=== PATIENT | male | born 1950 | race Hispanic/Latino ===

== ENCOUNTER 2016-12-08 06:21 | Day surgery (SDC) | payer MEDICARE ==
[2016-12-06 13:10] VITALS: BMI 34.8
[2016-12-08 07:12] LABS: ADD MANUAL DIFF? NO
[2016-12-08 07:23] LABS: BLOOD UREA NITROGEN 23 mg/dL (7-21); CALCIUM 8.9 mg/dL (8.4-10.5); CARBON DIOXIDE 30 mmol/L (21-33); CHLORIDE 101 mmol/L (95-110); GFR AFRICAN-AMERICAN > 60; GLUCOSE,RANDOM 121 mg/dL (70-110); POTASSIUM 3.9 mmol/L (3.6-5.0); SODIUM 140 mmol/L (132-148)
[2016-12-08 07:25] LABS: INR 0.97 (0.93-1.08); PARTIAL THROMBOPLASTIN TIME 26.1 Seconds (23.7-30.8)
[2016-12-08 07:40] LABS: BASO # 0.04 K/mm3 (0.0-2.0); BASO % 0.7 % (0.0-3.0); EOS # 0.2 (0.0-0.7); GRAN # 3.93 (1.4-6.5); GRAN % 66.3 % (50.0-68.0); HEMATOCRIT 43.5 % (42.0-52.0); LYMPH # 1.3 (1.2-3.4); LYMPH % 21.4 % (22.0-35.0); MEAN CELL VOLUME 88.1 fL (80.0-105.0); MEAN PLATELET VOLUME 10.7 fl (7.0-11.0); MONO # 0.5 (0.1-0.6); MONO % 8.6 % (1.0-6.0); PLATELET COUNT 168 10^3/uL (120.0-450.0); RED CELL DISTRIBUTION WIDTH 13.5 % (11.5-14.5); WHITE BLOOD COUNT 5.9 10^3/ul (4.5-11.0)
[2016-12-08] MEDS ORDERED: Lidocaine 2% Inj (20ml) ONE (09:19)
[2016-12-08] MEDS ORDERED: Iodixanol 320 MG/ML 200 ML BOTTLE IV ONE (09:20)
[2016-12-08] MEDS ORDERED: Midazolam 2 MG/2 ML VIAL ONE ×2 (09:20→09:40)
[2016-12-08] MEDS ORDERED: Sodium Chloride 0.9% 1,000 ML IV SCH (10:30)
--- NOTE | 2016-12-08 10:41 | CARD ---
APPROVED REPORT EKG Measurement Heart [id number] <Conclusion> Normal sinus rhythm Nonspecific T wave abnormality Prolonged QT Abnormal ECG
[2016-12-08 10:45] VITALS: TEMP 97.9
--- NOTE | 2016-12-08 11:09 | CARDCATH ---
PROCEDURE DATE: 12/08/2016 HISTORY: The patient is a 66-year-old male with history of multivessel PTCA and stent in the past. He presents with an abnormal stress test. His ejection fraction had decreased since his last procedure. Because of this, cardiac catheterization was recommended. The patient suffers from COPD, is status post tracheostomy. PROCEDURE: Left heart catheterization with coronary angiography and left ventriculogram. The right femoral artery was cannulated with a 6-German sheath. There were no complications. The findings on catheterization revealed a left ventricle that was seen in the DAVILA projection. In th e DAVILA projection, wall motion is mildly hypokinetic. Estimated ejection fraction is 45-50%. His coronary anatomy revealed a right dominant circulation. The RCA revealed diffuse atherosclerosis with a patent stent in the mid to distal portion. The left main artery was unremarkable. The LAD revealed a patent stent in its proximal portion. There was diffuse atherosclerosis, includin g a 50% stenosis in the mid-portion after the stent. The circumflex artery and obtuse marginal branches revealed diffuse atherosclerosis with no critical lesions. Angio-Seal was used to close the femoral artery site. The patient tolerated the procedure well. In summary, the procedure revealed an LV that was mildly hypokinetic with an EF of 45-50%. There are patent stents in the proximal LAD, patent stents in the mid-RCA. There is a 50% stenosis in the mid-LAD with diffuse atherosclerosis of his coronary tree. Given these findings, the patient's coronary anatomy has not significantly changed from his previous. His LV function is mildly decreased from his previous. Given these findings, I will discuss with the patient about the need to aggressively reduce his cardi ac risk factors. We can stop his Plavix and continue on aspirin. Micky Vincent MD cc: [id number] TT: 12/08/2016 11:08:23 [email or web address]
[2016-12-08 13:05] VITALS: RESP 16
[2016-12-08 16:48] VITALS: BP 116/70; PULSE 64; O2SAT 96
== END 2016-12-08 16:39 | disposition home or self-care (01) ==
LOC: CATH 06:21
PROVIDERS: ATTEND Internal Medicine Cardiovascular Disease
DX: I25.10 Atherosclerotic heart disease of native coronary artery without angina pectoris (principal); J44.9 Chronic obstructive pulmonary disease, unspecified; Z95.5 Presence of coronary angioplasty implant and graft
CPT/HCPCS: 36415; 80048; 85025; 85610; 85730; 86850; 86900; 93005; 93458; 99152; C1760; C1769; C2629; J1644; J2250; J3010; J7040 ×2

== ENCOUNTER 2017-04-23 10:45 | Emergency (ER) | payer MEDICARE ==
[2017-04-23 10:45] VITALS: BMI 34.8
[2017-04-23 10:57] VITALS: BP 113/77; PULSE 78; RESP 19; TEMP 98.2; O2SAT 97
[2017-04-23] MEDS ORDERED: Naproxen 550 mg Tab PO STA (11:18)
--- NOTE | 2017-04-23 11:24 | ED PDOC ---
Arrival/HPI - General Chief Complaint: Lower Extremity Problem/Injury Time Seen by Provider: 04/23/17 11:03 Historian: Patient - History of Present Illness Narrative History of Present Illness (Text): 04/23/17 11:24 A 66 year old male, whose past medical history includes COPD, presents to the emergency department complaining of right foot pain and swelling s/p slip and fall from the shower. Patient reports no pain after fall which was two days ago , but pain developed yesterday. Notes pain is worse when standing. Patient denies any other complaints at this time. PMD: Dr. Parra Orthopedist: Dr. Tipton Time/Duration: 24 hours Symptom Onset: Sudden Symptom Course: Unchanged Activities at Onset: Rest Context: Home Associated Symptoms (Text): none Past Medical History - Provider Review Nursing Documentation Reviewed: Yes - Infectious Disease Hx of Infectious Diseases: None - Cardiac Hx Pacemaker: No - Pulmonary Hx Chronic Obstructive Pulmonary Disease (COPD): Yes - Neurological Hx Paralysis: No - HEENT Hx Cataracts: Yes - Endocrine/Metabolic Hx Hypothyroidism: Yes - Hematological/Oncological Hx Blood Transfusions: No Hx Blood Transfusion Reaction: No - Musculoskeletal/Rheumatological Hx Musculoskeletal Disorders: No - Genitourinary/Gynecological Hx Bladder Cancer: Yes - Psychiatric Hx Emotional Abuse: No Hx Physical Abuse: No Hx Substance Use: No - Surgical History Other/Comment: 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 - Anesthesia Hx Anesthesia: Yes Hx Anesthesia Reactions: No Hx Malignant Hyperthermia: No - Suicidal Assessment Feels Threatened In Home Enviroment: No Family/Social History - Physician Review Nursing Documentation Reviewed: Yes Family/Social History: No Known Family HX Smoking Status: Former Smoker Hx Alcohol Use: No Hx Substance Use: No Hx Substance Use Treatment: No Allergies/Home Meds Allergies/Adverse Reactions: Allergies No Known Allergies Allergy (Verified 04/23/17 10:57) Home Medications: Home Meds Medication Instructions Recorded Confirmed Albuterol/Ipratropium [Duoneb 3 1 inh INH BID 06/18/12 04/23/17 mg/0.5 mg/3 ml] Budesonide [Pulmicort Respules] 0.5 mg IH BID 06/18/12 04/23/17 Aclidinium [place] [Tudorza 400 mcg IH BID 01/06/16 04/23/17 Pressair] Albuterol HFA [Ventolin HFA 90 2 puff IH PRN PRN 01/06/16 04/23/17 mcg/actuation (8 g)] Aspirin [Aspirin EC] 81 mg PO DAILY 01/06/16 04/23/17 Cholecalciferol (Vitamin D3) 2,000 unit PO DAILY 01/06/16 04/23/17 [Vitamin D] Levothyroxine Sodium [Unithroid] 112 mcg PO QAM 01/06/16 04/23/17 Magnesium Oxide [Pharmassure 500 mg PO QPM 01/06/16 04/23/17 Magnesium] Vitamin B Complex [Vitamin B 1 tab PO QAM 01/06/16 04/23/17 Complex] Pantoprazole [Protonix] 40 mg PO DAILY 09/04/16 04/23/17 Vortioxetine Hydrobromide 10 mg PO DAILY 09/04/16 04/23/17 [Trintellix] Pravastatin Sodium [Pravachol] 1 tab PO HS 04/23/17 04/23/17 Review of Systems - Physician Review All systems were reviewed & negative as marked: Yes - Review of Systems Constitutional: absent: Fevers Musculoskeletal: Other (right foot pain and swelling). absent: Back Pain Neurological: absent: Headache Physical Exam Vital Signs Reviewed: Yes Vital Signs Temp Pulse Resp BP Pulse Ox 04/23/17 10:50 98.2 F 78 19 113/77 97 Temperature: Afebrile Blood Pressure: Normal Pulse: Regular Respiratory Rate: Normal Appearance: Positive for: Well-Appearing, Non-Toxic, Comfortable Pain Distress: None Mental Status: Positive for: Alert and Oriented X 3 - Systems Exam Head: Present: Atraumatic, Normocephalic Pupils: Present: PERRL Extroacular Muscles: Present: EOMI Conjunctiva: Present: Normal Mouth: Present: Moist Mucous Membranes Neck: Present: Normal Range of Motion Respiratory/Chest: Present: Clear to Auscultation, Good Air Exchange. No: Respiratory Distress, Accessory Muscle Use Cardiovascular: Present: Regular Rate and Rhythm, Normal S1, S2. No: Murmurs Abdomen: Present: Normal Bowel Sounds. No: Tenderness, Distention, Peritoneal Signs Back: Present: Normal Inspection Upper Extremity: Present: Normal Inspection. No: Cyanosis, Edema Lower Extremity: Present: Other (mild right foot swelling and tenderness) Neurological: Present: GCS=15, CN II-XII Intact, Speech Normal Skin: Present: Warm, Dry, Normal Color. No: Rashes Psychiatric: Present: Alert, Oriented x 3, Normal Insight, Normal Concentration Medical Decision Making ED Course and Treatment: 04/23/17 11:19 Impression: A 66 year old male with right foot pain and swelling s/p slip and fall. Differential Diagnosis included but are not limited to: r/o fracture Plan: -- Radiology of right foot -- Anaprox -- Reassess and disposition Prior Visits: Notes and results from previous visits were reviewed. Patient last reported to the emergency department on 09/04/16 for evaluation of cough and airway tightening. Progress Notes: 04/23/17 14:03 Right Foot Radiographs Creator : Dao Shin MD FINDINGS: BONES: No evidence of acute displaced fracture nor dislocation. The osseous structures appear intact. There also appears to be a tiny posterior calcaneal enthesophyte. JOINTS: Mild degenerative changes of the anterior tibia articulation best seen on the lateral projection SOFT TISSUES: Normal. IMPRESSION: No acute displaced fracture nor dislocation. . If symptoms persist or occult fracture suspected clinically recommend repeat radiographs in 5-10 days as most fractures should become radiographically evident this timeframe. See above discussion for additional details and findings. Patient in agreement with plan to be discharged home. Patient is stable for discharge. Patient was instructed to follow up with physician/clinic in 1-2 days or return if symptoms worsen or new concerning symptoms arise. 04/23/17 16:14 pt put in orthopedic shoe. - RAD Interpretation Radiology Orders: 04/23/17 11:17 FOOT RIGHT 3 VIEWS ROUTINE [RAD] Stat - Medication Orders Current Medication Orders: Discontinued Medications Naproxen (Anaprox Ds) 550 mg PO STAT STA Stop: 04/23/17 11:19 Last Admin: 04/23/17 11:29 Dose: 550 mg - Scribe Statement The provider has reviewed the documentation as recorded by the Rick Rodriguez Provider Scribe Attestation: All medical record entries made by the Scribe were at my direction and personally dictated by me. I have reviewed the chart and agree that the record accurately reflects my personal performance of the history, physical exam, medical decision making, and the department course for this patient. I have also personally directed, reviewed, and agree with the discharge instructions and disposition. Disposition/Present on Arrival - Present on Arrival Any Indicators Present on Arrival: No History of DVT/PE: No History of Uncontrolled Diabetes: No Urinary Catheter: No History of Decub. Ulcer: No History Surgical Site Infection Following: None - Disposition Have Diagnosis and Disposition been Completed?: No Diagnosis: Foot sprain Disposition: HOME/ ROUTINE Disposition Time: 11:00 Condition: STABLE Discharge Instructions (ExitCare): Foot Sprain (ED) Additional Instructions: please follow up with specialist. return to emergency room with worsening symptoms or concerns. Prescriptions: Naproxen 500 mg PO BID PRN #14 tab PRN Reason: Pain, Mild (1-3) Referrals: Basil Parra MD [Primary Care Provider] - Follow up with primary Scott Tipton DO [Staff Provider] - Follow up with primary Forms: [employer] ([place])
--- NOTE | 2017-04-23 14:03 | RAD ---
PROCEDURE: Right Foot Radiographs. HISTORY: trauma COMPARISON: None. FINDINGS: BONES: No evidence of acute displaced fracture nor dislocation. The osseous structures appear intact. There also appears to be a tiny posterior calcaneal enthesophyte. JOINTS: Mild degenerative changes of the anterior tibia articulation best seen on the lateral projection SOFT TISSUES: Normal. OTHER FINDINGS: None. IMPRESSION: No acute displaced fracture nor dislocation. . If symptoms persist or occult fracture suspected clinically recommend repeat radiographs in 5-10 days as most fractures should become radiographically evident this timeframe. See above discussion for additional details and findings.
== END 2017-04-23 12:26 | disposition home or self-care (01) ==
LOC: ED 10:45
DX: S93.601A Unspecified sprain of right foot, initial encounter (principal); W18.2XXA Fall in (into) shower or empty bathtub, initial encounter; Y93.E1 Activity, personal bathing and showering; Y92.89 Other specified places as the place of occurrence of the external cause

== ENCOUNTER 2017-06-06 07:22 | Day surgery (SDC) | payer MEDICARE ==
[2017-06-06 08:23] VITALS: BMI 34.8
[2017-06-06] MEDS ORDERED: Propofol 10 mg/ml Inj (20 ML) ONE ×2 (09:26→09:37)
[2017-06-06] MEDS ORDERED: Sodium Chloride 0.9% 1,000 ML IV SCH (10:15)
[2017-06-06 11:00] VITALS: TEMP 98.5
[2017-06-06 11:02] VITALS: BP 95/72; PULSE 73; RESP 17; O2SAT 97
== END 2017-06-06 11:14 | disposition home or self-care (01) ==
LOC: ENDO 07:22
PROVIDERS: ATTEND Internal Medicine Gastroenterology
DX: Z12.11 Encounter for screening for malignant neoplasm of colon (principal); D12.2 Benign neoplasm of ascending colon; D12.4 Benign neoplasm of descending colon; D12.5 Benign neoplasm of sigmoid colon; D12.3 Benign neoplasm of transverse colon; K57.30 Diverticulosis of large intestine without perforation or abscess without bleeding; Z86.010 Personal history of colon polyps; K64.8 Other hemorrhoids; I25.10 Atherosclerotic heart disease of native coronary artery without angina pectoris; E78.5 Hyperlipidemia, unspecified
CPT/HCPCS: 45380; 45381; 45385; 88305; J2704; J7040 ×2

== ENCOUNTER 2018-05-17 13:48 | Inpatient (IN) | payer MEDICARE ==
--- NOTE | 2018-05-17 16:01 | RAD ---
Date of service: 05/17/2018 HISTORY: Abdominal pain COMPARISON: 12/13/2017. FINDINGS: LUNGS: There is low lung volume on the right. Mild shift of trachea and mediastinal to the right. Right apical pleural thickening the left lung is hyperinflated. No focal consolidation. PLEURA: No significant pleural effusion identified, no pneumothorax apparent. CARDIOVASCULAR: Normal. OSSEOUS STRUCTURES: No significant abnormalities. VISUALIZED UPPER ABDOMEN: Normal. OTHER FINDINGS: There is chronic elevation of the right hemidiaphragm. IMPRESSION: COPD. No significant interval change.
--- NOTE | 2018-05-17 16:07 | US ---
Date of service: 05/17/2018 HISTORY: upper abdominal pain COMPARISON: None. TECHNIQUE: Grayscale imaging was performed. FINDINGS: LIVER: Measures 16.7 cm. There is diffuse increased echogenicity of the liver parenchyma. No mass. No intrahepatic bile duct dilatation. GALLBLADDER: There are multiple gallstones.No wall thickening or pericholecystic fluid. The sonographic Jeffers's sign is negative. COMMON BILE DUCT: Measures 5.2 mm. No stones. No dilatation. PANCREAS: Obscured by bowel gas. No mass. No ductal dilatation. RIGHT KIDNEY: Measures 9.9cm. Normal echogenicity. No calculus, mass, or hydronephrosis. LEFT KIDNEY: Measures 9.1cm. Normal echogenicity. No calculus, mass, or hydronephrosis. SPLEEN: Normal in size and contour. No mass. AORTA: No aneurysmal dilatation. IVC: Unremarkable. OTHER FINDINGS: None. IMPRESSION: Mild hepatomegaly. Diffuse increased echogenicity in the liver may reflect hepatic steatosis however parenchymal infectious/ inflammatory etiologies cannot be entirely excluded. Clinical and laboratory correlation is advised. No biliary dilatation.. Cholelithiasis.
--- NOTE | 2018-05-17 16:19 | ED PDOC ---
Arrival/HPI - General Historian: Patient <Mya Galvin - Last Filed: 05/17/18 22:27> <Ronald Pineda - Last Filed: 05/18/18 23:02> - General Chief Complaint: Abdominal Pain Time Seen by Provider: 05/17/18 14:38 - History of Present Illness Narrative History of Present Illness (Text): 05/17/18 16:16 68-year-old male presents today with a 2 day history of right-sided back pain and right-sided upper abdominal pain. Patient states he feels the pain in the back coming through to the abdomen. He describes a throbbing sensation. He denies chest pain. He is complaining of occasional dyspnea on exertion but denies any shortness of breath at present time. He denies nausea vomiting diarrhea or constipation. He denies urinary symptoms. He denies headaches dizziness or weakness. Patient states he was seen by his primary care physician and was advised to come to the emergency room for evaluation. (Mya Galvin ) Past Medical History - Provider Review Nursing Documentation Reviewed: Yes - Travel History Have you recently traveled outside [place] w/in the past 3 mons?: No - Infectious Disease Hx of Infectious Diseases: None - Cardiac Hx Cardiac Disorders: Yes (CAD) Hx Pacemaker: No - Pulmonary Hx Respiratory Disorders: Yes (TRACHE) Hx Chronic Obstructive Pulmonary Disease (COPD): Yes Hx Pneumonia: Yes Other/Comment: USED TO SMOKE 4 PPD QUIT 1999 - Neurological Hx Neurological Disorder: Yes Hx Dizziness: Yes - HEENT Hx HEENT Disorder: Yes Hx Cataracts: Yes - Renal Hx Renal Disorder: No - Endocrine/Metabolic Hx Endocrine Disorders: Yes Hx Hypothyroidism: Yes - Hematological/Oncological Hx Blood Disorders: Yes Hx Anemia: No Hx Cancer: Yes (Bladder CA) - Integumentary Hx Dermatological Disorder: Yes Other/Comment: 08-10-[address] GUIDED BX,INCISION TO RIGHT UPPER CHEST.INCISION TO RIGHT UPPER BACK. - Musculoskeletal/Rheumatological Hx Musculoskeletal Disorders: No Hx Falls: No - Gastrointestinal Hx Gastrointestinal Disorders: Yes (LARYNGEAL CA) - Genitourinary/Gynecological Hx Genitourinary Disorders: No - Psychiatric Hx Emotional Abuse: No Hx Physical Abuse: No Hx Substance Use: No - Surgical History Hx Cardiac Catheterization: Yes Hx Coronary Stent: Yes (X2) - Anesthesia Hx Anesthesia Reactions: No Hx Malignant Hyperthermia: No - Suicidal Assessment Feels Threatened In Home Enviroment: No <AnkurmireyaMya - Last Filed: 05/17/18 22:27> Family/Social History - Physician Review Nursing Documentation Reviewed: Yes Family/Social History: Unknown Family HX Smoking Status: Former Smoker Hx Alcohol Use: No Hx Substance Use: No Hx Substance Use Treatment: No <Mya Galvin - Last Filed: 05/17/18 22:27> Allergies/Home Meds <Mya Galvin - Last Filed: 05/17/18 22:27> <Ronald Pineda - Last Filed: 05/18/18 23:02> Allergies/Adverse Reactions: Allergies No Known Allergies Allergy (Verified 08/10/17 18:44) Home Medications: Home Meds Medication Instructions Recorded Confirmed Albuterol/Ipratropium [Duoneb 3 1 inh INH BID 06/18/12 05/17/18 mg/0.5 mg (3 ml) UD] Budesonide [Pulmicort Respules] 0.5 mg IH BID 06/18/12 05/17/18 Aclidinium [place] [Tudorza 400 mcg IH BID 01/06/16 05/17/18 Pressair] Albuterol HFA [Ventolin HFA 90 2 puff IH BID PRN 01/06/16 05/17/18 mcg/actuation (8 g)] Aspirin [Aspirin EC] 81 mg PO DAILY 01/06/16 05/17/18 Cholecalciferol (Vitamin D3) 2,000 unit PO DAILY 01/06/16 05/17/18 [Vitamin D3] Levothyroxine Sodium [Unithroid] 100 mcg PO QAM 01/06/16 05/17/18 Magnesium Oxide [Magnesium] 500 mg PO QPM 01/06/16 05/17/18 Vitamin B Complex 1 tab PO QAM 01/06/16 05/17/18 Pantoprazole [Protonix EC Tab] 40 mg PO DAILY 09/04/16 05/17/18 Vortioxetine Hydrobromide 10 mg PO DAILY 09/04/16 05/17/18 [Trintellix] Pravastatin Sodium [Pravachol] 10 mg PO HS 04/23/17 05/17/18 Clopidogrel [Plavix] 75 mg PO DAILY 05/17/18 05/17/18 Review of Systems - Review of Systems Constitutional: absent: Fatigue, Fevers Respiratory: absent: SOB, Cough Cardiovascular: CHO. absent: Chest Pain, Palpitations Gastrointestinal: Abdominal Pain. absent: Constipation, Nausea, Vomiting, Appetite Changes Genitourinary Male: absent: Dysuria, Frequency, Hematuria, Urinary Output Changes Musculoskeletal: Back Pain. absent: Arthralgias, Neck Pain Skin: absent: Rash, Pruritis Neurological: absent: Headache, Dizziness Psychiatric: absent: Anxiety, Depression <Mya Galvin - Last Filed: 05/17/18 22:27> Physical Exam Vital Signs Reviewed: Yes Temperature: Afebrile Blood Pressure: Normal Pulse: Regular Respiratory Rate: Normal Appearance: Positive for: Well-Appearing, Non-Toxic, Comfortable Pain Distress: None Mental Status: Positive for: Alert and Oriented X 3 - Systems Exam Head: Present: Atraumatic Mouth: Present: Moist Mucous Membranes Neck: Present: Normal Range of Motion Respiratory/Chest: Present: Clear to Auscultation, Good Air Exchange. No: Respiratory Distress, Accessory Muscle Use Cardiovascular: Present: Regular Rate and Rhythm, Normal S1, S2. No: Murmurs Abdomen: Present: Tenderness (+ ruq tenderness). No: Distention, Peritoneal Signs, Rebound, Guarding Back: Present: Normal Inspection, CVA Tenderness (+ right sided CVA tenderness) Upper Extremity: Present: Normal ROM Lower Extremity: Present: Normal ROM Neurological: Present: GCS=15, Speech Normal Skin: Present: Warm, Dry, Normal Color. No: Rashes Psychiatric: Present: Alert, Oriented x 3 <Mya Galvin - Last Filed: 05/17/18 22:27> Vital Signs Temp Pulse Resp BP Pulse Ox 05/17/18 20:30 62 18 136/95 H 97 05/17/18 14:35 98.9 F 69 18 117/69 99 05/17/18 14:17 98.4 F 46 L 18 114/65 100 Medical Decision Making <Mya Galvin - Last Filed: 05/17/18 22:27> <Ronald Pineda - Last Filed: 05/18/18 23:02> ED Course and Treatment: 05/17/18 16:19 Patient is nontoxic well appearing with stable vital signs presenting with right sided abdominal pain and back pain CBC: wnl CMP: wnl Lipase: wnl ekg; NSR at 69b/m no st elevations, qtc 490 cxr; FINDINGS: LUNGS: There is low lung volume on the right. Mild shift of trachea and mediastinal to the right. Right apical pleural thickening the left lung is hyperinflated. No focal consolidation. PLEURA: No significant pleural effusion identified, no pneumothorax apparent. CARDIOVASCULAR: Normal. OSSEOUS STRUCTURES: No significant abnormalities. VISUALIZED UPPER ABDOMEN: Normal. OTHER FINDINGS: There is chronic elevation of the right hemidiaphragm. IMPRESSION: COPD. No significant interval change. Urinalysis: wnl Ultrasound: FINDINGS: LIVER: Measures 16.7 cm. There is diffuse increased echogenicity of the liver parenchyma. No mass. No intrahepatic bile duct dilatation. GALLBLADDER: There are multiple gallstones.No wall thickening or pericholecystic fluid. The sonographic Jeffers's sign is negative. COMMON BILE DUCT: Measures 5.2 mm. No stones. No dilatation. PANCREAS: Obscured by bowel gas. No mass. No ductal dilatation. RIGHT KIDNEY: Measures 9.9cm. Normal echogenicity. No calculus, mass, or hydronephrosis. LEFT KIDNEY: Measures 9.1cm. Normal echogenicity. No calculus, mass, or hydronephrosis. SPLEEN: Normal in size and contour. No mass. AORTA: No aneurysmal dilatation. IVC: Unremarkable. OTHER FINDINGS: None. IMPRESSION: Mild hepatomegaly. Diffuse increased echogenicity in the liver may reflect hepatic steatosis however parenchymal infectious/ inflammatory etiologies cannot be entirely excluded. Clinical and laboratory correlation is advised. No biliary dilatation.. Cholelithiasis. CAT scan:FINDINGS: CT ANGIOGRAPHY OF THE CHEST WITH & WITHOUT CONTRAST: AORTA (CHEST AND ABDOMEN): The thoracic and abdominal aorta are unremarkable, without aneurysm, dissection or rupture. No intramural thrombus identified in the thoracic aorta on the non-contrast ct of the chest. The celiac axis, superior mesenteric artery, inferior mesenteric artery and the renal arteries are widely patent. The pelvic arteries are unremarkable. LUNGS: Clear. No nodule, mass or consolidation. MEDIASTINUM: Unremarkable. Normal caliber aorta and pulmonary arterial trunk. No aortic dissection. Normal size heart. LYMPH NODES: These are stable findings. Unremarkable. PLEURA: Unremarkable. No pneumothorax. No pleural fluid. BONES: Unremarkable. OTHER FINDINGS: Findings related to prior tracheostomy, postoperative findings in neck. Tracheostomy device identified. CT ANGIOGRAPHY OF THE ABDOMEN AND PELVIS WITH CONTRAST: LIVER: Hepatic steatosis. No focal masses. No intrahepatic bile duct dilatation or perihepatic ascites. GALLBLADDER AND BILE DUCTS: Unremarkable. Gallstones identified recent studies are not apparent on the current examination. PANCREAS: Unremarkable. No gross lesion or ductal dilatation. SPLEEN: Unremarkable. ADRENALS: Unremarkable. No mass. KIDNEYS AND URETERS: Unremarkable. No hydronephrosis. No solid mass. VASCULATURE: Unremarkable. No aortic aneurysm. STOMACH AND BOWEL: Diverticulosis without an acute inflammatory component or other associated pathologic process. APPENDIX: No abnormalities to suggest acute appendicitis. No right lower quadrant inflammatory processes identified. PERITONEUM: Unremarkable. No free fluid. No free air. LYMPH NODES: Unremarkable. No enlarged lymph nodes. BLADDER: Unremarkable. REPRODUCTIVE: Unremarkable. BONES: No acute fracture. OTHER FINDINGS: None. IMPRESSION: No evidence of aortic aneurysm or dissection. No aortic or iliac occlusive disease identified. Additional benign and/or incidental findings described above. Volume loss in the right hemithorax/right upper lobe region. Scarring in the right lower lobe, right middle lobe. Compensatory hypertrophy left lung. Underlying emphysematous change stone. No suspicious pulmonary nodules or masses. Patient reassessment: pt still with slight pain. ruq tenderness, right CVA tenderness. Discussed all results with patient in depth will admit observational status to med/surg. will consult surgery. pt with RUQ abdominal pain, r/o cholecysitis, consider hida. case discussed with dr. tuttle accepts observational status admiss Impression: Abdominal pain, gallstones admit observational status (Mya Galvin) - Lab Interpretations Microbiology Results: Microbiology Results 05/17/18 16:20 Blood Blood Culture - Preliminary NO GROWTH AFTER 24 HOURS 05/17/18 16:00 Blood Blood Culture - Preliminary NO GROWTH AFTER 24 HOURS Lab Results: 05/18/18 06:30 05/18/18 06:30 Lab Results 05/18/18 06:30: PT 11.7, INR 1.02, APTT 28.4 05/18/18 06:30: Sodium 142, Potassium 4.1, Chloride 108 H, Carbon Dioxide 27, Anion Gap 11, BUN 17, Creatinine 1.2, Est GFR ( Amer) > 60, Est GFR (Non- Af Amer) > 60, Random Glucose 95, Calcium 8.4, Phosphorus 3.5, Magnesium 2.0, Total Bilirubin 0.6, AST 44, ALT 43, Alkaline Phosphatase 84, Total Protein 6.6 , Albumin 3.6, Globulin 2.9, Albumin/Globulin Ratio 1.2 05/18/18 06:30: WBC 6.6, RBC 4.96, Hgb 14.5, Hct 44.4, MCV 89.5, MCH 29.2, MCHC 32.7, RDW 14.1, Plt Count 182, MPV 10.9 05/17/18 16:50: WBC 6.4 D, RBC 5.12, Hgb 15.3, Hct 44.9, MCV 87.7 D, MCH 29.9 , MCHC 34.1, RDW 13.8, Plt Count 220, MPV 10.9, Gran % 71.4 H, Lymph % (Auto) 20.0 L, [place] % (Auto) 6.1 H, Eos % (Auto) 2.2, Baso % (Auto) 0.3, Gran # 4.54, Lymph # (Auto) 1.3, [place] # (Auto) 0.4, Eos # (Auto) 0.1, Baso # (Auto) 0.02 05/17/18 16:50: Sodium 142, Potassium 4.6, Chloride 104, Carbon Dioxide 30, Anion Gap 13, BUN 17, Creatinine 1.1, Est GFR ( Amer) > 60, Est GFR (Non- Af Amer) > 60, Random Glucose 68 L, Calcium 8.8, Total Bilirubin 0.5, AST 41, ALT 45, Alkaline Phosphatase 90, Lactate Dehydrogenase 454, Total Creatine Kinase 331 H, CK-MB (CK-2) 2.0, CK-MB (CK-2) % Cancelled, Troponin I < 0.01, NT- Pro-B Natriuret Pep 329, Total Protein 7.3, Albumin 4.2, Globulin 3.1, Albumin/ Globulin Ratio 1.3, Lipase 72 05/17/18 16:50: Urine Color Yellow, Urine Appearance Clear, Urine pH 7.0, Ur Specific [place] 1.015, Urine Protein Negative, Urine Glucose (UA) Negative, Urine Ketones Negative, Urine Blood Negative, Urine Nitrate Negative, Urine Bilirubin Negative, Urine Urobilinogen 0.2, Ur Leukocyte Esterase Negative - RAD Interpretation Radiology Orders: 05/17/18 14:39 CHEST PORTABLE [RAD] Stat 05/17/18 15:05 ABDOMEN COMPLETE [US] Stat 05/17/18 15:10 ANGIOGRAPHY DISECTION PROTOCOL [CT] Stat 05/18/18 09:00 BILIARY SCAN (HIDA) [NM] Routine - Medication Orders Current Medication Orders: Albuterol/Ipratropium (Duoneb 3 Mg/0.5 Mg (3 Ml) Ud) 3 ml IH Q6 PRN PRN Reason: Shortness of Breath Aspirin (Ecotrin) 81 mg PO DAILY JOSELINE Last Admin: 05/18/18 11:51 Dose: 81 mg Atorvastatin Calcium (Lipitor) 10 mg PO HS JOSELINE Budesonide (Pulmicort Respules) 0.5 mg IH BIDRESP JOSELINE Last Admin: 05/18/18 20:25 Dose: 0.5 mg Docusate Sodium (Colace) 100 mg PO DAILY JOSELINE Last Admin: 05/18/18 11:50 Dose: 100 mg Last Bowel Movement Document 05/18/18 11:50 [facility] (Rec: 05/18/18 11:51 [id number]) Last Bowel Movement Last Bowel Movement 05/17/18 Home Med (Home Med) 1 unit PO DAILY [facility] Lactated Ringer's (Lactated Ringer's) 1,000 mls @ 100 mls/hr IV .Q10H [facility] Last Admin: 05/18/18 21:29 Dose: 100 mls/hr eMAR Start Stop Document 05/18/18 21:29 BN (Rec: 05/18/18 21:29 [id number]) Intravenous Solution Start Date 05/18/18 Start Time 21:29 Metronidazole (Flagyl) 500 mg in 100 mls @ 100 mls/hr IVPB Q8 JOSELINE PRN Reason: Protocol Last Admin: 05/18/18 21:28 Dose: 100 mls/hr Comments: previous flagyl was ran by AM RN on time but was unscanned as endorsed to me by them eMAR Start Stop Document 05/18/18 21:28 BN (Rec: 05/18/18 21:28 [id number]) Intravenous Solution Start Date 05/18/18 Start Time 21:28 Ceftriaxone Sodium (Rocephin 1 Gram Ivpb) 1 gm in 100 mls @ 100 mls/hr IVPB DAILY JOSELINE PRN Reason: Protocol Last Admin: 05/18/18 17:52 Dose: 100 mls/hr eMAR Start Stop Document 05/18/18 17:52 [facility] (Rec: 05/18/18 17:52 [id number] Solution Start Date 05/18/18 Start Time 17:52 End Date 05/18/18 Levothyroxine Sodium (Synthroid) 100 mcg PO ACB [facility] Last Admin: 05/18/18 08:31 Dose: 100 mcg Morphine Sulfate (Morphine) 4 mg IVP Q6H PRN PRN Reason: Pain, severe (8-10) Last Admin: 05/18/18 10:44 Dose: 4 mg [facility] Pain Assessment Document 05/18/18 10:44 [facility] (Rec: 05/18/18 10:45 [email or web address]) Pain Reassessment Is this a pain reassessment? No Sleep Is patient sleeping during reassessment? No Presence of Pain Presence of Pain Yes Pain Scale Used Pain Scale Used Numeric Location Left, Right or Bilateral Left Pain Location Body Site Back Description Intensity of Pain at present 8 IVP Administration Document 05/18/18 10:44 [facility] (Rec: 05/18/18 10:45 [id number] Charges for Administration # of IVP Administrations 1 Re-Assess: [facility] Pain Assessment Document 05/18/18 11:44 [facility] (Rec: 05/18/18 17:36 [id number] Pain Reassessment Is this a pain reassessment? No Sleep Is patient sleeping during reassessment? No Presence of Pain Presence of Pain No Pain Scale Used Pain Scale Used Numeric Morphine Sulfate (Morphine) 2 mg IVP Q4H PRN PRN Reason: Pain, moderate (4-7) Ondansetron HCl (Zofran Inj) 4 mg IVP Q6H PRN PRN Reason: Nausea/Vomiting Oxycodone HCl (Oxycodone Immediate Release Tab) 5 mg PO Q6H PRN PRN Reason: Pain, moderate (4-7) Pantoprazole Sodium (Protonix Ec Tab) 40 mg PO ACB [facility] Last Admin: 05/18/18 08:31 Dose: 40 mg Discontinued Medications Sodium Chloride (Sodium Chloride 0.9%) 500 mls @ 999 mls/hr IV .Q31M STA Stop: 05/17/18 20:18 Last Admin: 05/17/18 19:56 Dose: 999 mls/hr eMAR Start Stop Document 05/17/18 19:56 CNR (Rec: 05/17/18 19:57 CNR [id number]) Intravenous Solution Start Date 05/17/18 Start Time 19:56 End Date 05/17/18 End time 20:26 Total Infusion Time 30 Piperacillin Sod/Tazobactam Sod (Zosyn 3.375 In Ns 100ml) 100 mls @ 200 mls/hr IVPB Q6 JOSELINE PRN Reason: Protocol Stop: 05/18/18 06:29 Last Admin: 05/18/18 07:30 Dose: 200 mls/hr eMAR Start Stop Document 05/18/18 07:30 MJ (Rec: 05/18/18 07:31 MJ [facility] [id number]) Intravenous Solution Start Date 05/18/18 Start Time 07:30 End Date 05/18/18 End time 08:00 Total Infusion Time 30 Morphine Sulfate (Morphine) 2 mg IVP STAT STA Stop: 05/17/18 18:53 Last Admin: 05/17/18 19:03 Dose: 2 mg MAR Pain Assessment Document 05/17/18 19:03 [facility] (Rec: 05/17/18 19:03 [place] [id number]) Pain Reassessment Is this a pain reassessment? Yes Sleep Is patient sleeping during reassessment? No Presence of Pain Presence of Pain Yes Pain Scale Used Pain Scale Used Numeric Location Pain Location Body Site Abdomen Description Description Intermittent Intensity of Pain at present 8 IVP Administration Document 05/17/18 19:03 [facility] (Rec: 05/17/18 19:03 [facility] [id number]) Charges for Administration # of IVP Administrations 1 Morphine Sulfate (Morphine) 4 mg IVP STAT STA Stop: 05/17/18 19:49 Last Admin: 05/17/18 19:57 Dose: 4 mg MAR Pain Assessment Document 05/17/18 19:57 CNR (Rec: 05/17/18 19:57 CNR [id number]) Pain Reassessment Is this a pain reassessment? No IVP Administration Document 05/17/18 19:57 CNR (Rec: 05/17/18 19:57 CNR [id number]) Charges for Administration # of IVP Administrations 1 Morphine Sulfate (Morphine) 2 mg IVP Q4H PRN PRN Reason: Pain, severe (8-10) - PA / SENIOR MASTER SCHEDULER / Resident Statement MD/DO has reviewed & agrees with the documentation as recorded. <Ronald Pineda - Last Filed: 05/18/18 23:02> Disposition/Present on Arrival - Present on Arrival Any Indicators Present on Arrival: No History of DVT/PE: No History of Uncontrolled Diabetes: No Urinary Catheter: No History of Decub. Ulcer: No History Surgical Site Infection Following: None - Disposition Have Diagnosis and Disposition been Completed?: Yes Disposition Time: 18:52 Patient Plan: Observation <Mya Galvin - Last Filed: 05/17/18 22:27> <Ronald Pineda - Last Filed: 05/18/18 23:02> - Disposition Diagnosis: Abdominal pain, Gallstones Disposition: HOSPITALIZED Condition: FAIR
[2018-05-17 17:06] LABS: BASO # 0.02 K/mm3 (0.0-2.0); BASO % 0.3 % (0.0-3.0); EOS # 0.1 (0.0-0.7); EOS % 2.2 % (1.5-5.0); GRAN # 4.54 (1.4-6.5); GRAN % 71.4 % (50.0-68.0); HEMOGLOBIN 15.3 g/dL (14.0-18.0); LYMPH # 1.3 (1.2-3.4); MEAN CELL VOLUME 87.7 fl (80.0-105.0); MEAN CORPUSCULAR HEMOGLOBIN 29.9 pg (25.0-35.0); MEAN CORPUSCULAR HGB CONC 34.1 g/dl (31.0-37.0); MEAN PLATELET VOLUME 10.9 fl (7.0-11.0); MONO # 0.4 (0.1-0.6); MONO % 6.1 % (1.0-6.0); RBC 5.12 10^6/uL (3.5-6.1); RED CELL DISTRIBUTION WIDTH 13.8 % (11.5-14.5); WHITE BLOOD COUNT 6.4 10^3/ul (4.5-11.0)
[2018-05-17 17:09] LABS: ALB/GLOB RATIO 1.3 (1.1-1.8); ALBUMIN 4.2 g/dL (3.0-4.8); ALT/SGPT 45 U/L (7-56); AST/SGOT 41 U/L (17-59); BLOOD UREA NITROGEN 17 mg/dL (7-21); CALCIUM 8.8 mg/dL (8.4-10.5); GFR NON-AFRICAN AMERICAN > 60; LIPASE 72 U/L (23-300)
[2018-05-17 17:10] LABS: URINE APPEARANCE CLEAR (CLEAR); URINE BILIRUBIN NEGATIVE (NEGATIVE); URINE BLOOD NEGATIVE (NEGATIVE); URINE COLOR YELLOW (YELLOW); URINE GLUCOSE (UA) NEGATIVE (NEGATIVE); URINE LEUKOCYTE ESTERASE NEGATIVE Leu/uL (NEGATIVE); URINE PROTEIN NEGATIVE mg/dL (<30 mg/dL); URINE UROBILINOGEN 0.2 E.U./dL (<1 E.U./dL)
[2018-05-17 17:20] LABS: B-TYPE NATRIURETIC PEPTIDE 329 pg/mL (0-450); TROPONIN I < 0.01 ng/mL
--- NOTE | 2018-05-17 18:33 | CT ---
PROCEDURE: CT Angiography Chest, Abdomen and Pelvis with and without intravenous contrast HISTORY: Upper abdominal pain COMPARISON: May 17, 2018. Abdominal ultrasound. 07/25/2017 PET-CT scan. Summary of findings on the comparison examination: 1.5 cm spiculated border nodule right upper lobe. 11/17/2009 CT abdomen and pelvis TECHNIQUE: Contiguous axial images of the chest, abdomen and pelvis were obtained in the phase of aortic enhancement. A noncontrast enhanced CT of the chest was also obtained to evaluate for possible intramural thrombus. Coronal and sagittal reformats were generated. IV dose administered: 150 cc Omnipaque 350. Radiation dose: Total exam DLP = 1731.89 mGy-cm. This CT exam was performed using one or more of the following dose reduction techniques: Automated exposure control, adjustment of the mA and/or kV according to patient size, and/or use of iterative reconstruction technique. FINDINGS: CT ANGIOGRAPHY OF THE CHEST WITH & WITHOUT CONTRAST: AORTA (CHEST AND ABDOMEN): The thoracic and abdominal aorta are unremarkable, without aneurysm, dissection or rupture. No intramural thrombus identified in the thoracic aorta on the non-contrast ct of the chest. The celiac axis, superior mesenteric artery, inferior mesenteric artery and the renal arteries are widely patent. The pelvic arteries are unremarkable. LUNGS: Clear. No nodule, mass or consolidation. MEDIASTINUM: Unremarkable. Normal caliber aorta and pulmonary arterial trunk. No aortic dissection. Normal size heart. LYMPH NODES: These are stable findings. Unremarkable. PLEURA: Unremarkable. No pneumothorax. No pleural fluid. BONES: Unremarkable. OTHER FINDINGS: Findings related to prior tracheostomy, postoperative findings in neck. Tracheostomy device identified. CT ANGIOGRAPHY OF THE ABDOMEN AND PELVIS WITH CONTRAST: LIVER: Hepatic steatosis. No focal masses. No intrahepatic bile duct dilatation or perihepatic ascites. GALLBLADDER AND BILE DUCTS: Unremarkable. Gallstones identified recent studies are not apparent on the current examination. PANCREAS: Unremarkable. No gross lesion or ductal dilatation. SPLEEN: Unremarkable. ADRENALS: Unremarkable. No mass. KIDNEYS AND URETERS: Unremarkable. No hydronephrosis. No solid mass. VASCULATURE: Unremarkable. No aortic aneurysm. STOMACH AND BOWEL: Diverticulosis without an acute inflammatory component or other associated pathologic process. APPENDIX: No abnormalities to suggest acute appendicitis. No right lower quadrant inflammatory processes identified. PERITONEUM: Unremarkable. No free fluid. No free air. LYMPH NODES: Unremarkable. No enlarged lymph nodes. BLADDER: Unremarkable. REPRODUCTIVE: Unremarkable. BONES: No acute fracture. OTHER FINDINGS: None. IMPRESSION: No evidence of aortic aneurysm or dissection. No aortic or iliac occlusive disease identified. Additional benign and/or incidental findings described above. Volume loss in the right hemithorax/right upper lobe region. Scarring in the right lower lobe, right middle lobe. Compensatory hypertrophy left lung. Underlying emphysematous change stone. No suspicious pulmonary nodules or masses.
[2018-05-17] MEDS ORDERED: Morphine 2 mg/ml ISec IVP STA (18:52)
[2018-05-17] MEDS ORDERED: Morphine 4 mg/ml ISec IVP STA (19:48)
[2018-05-17] MEDS ORDERED: Sodium Chloride 0.9% 500 ML IV STA (19:48)
--- NOTE | 2018-05-17 20:34 | CARD ---
APPROVED REPORT Date of service: 05/17/2018 EKG Measurement Heart [id number] <Conclusion> Normal sinus rhythm Prolonged QT Abnormal ECG
[2018-05-17] MEDS ORDERED: Sodium Chloride 0.9% 1,000 ML IV SCH (20:45)
[2018-05-17] MEDS ORDERED: Morphine 4 mg/ml ISec IVP PRN (20:57)
--- NOTE | 2018-05-17 21:03 | CP.PCM.HP ---
<Yosef Bueno - Last Filed: 05/17/18 21:24> History of Present Illness - History of Present Illness History of Present Illness: Yosef Bueno, PGY1 H&P for Dr. Coates cc: abdominal pain Patient is a 68 y/o M with PMHx of COPD, Interstitial Lung Disease, HLD, CAD (s/ p multiple stent placement), Larygneal Carcinoma (s/p trach), Hypothyroidism, Anxiety who presented to the ED on 05/17 complaining of right sided abdominal pain and back pain. Patient said that he has been having this pain for the past few weeks. It was improving, but for the past 2 days the pain has been worsening. Prior to the hospital, patient was visiting his PMD (Dr. Sinha) in his clinic and was recommended to come to the ED for his symptoms. In the ED, patient's vitals were stable: Temp 98.9, HR 69, BP 117/69, RR 18, SaO2 99% on room air. Patient was given a dose of morphine to control his pain. EKG showed NSR at 69 bpm. Initial cbc and cmp was unremarkable. Troponin negative x1. Lipase normal. No leukocytosis. UA normal. Abdominal US and CT angio were ordered in the ED. Hospitalist team was consulted. Patient was seen at bedside in the ED. Patient said that he has this RUQ abdominal pain that radiates to his back and his right scapula. Patient endorses subjective fevers and nausea. Denies shortness of breath, chills, weight loss, night sweats, fatigue, vomiting , diarrhea, bowel/bladder changes, dysuria. Patient confirms that he has had this pain for a few weeks but it was mod-severe for the past two days. A full 12 point ROS was conducted and unremarkable except as stated above. PMD: Dr. Parra PMHx: COPD, Interstitial Lung Disease, HLD, CAD (s/p multiple stent placement), Larygneal Carcinoma (s/p trach), Hypothyroidism, Anxiety PSHx: R-upper lobectomy (08/2017), Multiple GI polyps removed Meds: ASA 81 mg PO daily, Plavix 75 mg PO daily, Trintellix 10 mg PO daily, Vitamin B complex, Pravastatin 10 mg PO HS, Mag Ox 500 mg qpm, Protonix 40 mg po daily, Synthroid 100 mcg PO qam, Vitamin D3 2000u PO daily, Pulmicort 0.5 mg IH BID, Ventolin 2 puffs IH BID prn, Tudorza Pressair 400 mcg IH BID. Allergies: NKDA Social Hx: former smoker (quit in 1999): smoked 5 PPD since age 19, social drinker, denies recreational drug use. FamHx: non-contributory Present on Admission - Present on Admission Any Indicators Present on Admission: No History of DVT/PE: No History of Uncontrolled Diabetes: No Review of Systems - Review of Systems All systems: reviewed and no additional remarkable complaints except (as per HPI.) Past Patient History - Infectious Disease Hx of Infectious Diseases: None - Past Social History Smoking Status: Former Smoker - CARDIAC Hx Cardiac Disorders: Yes (CAD) Hx Pacemaker: No - PULMONARY Hx Respiratory Disorders: Yes (TRACHE) Hx Chronic Obstructive Pulmonary Disease (COPD): Yes Hx Pneumonia: Yes Other/Comment: USED TO SMOKE 4 PPD QUIT 1999 - NEUROLOGICAL Hx Neurological Disorder: Yes Hx Dizziness: Yes - HEENT Hx HEENT Problems: Yes Hx Cataracts: Yes - RENAL Hx Chronic Kidney Disease: No - ENDOCRINE/METABOLIC Hx Endocrine Disorders: Yes Hx Hypothyroidism: Yes - HEMATOLOGICAL/ONCOLOGICAL Hx Blood Disorders: Yes Hx Anemia: No Hx Cancer: Yes (Bladder CA) - INTEGUMENTARY Hx Dermatological Problems: Yes Other/Comment: 08-10-[address] GUIDED BX,INCISION TO RIGHT UPPER CHEST.INCISION TO RIGHT UPPER BACK. - MUSCULOSKELETAL/RHEUMATOLOGICAL Hx Musculoskeletal Disorders: No Hx Falls: No - GASTROINTESTINAL Hx Gastrointestinal Disorders: Yes (LARYNGEAL CA) - GENITOURINARY/GYNECOLOGICAL Hx Genitourinary Disorders: No - PSYCHIATRIC Hx Emotional Abuse: No Hx Physical Abuse: No Hx Substance Use: No - SURGICAL HISTORY Hx Cardiac Catheterization: Yes Hx Coronary Stent: Yes (X2) - ANESTHESIA Hx Anesthesia Reactions: No Hx Malignant Hyperthermia: No Meds Allergies/Adverse Reactions: Allergies Allergy/AdvReac Type Severity Reaction Status Date / Time No Known Allergies Allergy Verified 08/10/17 18:44 Physical Exam - Constitutional Appears: No Acute Distress - Head Exam Head Exam: ATRAUMATIC, NORMAL INSPECTION, NORMOCEPHALIC - Eye Exam Eye Exam: EOMI, Normal appearance, PERRL - ENT Exam ENT Exam: Mucous Membranes Moist, Normal Exam - Neck Exam Neck exam: Positive for: Full Rom, Normal Inspection Additional comments: stoma noted (laryngeal ca s/p trach) - Respiratory Exam Respiratory Exam: Clear to Auscultation Bilateral, NORMAL BREATHING PATTERN. absent: Rales, Rhonchi, Wheezes Additional comments: R-axillary scar from R-upper lobectomy - Cardiovascular Exam Cardiovascular Exam: REGULAR RHYTHM, +S1, +S2. absent: Systolic Murmur - GI/Abdominal Exam GI & Abdominal Exam: Distended, Normal Bowel Sounds, Tenderness (RUQ tenderness with deep palpation ). absent: Bruit, Hernia, Organomegaly, Rebound Additional comments: Positive Jeffers sign - Extremities Exam Extremities exam: Positive for: normal inspection - Back Exam Back exam: CVA tenderness (R) - Neurological Exam Neurological exam: Alert, CN II-XII Intact, Oriented x3 - Psychiatric Exam Psychiatric exam: Normal Affect, Normal Mood - Skin Skin Exam: Dry, Intact, Normal Color, Warm Results - Vital Signs Recent Vital Signs: Last Vital Signs Temp 98.9 F 05/17/18 14:35 Pulse 62 05/17/18 20:30 Resp 18 05/17/18 20:30 BP 136/95 H 05/17/18 20:30 Pulse Ox 97 05/17/18 20:30 - Labs Result Diagrams: 05/17/18 16:50 05/17/18 16:50 Assessment & Plan - Assessment and Plan (Free Text) Assessment: Patient is a 68 y/o M with PMHx of COPD, Interstitial Lung Disease, HLD, CAD (s/ p multiple stent placement), Larygneal Carcinoma (s/p trach), Hypothyroidism, Anxiety who presented to the ED on 05/17 complaining of right upper quadrant abdominal pain with radiation to the back and right scapula. Patient noted to have multiple gallstones on abdominal ultrasound. Patient will be monitored on the floor for Biliary Colic vs Gallstone Ileus. Plan: RUQ Abdominal Pain 2/2 Biliary Colic vs Gallstone Ileus - started on zosyn 3.375g IV - Abdominal XRay ordered - f/u Blood Cx - IVF NS at 100 cc/hr - Protonix 40 mg PO - NPO except meds - Zofran for nausea - morphine q6h prn for pain control - GI consulted, f/u recs. - Surgery consulted, f/u recs. - No leukocytosis, LFTs and Lipase are within normal limits, afebrile. - Abdominal US (05/17): multiple gallstones. No wall thickening or pericholecystic fluid. Sonographic Jeffers's sign is negative. No biliary dilation. - CT angio (05/17): no evidence of aortic aneurysm or dissection. History of Laryngeal Carcinoma - Patient has stoma - History of tobacco abuse COPD - duonebs - c/w home meds CAD (multiple stent placement) - c/w ASA - EKG: NSR. 69 bpm. - troponin negative x1 HLD - will hold home statin for now Hypothyroidism - Levothyroxine 100 mcg PO PPx: - DVT ppx: SCD - GI ppx: Protonix Dispo: Patient will be monitored on the floor. Case was discussed with Attending Physician Dr. Coates. <Lisa Coaets - Last Filed: 05/19/18 06:39> Results - Vital Signs Recent Vital Signs: Last Vital Signs Temp 98.6 F 05/18/18 22:00 Pulse 84 05/18/18 22:00 Resp 20 05/18/18 22:00 BP 159/82 H 05/18/18 22:00 Pulse Ox 91 L 05/18/18 22:00 - Labs Result Diagrams: 05/18/18 06:30 05/18/18 06:30
--- NOTE | 2018-05-17 21:18 | CP.PCM.CON ---
History of Present Illness - History of Present Illness History of Present Illness: General Surgery consult note for Dr. 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 States that the pain is a constant stabbing sensation. States that around the time that the pain started he ate a hamburger and fries. Patient states he had another episode similar to this 3 weeks ago, but not at this severity. Pt denies any diarrhea, constipation, dysuria, hematuria, chest pain, SOB, fevers, or any other symptoms. 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, bladder cancer, hypothyroidism, COPD PSH: laryngeal mass excision with tracheostomy creation, right upper lobe excision, bladder excision, laparotomy for resection of an abdominal "vein" for esophageal conduit (per patient), coronary artery stent ALL: NKDA Social: smoked 4PPD until 1999, denies ETOH or drug use Review of Systems - Review of Systems All systems: reviewed and no additional remarkable complaints except (as per HPI ) Past Patient History - Infectious Disease Hx of Infectious Diseases: None - Past Medical History & Family History Past Medical History?: Yes - Past Social History Smoking Status: Former Smoker Alcohol: None Drugs: Denies - CARDIAC Hx Cardiac Disorders: Yes (CAD) Hx Pacemaker: No - PULMONARY Hx Respiratory Disorders: Yes (TRACHE) Hx Chronic Obstructive Pulmonary Disease (COPD): Yes Hx Pneumonia: Yes Other/Comment: USED TO SMOKE 4 PPD QUIT 1999 - NEUROLOGICAL Hx Neurological Disorder: Yes Hx Dizziness: Yes - HEENT Hx HEENT Problems: Yes Hx Cataracts: Yes - RENAL Hx Chronic Kidney Disease: No - ENDOCRINE/METABOLIC Hx Endocrine Disorders: Yes Hx Hypothyroidism: Yes - HEMATOLOGICAL/ONCOLOGICAL Hx Blood Disorders: Yes Hx Anemia: No Hx Cancer: Yes (Bladder CA) - INTEGUMENTARY Hx Dermatological Problems: Yes Other/Comment: 08-10-[address] GUIDED BX,INCISION TO RIGHT UPPER CHEST.INCISION TO RIGHT UPPER BACK. - MUSCULOSKELETAL/RHEUMATOLOGICAL Hx Musculoskeletal Disorders: No Hx Falls: No - GASTROINTESTINAL Hx Gastrointestinal Disorders: Yes (LARYNGEAL CA) - GENITOURINARY/GYNECOLOGICAL Hx Genitourinary Disorders: No - PSYCHIATRIC Hx Emotional Abuse: No Hx Physical Abuse: No Hx Substance Use: No - SURGICAL HISTORY Hx Cardiac Catheterization: Yes Hx Coronary Stent: Yes (X2) - ANESTHESIA Hx Anesthesia Reactions: No Hx Malignant Hyperthermia: No Meds Allergies/Adverse Reactions: Allergies Allergy/AdvReac Type Severity Reaction Status Date / Time No Known Allergies Allergy Verified 08/10/17 18:44 - Medications Medications: Current Medications Albuterol/Ipratropium (Duoneb 3 Mg/0.5 Mg (3 Ml) Ud) 3 ml IH Q6 PRN PRN Reason: Shortness of Breath Budesonide (Pulmicort Respules) 0.5 mg IH BIDRESP [facility] Docusate Sodium (Colace) 100 mg PO DAILY [facility] Sodium Chloride (Sodium Chloride 0.9%) 1,000 mls @ 100 mls/hr IV .Q10H [facility] Piperacillin Sod/Tazobactam Sod (Zosyn 3.375 In Ns 100ml) 100 mls @ 200 mls/hr IVPB Q6 [facility] PRN Reason: Protocol Stop: 05/18/18 06:29 Levothyroxine Sodium (Synthroid) 100 mcg PO ACB [facility] Morphine Sulfate (Morphine) 4 mg IVP Q6H PRN PRN Reason: Pain, severe (8-10) Ondansetron HCl (Zofran Inj) 4 mg IVP Q6H PRN PRN Reason: Nausea/Vomiting Oxycodone HCl (Oxycodone Immediate Release Tab) 5 mg PO Q6H PRN PRN Reason: Pain, moderate (4-7) Pantoprazole Sodium (Protonix Ec Tab) 40 mg PO ACB [facility] Physical Exam - Constitutional Appears: Well, Non-toxic, No Acute Distress - Head Exam Head Exam: ATRAUMATIC, NORMOCEPHALIC - Eye Exam Eye Exam: Normal appearance. absent: Conjunctival injection, Scleral icterus - ENT Exam ENT Exam: Mucous Membranes Moist, Normal Oropharynx - Respiratory Exam Respiratory Exam: NORMAL BREATHING PATTERN. absent: Accessory Muscle Use, Respiratory Distress - Cardiovascular Exam Cardiovascular Exam: RRR - GI/Abdominal Exam GI & Abdominal Exam: Soft, Tenderness (mild tenderness to deep palpation RUQ). absent: Distended, Hernia Additional comments: negative ko's - Extremities Exam Extremities exam: Positive for: pedal pulses present. Negative for: calf tenderness, pedal edema - Back Exam Back exam: CVA tenderness (R). absent: CVA tenderness (L) - Neurological Exam Neurological exam: Alert, Oriented x3 - Psychiatric Exam Psychiatric exam: Normal Affect, Normal Mood - Skin Skin Exam: Dry, Normal Color, Warm Additional comments: small superficial blisters on the left back Results - Vital Signs Recent Vital Signs: Last Vital Signs Temp 98.9 F 05/17/18 14:35 Pulse 62 05/17/18 20:30 Resp 18 05/17/18 20:30 BP 136/95 H 05/17/18 20:30 Pulse Ox 97 05/17/18 20:30 - Labs Result Diagrams: 05/17/18 16:50 05/17/18 16:50 - Imaging and Cardiology CT scan - abdomen Status: Image reviewed by me, Report reviewed by me US - abdomen Status: Image reviewed by me, Report reviewed by me Assessment & Plan - Assessment and Plan (Free Text) Assessment: 68M with RUQ pain: symptomatic cholelithiasis vs acute cholecystitis Plan: Trend CBC and CMP NPO after midnight May consider HIDA scan PRN pain and nausea medication Hold dvt PPX and Antiplatelet therapy at this time IVF No emergent surgical intervention necessary at this time. No evidence of acute cholecystitis as of now and patient has taken plavix today. Will continue to monitor Will discuss with Dr. Williamson, further recs per him Elli Wilson, PGY2
[2018-05-17 23:03] VITALS: BMI 31.4
[2018-05-17] MEDS: Piperacillin/Tazobact 3.375 gm 100 ML IVPB SCH (23:55)
[2018-05-18 07:12] LABS: HEMOGLOBIN 14.5 g/dL (14.0-18.0); MEAN CELL VOLUME 89.5 fl (80.0-105.0); MEAN CORPUSCULAR HEMOGLOBIN 29.2 pg (25.0-35.0); MEAN CORPUSCULAR HGB CONC 32.7 g/dl (31.0-37.0); MEAN PLATELET VOLUME 10.9 fl (7.0-11.0); RBC 4.96 10^6/uL (3.5-6.1); RED CELL DISTRIBUTION WIDTH 14.1 % (11.5-14.5); WHITE BLOOD COUNT 6.6 10^3/ul (4.5-11.0)
[2018-05-18 07:21] LABS: INR 1.02; PARTIAL THROMBOPLASTIN TIME 28.4 Seconds (25.1-36.5); PROTHROMBIN TIME 11.7 SECONDS (9.4-12.5)
[2018-05-18] MEDS: Budesonide 0.5 mg/2 ml Inhal Susp UD IH SCH ×3 (07:25→20:25)
[2018-05-18 07:26] LABS: ALB/GLOB RATIO 1.2 (1.1-1.8); ALBUMIN 3.6 g/dL (3.0-4.8); ALT/SGPT 43 U/L (7-56); AST/SGOT 44 U/L (17-59); BLOOD UREA NITROGEN 17 mg/dL (7-21); CALCIUM 8.4 mg/dL (8.4-10.5); GFR NON-AFRICAN AMERICAN > 60
--- NOTE | 2018-05-18 07:29 | CP.PCM.CON ---
<SharleneliaibrahimaKvng - Last Filed: 05/18/18 12:58> History of Present Illness - History of Present Illness History of Present Illness: GI Fellow PGY4, consult note. Kenton Peña is a 68yo M with extensive history of cancer (Larynx, lung, bladder), COPD/ILD, CAD s/p stents on Plavix, HoT4 presenting with RUQ pain. Patient developed severe pain in the RUQ abdomen yesterday, waking him up from sleep. He said the pain came after two large cheese burgers. The pain radiated to his back on the right side. The pain was intermittent and improved significantly after a few hours. He had never had this pain before. Denies previous GB disease. EGD 06/13 - Esophagitis CSPY 2016 - Tubular adenomas. PMHx - as above. PSHx - Bladder, lobectomy, laryngectomy. EGD/colonoscopy SocHx - previous smoker, denies alcohol use. Past Patient History - Infectious Disease Hx of Infectious Diseases: None - Past Medical History & Family History Past Medical History?: Yes - Past Social History Smoking Status: Former Smoker - CARDIAC Hx Cardiac Disorders: Yes (CAD) Hx Pacemaker: No - PULMONARY Hx Respiratory Disorders: Yes (TRACHE) Hx Chronic Obstructive Pulmonary Disease (COPD): Yes Hx Pneumonia: Yes Other/Comment: USED TO SMOKE 4 PPD QUIT 1999 - NEUROLOGICAL Hx Neurological Disorder: Yes Hx Dizziness: Yes - HEENT Hx HEENT Problems: Yes Hx Cataracts: Yes - RENAL Hx Chronic Kidney Disease: No - ENDOCRINE/METABOLIC Hx Endocrine Disorders: Yes Hx Hypothyroidism: Yes - HEMATOLOGICAL/ONCOLOGICAL Hx Blood Disorders: Yes Hx Anemia: No Hx Cancer: Yes (Bladder CA) - INTEGUMENTARY Hx Dermatological Problems: Yes Other/Comment: 08-10-[address] GUIDED BX,INCISION TO RIGHT UPPER CHEST.INCISION TO RIGHT UPPER BACK. - MUSCULOSKELETAL/RHEUMATOLOGICAL Hx Musculoskeletal Disorders: No Hx Falls: No - GASTROINTESTINAL Hx Gastrointestinal Disorders: Yes (LARYNGEAL CA) - GENITOURINARY/GYNECOLOGICAL Hx Genitourinary Disorders: No - PSYCHIATRIC Hx Emotional Abuse: No Hx Physical Abuse: No - SURGICAL HISTORY Hx Surgeries: Yes (08-10-17 CT GUIDED BX R UPPER LUNG,CHEST TUBE PLACEMENT.) Hx Cardiac Catheterization: Yes Hx Coronary Stent: Yes (X2) - ANESTHESIA Hx Anesthesia Reactions: No Hx Malignant Hyperthermia: No Meds Allergies/Adverse Reactions: Allergies Allergy/AdvReac Type Severity Reaction Status Date / Time No Known Allergies Allergy Verified 08/10/17 18:44 - Medications Medications: Current Medications Albuterol/Ipratropium (Duoneb 3 Mg/0.5 Mg (3 Ml) Ud) 3 ml IH Q6 PRN PRN Reason: Shortness of Breath Budesonide (Pulmicort Respules) 0.5 mg IH BIDRESP [facility] Docusate Sodium (Colace) 100 mg PO DAILY [facility] Lactated Ringer's (Lactated Ringer's) 1,000 mls @ 100 mls/hr IV .Q10H [facility] Levothyroxine Sodium (Synthroid) 100 mcg PO ACB [facility] Morphine Sulfate (Morphine) 4 mg IVP Q6H PRN PRN Reason: Pain, severe (8-10) Ondansetron HCl (Zofran Inj) 4 mg IVP Q6H PRN PRN Reason: Nausea/Vomiting Oxycodone HCl (Oxycodone Immediate Release Tab) 5 mg PO Q6H PRN PRN Reason: Pain, moderate (4-7) Pantoprazole Sodium (Protonix Ec Tab) 40 mg PO ACB [facility] Physical Exam - Constitutional Appears: Well, Non-toxic, No Acute Distress - Head Exam Head Exam: NORMAL INSPECTION - Eye Exam Eye Exam: EOMI, Normal appearance - ENT Exam ENT Exam: Mucous Membranes Moist Additional comments: tracheostomy - Neck Exam Neck exam: Negative for: Normal Inspection - Respiratory Exam Respiratory Exam: Clear to Auscultation Bilateral, NORMAL BREATHING PATTERN - Cardiovascular Exam Cardiovascular Exam: REGULAR RHYTHM, +S1, +S2 - GI/Abdominal Exam GI & Abdominal Exam: Normal Bowel Sounds, Organomegaly, Soft, Tenderness - Extremities Exam Extremities exam: Positive for: normal inspection - Neurological Exam Neurological exam: Alert, CN II-XII Intact, Oriented x3 - Psychiatric Exam Psychiatric exam: Normal Affect, Normal Mood - Skin Skin Exam: Dry, Normal Color Results - Vital Signs Recent Vital Signs: Last Vital Signs Temp 98.3 F 05/17/18 22:59 Pulse 43 L 05/17/18 22:59 Resp 18 05/17/18 22:59 BP 160/83 H 05/17/18 22:59 Pulse Ox 96 05/17/18 22:59 - Labs Result Diagrams: 05/18/18 06:30 05/18/18 06:30 Labs: Laboratory Results - last 24 hr 05/18/18 06:30 WBC 6.6 RBC 4.96 Hgb 14.5 Hct 44.4 MCV 89.5 MCH 29.2 MCHC 32.7 RDW 14.1 Plt Count 182 MPV 10.9 Assessment & Plan - Assessment and Plan (Free Text) Assessment: 68M with extensive oncologic history, CAD presenting with RUQ abdominal pain and cholelithiasis on imaging. #Acute Abdominal pain likely due to Symptomatic Cholelithiasis #Hepatosteatosis #Tubular Adenomas #Esophagitis #Laryngeal, Bladder, lung cancer #CAD s/p stents, recently took Plavix. #COPD/ILD #Hypothyroidism PLAN: -U/S reviewed: Gallstones, CBD 5.2mm, Hepatosteatosis -Recommend surgical evaluation for surgery -HIDA scan is pending -Currently NPO, advance per surgery. -Continue PPI - Date & Time Date: 05/18/18 Time: 07:45 <Maira Welsh V - Last Filed: 05/19/18 21:39> Meds - Medications Medications: Current Medications Albuterol/Ipratropium (Duoneb 3 Mg/0.5 Mg (3 Ml) Ud) 3 ml IH Q6 PRN PRN Reason: Shortness of Breath Last Admin: 05/19/18 19:58 Dose: 3 ml Aspirin (Ecotrin) 81 mg PO DAILY [facility] Last Admin: 05/19/18 09:23 Dose: 81 mg Atorvastatin Calcium (Lipitor) 10 mg PO HS [facility] Last Admin: 05/19/18 21:20 Dose: 10 mg Budesonide (Pulmicort Respules) 0.5 mg IH BIDRESP [facility] Last Admin: 05/19/18 19:59 Dose: 0.5 mg Docusate Sodium (Colace) 100 mg PO DAILY [facility] Last Admin: 05/19/18 09:23 Dose: 100 mg Home Med (Home Med) 1 unit PO DAILY [facility] Last Admin: 05/19/18 16:36 Dose: 1 unit Lactated Ringer's (Lactated Ringer's) 1,000 mls @ 100 mls/hr IV .Q10H [facility] Last Admin: 05/19/18 21:21 Dose: 100 mls/hr Metronidazole (Flagyl) 500 mg in 100 mls @ 100 mls/hr IVPB Q8 [facility] PRN Reason: Protocol Last Admin: 05/19/18 21:19 Dose: 100 mls/hr Ceftriaxone Sodium (Rocephin 1 Gram Ivpb) 1 gm in 100 mls @ 100 mls/hr IVPB DAILY [facility] PRN Reason: Protocol Last Admin: 05/19/18 09:22 Dose: 100 mls/hr Levothyroxine Sodium (Synthroid) 100 mcg PO ACB [facility] Last Admin: 05/19/18 09:23 Dose: 100 mcg Morphine Sulfate (Morphine) 4 mg IVP Q6H PRN PRN Reason: Pain, severe (8-10) Last Admin: 05/18/18 10:44 Dose: 4 mg Morphine Sulfate (Morphine) 2 mg IVP Q4H PRN PRN Reason: Pain, moderate (4-7) Ondansetron HCl (Zofran Inj) 4 mg IVP Q6H PRN PRN Reason: Nausea/Vomiting Oxycodone HCl (Oxycodone Immediate Release Tab) 5 mg PO Q6H PRN PRN Reason: Pain, moderate (4-7) Last Admin: 05/19/18 21:20 Dose: 5 mg Pantoprazole Sodium (Protonix Ec Tab) 40 mg PO ACB [facility] Last Admin: 05/19/18 09:23 Dose: 40 mg Results - Vital Signs Recent Vital Signs: Last Vital Signs Temp 98.5 F 05/19/18 14:00 Pulse 71 05/19/18 14:00 Resp 18 05/19/18 14:00 BP 122/86 05/19/18 14:00 Pulse Ox 92 L 05/19/18 14:00 - Labs Result Diagrams: 05/19/18 06:00 05/19/18 06:00 Labs: Laboratory Results - last 24 hr 05/19/18 05/19/18 06:00 06:00 WBC 6.0 RBC 5.04 Hgb 14.6 Hct 43.8 MCV 86.9 MCH 29.0 MCHC 33.3 RDW 13.5 Plt Count 173 MPV 9.9 Sodium 140 Potassium 4.6 Chloride 104 Carbon Dioxide 23 Anion Gap 17 BUN 14 Creatinine 1.0 Est GFR ( Amer) > 60 Est GFR (Non-Af Amer) > 60 Random Glucose 75 Calcium 8.9 Total Bilirubin 0.7 AST 39 ALT 46 Alkaline Phosphatase 83 Total Protein 6.8 Albumin 3.8 Globulin 3.0 Albumin/Globulin Ratio 1.3 Attending/Attestation - Attestation I have personally seen and examined this patient.: Yes I have fully participated in the care of the patient.: Yes I have reviewed all pertinent clinical information: Yes Notes (Text): This is an addendum to GI consult report dictated by the GI Fellow.The patient was seen and examined earlier. Medical records, lab studies, imagings were reviewed. Last 24 hours events reviewed. Agreed with the above treatment plan as outlined in GI Fellow 's notes with the addition of the following This patient was admitted acute onset of severe right side abdominal pain Has multiple gall stones HIDA reviewed continue antibiotics LFT normal plan for cholecystectomy on Monday05/19/18 21:37
[2018-05-18] MEDS: Piperacillin/Tazobact 3.375 gm 100 ML IVPB SCH (07:30)
[2018-05-18] MEDS: Pantoprazole 40 mg EC Tab PO SCH (08:31)
[2018-05-18] MEDS: Levothyroxine 100 MCG TAB PO SCH (08:31)
[2018-05-18] MEDS ORDERED: Levothyroxine 112 MCG TAB PO SCH (10:00)
--- NOTE | 2018-05-18 13:23 | CP.PCM.PN ---
Subjective - Date & Time of Evaluation Date of Evaluation: 05/18/18 Time of Evaluation: 13:13 - Subjective Subjective: General Surgery - Dr. Williamson Pt S&E. NOAM. PT complains of RUQ abdominal pain but states it has significantly improved. He denies any fevers/chills, nausea/vomiting, sob/ chest pain. Objective - Vital Signs/Intake and Output Vital Signs (last 24 hours): Temp Pulse Resp BP Pulse Ox 98.4 F 50 L 20 128/66 97 05/18/18 06:00 05/18/18 06:00 05/18/18 06:00 05/18/18 06:00 05/18/18 06:00 - Medications Medications: Current Medications Albuterol/Ipratropium (Duoneb 3 Mg/0.5 Mg (3 Ml) Ud) 3 ml IH Q6 PRN PRN Reason: Shortness of Breath Aspirin (Ecotrin) 81 mg PO DAILY [facility] Last Admin: 05/18/18 11:51 Dose: 81 mg Budesonide (Pulmicort Respules) 0.5 mg IH BIDRESP [facility] Last Admin: 05/18/18 07:26 Dose: Not Given Docusate Sodium (Colace) 100 mg PO DAILY [facility] Last Admin: 05/18/18 11:50 Dose: 100 mg Lactated Ringer's (Lactated Ringer's) 1,000 mls @ 100 mls/hr IV .Q10H [facility] Levothyroxine Sodium (Synthroid) 100 mcg PO ACB [facility] Last Admin: 05/18/18 08:31 Dose: 100 mcg Morphine Sulfate (Morphine) 4 mg IVP Q6H PRN PRN Reason: Pain, severe (8-10) Last Admin: 05/18/18 10:44 Dose: 4 mg Ondansetron HCl (Zofran Inj) 4 mg IVP Q6H PRN PRN Reason: Nausea/Vomiting Oxycodone HCl (Oxycodone Immediate Release Tab) 5 mg PO Q6H PRN PRN Reason: Pain, moderate (4-7) Pantoprazole Sodium (Protonix Ec Tab) 40 mg PO ACB [facility] Last Admin: 05/18/18 08:31 Dose: 40 mg - Labs Labs: 05/18/18 06:30 05/18/18 06:30 PT 11.7 SECONDS (9.4-12.5) 05/18/18 06:30 INR 1.02 05/18/18 06:30 APTT 28.4 Seconds (25.1-36.5) 05/18/18 06:30 - Constitutional Appears: No Acute Distress - Head Exam Head Exam: ATRAUMATIC, NORMAL INSPECTION, NORMOCEPHALIC - Eye Exam Eye Exam: Normal appearance - Respiratory Exam Respiratory Exam: NORMAL BREATHING PATTERN. absent: Respiratory Distress - GI/Abdominal Exam GI & Abdominal Exam: Soft, Tenderness (RUQ). absent: Distended, Guarding, Rebound - Neurological Exam Neurological Exam: Alert, Oriented x3 - Psychiatric Exam Psychiatric exam: Normal Affect, Normal Mood - Skin Skin Exam: Dry, Intact Assessment and Plan - Assessment and Plan (Free Text) Assessment: 68M with symptomatic cholelithiasis, on plavix Plan: -F/U HIDA -Pain control prn -Continue to hold anti-platelets -IF HIDA negative and Symptoms improve will give PO diet and if tolerates pt may be D/C with outpatient f/u to schedule elective cholecystectomy after appropriate pre-op work-up by machine printer GRIS Pierce PGY4
--- NOTE | 2018-05-18 15:17 | CP.PCM.PN ---
<Yosef Bueno - Last Filed: 05/18/18 15:13> Subjective - Date & Time of Evaluation Date of Evaluation: 05/18/18 Time of Evaluation: 07:00 - Subjective Subjective: Yosef Bueno PGY1 Medicine Progress Note for Dr. Parra Patient was seen and examined at bedside this morning. Patient still complains of RUQ abdominal pain. Denies cp, sob, n/v/d, numbness and tingling of extremities. No overnight changes. No fevers. A full 12 point ROS was conducted and unremarkable except as stated above. Objective - Vital Signs/Intake and Output Vital Signs (last 24 hours): Temp Pulse Resp BP Pulse Ox 98.4 F 50 L 20 128/66 97 05/18/18 06:00 05/18/18 06:00 05/18/18 06:00 05/18/18 06:00 05/18/18 06:00 - Medications Medications: Current Medications Albuterol/Ipratropium (Duoneb 3 Mg/0.5 Mg (3 Ml) Ud) 3 ml IH Q6 PRN PRN Reason: Shortness of Breath Aspirin (Ecotrin) 81 mg PO DAILY [facility] Last Admin: 05/18/18 11:51 Dose: 81 mg Budesonide (Pulmicort Respules) 0.5 mg IH BIDRESP [facility] Last Admin: 05/18/18 07:26 Dose: Not Given Docusate Sodium (Colace) 100 mg PO DAILY [facility] Last Admin: 05/18/18 11:50 Dose: 100 mg Lactated Ringer's (Lactated Ringer's) 1,000 mls @ 100 mls/hr IV .Q10H [facility] Levothyroxine Sodium (Synthroid) 100 mcg PO ACB [facility] Last Admin: 05/18/18 08:31 Dose: 100 mcg Morphine Sulfate (Morphine) 4 mg IVP Q6H PRN PRN Reason: Pain, severe (8-10) Last Admin: 05/18/18 10:44 Dose: 4 mg Ondansetron HCl (Zofran Inj) 4 mg IVP Q6H PRN PRN Reason: Nausea/Vomiting Oxycodone HCl (Oxycodone Immediate Release Tab) 5 mg PO Q6H PRN PRN Reason: Pain, moderate (4-7) Pantoprazole Sodium (Protonix Ec Tab) 40 mg PO ACB [facility] Last Admin: 05/18/18 08:31 Dose: 40 mg - Labs Labs: 05/18/18 06:30 05/18/18 06:30 PT 11.7 SECONDS (9.4-12.5) 05/18/18 06:30 INR 1.02 05/18/18 06:30 APTT 28.4 Seconds (25.1-36.5) 05/18/18 06:30 - Constitutional Appears: No Acute Distress - Head Exam Head Exam: ATRAUMATIC, NORMAL INSPECTION, NORMOCEPHALIC - Eye Exam Eye Exam: EOMI, Normal appearance, PERRL - ENT Exam ENT Exam: Mucous Membranes Moist, Normal Exam - Neck Exam Neck Exam: Full ROM Additional comments: Stoma (hx of laryngeal cancer) - Respiratory Exam Respiratory Exam: Clear to Ausculation Bilateral, NORMAL BREATHING PATTERN - Cardiovascular Exam Cardiovascular Exam: REGULAR RHYTHM, +S1, +S2. absent: Murmur - GI/Abdominal Exam GI & Abdominal Exam: Soft, Tenderness (Tenderness to deep palpation of the RUQ ) , Normal Bowel Sounds - Extremities Exam Extremities Exam: Full ROM, Normal Capillary Refill, Normal Inspection. absent : Joint Swelling, Pedal Edema - Back Exam Back Exam: NORMAL INSPECTION - Neurological Exam Neurological Exam: Alert, Awake, CN II-XII Intact, Oriented x3 Neuro motor strength exam: Left Upper Extremity: 5, Right Upper Extremity: 5, Left Lower Extremity: 5, Right Lower Extremity: 5 - Psychiatric Exam Psychiatric exam: Normal Affect, Normal Mood - Skin Skin Exam: Dry, Intact, Normal Color, Warm Assessment and Plan - Assessment and Plan (Free Text) Assessment: Patient is a 68 y/o M with PMHx of COPD, Interstitial Lung Disease, HLD, CAD (s/ p multiple stent placement), Larygneal Carcinoma (s/p trach), Hypothyroidism, Squamous Cell Lung Cancer (s/p R-upper lung lobectomy), Anxiety who presented to the ED on 05/17 complaining of right upper quadrant abdominal pain with radiation to the back and right scapula. Patient noted to have multiple gallstones on abdominal ultrasound. Patient will be monitored on the floor for Cholelithiasis. Plan: RUQ Abdominal Pain 2/2 Cholelithiasis - As per GI, pending HIDA scan today - Surgery recs appreciated. No emergent surgery at this time. Patient may follow up as an elective procedure as outpatient once cleared by cardio. - f/u Blood Cx - Lactate ringers at 100 cc/hr - c/w Protonix 40 mg PO - NPO except meds - c/w Zofran for nausea - c/w morphine q6h prn - GI consulted, recs appreciated - Surgery consulted, recs appreciated - Abdominal US (05/17): multiple gallstones. No wall thickening or pericholecystic fluid. Sonographic Jeffers's sign is negative. No biliary dilation. - CT angio (05/17): no evidence of aortic aneurysm or dissection. History of Laryngeal Carcinoma - Patient has stoma - History of tobacco abuse COPD - duonebs - c/w home meds CAD (multiple stent placement) - c/w ASA - EKG (05/17): NSR. 69 bpm. HLD - will hold home statin for now Hypothyroidism - Levothyroxine 100 mcg PO PPx: - DVT ppx: SCD - GI ppx: Protonix Dispo: Patient will be monitored on the floor. Case was discussed and reviewed with Attending Physician Dr. Parra <Alexandr Parra - Last Filed: 05/19/18 17:02> Objective - Vital Signs/Intake and Output Vital Signs (last 24 hours): Temp Pulse Resp BP Pulse Ox 98.5 F 71 18 122/86 92 L 05/19/18 14:00 05/19/18 14:00 05/19/18 14:00 05/19/18 14:00 05/19/18 14:00 Intake and Output: 05/19/18 05/19/18 06:59 18:59 Intake Total 240 1040 Output Total 180 Balance 240 860 - Medications Medications: Current Medications Albuterol/Ipratropium (Duoneb 3 Mg/0.5 Mg (3 Ml) Ud) 3 ml IH Q6 PRN PRN Reason: Shortness of Breath Last Admin: 05/19/18 12:57 Dose: 3 ml Aspirin (Ecotrin) 81 mg PO DAILY [facility] Last Admin: 05/19/18 09:23 Dose: 81 mg Atorvastatin Calcium (Lipitor) 10 mg PO HS [facility] Last Admin: 05/19/18 16:30 Dose: 10 mg Budesonide (Pulmicort Respules) 0.5 mg IH BIDRESP [facility] Last Admin: 05/19/18 07:50 Dose: 0.5 mg Docusate Sodium (Colace) 100 mg PO DAILY [facility] Last Admin: 05/19/18 09:23 Dose: 100 mg Home Med (Home Med) 1 unit PO DAILY [facility] Last Admin: 05/19/18 16:36 Dose: 1 unit Lactated Ringer's (Lactated Ringer's) 1,000 mls @ 100 mls/hr IV .Q10H [facility] Last Admin: 05/19/18 10:39 Dose: 100 mls/hr Metronidazole (Flagyl) 500 mg in 100 mls @ 100 mls/hr IVPB Q8 [facility] PRN Reason: Protocol Last Admin: 05/19/18 13:21 Dose: 100 mls/hr Ceftriaxone Sodium (Rocephin 1 Gram Ivpb) 1 gm in 100 mls @ 100 mls/hr IVPB DAILY [facility] PRN Reason: Protocol Last Admin: 05/19/18 09:22 Dose: 100 mls/hr Levothyroxine Sodium (Synthroid) 100 mcg PO ACB [facility] Last Admin: 05/19/18 09:23 Dose: 100 mcg Morphine Sulfate (Morphine) 4 mg IVP Q6H PRN PRN Reason: Pain, severe (8-10) Last Admin: 05/18/18 10:44 Dose: 4 mg Morphine Sulfate (Morphine) 2 mg IVP Q4H PRN PRN Reason: Pain, moderate (4-7) Ondansetron HCl (Zofran Inj) 4 mg IVP Q6H PRN PRN Reason: Nausea/Vomiting Oxycodone HCl (Oxycodone Immediate Release Tab) 5 mg PO Q6H PRN PRN Reason: Pain, moderate (4-7) Pantoprazole Sodium (Protonix Ec Tab) 40 mg PO ACB [facility] Last Admin: 05/19/18 09:23 Dose: 40 mg - Labs Labs: 05/19/18 06:00 05/19/18 06:00 PT 11.7 SECONDS (9.4-12.5) 05/18/18 06:30 INR 1.02 05/18/18 06:30 APTT 28.4 Seconds (25.1-36.5) 05/18/18 06:30 Attending/Attestation - Attestation I have personally seen and examined this patient.: Yes I have fully participated in the care of the patient.: Yes I have reviewed all pertinent clinical information, including history, physical exam and plan: Yes Notes (Text): 05/19/18 16:56 Attending note; Patient seen and examined with resident. Patient is sitting in the chair. Alert and awake. Denies any cough. Denies any shortness of breath. Denies any fevers, chills. Patient is a 68 year old male with PMHx of COPD, Interstitial Lung Disease, HLD , CAD stent placement, Larygneal Carcinoma s/p trach, Hypothyroidism, Squamous Cell Lung Cancer ,s/p R-upper lung lobectomy, Anxiety is admitted with right upper quadrant abdominal pain with radiation to the back and right scapula. Patient noted to have multiple gallstones on abdominal ultrasound. getting HIDA scan today. Nothing by mouth. Continue IV fluids. Continue IV Rocephin and Flagyl. GI and surgery evaluation appreciated. History of coronary artery disease and stent placement. Hold aspirin from tomorrow. Cardiology evaluation appreciated. History of tracheostomy; stable respiratory status. Continue DuoNeb and Pulmicort. We'll follow up closely with surgery. Upon discharge the patient will follow-up with PMD Dr. Parra. 05/19/18 17:02
--- NOTE | 2018-05-18 15:23 | CON ---
DATE: 05/18/2018 CARDIOLOGY FOLLOWUP SUBJECTIVE: The patient's abdominal pain has recurred this morning. No angina noted. The patient's past medical history includes a history of PTCA and stent as well as COPD. The patient has a history of lung CA and is currently with a chronic tracheostomy. He also suffers from COPD. SOCIAL HISTORY: The patient is a former smoker and has not smoked since. REVIEW OF SYSTEMS: Fourteen-point review of systems is reviewed in detail. No cardiac symptoms are noted. PHYSICAL EXAMINATION: VITAL SIGNS: Blood pressure is 128/66, the heart rate is in the 60s. NECK: Negative JVD. LUNGS: Without rales. HEART: Reveals S1, S2. EXTREMITIES: Without edema. EKG shows no acute changes. LABORATORY DATA: Troponin is negative x1. His last catheterization in 11/2016 shows an ejection fraction of 45% with patent stents. His Plavix was stopped then. IMPRESSION: 1. Abdominal pain. 2. Stable angina. 3. Coronary artery disease. 4. History of percutaneous transluminal coronary angioplasty and stent. 5. Chronic obstructive pulmonary disease. 6. Hypercholesterolemia. 7. Chronic tracheostomy. 8. History of lung cancer. PLAN: Given these findings, the patient was restarted on Plavix several months ago according to the patient by Dr. Parra. I have called Dr. Parra to find out the reasons why. From a cardiac perspective, the patient does not need to be on Plavix. We will restart him on his aspirin. Micky Vincent MD
--- NOTE | 2018-05-18 15:44 | NM ---
Date of service: 05/18/2018 PROCEDURE: Nuclear Medicine Hepatobiliary Scan HISTORY: RUQ abdominal pain, gallstones, ?cholecystitis COMPARISON: None available. TECHNIQUE: 5.3 mCi of technetium 99m Mebrofenin was administered intravenously. Planar images of the abdomen were obtained at 5 min intervals to 60 mins. Delayed images were also obtained. FINDINGS: LIVER: Timely and homogenous uptake. COMMON BILE DUCT: identified at 5 mins. GALLBLADDER: Not identified even on delayed imaging SMALL BOWEL: Identified at 15 mins. IMPRESSION: Nonvisualization of the gallbladder consistent with acute cholecystitis
[2018-05-18] MEDS ORDERED: Morphine 2 mg/ml ISec IVP PRN ×2 (17:08→17:18)
[2018-05-18] MEDS: cefTRIAXone 1 gm 1 GM/100 ML BAG IVPB SCH (17:52)
[2018-05-18] MEDS: Lactated Ringer's 1,000 ML IV SCH ×2 (17:56→21:29)
[2018-05-18] MEDS: metroNIDAZOLE IV 500 mg/100 ml 500 MG/100 ML BAG IVPB SCH ×2 (19:15→21:28)
[2018-05-19] MEDS: Lactated Ringer's 1,000 ML IV SCH ×4 (03:04→22:10)
[2018-05-19] MEDS: metroNIDAZOLE IV 500 mg/100 ml 500 MG/100 ML BAG IVPB SCH ×3 (06:44→21:19)
[2018-05-19 06:46] LABS: HEMOGLOBIN 14.6 g/dL (14.0-18.0); MEAN CELL VOLUME 86.9 fl (80.0-105.0); MEAN CORPUSCULAR HGB CONC 33.3 g/dl (31.0-37.0); MEAN PLATELET VOLUME 9.9 fl (7.0-11.0); RBC 5.04 10^6/uL (3.5-6.1); RED CELL DISTRIBUTION WIDTH 13.5 % (11.5-14.5)
[2018-05-19 07:04] LABS: ALB/GLOB RATIO 1.3 (1.1-1.8); ALBUMIN 3.8 g/dL (3.0-4.8); ALT/SGPT 46 U/L (7-56); AST/SGOT 39 U/L (17-59); BLOOD UREA NITROGEN 14 mg/dL (7-21); CALCIUM 8.9 mg/dL (8.4-10.5); GFR NON-AFRICAN AMERICAN > 60
--- NOTE | 2018-05-19 07:27 | CP.PCM.PN ---
Subjective - Date & Time of Evaluation Date of Evaluation: 05/19/18 Time of Evaluation: 07:23 - Subjective Subjective: General Surgery - Dr. Williamson Pt S&E. NOAM. Pt complains of RUQ abdominal pain but somewhat improved from yesterday. He tolerated clear liquids yesterday. No Nausea/vomiting, Diarrhea , Fevers/Chills, SOB/Chest pain. Pt aware of plan for surgery Monday. Objective - Vital Signs/Intake and Output Vital Signs (last 24 hours): Temp Pulse Resp BP Pulse Ox 98.6 F 84 20 159/82 H 91 L 05/18/18 22:00 05/18/18 22:00 05/18/18 22:00 05/18/18 22:00 05/18/18 22:00 Intake and Output: 05/19/18 05/19/18 06:59 18:59 Intake Total 240 180 Output Total 180 Balance 240 0 - Medications Medications: Current Medications Albuterol/Ipratropium (Duoneb 3 Mg/0.5 Mg (3 Ml) Ud) 3 ml IH Q6 PRN PRN Reason: Shortness of Breath Aspirin (Ecotrin) 81 mg PO DAILY [facility] Last Admin: 05/18/18 11:51 Dose: 81 mg Atorvastatin Calcium (Lipitor) 10 mg PO HS [facility] Budesonide (Pulmicort Respules) 0.5 mg IH BIDRESP [facility] Last Admin: 05/18/18 20:25 Dose: 0.5 mg Docusate Sodium (Colace) 100 mg PO DAILY [facility] Last Admin: 05/18/18 11:50 Dose: 100 mg Home Med (Home Med) 1 unit PO DAILY [facility] Lactated Ringer's (Lactated Ringer's) 1,000 mls @ 100 mls/hr IV .Q10H [facility] Last Admin: 05/19/18 03:04 Dose: Not Given Metronidazole (Flagyl) 500 mg in 100 mls @ 100 mls/hr IVPB Q8 [facility] PRN Reason: Protocol Last Admin: 05/19/18 06:44 Dose: 100 mls/hr Ceftriaxone Sodium (Rocephin 1 Gram Ivpb) 1 gm in 100 mls @ 100 mls/hr IVPB DAILY [facility] PRN Reason: Protocol Last Admin: 05/18/18 17:52 Dose: 100 mls/hr Levothyroxine Sodium (Synthroid) 100 mcg PO ACB [facility] Last Admin: 05/18/18 08:31 Dose: 100 mcg Morphine Sulfate (Morphine) 4 mg IVP Q6H PRN PRN Reason: Pain, severe (8-10) Last Admin: 05/18/18 10:44 Dose: 4 mg Morphine Sulfate (Morphine) 2 mg IVP Q4H PRN PRN Reason: Pain, moderate (4-7) Ondansetron HCl (Zofran Inj) 4 mg IVP Q6H PRN PRN Reason: Nausea/Vomiting Oxycodone HCl (Oxycodone Immediate Release Tab) 5 mg PO Q6H PRN PRN Reason: Pain, moderate (4-7) Pantoprazole Sodium (Protonix Ec Tab) 40 mg PO ACB [facility] Last Admin: 05/18/18 08:31 Dose: 40 mg - Labs Labs: 05/19/18 06:00 05/19/18 06:00 PT 11.7 SECONDS (9.4-12.5) 05/18/18 06:30 INR 1.02 05/18/18 06:30 APTT 28.4 Seconds (25.1-36.5) 05/18/18 06:30 - Constitutional Appears: No Acute Distress - Head Exam Head Exam: ATRAUMATIC, NORMAL INSPECTION, NORMOCEPHALIC - Eye Exam Eye Exam: Normal appearance - Respiratory Exam Respiratory Exam: NORMAL BREATHING PATTERN. absent: Respiratory Distress - Cardiovascular Exam Cardiovascular Exam: REGULAR RHYTHM - GI/Abdominal Exam GI & Abdominal Exam: Distended (mild), Soft, Tenderness (RUQ). absent: Firm, Guarding, Rigid, Rebound - Neurological Exam Neurological Exam: Alert, Awake, Oriented x3 - Psychiatric Exam Psychiatric exam: Normal Affect, Normal Mood - Skin Skin Exam: Dry, Intact Assessment and Plan - Assessment and Plan (Free Text) Assessment: 68M with acute cholecystitis Plan: -Continue Clear liquid diet -Continue to hold all anti-platelets including aspirin -Plan for OR Monday for Lap cholecystectomy -Pre-op Cardiac and Medical risk optimization DW Dr. Clay Pierce PGY4
[2018-05-19] MEDS: Budesonide 0.5 mg/2 ml Inhal Susp UD IH SCH ×2 (07:50→19:59)
[2018-05-19] MEDS: cefTRIAXone 1 gm 1 GM/100 ML BAG IVPB SCH (09:22)
[2018-05-19] MEDS: Pantoprazole 40 mg EC Tab PO SCH (09:23)
[2018-05-19] MEDS: Levothyroxine 100 MCG TAB PO SCH (09:23)
--- NOTE | 2018-05-19 12:20 | CP.PCM.PN ---
<Kvng Caputo - Last Filed: 05/19/18 12:16> Subjective - Date & Time of Evaluation Date of Evaluation: 05/19/18 Time of Evaluation: 12:16 - Subjective Subjective: Doing great. Tolerating diet. No complaints. Reports lap patricia Monday. Objective - Vital Signs/Intake and Output Vital Signs (last 24 hours): Temp Pulse Resp BP Pulse Ox 98.3 F 80 20 134/93 H 98 05/19/18 07:50 05/19/18 07:50 05/19/18 07:50 05/19/18 07:50 05/19/18 07:50 Intake and Output: 05/19/18 05/19/18 06:59 18:59 Intake Total 240 180 Output Total 180 Balance 240 0 - Medications Medications: Current Medications Albuterol/Ipratropium (Duoneb 3 Mg/0.5 Mg (3 Ml) Ud) 3 ml IH Q6 PRN PRN Reason: Shortness of Breath Aspirin (Ecotrin) 81 mg PO DAILY [facility] Last Admin: 05/19/18 09:23 Dose: 81 mg Atorvastatin Calcium (Lipitor) 10 mg PO HS [facility] Budesonide (Pulmicort Respules) 0.5 mg IH BIDRESP [facility] Last Admin: 05/19/18 07:50 Dose: 0.5 mg Docusate Sodium (Colace) 100 mg PO DAILY [facility] Last Admin: 05/19/18 09:23 Dose: 100 mg Home Med (Home Med) 1 unit PO DAILY [facility] Lactated Ringer's (Lactated Ringer's) 1,000 mls @ 100 mls/hr IV .Q10H [facility] Last Admin: 05/19/18 10:39 Dose: 100 mls/hr Metronidazole (Flagyl) 500 mg in 100 mls @ 100 mls/hr IVPB Q8 [facility] PRN Reason: Protocol Last Admin: 05/19/18 06:44 Dose: 100 mls/hr Ceftriaxone Sodium (Rocephin 1 Gram Ivpb) 1 gm in 100 mls @ 100 mls/hr IVPB DAILY [facility] PRN Reason: Protocol Last Admin: 05/19/18 09:22 Dose: 100 mls/hr Levothyroxine Sodium (Synthroid) 100 mcg PO ACB [facility] Last Admin: 05/19/18 09:23 Dose: 100 mcg Morphine Sulfate (Morphine) 4 mg IVP Q6H PRN PRN Reason: Pain, severe (8-10) Last Admin: 05/18/18 10:44 Dose: 4 mg Morphine Sulfate (Morphine) 2 mg IVP Q4H PRN PRN Reason: Pain, moderate (4-7) Ondansetron HCl (Zofran Inj) 4 mg IVP Q6H PRN PRN Reason: Nausea/Vomiting Oxycodone HCl (Oxycodone Immediate Release Tab) 5 mg PO Q6H PRN PRN Reason: Pain, moderate (4-7) Pantoprazole Sodium (Protonix Ec Tab) 40 mg PO ACB [facility] Last Admin: 05/19/18 09:23 Dose: 40 mg - Labs Labs: 05/19/18 06:00 05/19/18 06:00 PT 11.7 SECONDS (9.4-12.5) 05/18/18 06:30 INR 1.02 05/18/18 06:30 APTT 28.4 Seconds (25.1-36.5) 05/18/18 06:30 - Constitutional Appears: Non-toxic, No Acute Distress - Head Exam Head Exam: NORMAL INSPECTION - Eye Exam Eye Exam: Normal appearance - ENT Exam ENT Exam: Mucous Membranes Moist - Neck Exam Neck Exam: absent: Normal Inspection - Respiratory Exam Respiratory Exam: Clear to Ausculation Bilateral, NORMAL BREATHING PATTERN - GI/Abdominal Exam GI & Abdominal Exam: Soft, Normal Bowel Sounds. absent: Tenderness - Neurological Exam Neurological Exam: Alert, Awake, Oriented x3 - Psychiatric Exam Psychiatric exam: Normal Affect - Skin Skin Exam: Dry, Normal Color Assessment and Plan - Assessment and Plan (Free Text) Assessment: 68M with extensive oncologic history, CAD presenting with RUQ abdominal pain and cholelithiasis on imaging. #Acute Abdominal pain likely due to Symptomatic Cholelithiasis #Hepatosteatosis #Tubular Adenomas #Esophagitis #Laryngeal, Bladder, lung cancer #CAD s/p stents, recently took Plavix. #COPD/ILD #Hypothyroidism PLAN: -U/S reviewed: Gallstones, CBD 5.2mm, Hepatosteatosis -HIDA scan is positive for acute cholycystitis -Diet per surgery -Continue PPI -Reportedly, OR Monday for Lap Patricia -Follow up with GI as outpatient at previously scheduled appt. <Maira Welsh V - Last Filed: 05/19/18 21:41> Objective - Vital Signs/Intake and Output Vital Signs (last 24 hours): Temp Pulse Resp BP Pulse Ox 98.5 F 71 18 122/86 92 L 05/19/18 14:00 05/19/18 14:00 05/19/18 14:00 05/19/18 14:00 05/19/18 14:00 Intake and Output: 05/19/18 05/20/18 18:59 06:59 Intake Total 1040 Output Total 180 Balance 860 - Medications Medications: Current Medications Albuterol/Ipratropium (Duoneb 3 Mg/0.5 Mg (3 Ml) Ud) 3 ml IH Q6 PRN PRN Reason: Shortness of Breath Last Admin: 05/19/18 19:58 Dose: 3 ml Aspirin (Ecotrin) 81 mg PO DAILY [facility] Last Admin: 05/19/18 09:23 Dose: 81 mg Atorvastatin Calcium (Lipitor) 10 mg PO HS [facility] Last Admin: 05/19/18 21:20 Dose: 10 mg Budesonide (Pulmicort Respules) 0.5 mg IH BIDRESP [facility] Last Admin: 05/19/18 19:59 Dose: 0.5 mg Docusate Sodium (Colace) 100 mg PO DAILY [facility] Last Admin: 05/19/18 09:23 Dose: 100 mg Home Med (Home Med) 1 unit PO DAILY [facility] Last Admin: 05/19/18 16:36 Dose: 1 unit Lactated Ringer's (Lactated Ringer's) 1,000 mls @ 100 mls/hr IV .Q10H [facility] Last Admin: 05/19/18 21:21 Dose: 100 mls/hr Metronidazole (Flagyl) 500 mg in 100 mls @ 100 mls/hr IVPB Q8 [facility] PRN Reason: Protocol Last Admin: 05/19/18 21:19 Dose: 100 mls/hr Ceftriaxone Sodium (Rocephin 1 Gram Ivpb) 1 gm in 100 mls @ 100 mls/hr IVPB DAILY [facility] PRN Reason: Protocol Last Admin: 05/19/18 09:22 Dose: 100 mls/hr Levothyroxine Sodium (Synthroid) 100 mcg PO ACB [facility] Last Admin: 05/19/18 09:23 Dose: 100 mcg Morphine Sulfate (Morphine) 4 mg IVP Q6H PRN PRN Reason: Pain, severe (8-10) Last Admin: 05/18/18 10:44 Dose: 4 mg Morphine Sulfate (Morphine) 2 mg IVP Q4H PRN PRN Reason: Pain, moderate (4-7) Ondansetron HCl (Zofran Inj) 4 mg IVP Q6H PRN PRN Reason: Nausea/Vomiting Oxycodone HCl (Oxycodone Immediate Release Tab) 5 mg PO Q6H PRN PRN Reason: Pain, moderate (4-7) Last Admin: 05/19/18 21:20 Dose: 5 mg Pantoprazole Sodium (Protonix Ec Tab) 40 mg PO ACB [facility] Last Admin: 05/19/18 09:23 Dose: 40 mg - Labs Labs: 05/19/18 06:00 05/19/18 06:00 PT 11.7 SECONDS (9.4-12.5) 05/18/18 06:30 INR 1.02 05/18/18 06:30 APTT 28.4 Seconds (25.1-36.5) 05/18/18 06:30 Attending/Attestation - Attestation I have personally seen and examined this patient.: Yes I have fully participated in the care of the patient.: Yes I have reviewed all pertinent clinical information, including history, physical exam and plan: Yes Notes (Text): This is an addendum to GI progress report dictated by the GI Fellow.The patient was seen and examined earlier. Medical records, lab studies, imagings were reviewed. Last 24 hours events reviewed. Agreed with the above treatment plan as outlined in GI Fellow 's notes with the addition of the following Patient feels better but still has some tenderness right side of the abdomen On jasmin antibiotics LFT remains normal Plan for cholecystectomy on Monday05/19/18 21:39
[2018-05-19] MEDS: Albuterol-Ipratrop 3 mg / 0.5 (3 ml) UD IH PRN ×2 (12:57→19:58)
--- NOTE | 2018-05-19 13:04 | CP.PCM.PN ---
<Yosef Bueno - Last Filed: 05/19/18 15:28> Subjective - Date & Time of Evaluation Date of Evaluation: 05/19/18 Time of Evaluation: 07:00 - Subjective Subjective: Yosef Bueno, PGY1 Medicine Progress Note for Dr. Parra Patient was seen and examined at bedside this morning. Vital signs stable. No overnight changes. Patient went for HIDA scan yesterday. Patient explained that the scan confirmed he has gallstones. Patient still has abdominal pain, it is improving. Denies cp, sob, nausea, vomiting, diarrhea, fever, chills, numbness/ tingling of ext. A full 12 point ROS was conducted and unremarkable except as stated above. Objective - Vital Signs/Intake and Output Vital Signs (last 24 hours): Temp Pulse Resp BP Pulse Ox 98.3 F 80 20 134/93 H 98 05/19/18 07:50 05/19/18 07:50 05/19/18 07:50 05/19/18 07:50 05/19/18 07:50 Intake and Output: 05/19/18 05/19/18 06:59 18:59 Intake Total 240 180 Output Total 180 Balance 240 0 - Medications Medications: Current Medications Albuterol/Ipratropium (Duoneb 3 Mg/0.5 Mg (3 Ml) Ud) 3 ml IH Q6 PRN PRN Reason: Shortness of Breath Last Admin: 05/19/18 12:57 Dose: 3 ml Aspirin (Ecotrin) 81 mg PO DAILY [facility] Last Admin: 05/19/18 09:23 Dose: 81 mg Atorvastatin Calcium (Lipitor) 10 mg PO HS [facility] Budesonide (Pulmicort Respules) 0.5 mg IH BIDRESP [facility] Last Admin: 05/19/18 07:50 Dose: 0.5 mg Docusate Sodium (Colace) 100 mg PO DAILY [facility] Last Admin: 05/19/18 09:23 Dose: 100 mg Home Med (Home Med) 1 unit PO DAILY [facility] Lactated Ringer's (Lactated Ringer's) 1,000 mls @ 100 mls/hr IV .Q10H [facility] Last Admin: 05/19/18 10:39 Dose: 100 mls/hr Metronidazole (Flagyl) 500 mg in 100 mls @ 100 mls/hr IVPB Q8 [facility] PRN Reason: Protocol Last Admin: 05/19/18 06:44 Dose: 100 mls/hr Ceftriaxone Sodium (Rocephin 1 Gram Ivpb) 1 gm in 100 mls @ 100 mls/hr IVPB DAILY [facility] PRN Reason: Protocol Last Admin: 05/19/18 09:22 Dose: 100 mls/hr Levothyroxine Sodium (Synthroid) 100 mcg PO ACB [facility] Last Admin: 05/19/18 09:23 Dose: 100 mcg Morphine Sulfate (Morphine) 4 mg IVP Q6H PRN PRN Reason: Pain, severe (8-10) Last Admin: 05/18/18 10:44 Dose: 4 mg Morphine Sulfate (Morphine) 2 mg IVP Q4H PRN PRN Reason: Pain, moderate (4-7) Ondansetron HCl (Zofran Inj) 4 mg IVP Q6H PRN PRN Reason: Nausea/Vomiting Oxycodone HCl (Oxycodone Immediate Release Tab) 5 mg PO Q6H PRN PRN Reason: Pain, moderate (4-7) Pantoprazole Sodium (Protonix Ec Tab) 40 mg PO ACB [facility] Last Admin: 05/19/18 09:23 Dose: 40 mg - Labs Labs: 05/19/18 06:00 05/19/18 06:00 PT 11.7 SECONDS (9.4-12.5) 05/18/18 06:30 INR 1.02 05/18/18 06:30 APTT 28.4 Seconds (25.1-36.5) 05/18/18 06:30 - Constitutional Appears: Well, No Acute Distress - Head Exam Head Exam: ATRAUMATIC, NORMAL INSPECTION, NORMOCEPHALIC - Eye Exam Eye Exam: EOMI, Normal appearance, PERRL - ENT Exam ENT Exam: Mucous Membranes Moist, Normal Exam - Neck Exam Additional comments: stoma (hx of laryngeal cancer) - Respiratory Exam Respiratory Exam: Clear to Ausculation Bilateral, NORMAL BREATHING PATTERN. absent: Decreased Breath Sounds, Rales, Rhonchi, Wheezes, Respiratory Distress - Cardiovascular Exam Cardiovascular Exam: REGULAR RHYTHM, +S1, +S2. absent: Murmur - GI/Abdominal Exam GI & Abdominal Exam: Soft, Tenderness (Mild tenderness with deep palpation of RUQ), Normal Bowel Sounds - Extremities Exam Extremities Exam: Full ROM, Normal Capillary Refill, Normal Inspection. absent : Joint Swelling, Pedal Edema - Back Exam Back Exam: NORMAL INSPECTION - Neurological Exam Neurological Exam: Alert, Awake, CN II-XII Intact, Oriented x3 Neuro motor strength exam: Left Upper Extremity: 5, Right Upper Extremity: 5, Left Lower Extremity: 5, Right Lower Extremity: 5 - Psychiatric Exam Psychiatric exam: Normal Affect, Normal Mood - Skin Skin Exam: Dry, Intact, Normal Color, Warm Assessment and Plan - Assessment and Plan (Free Text) Assessment: Patient is a 68 y/o M with PMHx of COPD, Interstitial Lung Disease, HLD, CAD (s/ p multiple stent placement), Larygneal Carcinoma (s/p trach), Hypothyroidism, Squamous Cell Lung Cancer (s/p R-upper lung lobectomy), Anxiety who presented to the ED on 05/17 complaining of right upper quadrant abdominal pain with radiation to the back and right scapula. Patient is admitted for Acute Cholecystitis as confirmed on HIDA scan. Patient will be monitored on the floor. Plan: RUQ Abdominal Pain 2/2 Cholecystitis - HIDA scan (05/18): consistent with acute cholecystitis - Surgery recs appreciated. Lap kylah is not emergent. Patient planned for surgery on Monday, 05/21. - will call surgery/cardio on whether to hold ASA prior to surgery - Blood Cx negative x2 - UCx negative - flagyl and rocephin for antibiotic coverage - c/w Lactate ringers at 100 cc/hr - c/w Protonix 40 mg PO - c/w Zofran prn for nausea - c/w morphine q6h prn - Liquid diet - GI consulted, recs appreciated - Surgery consulted, recs appreciated - Abdominal US (05/17): multiple gallstones. No wall thickening or pericholecystic fluid. Sonographic Jeffers's sign is negative. No biliary dilation. - CT angio (05/17): no evidence of aortic aneurysm or dissection. History of Laryngeal Carcinoma - Patient has stoma - History of tobacco abuse CAD (multiple stent placement) - As per cardio, patient does not need to be on plavix; discontinued. - Patient is only on ASA 81 mg daily COPD - duonebs prn - c/w home meds HLD - c/w Lipitor 10 mg PO HS Hypothyroidism - c/w Levothyroxine 100 mcg PO PPx: - DVT ppx: SCD - GI ppx: Protonix Dispo: Patient will be monitored on the floor. Planned for Lap Cholecystectomy on Monday, 05/21. Case was discussed and reviewed with Attending Physician Dr. Parra <Alexandr Parra - Last Filed: 05/19/18 17:04> Objective - Vital Signs/Intake and Output Vital Signs (last 24 hours): Temp Pulse Resp BP Pulse Ox 98.5 F 71 18 122/86 92 L 05/19/18 14:00 05/19/18 14:00 05/19/18 14:00 05/19/18 14:00 05/19/18 14:00 Intake and Output: 05/19/18 05/19/18 06:59 18:59 Intake Total 240 1040 Output Total 180 Balance 240 860 - Medications Medications: Current Medications Albuterol/Ipratropium (Duoneb 3 Mg/0.5 Mg (3 Ml) Ud) 3 ml IH Q6 PRN PRN Reason: Shortness of Breath Last Admin: 05/19/18 12:57 Dose: 3 ml Aspirin (Ecotrin) 81 mg PO DAILY [facility] Last Admin: 05/19/18 09:23 Dose: 81 mg Atorvastatin Calcium (Lipitor) 10 mg PO HS [facility] Last Admin: 05/19/18 16:30 Dose: 10 mg Budesonide (Pulmicort Respules) 0.5 mg IH BIDRESP [facility] Last Admin: 05/19/18 07:50 Dose: 0.5 mg Docusate Sodium (Colace) 100 mg PO DAILY [facility] Last Admin: 05/19/18 09:23 Dose: 100 mg Home Med (Home Med) 1 unit PO DAILY [facility] Last Admin: 05/19/18 16:36 Dose: 1 unit Lactated Ringer's (Lactated Ringer's) 1,000 mls @ 100 mls/hr IV .Q10H [facility] Last Admin: 05/19/18 10:39 Dose: 100 mls/hr Metronidazole (Flagyl) 500 mg in 100 mls @ 100 mls/hr IVPB Q8 [facility] PRN Reason: Protocol Last Admin: 05/19/18 13:21 Dose: 100 mls/hr Ceftriaxone Sodium (Rocephin 1 Gram Ivpb) 1 gm in 100 mls @ 100 mls/hr IVPB DAILY [facility] PRN Reason: Protocol Last Admin: 05/19/18 09:22 Dose: 100 mls/hr Levothyroxine Sodium (Synthroid) 100 mcg PO ACB [facility] Last Admin: 05/19/18 09:23 Dose: 100 mcg Morphine Sulfate (Morphine) 4 mg IVP Q6H PRN PRN Reason: Pain, severe (8-10) Last Admin: 05/18/18 10:44 Dose: 4 mg Morphine Sulfate (Morphine) 2 mg IVP Q4H PRN PRN Reason: Pain, moderate (4-7) Ondansetron HCl (Zofran Inj) 4 mg IVP Q6H PRN PRN Reason: Nausea/Vomiting Oxycodone HCl (Oxycodone Immediate Release Tab) 5 mg PO Q6H PRN PRN Reason: Pain, moderate (4-7) Pantoprazole Sodium (Protonix Ec Tab) 40 mg PO B [facility] Last Admin: 05/19/18 09:23 Dose: 40 mg - Labs Labs: 05/19/18 06:00 05/19/18 06:00 PT 11.7 SECONDS (9.4-12.5) 05/18/18 06:30 INR 1.02 05/18/18 06:30 APTT 28.4 Seconds (25.1-36.5) 05/18/18 06:30 Attending/Attestation - Attestation I have personally seen and examined this patient.: Yes I have fully participated in the care of the patient.: Yes I have reviewed all pertinent clinical information, including history, physical exam and plan: Yes Notes (Text): 05/19/18 17:02 Attending note; Patient seen and examined with resident. Patient is sitting in the chair. Alert and awake. Denies any cough. Denies any shortness of breath. Denies any fevers, chills. Patient is a 68 year old male with PMHx of COPD, Interstitial Lung Disease, HLD , CAD stent placement, Larygneal Carcinoma s/p trach, Hypothyroidism, Squamous Cell Lung Cancer ,s/p R-upper lung lobectomy, Anxiety is admitted with right upper quadrant abdominal pain with radiation to the back and right scapula. Patient noted to have multiple gallstones on abdominal ultrasound. HIDA scan showed nonvisualization of gallbladder suggesting acute cholecystitis. Evaluated by surgery today. Plan for lap cholecystectomy on Monday. Started on clear liquid diet. Continue IV Rocephin and Flagyl. History of coronary artery disease and stent placement. Hold aspirin from tomorrow. Cardiology evaluation appreciated. History of tracheostomy; stable respiratory status. Continue DuoNeb and Pulmicort. Upon discharge the patient will follow-up with PMD Dr. Parra.
[2018-05-19] MEDS: oxyCODONE 5 mg Immediate Release Tab PO PRN (21:20)
[2018-05-20] MEDS: metroNIDAZOLE IV 500 mg/100 ml 500 MG/100 ML BAG IVPB SCH ×3 (05:49→22:08)
[2018-05-20 06:52] LABS: HEMOGLOBIN 13.9 g/dL (14.0-18.0); MEAN CELL VOLUME 86.2 fl (80.0-105.0); MEAN CORPUSCULAR HEMOGLOBIN 29.1 pg (25.0-35.0); MEAN CORPUSCULAR HGB CONC 33.8 g/dl (31.0-37.0); MEAN PLATELET VOLUME 10.3 fl (7.0-11.0); RBC 4.77 10^6/uL (3.5-6.1); RED CELL DISTRIBUTION WIDTH 13.5 % (11.5-14.5); WHITE BLOOD COUNT 5.4 10^3/ul (4.5-11.0)
[2018-05-20 07:17] LABS: ALB/GLOB RATIO 1.2 (1.1-1.8); ALBUMIN 3.6 g/dL (3.0-4.8); ALT/SGPT 39 U/L (7-56); AST/SGOT 36 U/L (17-59); BLOOD UREA NITROGEN 11 mg/dL (7-21); CALCIUM 8.9 mg/dL (8.4-10.5); GFR NON-AFRICAN AMERICAN > 60
[2018-05-20] MEDS: Budesonide 0.5 mg/2 ml Inhal Susp UD IH SCH ×2 (07:18→19:41)
[2018-05-20] MEDS: Pantoprazole 40 mg EC Tab PO SCH (07:47)
[2018-05-20] MEDS: Levothyroxine 100 MCG TAB PO SCH (07:47)
--- NOTE | 2018-05-20 08:57 | CP.PCM.PN ---
Subjective - Date & Time of Evaluation Date of Evaluation: 05/20/18 Time of Evaluation: 08:54 - Subjective Subjective: General Surgery Dr. Williamson Pt S&E @bedside. No acute events overnight. pt has no complaints. denies F/C, N/ V, D/C. tolerating CLD. Objective - Vital Signs/Intake and Output Vital Signs (last 24 hours): Temp Pulse Resp BP Pulse Ox 98.3 F 67 20 149/93 H 97 05/20/18 08:04 05/20/18 08:04 05/20/18 08:04 05/20/18 08:04 05/20/18 08:04 Intake and Output: 05/20/18 05/20/18 06:59 18:59 Intake Total 540 240 Balance 540 240 - Medications Medications: Current Medications Albuterol/Ipratropium (Duoneb 3 Mg/0.5 Mg (3 Ml) Ud) 3 ml IH Q6 PRN PRN Reason: Shortness of Breath Last Admin: 05/19/18 19:58 Dose: 3 ml Aspirin (Ecotrin) 81 mg PO DAILY [facility] Last Admin: 05/19/18 09:23 Dose: 81 mg Atorvastatin Calcium (Lipitor) 10 mg PO HS [facility] Last Admin: 05/19/18 21:20 Dose: 10 mg Budesonide (Pulmicort Respules) 0.5 mg IH BIDRESP [facility] Last Admin: 05/20/18 07:18 Dose: 0.5 mg Docusate Sodium (Colace) 100 mg PO DAILY [facility] Last Admin: 05/19/18 09:23 Dose: 100 mg Home Med (Home Med) 1 unit PO DAILY [facility] Last Admin: 05/19/18 16:36 Dose: 1 unit Lactated Ringer's (Lactated Ringer's) 1,000 mls @ 100 mls/hr IV .Q10H [facility] Last Admin: 05/19/18 22:10 Dose: 100 mls/hr Metronidazole (Flagyl) 500 mg in 100 mls @ 100 mls/hr IVPB Q8 [facility] PRN Reason: Protocol Last Admin: 05/20/18 05:49 Dose: 100 mls/hr Ceftriaxone Sodium (Rocephin 1 Gram Ivpb) 1 gm in 100 mls @ 100 mls/hr IVPB DAILY [facility] PRN Reason: Protocol Last Admin: 05/19/18 09:22 Dose: 100 mls/hr Levothyroxine Sodium (Synthroid) 100 mcg PO ACB [facility] Last Admin: 05/20/18 07:47 Dose: 100 mcg Morphine Sulfate (Morphine) 4 mg IVP Q6H PRN PRN Reason: Pain, severe (8-10) Last Admin: 05/18/18 10:44 Dose: 4 mg Morphine Sulfate (Morphine) 2 mg IVP Q4H PRN PRN Reason: Pain, moderate (4-7) Ondansetron HCl (Zofran Inj) 4 mg IVP Q6H PRN PRN Reason: Nausea/Vomiting Oxycodone HCl (Oxycodone Immediate Release Tab) 5 mg PO Q6H PRN PRN Reason: Pain, moderate (4-7) Last Admin: 05/19/18 21:20 Dose: 5 mg Pantoprazole Sodium (Protonix Ec Tab) 40 mg PO ACB [facility] Last Admin: 05/20/18 07:47 Dose: 40 mg - Labs Labs: 05/20/18 06:00 05/20/18 06:00 PT 11.7 SECONDS (9.4-12.5) 05/18/18 06:30 INR 1.02 05/18/18 06:30 APTT 28.4 Seconds (25.1-36.5) 05/18/18 06:30 - Constitutional Appears: Non-toxic, No Acute Distress - Head Exam Head Exam: NORMAL INSPECTION - Eye Exam Eye Exam: Normal appearance - ENT Exam ENT Exam: Mucous Membranes Moist - Neck Exam Additional comments: trach collar in place - Respiratory Exam Respiratory Exam: NORMAL BREATHING PATTERN. absent: Accessory Muscle Use, Respiratory Distress - Cardiovascular Exam Cardiovascular Exam: REGULAR RHYTHM. absent: Bradycardia, Tachycardia - GI/Abdominal Exam GI & Abdominal Exam: Soft. absent: Distended, Firm, Guarding, Tenderness, Rebound - Extremities Exam Extremities Exam: Normal Inspection - Neurological Exam Neurological Exam: Alert, Awake, Oriented x3 - Psychiatric Exam Psychiatric exam: Normal Affect, Normal Mood - Skin Skin Exam: Dry, Intact, Normal Color, Warm Assessment and Plan - Assessment and Plan (Free Text) Assessment: 68 y/o M w/ acute cholecystitis - cont IV Abx - cont pain management - CLD - NPO@OH - plans for OR Monday 05/21 - hold anti-plts/anticoagulation - cont medical management Pt discussed w/ Dr. Clay Adams DO PGY3
[2018-05-20] MEDS: cefTRIAXone 1 gm 1 GM/100 ML BAG IVPB SCH (09:19)
[2018-05-20] MEDS: Lactated Ringer's 1,000 ML IV SCH (11:19)
--- NOTE | 2018-05-20 13:33 | CP.PCM.PN ---
<Yosef Bueno - Last Filed: 05/20/18 13:30> Subjective - Date & Time of Evaluation Date of Evaluation: 05/20/18 Time of Evaluation: 07:00 - Subjective Subjective: Yosef Bueno PGY1 Medicine Progress Note for Dr. Parra Patient was seen and examined at bedside this morning. Vital signs are stable. No overnight changes. Patient is doing well. Denies cp, sob, abdominal pain, n/v /d. Patient is aware that he will going for lap kylah tomorrow. A full 12 point ROS was conducted and unremarkable except as stated above. Objective - Vital Signs/Intake and Output Vital Signs (last 24 hours): Temp Pulse Resp BP Pulse Ox 98.3 F 67 20 149/93 H 97 05/20/18 08:04 05/20/18 08:04 05/20/18 08:04 05/20/18 08:04 05/20/18 08:04 Intake and Output: 05/20/18 05/20/18 06:59 18:59 Intake Total 540 920 Balance 540 920 - Medications Medications: Current Medications Albuterol/Ipratropium (Duoneb 3 Mg/0.5 Mg (3 Ml) Ud) 3 ml IH Q6 PRN PRN Reason: Shortness of Breath Last Admin: 05/19/18 19:58 Dose: 3 ml Aspirin (Ecotrin) 81 mg PO DAILY [facility] Last Admin: 05/19/18 09:23 Dose: 81 mg Atorvastatin Calcium (Lipitor) 10 mg PO HS [facility] Last Admin: 05/19/18 21:20 Dose: 10 mg Budesonide (Pulmicort Respules) 0.5 mg IH BIDRESP [facility] Last Admin: 05/20/18 07:18 Dose: 0.5 mg Docusate Sodium (Colace) 100 mg PO DAILY [facility] Last Admin: 05/20/18 09:20 Dose: 100 mg Home Med (Home Med) 1 unit PO DAILY [facility] Last Admin: 05/20/18 09:20 Dose: 1 unit Lactated Ringer's (Lactated Ringer's) 1,000 mls @ 100 mls/hr IV .Q10H [facility] Last Admin: 05/20/18 11:19 Dose: 100 mls/hr Metronidazole (Flagyl) 500 mg in 100 mls @ 100 mls/hr IVPB Q8 [facility] PRN Reason: Protocol Last Admin: 05/20/18 13:08 Dose: 100 mls/hr Ceftriaxone Sodium (Rocephin 1 Gram Ivpb) 1 gm in 100 mls @ 100 mls/hr IVPB DAILY [facility] PRN Reason: Protocol Last Admin: 05/20/18 09:19 Dose: 100 mls/hr Levothyroxine Sodium (Synthroid) 100 mcg PO ACB [facility] Last Admin: 05/20/18 07:47 Dose: 100 mcg Morphine Sulfate (Morphine) 4 mg IVP Q6H PRN PRN Reason: Pain, severe (8-10) Last Admin: 05/18/18 10:44 Dose: 4 mg Morphine Sulfate (Morphine) 2 mg IVP Q4H PRN PRN Reason: Pain, moderate (4-7) Ondansetron HCl (Zofran Inj) 4 mg IVP Q6H PRN PRN Reason: Nausea/Vomiting Oxycodone HCl (Oxycodone Immediate Release Tab) 5 mg PO Q6H PRN PRN Reason: Pain, moderate (4-7) Last Admin: 05/19/18 21:20 Dose: 5 mg Pantoprazole Sodium (Protonix Ec Tab) 40 mg PO ACB [facility] Last Admin: 05/20/18 07:47 Dose: 40 mg - Labs Labs: 05/20/18 06:00 05/20/18 06:00 PT 11.7 SECONDS (9.4-12.5) 05/18/18 06:30 INR 1.02 05/18/18 06:30 APTT 28.4 Seconds (25.1-36.5) 05/18/18 06:30 - Constitutional Appears: Well, No Acute Distress - Head Exam Head Exam: ATRAUMATIC, NORMAL INSPECTION, NORMOCEPHALIC - Eye Exam Eye Exam: EOMI, Normal appearance, PERRL Pupil Exam: NORMAL ACCOMODATION, PERRL - ENT Exam ENT Exam: Mucous Membranes Moist, Normal Exam - Neck Exam Neck Exam: Full ROM, Normal Inspection. absent: Lymphadenopathy Additional comments: stoma (hx of laryngeal cancer) - Respiratory Exam Respiratory Exam: Clear to Ausculation Bilateral, NORMAL BREATHING PATTERN. absent: Rales, Rhonchi, Wheezes - Cardiovascular Exam Cardiovascular Exam: REGULAR RHYTHM, +S1, +S2. absent: Murmur - GI/Abdominal Exam GI & Abdominal Exam: Soft, Normal Bowel Sounds Additional comments: Mild discomfort at the right upper quadrant - Rectal Exam Rectal Exam: NORMAL INSPECTION - Extremities Exam Extremities Exam: Full ROM, Normal Capillary Refill, Normal Inspection. absent : Joint Swelling, Pedal Edema - Back Exam Back Exam: NORMAL INSPECTION - Neurological Exam Neurological Exam: Alert, Awake, Normal Gait, Oriented x3 Neuro motor strength exam: Left Upper Extremity: 5, Right Upper Extremity: 5, Left Lower Extremity: 5, Right Lower Extremity: 5 - Psychiatric Exam Psychiatric exam: Normal Affect, Normal Mood - Skin Skin Exam: Dry, Intact, Normal Color, Warm Assessment and Plan - Assessment and Plan (Free Text) Assessment: Patient is a 68 y/o M with PMHx of COPD, Interstitial Lung Disease, HLD, CAD (s/ p multiple stent placement), Larygneal Carcinoma (s/p trach), Hypothyroidism, Squamous Cell Lung Cancer (s/p R-upper lung lobectomy), Anxiety who presented to the ED on 05/17 complaining of right upper quadrant abdominal pain with radiation to the back and right scapula. Patient is admitted for Acute Cholecystitis as confirmed on HIDA scan. Patient's abdominal pain has improved during hospital course; patient is being monitored on the floor. Planning for lap kylah on Monday, 05/21. Plan: RUQ Abdominal Pain 2/2 Cholecystitis - Planned for Lap Cholecystectomy on Monday, 05/21. - ASA 81 mg is held prior to surgery. - NPO after midnight. - HIDA scan (05/18): consistent with acute cholecystitis - Blood Cx negative x2; UCx negative - c/w flagyl and rocephin - c/w Lactate ringers at 100 cc/hr - c/w Protonix 40 mg PO - c/w Zofran prn for nausea - c/w morphine q6h prn - GI consulted, recs appreciated - Surgery consulted, recs appreciated - Abdominal US (05/17): multiple gallstones. No wall thickening or pericholecystic fluid. Sonographic Jeffers's sign is negative. No biliary dilation. - CT angio (05/17): no evidence of aortic aneurysm or dissection. History of Laryngeal Carcinoma - Patient has stoma - History of tobacco abuse CAD (multiple stent placement) - As per cardio, patient does not need to be on plavix; discontinued. - Patient only needs to be on ASA 81 mg daily COPD - duonebs prn - c/w home meds HLD - c/w Lipitor 10 mg PO HS Hypothyroidism - c/w Levothyroxine 100 mcg PO PPx: - DVT ppx: SCD - GI ppx: Protonix Dispo: Patient will be monitored on the floor. Planned for Lap Cholecystectomy on Monday, 05/21. Case was discussed and reviewed with Attending Physician Dr. Parra <Alexandr Parra - Last Filed: 05/20/18 17:42> Objective - Vital Signs/Intake and Output Vital Signs (last 24 hours): Temp Pulse Resp BP Pulse Ox 98.7 F 67 20 121/76 94 L 05/20/18 15:49 05/20/18 15:49 05/20/18 15:49 05/20/18 15:49 05/20/18 15:49 Intake and Output: 05/20/18 05/20/18 06:59 18:59 Intake Total 540 920 Balance 540 920 - Medications Medications: Current Medications Albuterol/Ipratropium (Duoneb 3 Mg/0.5 Mg (3 Ml) Ud) 3 ml IH Q6 PRN PRN Reason: Shortness of Breath Last Admin: 05/20/18 13:35 Dose: 3 ml Aspirin (Ecotrin) 81 mg PO DAILY [facility] Last Admin: 05/19/18 09:23 Dose: 81 mg Atorvastatin Calcium (Lipitor) 10 mg PO HS [facility] Last Admin: 05/19/18 21:20 Dose: 10 mg Budesonide (Pulmicort Respules) 0.5 mg IH BIDRESP [facility] Last Admin: 05/20/18 07:18 Dose: 0.5 mg Docusate Sodium (Colace) 100 mg PO DAILY [facility] Last Admin: 05/20/18 09:20 Dose: 100 mg Home Med (Home Med) 1 unit PO DAILY [facility] Last Admin: 05/20/18 09:20 Dose: 1 unit Lactated Ringer's (Lactated Ringer's) 1,000 mls @ 100 mls/hr IV .Q10H [facility] Last Admin: 05/20/18 11:19 Dose: 100 mls/hr Metronidazole (Flagyl) 500 mg in 100 mls @ 100 mls/hr IVPB Q8 [facility] PRN Reason: Protocol Last Admin: 05/20/18 13:08 Dose: 100 mls/hr Ceftriaxone Sodium (Rocephin 1 Gram Ivpb) 1 gm in 100 mls @ 100 mls/hr IVPB DAILY [facility] PRN Reason: Protocol Last Admin: 05/20/18 09:19 Dose: 100 mls/hr Levothyroxine Sodium (Synthroid) 100 mcg PO ACB [facility] Last Admin: 05/20/18 07:47 Dose: 100 mcg Morphine Sulfate (Morphine) 4 mg IVP Q6H PRN PRN Reason: Pain, severe (8-10) Last Admin: 05/18/18 10:44 Dose: 4 mg Morphine Sulfate (Morphine) 2 mg IVP Q4H PRN PRN Reason: Pain, moderate (4-7) Ondansetron HCl (Zofran Inj) 4 mg IVP Q6H PRN PRN Reason: Nausea/Vomiting Oxycodone HCl (Oxycodone Immediate Release Tab) 5 mg PO Q6H PRN PRN Reason: Pain, moderate (4-7) Last Admin: 05/19/18 21:20 Dose: 5 mg Pantoprazole Sodium (Protonix Ec Tab) 40 mg PO ACB [facility] Last Admin: 05/20/18 07:47 Dose: 40 mg - Labs Labs: 05/20/18 06:00 05/20/18 06:00 PT 11.7 SECONDS (9.4-12.5) 05/18/18 06:30 INR 1.02 05/18/18 06:30 APTT 28.4 Seconds (25.1-36.5) 05/18/18 06:30 Attending/Attestation - Attestation I have personally seen and examined this patient.: Yes I have fully participated in the care of the patient.: Yes I have reviewed all pertinent clinical information, including history, physical exam and plan: Yes Notes (Text): 05/20/18 17:41 Attending note; Patient seen and examined with resident. Patient is sitting in the chair. Alert and awake. Denies any cough. Denies any shortness of breath. Denies any fevers, chills. Patient is a 68 year old male with PMHx of COPD, Interstitial Lung Disease, HLD , CAD stent placement, Larygneal Carcinoma s/p trach, Hypothyroidism, Squamous Cell Lung Cancer ,s/p R-upper lung lobectomy, Anxiety is admitted with right upper quadrant abdominal pain. Patient noted to have multiple gallstones on abdominal ultrasound. HIDA scan showed nonvisualization of gallbladder suggesting acute cholecystitis. Plan for lap cholecystectomy on Monday. Started on clear liquid diet. Continue IV Rocephin and Flagyl. History of coronary artery disease and stent placement. Hold aspirin. Cardiology evaluation appreciated. History of tracheostomy; stable respiratory status. Continue DuoNeb and Pulmicort. Upon discharge the patient will follow-up with PMD Dr. Parra.
[2018-05-20] MEDS: Albuterol-Ipratrop 3 mg / 0.5 (3 ml) UD IH PRN (13:35)
[2018-05-20] MEDS: oxyCODONE 5 mg Immediate Release Tab PO PRN (22:07)
[2018-05-21] MEDS: metroNIDAZOLE IV 500 mg/100 ml 500 MG/100 ML BAG IVPB SCH ×3 (06:12→21:51)
[2018-05-21 07:03] LABS: HEMOGLOBIN 15.6 g/dL (14.0-18.0); MEAN CELL VOLUME 87.6 fl (80.0-105.0); MEAN CORPUSCULAR HEMOGLOBIN 29.7 pg (25.0-35.0); MEAN CORPUSCULAR HGB CONC 33.8 g/dl (31.0-37.0); MEAN PLATELET VOLUME 10.4 fl (7.0-11.0); RBC 5.26 10^6/uL (3.5-6.1); RED CELL DISTRIBUTION WIDTH 13.7 % (11.5-14.5); WHITE BLOOD COUNT 5.9 10^3/ul (4.5-11.0)
[2018-05-21] MEDS: Budesonide 0.5 mg/2 ml Inhal Susp UD IH SCH ×2 (07:23→19:39)
[2018-05-21 07:28] LABS: ALB/GLOB RATIO 1.3 (1.1-1.8); ALBUMIN 4.2 g/dL (3.0-4.8); ALT/SGPT 39 U/L (7-56); AST/SGOT 39 U/L (17-59); BLOOD UREA NITROGEN 8 mg/dL (7-21); CALCIUM 9.2 mg/dL (8.4-10.5); GFR NON-AFRICAN AMERICAN > 60
[2018-05-21] MEDS ORDERED: Midazolam 2 MG/2 ML VIAL ONE (10:29)
[2018-05-21] MEDS ORDERED: Sevoflurane - Inhalation Anesthetic Liq (250 ml) ONE (10:30)
[2018-05-21] MEDS ORDERED: Bupivacaine 0.5% Inj(30mL) ONE (10:41)
[2018-05-21] MEDS ORDERED: Rocuronium 10 mg/ml (5 ml) ONE ×2 (10:43→11:11)
[2018-05-21] MEDS ORDERED: Propofol 10 mg/ml Inj (20 ML) ONE (10:43)
[2018-05-21] MEDS ORDERED: Neostigmine Methylsulfate 3mg/3ml Syringe IV ONE (11:04)
[2018-05-21] MEDS ORDERED: Bupivacaine 0.5% Inj(30mL) IJ ONE ×2 (11:13)
[2018-05-21] MEDS ORDERED: ePHEDrine 50 mg/ml Inj ONE (11:15)
[2018-05-21] MEDS ORDERED: Iohexol 240 (50 ml) ONE (11:18)
[2018-05-21] MEDS ORDERED: Esmolol 100 mg/10ml Inj IV ONE (12:30)
[2018-05-21] MEDS ORDERED: Bupivacaine-Epi 0.25%-1:200,000 PF Inj ONE (12:35)
[2018-05-21] MEDS ORDERED: HYDROmorphone 0.5 mg/0.5 ml ISec IVP PRN (12:48)
[2018-05-21] MEDS ORDERED: Sodium Chloride 0.9% 1,000 ML IV SCH (13:00)
--- NOTE | 2018-05-21 13:17 | PCM.SURG1 ---
Surgeon's Initial Post Op Note - Surgeon's Notes Surgeon: Dr. Williamson Ceramic Research Engineer: Dr. Pierce PGY4; Dr. Ramirez PGY3 Type of Anesthesia: General Endo Anesthesia Administered By: Tracy Pre-Operative Diagnosis: Acute Cholecystitis Operative Findings: same Post-Operative Diagnosis: same Operation Performed: Laparoscopic Cholecystectomy Specimen/Specimens Removed: gallbladder Estimated Blood Loss: EBL {In ML}: 30 Blood Products Given: N/A Drains Used: No Drains Post-Op Condition: Good Date of Surgery/Procedure: 05/21/18 Time of Surgery/Procedure: 13:17
--- NOTE | 2018-05-21 13:48 | CP.PCM.CON ---
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 Our service was consulted to fit the patient with a trachostomy with a cuff for OR. 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, bladder cancer, hypothyroidism, COPD PSH: laryngeal mass excision with tracheostomy creation, right upper lobe excision, bladder excision, laparotomy for resection of an abdominal "vein" for esophageal conduit (per patient), coronary artery stent ALL: NKDA Social: smoked 4PPD until 1999, denies ETOH or drug use Review of Systems - Review of Systems All systems: reviewed and no additional remarkable complaints except - Constitutional Constitutional: absent: Anorexia, Chills - EENT Eyes: absent: Blurred Vision, Change in Vision - Cardiovascular Cardiovascular: absent: Chest Pain, Dyspnea - Respiratory Respiratory: absent: Dyspnea, Dyspnea on Exertion - Gastrointestinal Gastrointestinal: Bloating. absent: Heartburn, Nausea, Temesmus, Vomiting - Genitourinary Genitourinary: absent: Difficulty Urinating, Dysuria Past Patient History - Infectious Disease Hx of Infectious Diseases: None - Past Medical History & Family History Past Medical History?: Yes - Past Social History Smoking Status: Former Smoker - CARDIAC Hx Cardiac Disorders: Yes (CAD) Hx Pacemaker: No - PULMONARY Hx Respiratory Disorders: Yes (TRACHE) Hx Chronic Obstructive Pulmonary Disease (COPD): Yes Hx Pneumonia: Yes Other/Comment: USED TO SMOKE 4 PPD QUIT 1999 - NEUROLOGICAL Hx Neurological Disorder: Yes Hx Dizziness: Yes - HEENT Hx HEENT Problems: Yes Hx Cataracts: Yes - RENAL Hx Chronic Kidney Disease: No - ENDOCRINE/METABOLIC Hx Endocrine Disorders: Yes Hx Hypothyroidism: Yes - HEMATOLOGICAL/ONCOLOGICAL Hx Blood Transfusions: (unknown) Hx Blood Transfusion Reaction: No - INTEGUMENTARY Hx Dermatological Problems: Yes Other/Comment: 08-10-[address] GUIDED BX,INCISION TO RIGHT UPPER CHEST.INCISION TO RIGHT UPPER BACK. - MUSCULOSKELETAL/RHEUMATOLOGICAL Hx Musculoskeletal Disorders: No Hx Falls: No - GASTROINTESTINAL Hx Gastrointestinal Disorders: Yes (LARYNGEAL CA) - GENITOURINARY/GYNECOLOGICAL Hx Genitourinary Disorders: No - PSYCHIATRIC Hx Emotional Abuse: No Hx Physical Abuse: No - SURGICAL HISTORY Hx Surgeries: Yes - ANESTHESIA Hx Anesthesia Reactions: No Hx Malignant Hyperthermia: No Meds Allergies/Adverse Reactions: Allergies Allergy/AdvReac Type Severity Reaction Status Date / Time No Known Allergies Allergy Verified 08/10/17 18:44 - Medications Medications: Current Medications Albuterol/Ipratropium (Duoneb 3 Mg/0.5 Mg (3 Ml) Ud) 3 ml IH Q6 PRN PRN Reason: Shortness of Breath Last Admin: 05/20/18 13:35 Dose: 3 ml Aspirin (Ecotrin) 81 mg PO DAILY COUNTS INCLUDE 234 BEDS AT THE [facility] Last Admin: 05/19/18 09:23 Dose: 81 mg Atorvastatin Calcium (Lipitor) 10 mg PO HS COUNTS INCLUDE 234 BEDS AT THE [facility] Last Admin: 05/20/18 22:20 Dose: 10 mg Budesonide (Pulmicort Respules) 0.5 mg IH BIDRESP COUNTS INCLUDE 234 BEDS AT THE [facility] Last Admin: 05/21/18 07:23 Dose: 0.5 mg Docusate Sodium (Colace) 100 mg PO DAILY COUNTS INCLUDE 234 BEDS AT THE [facility] Last Admin: 05/20/18 09:20 Dose: 100 mg Home Med (Home Med) 1 unit PO DAILY COUNTS INCLUDE 234 BEDS AT THE [facility] Last Admin: 05/20/18 09:20 Dose: 1 unit Hydromorphone HCl (Dilaudid) 0.5 mg IVP Q15M PRN PRN Reason: Pain, moderate (4-7) Stop: 05/21/18 14:48 Lactated Ringer's (Lactated Ringer's) 1,000 mls @ 100 mls/hr IV .Q10H COUNTS INCLUDE 234 BEDS AT THE [facility] Last Admin: 05/20/18 11:19 Dose: 100 mls/hr Metronidazole (Flagyl) 500 mg in 100 mls @ 100 mls/hr IVPB Q8 JOSELINE PRN Reason: Protocol Last Admin: 05/21/18 06:12 Dose: 100 mls/hr Ceftriaxone Sodium (Rocephin 1 Gram Ivpb) 1 gm in 100 mls @ 100 mls/hr IVPB DAILY COUNTS INCLUDE 234 BEDS AT THE [facility] PRN Reason: Protocol Last Admin: 05/20/18 09:19 Dose: 100 mls/hr Sodium Chloride (Sodium Chloride 0.9%) 1,000 mls @ 75 mls/hr IV .[id number] COUNTS INCLUDE 234 BEDS AT THE [facility] Stop: 05/21/18 15:01 Levothyroxine Sodium (Synthroid) 100 mcg PO B COUNTS INCLUDE 234 BEDS AT THE [facility] Last Admin: 05/20/18 07:47 Dose: 100 mcg Morphine Sulfate (Morphine) 4 mg IVP Q6H PRN PRN Reason: Pain, severe (8-10) Last Admin: 05/18/18 10:44 Dose: 4 mg Morphine Sulfate (Morphine) 2 mg IVP Q4H PRN PRN Reason: Pain, moderate (4-7) Ondansetron HCl (Zofran Inj) 4 mg IVP Q6H PRN PRN Reason: Nausea/Vomiting Oxycodone HCl (Oxycodone Immediate Release Tab) 5 mg PO Q6H PRN PRN Reason: Pain, moderate (4-7) Last Admin: 05/20/18 22:07 Dose: 5 mg Pantoprazole Sodium (Protonix Ec Tab) 40 mg PO B COUNTS INCLUDE 234 BEDS AT THE [facility] Last Admin: 05/20/18 07:47 Dose: 40 mg Physical Exam - Constitutional Appears: Non-toxic, No Acute Distress - Head Exam Head Exam: ATRAUMATIC, NORMOCEPHALIC - Eye Exam Eye Exam: EOMI, Normal appearance - ENT Exam ENT Exam: Mucous Membranes Moist - Respiratory Exam Respiratory Exam: NORMAL BREATHING PATTERN - Cardiovascular Exam Cardiovascular Exam: +S1, +S2 - GI/Abdominal Exam GI & Abdominal Exam: Soft. absent: Guarding, Hernia, Rebound, Rigid - Neurological Exam Neurological exam: Alert, Oriented x3 - Psychiatric Exam Psychiatric exam: Normal Affect, Normal Mood - Skin Skin Exam: Dry, Intact Results - Vital Signs Recent Vital Signs: Last Vital Signs Temp 98.2 F 05/21/18 13:30 Pulse 67 05/21/18 13:30 Resp 18 05/21/18 13:30 BP 159/84 H 05/21/18 13:30 Pulse Ox 99 05/21/18 13:30 - Labs Result Diagrams: 05/21/18 06:30 05/21/18 06:30 Labs: Laboratory Results - last 24 hr 05/21/18 05/21/18 06:30 06:30 WBC 5.9 RBC 5.26 Hgb 15.6 Hct 46.1 MCV 87.6 MCH 29.7 MCHC 33.8 RDW 13.7 Plt Count 208 MPV 10.4 Sodium 144 Potassium 4.1 Chloride 104 Carbon Dioxide 30 Anion Gap 14 BUN 8 Creatinine 1.1 Est GFR ( Amer) > 60 Est GFR (Non-Af Amer) > 60 Random Glucose 100 Calcium 9.2 Total Bilirubin 0.6 AST 39 ALT 39 Alkaline Phosphatase 89 Total Protein 7.5 Albumin 4.2 Globulin 3.3 Albumin/Globulin Ratio 1.3 Assessment & Plan - Assessment and Plan (Free Text) Assessment: 68M with permanent trachostomy in need of trach sizing Permanent stoma, place 6 or 8 [facility] larger size better D/W Dr. Patel
[2018-05-21] MEDS: Pantoprazole 40 mg EC Tab PO SCH (14:03)
[2018-05-21] MEDS: cefTRIAXone 1 gm 1 GM/100 ML BAG IVPB SCH (14:03)
[2018-05-21] MEDS: Levothyroxine 100 MCG TAB PO SCH (14:04)
[2018-05-21] MEDS: Lactated Ringer's 1,000 ML IV SCH (14:43)
[2018-05-21 15:12] VITALS: RESP 20
--- NOTE | 2018-05-21 16:30 | PN ---
DATE: 05/21/2018 CARDIOLOGY FOLLOWUP SUBJECTIVE: The patient tolerated laparoscopic cholecystectomy. He is awake and alert. No issues. PHYSICAL EXAMINATION: VITAL SIGNS: Blood pressure is 147/91, the heart rate is in the 60s. NECK: Negative JVD. LUNGS: Without rales. HEART: Reveals S1, S2. EXTREMITIES: Without edema. LABORATORY DATA: Laboratories from this morning are reviewed. IMPRESSION: 1. Status post cholelithiasis, status post gallbladder surgery. 2. Stable angina. 3. Chronic obstructive pulmonary disease. 4. History of lung cancer. 5. Chronic tracheostomy. PLAN: Given these findings, the patient is hemodynamically stable post surgery. Micky Vincent MD
--- NOTE | 2018-05-21 16:34 | CP.PCM.PN ---
<Kavita Lima - Last Filed: 05/21/18 17:51> Subjective - Date & Time of Evaluation Date of Evaluation: 05/21/18 Time of Evaluation: 07:50 - Subjective Subjective: PGY-1 Kavita Lima D.O. Medicine progress note for Dr. Mayo's service: Patient was seen and examined this morning. He states he is ready for surgery. he has not eaten since midnight. He is concerned about his BP but attributes it to nerves and IVF. He denies pain. Patient is re-evaluated post-op lap janna. His pain is well controlled. Objective - Vital Signs/Intake and Output Vital Signs (last 24 hours): Temp Pulse Resp BP Pulse Ox 98 F 60 20 147/91 H 97 05/21/18 14:00 05/21/18 14:00 05/21/18 14:00 05/21/18 14:00 05/21/18 14:00 Intake and Output: 05/21/18 05/21/18 06:59 18:59 Intake Total 840 0 Balance 840 0 - Medications Medications: Current Medications Albuterol/Ipratropium (Duoneb 3 Mg/0.5 Mg (3 Ml) Ud) 3 ml IH Q6 PRN PRN Reason: Shortness of Breath Last Admin: 05/20/18 13:35 Dose: 3 ml Aspirin (Ecotrin) 81 mg PO DAILY [facility] Last Admin: 05/21/18 14:00 Dose: Not Given Atorvastatin Calcium (Lipitor) 10 mg PO HS [facility] Last Admin: 05/20/18 22:20 Dose: 10 mg Budesonide (Pulmicort Respules) 0.5 mg IH BIDRESP [facility] Last Admin: 05/21/18 07:23 Dose: 0.5 mg Docusate Sodium (Colace) 100 mg PO DAILY [facility] Last Admin: 05/21/18 14:00 Dose: Not Given Home Med (Home Med) 1 unit PO DAILY [facility] Last Admin: 05/21/18 14:01 Dose: Not Given Lactated Ringer's (Lactated Ringer's) 1,000 mls @ 100 mls/hr IV .Q10H [facility] Last Admin: 05/21/18 14:43 Dose: Not Given Metronidazole (Flagyl) 500 mg in 100 mls @ 100 mls/hr IVPB Q8 JOSELINE PRN Reason: Protocol Last Admin: 05/21/18 14:30 Dose: 100 mls/hr Ceftriaxone Sodium (Rocephin 1 Gram Ivpb) 1 gm in 100 mls @ 100 mls/hr IVPB DAILY [facility] PRN Reason: Protocol Last Admin: 05/21/18 14:03 Dose: Not Given Levothyroxine Sodium (Synthroid) 100 mcg PO ACB [facility] Last Admin: 05/21/18 14:04 Dose: Not Given Morphine Sulfate (Morphine) 4 mg IVP Q6H PRN PRN Reason: Pain, severe (8-10) Last Admin: 05/18/18 10:44 Dose: 4 mg Morphine Sulfate (Morphine) 2 mg IVP Q4H PRN PRN Reason: Pain, moderate (4-7) Last Admin: 05/21/18 14:11 Dose: 2 mg Ondansetron HCl (Zofran Inj) 4 mg IVP Q6H PRN PRN Reason: Nausea/Vomiting Oxycodone HCl (Oxycodone Immediate Release Tab) 5 mg PO Q6H PRN PRN Reason: Pain, moderate (4-7) Last Admin: 05/20/18 22:07 Dose: 5 mg Pantoprazole Sodium (Protonix Ec Tab) 40 mg PO ACB [facility] Last Admin: 05/21/18 14:03 Dose: Not Given - Labs Labs: 05/21/18 06:30 05/21/18 06:30 PT 11.7 SECONDS (9.4-12.5) 05/18/18 06:30 INR 1.02 05/18/18 06:30 APTT 28.4 Seconds (25.1-36.5) 05/18/18 06:30 - Constitutional Appears: Non-toxic, No Acute Distress - Head Exam Head Exam: ATRAUMATIC, NORMAL INSPECTION - Eye Exam Eye Exam: EOMI, Normal appearance - ENT Exam ENT Exam: Mucous Membranes Moist, Normal Exam - Neck Exam Additional comments: stoma (h/o laryngeal CA) - Respiratory Exam Respiratory Exam: Clear to Ausculation Bilateral, NORMAL BREATHING PATTERN - Cardiovascular Exam Cardiovascular Exam: REGULAR RHYTHM, +S1, +S2 - GI/Abdominal Exam GI & Abdominal Exam: Soft, Normal Bowel Sounds. absent: Tenderness - Rectal Exam Rectal Exam: Deferred - Extremities Exam Extremities Exam: Normal Inspection - Back Exam Back Exam: NORMAL INSPECTION - Neurological Exam Neurological Exam: Alert, Awake, CN II-XII Intact, Normal Gait, Oriented x3 Neuro motor strength exam: Left Upper Extremity: 5, Right Upper Extremity: 5, Left Lower Extremity: 5, Right Lower Extremity: 5 - Psychiatric Exam Psychiatric exam: Anxious, Normal Affect, Normal Mood - Skin Skin Exam: Dry, Intact, Normal Color, Warm Assessment and Plan - Assessment and Plan (Free Text) Assessment: Patient is a 68 y/o M with PMHx of COPD, Interstitial Lung Disease, HLD, CAD (s/p multiple stent placement), Larygneal Carcinoma (s/p trach), Hypothyroidism, Squamous Cell Lung Cancer (s/p R-upper lung lobectomy), Anxiety who presented to the ED on 05/17 complaining of right upper quadrant abdominal pain with radiation to the back and right scapula. Patient is admitted for Acute Cholecystitis as confirmed on HIDA scan. Patient's abdominal pain has improved during hospital course; patient is being monitored on the floor. Planning for lap kylah on Monday, 05/21. Plan: Acute cholecystitis- s/p Lap Cholecystectomy today 05/21 - HIDA scan (05/18): consistent with acute cholecystitis - Abdominal US (05/17): multiple gallstones. No wall thickening or pericholecystic fluid. Sonographic Jeffers's sign is negative. No biliary dilation. - CT angio (05/17): no evidence of aortic aneurysm or dissection. - Blood Cx negative x2; UCx negative - Rocephin 1 g IV daily (started 05/18) - Flagyl 500 mg IV Q8H (started 05/18) - Morphine 2 mg IV Q4H PRN, 4 mg IV Q6H PRN - Percocet 5 mg PO Q6H PRN - Colace 100 mg PO daily - LR @ 100 - Zofran 4 mg IV Q6H PRN - GI consulted (Blaise) - Surgery consulted (Clay) CAD- multiple stents - ASA 81 mg PO daily - Cardiology consulted (Carlton)- d/c Plavix, continue ASA 81 History of Laryngeal Carcinoma 2/2 tobacco use - Stoma COPD- not currently an acute exacerbation - Pulmicort 0.5 mg IH BID - Duoneb Q6H PRN HLD - Lipitor 10 mg PO QHS Hypothyroidism - Levothyroxine 100 mcg PO daily Psychiatric disorder- ?mood disorder, ?anxiety - Trintellix 10 mg PO daily IVF: LR @ 100 Diet: regular GI ppx: Protonix 40 mg PO daily VTE ppx: SCDs Code status: full code Case discussed with attending, Dr. Mayo. <Anali Mayo R - Last Filed: 05/22/18 17:05> Objective - Vital Signs/Intake and Output Vital Signs (last 24 hours): Temp Pulse Resp BP Pulse Ox 98.6 F 65 20 131/82 98 05/22/18 06:00 05/22/18 06:00 05/22/18 06:00 05/22/18 06:00 05/22/18 06:00 Intake and Output: 05/22/18 05/22/18 06:59 18:59 Intake Total 600 Output Total 600 Balance 0 - Labs Labs: 05/22/18 06:20 05/22/18 06:20 PT 11.7 SECONDS (9.4-12.5) 05/18/18 06:30 INR 1.02 05/18/18 06:30 APTT 28.4 Seconds (25.1-36.5) 05/18/18 06:30 Attending/Attestation - Attestation I have personally seen and examined this patient.: Yes I have fully participated in the care of the patient.: Yes I have reviewed all pertinent clinical information, including history, physical exam and plan: Yes Notes (Text): Patient seen and examined by me at 2:30 PM with resident 05/21/18. Case including HPI, physical exam, and assessment and plan discussed with resident. Agree with above with following additions/corrections. Patient is a 68-year-old male with past medical history significant for COPD, interstitial lung disease, hyperlipidemia, coronary artery disease status post and placement, laryngeal carcinoma status post trach placement, hypothyroidism, and anxiety that presented to the emergency room complaining of right-sided abdominal pain and back pain. Patient is status post cholecystectomy. Patient states that he is feeling okay. Patient states he is having abdominal pain but pain medications are helping. Patient also has a little nausea. No vomiting. No flatus or burping. No chest pain or shortness of breath. No headaches or dizziness. No fevers or chills. No dysuria. Patient's at bedside. Physical exam: General: Awake and alert lying in bed in no acute distress HEENT: Normocephalic atraumatic. Pupils equal reactive. No scleral icterus. Oropharynx is pink and moist. Trach in place with no signs of infection. Cardiovascular: Normal rhythm. Normal S1, S2. No murmurs, rubs, or gallops elina reciated Pulmonary: Normal respiratory effort. No rhonchi, rales or wheezing appreciated. Gastrointestinal: Soft, mild distention. Positive generalized tenderness. Incision sites clean, dry, and intact. Hypoactive bowel sounds all 4 quadrants, no guarding. Musculoskeletal: Moves all extremities, no calf tenderness, no edema appreciated. Central nervous system: AAO 3 Dermatologic: Skin warm and dry. Assessment and plan: Patient is a 68-year-old male with past medical history significant for COPD, interstitial lung disease, hyperlipidemia, coronary artery disease status post and placement, laryngeal carcinoma status post trach placement, hypothyroidism, and anxiety that presented to the emergency room complaining of right-sided abdominal pain and back pain. 1. Acute cholecystitis. Status post cholecystectomy today 05/01/2018. Continue with Rocephin and Flagyl. Continue with pain management. Monitor bowel function. Encourage incentive spirometer. Abdominal ultrasound per radiologist showed mild hepatomegaly; diffuse increased echogenicity in the liver may reflect hepatic steatosis however parenchymal infectious/inflammatory etiologies cannot be entirely excluded; no biliary dilatation; cholelithiasis. CT angiography rule out dissection per radiologist showed no evidence of aortic aneurysm or dissection, no aortic or iliac occlusive disease identified, scarring in the right lower lobe and right middle lobe, compensatory hypertrophy left lung, underlying emphysematous change, no suspicious pulmonary nodules or masses. HIDA scan per radiologist showed nonvisualization of the gallbladder consistent with acute cholecystitis. 2. Abdominal pain. Secondary to #1. Improved with pain medications. Continue with morphine as needed. 3. History of laryngeal carcinoma. Status post tracheostomy and stoma. No current issues. 4. COPD/interstitial lung disease. Not in acute exacerbation. Continue nebulizer treatments as needed. Continue budesonide. 5. History of coronary artery disease status post stent placement. No acute issues. Continue aspirin and Lipitor. 6. Hyperlipidemia. Patient to continue home pravastatin upon discharge. Continue Lipitor here. 7. Hypothyroidism. Continue home Synthroid. 8. History of psychiatric disorder. Continue home Trintellix 9. GI/DVT prophylaxis. Protonix/SCDs and early ambulation 10. Patient is a full code. Case discussed in detail with the patient and patient's at bedside with patient's permission. All questions answered.
[2018-05-21] MEDS ORDERED: Morphine 2 mg/ml ISec IVP PRN (20:15)
--- NOTE | 2018-05-22 05:24 | OP ---
PROCEDURE DATE: 05/21/2018 SURGEON: Kenton Williamson MD ASSISTANTS: Chelsea Pierce, PGY-4, Scott Ramirez DO, PGY-3. PREOPERATIVE DIAGNOSIS: Acute cholecystitis. POSTOPERATIVE DIAGNOSIS: Acute cholecystitis. PROCEDURE: Laparoscopic cholecystectomy. INDICATIONS: This is a 68-year-old male, who developed right upper quadrant pain. On workup, he was found to have acute cholecystitis with a positive HIDA scan and a normal common bile duct. Laparoscopic cholecystectomy was indicated. DESCRIPTION OF PROCEDURE: The patient was placed on the operating table in the supine position. General anesthesia was induced. A time-out was completed, verifying correct patient, procedure, site positioning and special equipment prior to beginning the procedure. The abdomen was prepped and draped in the usual sterile fashion. An incision was made supraumbilically. The fascia was elevated and incised. The peritoneum was elevated and incised. Entry into the peritoneum was confirmed visually and no bowel was noted in the vicinity of the incision. There was however, several adhesions with the omentum, adhesed up to the abdominal wall. Two 5-mm trocars were then inserted into the right upper quadrant. A third 5-mm trocar was then inserted into the right epigastrium. The abdomen was inspected and no abnormalities were found. The table was placed in a reverse Trendelenburg position with the right side up. Filmy adhesions between the gallbladder and the omentum were lysed sharply. The dome of the gallbladder was found to be quite distended and the gallbladder was decompressed using the Veress needle. The dome of the gallbladder was then grasped with an atraumatic grasper, passed through the lateral port and retracted over the dome of the liver. The infundibulum was also grasped with an atraumatic grasper through the mid clavicular port and retracted towards the right lower quadrant. The peritoneum overlying the gallbladder infundibulum was incised and dissected. This dissection took quite a bit of time due to dense adhesions around the area of the Calot's triangle. The cystic artery was identified and brought towards the side. Further dissection was carried until the cystic duct was visualized. The cystic duct was found to be very short. It was carefully dissected, triply clipped and divided. The cystic artery was then also triply clipped and divided. The gallbladder was then dissected from its peritoneal attachments by electrocautery as well as the Harmonic scalpel. Hemostasis was achieved and the gallbladder and contained stones were removed using an endoscopic retrieval bag, placed through the subxiphoid port. The gallbladder was passed off the table as the specimen. The gallbladder fossa was copiously irrigated with saline. There was no evidence of bleeding from the gallbladder fossa or leakage of bile from the cystic duct stump. Secondary trocars were removed under direct vision. No bleeding was noted. The laparoscope was withdrawn and the umbilical trocar removed. The abdomen was allowed to collapse. The fascia of the 12-mm trocar site was closed with a [id number] 0 Vicryl suture as well as an additional simple interrupted 0 Vicryl suture to completely close the fascial defect. The skin was then closed with subcuticular sutures of 4-0 Monocryl and topical skin adhesive applied. The patient tolerated the procedure well and was taken to the post anesthesia care unit in stable condition. Chelsea Pierce DO Kenton Williamson MD
--- NOTE | 2018-05-22 05:24 | CON ---
DATE: 05/21/2018 Dictation was dictated and completed by resident, reviewed and discussed with resident and followed up, as patient is now seen postoperatively in room 564. HISTORY OF PRESENT ILLNESS: Mr. Peña is a 68-year-old male very well known to the ENT office with a laryngeal carcinoma, diagnosed over 17 years ago after chronic laryngitis and referral to [facility] where patient has undergone laryngectomy and neck dissection. The patient is now stable. cholecystectomy. During the acute phase, anesthesia consulted ENT secondary to management of upper airway, a tracheal stoma well formed over years, but a speaking valve was noted and advised to maintain to have surgical procedure, as a Shiley #8 was used to bypass the tracheal stoma and speaking valve. Patient as stated had no problems according to the anesthesia and is now seen comfortably using speaking valve and clearing secretions without complication, this follow up and discussion with surgical services asst as well as review and agreement of his consultation. Duncan Patel DO [email or web address]
--- NOTE | 2018-05-22 06:20 | CP.PCM.DIS ---
Provider - Provider Date of Admission: 05/18/18 17:01 Attending physician: Anali Mayo DO Primary care physician: Basil Parra MD Consults: surgery cardiology GI Time Spent in preparation of Discharge (in minutes): 45 Diagnosis - Discharge Diagnosis (1) Acute cholecystitis Status: Resolved Priority: High Hospital Course - Lab Results Lab Results: Micro Results 05/17/18 16:20 Blood Blood Culture - Preliminary NO GROWTH AFTER 4 DAYS 05/17/18 16:00 Blood Blood Culture - Preliminary NO GROWTH AFTER 4 DAYS 05/17/18 16:50 Urine Urine Culture - Final No Growth (<1,000 CFU/ML) Most Recent Lab Values WBC 5.9 10^3/ul (4.5-11.0) 05/21/18 06:30 RBC 5.26 10^6/uL (3.5-6.1) 05/21/18 06:30 Hgb 15.6 g/dL (14.0-18.0) 05/21/18 06:30 Hct 46.1 % (42.0-52.0) 05/21/18 06:30 MCV 87.6 fl (80.0-105.0) 05/21/18 06:30 MCH 29.7 pg (25.0-35.0) 05/21/18 06:30 MCHC 33.8 g/dl (31.0-37.0) 05/21/18 06:30 RDW 13.7 % (11.5-14.5) 05/21/18 06:30 Plt Count 208 10^3/uL (120.0-450.0) 05/21/18 06:30 MPV 10.4 fl (7.0-11.0) 05/21/18 06:30 Gran % 71.4 % (50.0-68.0) H 05/17/18 16:50 Lymph % (Auto) 20.0 % (22.0-35.0) L 05/17/18 16:50 Charles % (Auto) 6.1 % (1.0-6.0) H 05/17/18 16:50 Eos % (Auto) 2.2 % (1.5-5.0) 05/17/18 16:50 Baso % (Auto) 0.3 % (0.0-3.0) 05/17/18 16:50 Gran # 4.54 (1.4-6.5) 05/17/18 16:50 Lymph # (Auto) 1.3 (1.2-3.4) 05/17/18 16:50 Charles # (Auto) 0.4 (0.1-0.6) 05/17/18 16:50 Eos # (Auto) 0.1 (0.0-0.7) 05/17/18 16:50 Baso # (Auto) 0.02 K/mm3 (0.0-2.0) 05/17/18 16:50 PT 11.7 SECONDS (9.4-12.5) 05/18/18 06:30 INR 1.02 05/18/18 06:30 APTT 28.4 Seconds (25.1-36.5) 05/18/18 06:30 Sodium 144 mmol/L (132-148) 05/21/18 06:30 Potassium 4.1 mmol/L (3.6-5.0) 05/21/18 06:30 Chloride 104 mmol/L (98-107) 05/21/18 06:30 Carbon Dioxide 30 mmol/L (21-33) 05/21/18 06:30 Anion Gap 14 (10-20) 05/21/18 06:30 BUN 8 mg/dL (7-21) 05/21/18 06:30 Creatinine 1.1 mg/dl (0.8-1.5) 05/21/18 06:30 Est GFR ( Amer) > 60 05/21/18 06:30 Est GFR (Non-Af Amer) > 60 05/21/18 06:30 Random Glucose 100 mg/dL (70-110) 05/21/18 06:30 Calcium 9.2 mg/dL (8.4-10.5) 05/21/18 06:30 Phosphorus 3.5 mg/dL (2.5-4.5) 05/18/18 06:30 Magnesium 2.0 mg/dL (1.7-2.2) 05/18/18 06:30 Total Bilirubin 0.6 mg/dL (0.2-1.3) 05/21/18 06:30 AST 39 U/L (17-59) 05/21/18 06:30 ALT 39 U/L (7-56) 05/21/18 06:30 Alkaline Phosphatase 89 U/L (38-126) 05/21/18 06:30 Lactate Dehydrogenase 454 U/L (333-699) 05/17/18 16:50 Total Creatine Kinase 331 U/L (35-230) H 05/17/18 16:50 CK-MB (CK-2) 2.0 ng/mL (0.0-3.6) 05/17/18 16:50 CK-MB (CK-2) % Cancelled 05/17/18 16:50 Troponin I < 0.01 ng/mL 05/17/18 16:50 NT-Pro-B Natriuret Pep 329 pg/mL (0-450) 05/17/18 16:50 Total Protein 7.5 g/dL (5.8-8.3) 05/21/18 06:30 Albumin 4.2 g/dL (3.0-4.8) 05/21/18 06:30 Globulin 3.3 gm/dL 05/21/18 06:30 Albumin/Globulin Ratio 1.3 (1.1-1.8) 05/21/18 06:30 Lipase 72 U/L (23-300) 05/17/18 16:50 Urine Color Yellow (YELLOW) 05/17/18 16:50 Urine Appearance Clear (CLEAR) 05/17/18 16:50 Urine pH 7.0 (4.7-8.0) 05/17/18 16:50 Ur Specific [place] 1.015 (1.005-1.035) 05/17/18 16:50 Urine Protein Negative mg/dL (<30 mg/dL) 05/17/18 16:50 Urine Glucose (UA) Negative mg/dL (NEGATIVE) 05/17/18 16:50 Urine Ketones Negative mg/dL (NEGATIVE) 05/17/18 16:50 Urine Blood Negative (NEGATIVE) 05/17/18 16:50 Urine Nitrate Negative (NEGATIVE) 05/17/18 16:50 Urine Bilirubin Negative (NEGATIVE) 05/17/18 16:50 Urine Urobilinogen 0.2 E.U./dL (<1 E.U./dL) 05/17/18 16:50 Ur Leukocyte Esterase Negative [place]/uL (NEGATIVE) 05/17/18 16:50 - Hospital Course Hospital Course: Patient is a 68 y/o M with PMHx of COPD, Interstitial Lung Disease, HLD, CAD (s/p multiple stent placement), Larygneal Carcinoma (s/p trach), Hypothyroidism, Anxiety who presented to the ED on 05/17 complaining of right sided abdominal pain and back pain. Patient said that he has been having this pain for the past few weeks. It was improving, but for the past 2 days the pain has been worsening. Prior to the hospital, patient was visiting his PMD (Dr. Sinha) in his clinic and was recommended to come to the ED for his symptoms. In the ED, patient's vitals were stable: Temp 98.9, HR 69, BP 117/69, RR 18, SaO2 99% on room air. Patient was given a dose of morphine to control his pain. EKG showed NSR at 69 bpm. Initial cbc and cmp was unremarkable. Troponin negative x1. Lipase normal. No leukocytosis. UA normal. Abdominal US and CT angio were ordered in the ED. Hospitalist team was consulted. Patient was seen at bedside in the ED. Patient said that he has this RUQ abdominal pain that radiates to his back and his right scapula. Patient endorses subjective fevers and nausea. Denies shortness of breath, chills, weight loss, night sweats, fatigue, vomiting, diarrhea, bowel/bladder changes, dysuria. Patient confirms that he has had this pain for a few weeks but it was mod-severe for the past two days. During hospital stay, patient was treated with IV antibiotics. Blood cultures remained negative. Abd u/s showed multiple gallstones. HIDA scan showed nonvisualization of gallbladder suggesting acute cholecystitis. Patient had a successful laproscopic cholecystectomy on 05/21/18. Upon discharge, patient was ambulating. His pain was well controlled and incision sites were clean and intact. Patient was tolerating PO intake and was passing gas. Discharge Exam - Head Exam Head Exam: ATRAUMATIC, NORMAL INSPECTION - Eye Exam Eye Exam: EOMI, Normal appearance - ENT Exam ENT Exam: Mucous Membranes Dry, Mucous Membranes Moist - Neck Exam Additional comments: stoma s/p laryngeal CA - Respiratory Exam Respiratory Exam: Clear to PA & Lateral, NORMAL BREATHING PATTERN, UNREMARKABLE - GI/Abdominal Exam GI & Abdominal Exam: Normal Bowel Sounds, Soft, Tenderness (mild), Unremarkable Additional comments: 4 incision sites intact and clean, no evidence of infection, umbilical incision with mild erythema/ecchymosis and tenderness - Rectal Exam Rectal Exam: Deferred - Extremities Exam Extremities exam: normal inspection, pedal pulses present - Back Exam Back exam: NORMAL INSPECTION - Neurological Exam Neurological exam: Alert, CN II-XII Intact, Normal Gait, Oriented x3 - Psychiatric Exam Psychiatric exam: Normal Affect, Normal Mood - Skin Skin Exam: Dry, Intact, Normal Color, Warm Discharge Plan - Discharge Medications Prescriptions: oxyCODONE/Acetaminophen [Percocet 5/325 mg Tab] 1 ea PO Q6 PRN #12 tab PRN Reason: Pain, Severe (8-10) - Follow Up Plan Condition: IMPROVED Disposition: HOME/ ROUTINE Patient education suggested?: Yes Instructions: Cholecystectomy, Laparoscopic Surgery, Gallstones (DC), Acute Abdominal Pain (DC), Acute Abdominal Pain (GEN) Additional Instructions: You are being discharged after getting a laproscopic cholecystectomy on 05/21/18. Please follow-up with your primary care provider, Dr. Parra, within 3-5 days of discharge. Please follow up with your primary care doctor about restarting Plavix. Please follow-up with surgeon, Dr. Williamson, within one week of discharge. Keep the incisions clean and dry. No heavy lifting. If significant bruising and/or bleeding, please contact Dr. Williamson immediately. If symptoms return, please present to the nearest emergency department. Referrals: Basil Parra MD [Primary Care Provider] - Kenton Williamson MD [Staff Provider] -
[2018-05-22] MEDS: metroNIDAZOLE IV 500 mg/100 ml 500 MG/100 ML BAG IVPB SCH (06:23)
[2018-05-22 06:59] LABS: BASO # 0.01 K/mm3 (0.0-2.0); BASO % 0.1 % (0.0-3.0); EOS % 0.1 % (1.5-5.0); GRAN # 7.11 (1.4-6.5); GRAN % 81.7 % (50.0-68.0); HEMOGLOBIN 14.2 g/dL (14.0-18.0); MEAN CORPUSCULAR HEMOGLOBIN 29.5 pg (25.0-35.0); MEAN CORPUSCULAR HGB CONC 33.5 g/dl (31.0-37.0); MEAN PLATELET VOLUME 10.5 fl (7.0-11.0); MONO # 0.6 (0.1-0.6); MONO % 7.1 % (1.0-6.0); RBC 4.82 10^6/uL (3.5-6.1); RED CELL DISTRIBUTION WIDTH 13.6 % (11.5-14.5); WHITE BLOOD COUNT 8.7 10^3/ul (4.5-11.0)
[2018-05-22] MEDS: Budesonide 0.5 mg/2 ml Inhal Susp UD IH SCH (07:09)
[2018-05-22 07:15] LABS: ALB/GLOB RATIO 1.3 (1.1-1.8); ALBUMIN 3.8 g/dL (3.0-4.8); ALT/SGPT 47 U/L (7-56); AST/SGOT 43 U/L (17-59); BLOOD UREA NITROGEN 10 mg/dL (7-21); CALCIUM 8.9 mg/dL (8.4-10.5); GFR NON-AFRICAN AMERICAN > 60
[2018-05-22 07:56] VITALS: BP 131/82; PULSE 65; TEMP 98.6; O2SAT 98
[2018-05-22] MEDS: Pantoprazole 40 mg EC Tab PO SCH (08:44)
[2018-05-22] MEDS: Levothyroxine 100 MCG TAB PO SCH (08:46)
--- NOTE | 2018-05-22 09:12 | CP.PCM.PN ---
Subjective - Date & Time of Evaluation Date of Evaluation: 05/22/18 Time of Evaluation: 09:08 - Subjective Subjective: General Surgery - DR. Williamson Pt S&E. NOAM. PT has mild incisional abdominal pain. He denies any Nausea/vomiting, fevers/chills, sob/chest pain. HE has been oob and ambulated and he tolerated regular diet yesterday. Objective - Vital Signs/Intake and Output Vital Signs (last 24 hours): Temp Pulse Resp BP Pulse Ox 98.6 F 65 20 131/82 98 05/22/18 06:00 05/22/18 06:00 05/22/18 06:00 05/22/18 06:00 05/22/18 06:00 Intake and Output: 05/22/18 05/22/18 06:59 18:59 Intake Total 600 Output Total 600 Balance 0 - Medications Medications: Current Medications Albuterol/Ipratropium (Duoneb 3 Mg/0.5 Mg (3 Ml) Ud) 3 ml IH Q6 PRN PRN Reason: Shortness of Breath Last Admin: 05/20/18 13:35 Dose: 3 ml Aspirin (Ecotrin) 81 mg PO DAILY [facility] Last Admin: 05/21/18 14:00 Dose: Not Given Atorvastatin Calcium (Lipitor) 10 mg PO HS [facility] Last Admin: 05/21/18 21:52 Dose: 10 mg Budesonide (Pulmicort Respules) 0.5 mg IH BIDRESP [facility] Last Admin: 05/22/18 07:09 Dose: 0.5 mg Docusate Sodium (Colace) 100 mg PO DAILY [facility] Last Admin: 05/21/18 14:00 Dose: Not Given Home Med (Home Med) 1 unit PO DAILY [facility] Last Admin: 05/21/18 14:01 Dose: Not Given Metronidazole (Flagyl) 500 mg in 100 mls @ 100 mls/hr IVPB Q8 [facility]; Protocol Last Admin: 05/22/18 06:23 Dose: 100 mls/hr Ceftriaxone Sodium (Rocephin 1 Gram Ivpb) 1 gm in 100 mls @ 100 mls/hr IVPB DAILY [facility]; Protocol Last Admin: 05/21/18 14:03 Dose: Not Given Levothyroxine Sodium (Synthroid) 100 mcg PO ACB [facility] Last Admin: 05/22/18 08:46 Dose: 100 mcg Morphine Sulfate (Morphine) 2 mg IVP Q4H PRN PRN Reason: Pain, severe (8-10) Last Admin: 05/21/18 21:52 Dose: 2 mg Ondansetron HCl (Zofran Inj) 4 mg IVP Q6H PRN PRN Reason: Nausea/Vomiting Oxycodone HCl (Oxycodone Immediate Release Tab) 5 mg PO Q6H PRN PRN Reason: Pain, moderate (4-7) Last Admin: 05/20/18 22:07 Dose: 5 mg Pantoprazole Sodium (Protonix Ec Tab) 40 mg PO ACB [facility] Last Admin: 05/22/18 08:44 Dose: 40 mg - Labs Labs: 05/22/18 06:20 05/22/18 06:20 PT 11.7 SECONDS (9.4-12.5) 05/18/18 06:30 INR 1.02 05/18/18 06:30 APTT 28.4 Seconds (25.1-36.5) 05/18/18 06:30 - Constitutional Appears: No Acute Distress - Head Exam Head Exam: ATRAUMATIC, NORMAL INSPECTION, NORMOCEPHALIC - Respiratory Exam Respiratory Exam: NORMAL BREATHING PATTERN. absent: Respiratory Distress - Cardiovascular Exam Cardiovascular Exam: REGULAR RHYTHM - GI/Abdominal Exam GI & Abdominal Exam: Soft. absent: Distended, Firm, Guarding, Rigid, Tenderness, Rebound - Neurological Exam Neurological Exam: Alert, Oriented x3 - Psychiatric Exam Psychiatric exam: Normal Affect, Normal Mood - Skin Skin Exam: Dry, Intact Assessment and Plan - Assessment and Plan (Free Text) Assessment: 68 yo M w/ acute cholecystitis, POD #1 s/p lap cholecystectomy -Pt doing well post-operatively -Tolerating diet, ambulating, pain well controllled -Clear for D/C home from surgical standpoint -No heavy lifting >10lbs for 4 weeks, Resume regular diet and light activities, You may shower, No soaking/bathing/swimming. Make an appt to see Dr. Williamson in office in [address] Clay Pierce PGY4
--- NOTE | 2018-05-22 11:30 | PN ---
DATE: 05/22/2018 CARDIOLOGY FOLLOWUP SUBJECTIVE: The has no complaints other than from his incisional pain. PHYSICAL EXAMINATION: VITAL SIGNS: Blood pressure is 130/82, the heart rate is in the 60s. NECK: Negative JVD. LUNGS: Without rales. HEART: Reveals S1, S2. EXTREMITIES: Without edema. LABORATORY DATA: Unremarkable other than a glucose of 123, hemoglobin is 14.2. IMPRESSION: 1. Stable post cholecystectomy. 2. Stable angina. 3. Coronary artery disease. 4. History of lung cancer. 5. Chronic tracheostomy. PLAN: Given these findings, the patient is stable from a cardiac perspective. Micky Vincent MD
[2018-05-22] MEDS: cefTRIAXone 1 gm 1 GM/100 ML BAG IVPB SCH (14:24)
== END 2018-05-22 17:02 | disposition home or self-care (01) | DRG 418 ==
LOC: ED 13:48 → ERH 19:28 → 5RNO 21:12 → OBSVTOIN 05-18 17:01 → 5RNO 05-19 17:22
PROVIDERS: ADMIT Internal Medicine; ATTEND Hospitalist
PROC: 0FT44ZZ Resection of Gallbladder, Percutaneous Endoscopic Approach (ICD-10-PCS; principal; 2018-05-21 09:30)
DX: K80.00 Calculus of gallbladder with acute cholecystitis without obstruction (principal); J84.9 Interstitial pulmonary disease, unspecified; Z87.891 Personal history of nicotine dependence; Z85.51 Personal history of malignant neoplasm of bladder; Z85.21 Personal history of malignant neoplasm of larynx; Z95.5 Presence of coronary angioplasty implant and graft; Z79.82 Long term (current) use of aspirin; Z79.02 Long term (current) use of antithrombotics/antiplatelets; J44.9 Chronic obstructive pulmonary disease, unspecified; R16.0 Hepatomegaly, not elsewhere classified; I25.118 Atherosclerotic heart disease of native coronary artery with other forms of angina pectoris; F41.9 Anxiety disorder, unspecified; E78.5 Hyperlipidemia, unspecified; E03.9 Hypothyroidism, unspecified; M54.9 Dorsalgia, unspecified; Z85.118 Personal history of other malignant neoplasm of bronchus and lung; E78.00 Pure hypercholesterolemia, unspecified; K57.90 Diverticulosis of intestine, part unspecified, without perforation or abscess without bleeding; K76.0 Fatty (change of) liver, not elsewhere classified; Z87.01 Personal history of pneumonia (recurrent); Z87.11 Personal history of peptic ulcer disease; Z93.0 Tracheostomy status

== ENCOUNTER 2018-07-13 16:06 | Inpatient (IN) | payer MEDICARE ==
[2018-07-13 16:47] VITALS: BMI 30.2
[2018-07-13] MEDS ORDERED: Sodium Chloride 0.9% 1,000 ML IV STA (16:48)
--- NOTE | 2018-07-13 16:55 | ED PDOC ---
Arrival/HPI - General Time Seen by Provider: 07/13/18 16:16 - History of Present Illness Narrative History of Present Illness (Text): 68 y/o M c PMHx lung cancer s/p lobectomy, s/p cholecystectomy 2 months ago p/w fever x 2 days. Reports R flank pain associated with nonbloody vomiting. Denies dyspnea, cough, diarrhea, constipation, chest pain, dysuria, urinary frequency. PMD [place] Past Medical History - Infectious Disease Hx of Infectious Diseases: None - Cardiac Hx Cardiac Disorders: Yes (CAD) Hx Pacemaker: No - Pulmonary Hx Respiratory Disorders: Yes (TRACHE) Hx Chronic Obstructive Pulmonary Disease (COPD): Yes Hx Pneumonia: Yes Other/Comment: USED TO SMOKE 4 PPD QUIT 1999 - Neurological Hx Neurological Disorder: Yes Hx Dizziness: Yes - HEENT Hx HEENT Disorder: Yes Hx Cataracts: Yes - Renal Hx Renal Disorder: No - Endocrine/Metabolic Hx Endocrine Disorders: Yes Hx Hypothyroidism: Yes - Hematological/Oncological Hx Blood Transfusions: (unknown) Hx Blood Transfusion Reaction: No - Integumentary Hx Dermatological Disorder: Yes Other/Comment: 08-10-[address] GUIDED BX,INCISION TO RIGHT UPPER CHEST.INCISION TO RIGHT UPPER BACK. - Musculoskeletal/Rheumatological Hx Musculoskeletal Disorders: No Hx Falls: No - Gastrointestinal Hx Gastrointestinal Disorders: Yes (LARYNGEAL CA) - Genitourinary/Gynecological Hx Genitourinary Disorders: No - Psychiatric Hx Emotional Abuse: No Hx Physical Abuse: No Hx Substance Use: No - Surgical History Hx Cardiac Catheterization: Yes Hx Coronary Stent: Yes (X2) - Anesthesia Hx Anesthesia: Yes Hx Anesthesia Reactions: No Hx Malignant Hyperthermia: No - Suicidal Assessment Feels Threatened In Home Enviroment: No Family/Social History Family/Social History: No Known Family HX Smoking Status: Former Smoker Hx Alcohol Use: No Hx Substance Use: No Hx Substance Use Treatment: No Allergies/Home Meds Allergies/Adverse Reactions: Allergies No Known Allergies Allergy (Verified 08/10/17 18:44) Home Medications: Home Meds Medication Instructions Recorded Confirmed RX: Albuterol/Ipratropium [Duoneb 1 inh INH BID 06/18/12 07/14/18 3 mg/0.5 mg (3 ml) UD] RX: Budesonide [Pulmicort Respules] 0.5 mg IH BID 06/18/12 07/14/18 RX: Aclidinium [place] [Tudorza 400 mcg IH BID 01/06/16 07/14/18 [place]] RX: Albuterol HFA [Ventolin HFA 90 2 puff IH BID PRN 01/06/16 07/14/18 mcg/actuation (8 g)] RX: Aspirin [Aspirin EC] 81 mg PO DAILY 01/06/16 07/14/18 RX: Cholecalciferol (Vitamin D3) 2,000 unit PO DAILY 01/06/16 07/14/18 [Vitamin D3] RX: Levothyroxine Sodium 100 mcg PO QAM 01/06/16 07/14/18 [Unithroid] RX: Magnesium Oxide [Magnesium] 500 mg PO QPM 01/06/16 07/14/18 RX: Vitamin B Complex 1 tab PO QAM 01/06/16 07/14/18 RX: Pantoprazole [Protonix EC Tab] 40 mg PO DAILY 09/04/16 07/14/18 RX: Vortioxetine Hydrobromide 10 mg PO DAILY 09/04/16 07/14/18 [Trintellix] RX: Pravastatin Sodium [Pravachol] 10 mg PO HS 04/23/17 07/14/18 Review of Systems - Physician Review All systems were reviewed & negative as marked: Yes - Review of Systems Respiratory: absent: SOB Cardiovascular: absent: Chest Pain Physical Exam - Physical Exam Narrative Physical Exam (Text): Constitutional: No acute distress. Head: Normocephalic. Atraumatic. Eyes: PERRL. Scleral icterus. ENT: Moist mucous membranes. Neck: Supple. Bandage overlying tracheostomy. Cardiovascular: Regular rate. Chest: No tenderness. Respiratory: Clear to auscultation bilaterally. GI: Soft. Nontender. Back: No CVA tenderness. Musculoskeletal: No tenderness or swelling of extremities. Skin: No rash. Neurologic: Alert, no focal deficit. Vital Signs Temp Pulse Resp BP Pulse Ox 07/13/18 16:38 102.8 F H 94 H 18 109/73 96 Medical Decision Making ED Course and Treatment: Chest X-ray Dictator : Deacon Snyder MD Report Date : 07/13/2018 17:51:50 IMPRESSION: No active disease. No significant interval change compared to the prior examination(s). Abdomen Ultrasound Dictator : Charanjit Chao MD Public Speaking Instructor : Sheet Metal Contractor : Charanjit Chao MD Approver2 : Report Date : 07/13/2018 18:49:08 My Comment : Date of service: 07/13/2018 HISTORY: hyperbili, elevated lipase, s/p kylah COMPARISON: Comparison is made to the previous CT dated 06/21/2018 previous ultrasound dated 05/17/2018 TECHNIQUE: Sonographic evaluation of the abdomen. FINDINGS: LIVER: Measures 15.6 cm. Heterogeneous increased echogenicity of the liver parenchyma. No mass. No intrahepatic bile duct dilatation. GALLBLADDER: The gallbladder was removed. COMMON BILE DUCT: Measures 6.7 mm. No stones. No dilatation. PANCREAS: Unremarkable as visualized. No mass. No ductal dilatation. RIGHT KIDNEY: Measures 10.2 x 4.3 x 5.7cm. Normal echogenicity. No calculus, mass, or hydronephrosis. LEFT KIDNEY: Measures 10.5 x 6.4 x 6.2cm. Normal echogenicity. No calculus, mass, or hydronephrosis. SPLEEN: Normal in size and contour. No mass. AORTA: No aneurysmal dilatation. IVC: Unremarkable. OTHER FINDINGS: None. IMPRESSION: Heterogeneous echogenic liver suggestive of fibrofatty infiltration. No ultrasound evidence of acute pathology in the abdomen. CT report reviewed, shows no dilitation. Patient accepted to hospitalist service. 07/18/18 11:04 - RAD Interpretation Radiology Orders: 07/13/18 16:47 CHEST TWO VIEWS (PA/LAT) [RAD] Stat 07/13/18 16:48 ABD & PELVIS IV CONTRAST ONLY [CT] Stat - Medication Orders Current Medication Orders: Acetaminophen (Tylenol 325mg Tab) 650 mg PO STAT STA Stop: 07/13/18 16:49 Sodium Chloride (Sodium Chloride 0.9%) 1,000 mls @ 999 mls/hr IV .Q1H1M STA Stop: 07/13/18 17:48 Ondansetron HCl (Zofran Inj) 8 mg IVP STAT STA Stop: 07/13/18 16:50 Disposition/Present on Arrival - Present on Arrival Any Indicators Present on Arrival: No History of DVT/PE: No History of Uncontrolled Diabetes: No Urinary Catheter: No History of Decub. Ulcer: No History Surgical Site Infection Following: None - Disposition Have Diagnosis and Disposition been Completed?: Yes Diagnosis: Elevated bilirubin, Scleral icterus, Transaminitis Disposition: HOSPITALIZED Disposition Time: 19:00 Patient Plan: Observation Condition: STABLE
[2018-07-13 17:32] LABS: BASO # 0.01 K/mm3 (0.0-2.0); BASO % 0.1 % (0.0-3.0); EOS % 0.3 % (1.5-5.0); GRAN # 10.78 (1.4-6.5); GRAN % 91.8 % (50.0-68.0); LYMPH # 0.4 (1.2-3.4); LYMPH % 3.5 % (22.0-35.0); MEAN CELL VOLUME 90.1 fl (80.0-105.0); MEAN CORPUSCULAR HEMOGLOBIN 30.3 pg (25.0-35.0); MEAN CORPUSCULAR HGB CONC 33.6 g/dl (31.0-37.0); MONO # 0.5 (0.1-0.6); MONO % 4.3 % (1.0-6.0); PLATELET COUNT 159 10^3/uL (120.0-450.0); RBC 4.95 10^6/uL (3.5-6.1); RED CELL DISTRIBUTION WIDTH 14.7 % (11.5-14.5); WHITE BLOOD COUNT 11.7 10^3/uL (4.5-11.0)
[2018-07-13 17:33] LABS: VENOUS BLOOD GAS BASE EXCESS 1.3 mmol/L (0.0-2.0); VENOUS BLOOD GAS PO2 35 mm/Hg (30-55); VENOUS BLOOD PH 7.37 (7.32-7.43)
[2018-07-13 17:37] LABS: INR 1.12; PARTIAL THROMBOPLASTIN TIME 30.7 Seconds (25.1-36.5); PROTHROMBIN TIME 12.8 SECONDS (9.4-12.5)
[2018-07-13 17:42] LABS: ALB/GLOB RATIO 1.1 (1.1-1.8); ALBUMIN 3.9 g/dL (3.0-4.8); ALT/SGPT 285 U/L (7-56); AST/SGOT 173 U/L (17-59); BLOOD UREA NITROGEN 21 mg/dL (7-21); CALCIUM 9.3 mg/dL (8.4-10.5); GFR NON-AFRICAN AMERICAN 50; LIPASE 985 U/L (23-300)
[2018-07-13] MEDS ORDERED: Piperacill/Tazo 4.5gm in NS 4.5 GM/100 ML BAG IVPB STA (17:43)
--- NOTE | 2018-07-13 17:55 | RAD ---
Date of service: 07/13/2018 HISTORY: fever COMPARISON: 05/17/2018 TECHNIQUE: Chest PA and lateral FINDINGS: LUNGS: Volume loss in the right lung. PLEURA: Apical pleural thickening limited to the right side. CARDIOVASCULAR: No aortic atherosclerotic calcification present. Normal cardiac size. No pulmonary vascular congestion. OSSEOUS STRUCTURES: No significant abnormalities. VISUALIZED UPPER ABDOMEN: Normal. OTHER FINDINGS: None. IMPRESSION: No active disease. No significant interval change compared to the prior examination(s).
[2018-07-13] MEDS ORDERED: Iohexol 350 MG/100 ML VIAL ONE (17:58)
[2018-07-13 18:05] LABS: BAND 1 % (0-2); HYPOCHROMIA 1+; LYMPHOCYTE 3 % (22.0-35.0); MONOCYTE 4 % (1.0-6.0); NEUTROPHIL 92 % (50.0-70.0); PLATELET ESTIMATE NORMAL (NORMAL); TOXIC GRANULATION 1+
[2018-07-13 18:06] LABS: ROULEAU 2+
--- NOTE | 2018-07-13 18:52 | US ---
Date of service: 07/13/2018 HISTORY: hyperbili, elevated lipase, s/p kylah COMPARISON: Comparison is made to the previous CT dated 06/21/2018 previous ultrasound dated 05/17/2018 TECHNIQUE: Sonographic evaluation of the abdomen. FINDINGS: LIVER: Measures 15.6 cm. Heterogeneous increased echogenicity of the liver parenchyma. No mass. No intrahepatic bile duct dilatation. GALLBLADDER: The gallbladder was removed. COMMON BILE DUCT: Measures 6.7 mm. No stones. No dilatation. PANCREAS: Unremarkable as visualized. No mass. No ductal dilatation. RIGHT KIDNEY: Measures 10.2 x 4.3 x 5.7cm. Normal echogenicity. No calculus, mass, or hydronephrosis. LEFT KIDNEY: Measures 10.5 x 6.4 x 6.2cm. Normal echogenicity. No calculus, mass, or hydronephrosis. SPLEEN: Normal in size and contour. No mass. AORTA: No aneurysmal dilatation. IVC: Unremarkable. OTHER FINDINGS: None. IMPRESSION: Heterogeneous echogenic liver suggestive of fibrofatty infiltration. No ultrasound evidence of acute pathology in the abdomen.
--- NOTE | 2018-07-13 18:59 | CT ---
Date of service: 07/13/2018 PROCEDURE: CT Abdomen and Pelvis with contrast HISTORY: fever, vomiting COMPARISON: Comparison is made to the previous study 06/21/2018 TECHNIQUE: Contrast dose: 100 mL of Omnipaque 350 intravenously. Axial and reformatted coronal and sagittal CT images of the abdomen and pelvis were obtained after IV contrast administration. Radiation dose: Total exam DLP = 962.84 mGy-cm. This CT exam was performed using one or more of the following dose reduction techniques: Automated exposure control, adjustment of the mA and/or kV according to patient size, and/or use of iterative reconstruction technique. FINDINGS: LOWER THORAX: Unremarkable. LIVER: Diffuse low-attenuation of the liver is again noted suggestive of fatty infiltration. GALLBLADDER AND BILE DUCTS: Status post cholecystectomy. PANCREAS: Unremarkable. No gross lesion or ductal dilatation. SPLEEN: Unremarkable. ADRENALS: Unremarkable. No mass. KIDNEYS AND URETERS: Unremarkable. No hydronephrosis. No solid mass. VASCULATURE: Unremarkable. No aortic aneurysm. No aortic atherosclerotic calcification or mural plaque present. BOWEL: S/p small bowel anastomosis at the left mid abdomen. No evidence of high-grade bowel obstruction. Scattered colonic diverticulosis seen without evidence of diverticulitis. APPENDIX: Normal appendix. PERITONEUM: Unremarkable. No free fluid. No free air. LYMPH NODES: Unremarkable. No enlarged lymph nodes. BLADDER: Unremarkable. REPRODUCTIVE: Unremarkable. BONES: No acute fracture. OTHER FINDINGS: None. IMPRESSION: No evidence of acute pathology in the abdomen and pelvis. No significant interval changes noted since the prior study.
--- NOTE | 2018-07-13 19:18 | CARD ---
APPROVED REPORT Date of service: 07/13/2018 EKG Measurement Heart [id number] <Conclusion> Normal sinus rhythm Septal infarct, age undetermined Prolonged QT Abnormal ECG
[2018-07-13] MEDS ORDERED: Vancomycin 500mg in NS 500 MG/100 ML BAG IVPB STA (20:02)
[2018-07-13] MEDS: Vancomycin 500mg in NS 500 MG/100 ML BAG IVPB SCH (21:33)
--- NOTE | 2018-07-13 22:40 | CP.PCM.HP ---
<Lonny Conrad - Last Filed: 07/14/18 00:30> History of Present Illness - History of Present Illness History of Present Illness: Lonny Conrad PGY1, History and Physical for Dr Quiroz Pt is a 68 yo male with a PMH of lung cancer s/p lobectomy, s/p cholecystectomy 2 months ago, COPD, HLD, CAD, hypothroidism, presents to the ED complaining of fever for the past 2 days. Pt has also had associated rash on his upper extremities with itchiness. Pt has not tried anything at home to help alleviate the pain/ pruritus. Pt states he experienced one episode of vomiting which was nonbloody. Admits to headache. Pt states he has experienced some right shoulder pain which was similar to what he felt before having his gallbladder removed. A 12 Point ROS was obtained and added to the HPI where appropriate. PMH: COPD, Interstitial Lung Disease, HLD, CAD, 3 cardiac stents placed 2010, Larygneal Carcinoma (s/p trach) 1999, Hypothyroidism, Anxiety PSH: R-upper lobectomy (08/2017), Multiple GI polyps removed SH: former smoker (quit in 1999): smoked 5 PPD since age 19, social drinker, denies recreational drug use. FH: Mother colon cancer 70. Father Lung CA 68. Home meds: ASA 81 mg PO daily, Trintellix 10 mg PO daily, Vitamin B complex, Pravastatin 10 mg PO HS, Mag Ox 500 mg qpm, Protonix 40 mg po daily, Synthroid 100 mcg PO qam, Vitamin D3 2000u PO daily, Pulmicort 0.5 mg IH BID, Ventolin 2 puffs IH BID prn Allergies: denies Present on Admission - Present on Admission Any Indicators Present on Admission: No Review of Systems - Review of Systems Review of Systems: a 12 point ROS was obtained and added to the HPI where appropriate Past Patient History - Infectious Disease Hx of Infectious Diseases: None - Past Medical History & Family History Past Medical History?: Yes - Past Social History Smoking Status: Former Smoker - CARDIAC Hx Cardiac Disorders: Yes (CAD) Hx Pacemaker: No - PULMONARY Hx Respiratory Disorders: Yes (TRACHE) Hx Chronic Obstructive Pulmonary Disease (COPD): Yes Hx Pneumonia: Yes Other/Comment: USED TO SMOKE 4 PPD QUIT 1999 - NEUROLOGICAL Hx Neurological Disorder: Yes Hx Dizziness: Yes - HEENT Hx HEENT Problems: Yes Hx Cataracts: Yes - RENAL Hx Chronic Kidney Disease: No - ENDOCRINE/METABOLIC Hx Endocrine Disorders: Yes Hx Hypothyroidism: Yes - HEMATOLOGICAL/ONCOLOGICAL Hx Blood Transfusions: (unknown) Hx Blood Transfusion Reaction: No - INTEGUMENTARY Hx Dermatological Problems: Yes Other/Comment: 08-10-[address] GUIDED BX,INCISION TO RIGHT UPPER CHEST.INCISION TO RIGHT UPPER BACK. - MUSCULOSKELETAL/RHEUMATOLOGICAL Hx Musculoskeletal Disorders: No Hx Falls: No - GASTROINTESTINAL Hx Gastrointestinal Disorders: Yes (LARYNGEAL CA) - GENITOURINARY/GYNECOLOGICAL Hx Genitourinary Disorders: No - PSYCHIATRIC Hx Emotional Abuse: No Hx Physical Abuse: No Hx Substance Use: No - SURGICAL HISTORY Hx Cardiac Catheterization: Yes Hx Coronary Stent: Yes (X2) - ANESTHESIA Hx Anesthesia: Yes Hx Anesthesia Reactions: No Hx Malignant Hyperthermia: No Meds Allergies/Adverse Reactions: Allergies Allergy/AdvReac Type Severity Reaction Status Date / Time No Known Allergies Allergy Verified 08/10/17 18:44 Physical Exam - Constitutional Appears: Non-toxic, No Acute Distress - Head Exam Head Exam: ATRAUMATIC, NORMAL INSPECTION, NORMOCEPHALIC - Eye Exam Eye Exam: EOMI - ENT Exam ENT Exam: Mucous Membranes Moist, Normal Exam - Neck Exam Additional comments: pt has treacheostomy - Respiratory Exam Respiratory Exam: Clear to Auscultation Bilateral, NORMAL BREATHING PATTERN. absent: Accessory Muscle Use, Wheezes - Cardiovascular Exam Cardiovascular Exam: RRR, +S1, +S2. absent: Diastolic murmur, Systolic Murmur - GI/Abdominal Exam GI & Abdominal Exam: Normal Bowel Sounds, Soft. absent: Rebound, Tenderness - Extremities Exam Extremities exam: Positive for: normal inspection, pedal pulses present. Negative for: calf tenderness, full ROM, pedal edema - Neurological Exam Neurological exam: Alert, Oriented x3 - Psychiatric Exam Psychiatric exam: Normal Affect, Normal Mood - Skin Skin Exam: Intact, Normal Color, Warm Results - Vital Signs Recent Vital Signs: Last Vital Signs Temp 99.3 F 07/13/18 20:27 Pulse 80 07/13/18 20:27 Resp 18 07/13/18 20:27 BP 103/66 07/13/18 20:27 Pulse Ox 95 07/13/18 20:27 - Labs Result Diagrams: 07/13/18 17:22 07/13/18 17:22 Labs: Laboratory Results - last 24 hr 07/13/18 07/13/18 07/13/18 17:10 17:22 17:22 WBC 11.7 H RBC 4.95 Hgb 15.0 Hct 44.6 MCV 90.1 MCH 30.3 MCHC 33.6 RDW 14.7 H Plt Count 159 MPV 12.0 H Gran % 91.8 H Lymph % (Auto) 3.5 L Glasscock % (Auto) 4.3 Eos % (Auto) 0.3 L Baso % (Auto) 0.1 Gran # 10.78 H Lymph # (Auto) 0.4 L [place] # (Auto) 0.5 Eos # (Auto) 0.0 Baso # (Auto) 0.01 Neutrophils % (Manual) 92 H Band Neutrophils % 1 Lymphocytes % (Manual) 3 L Monocytes % (Manual) 4 Toxic Granulation 1+ Platelet Evaluation Normal Hypochromasia 1+ Rouleaux 2+ PT 12.8 H INR 1.12 APTT 30.7 pO2 VBG pH VBG pCO2 VBG HCO3 VBG Total CO2 VBG O2 Sat (Calc) VBG Base Excess VBG Potassium Sodium Chloride Glucose Lactate FiO2 Potassium Carbon Dioxide Anion Gap BUN Creatinine Est GFR ( Amer) Est GFR (Non-Af Amer) Random Glucose Calcium Total Bilirubin AST ALT Alkaline Phosphatase Total Protein Albumin Globulin Albumin/Globulin Ratio Lipase Venous Blood Potassium Blood Type A POSITIVE Antibody Screen Negative BBK History Checked Patient has bt 07/13/18 07/13/18 17:22 17:22 WBC RBC Hgb Hct MCV MCH MCHC RDW Plt Count MPV Gran % Lymph % (Auto) [place] % (Auto) Eos % (Auto) Baso % (Auto) Gran # Lymph # (Auto) [place]cock # (Auto) Eos # (Auto) Baso # (Auto) Neutrophils % (Manual) Band Neutrophils % Lymphocytes % (Manual) Monocytes % (Manual) Toxic Granulation Platelet Evaluation Hypochromasia Rouleaux PT INR APTT pO2 35 VBG pH 7.37 VBG pCO2 47.0 VBG HCO3 27.2 VBG Total CO2 28.6 H VBG O2 Sat (Calc) 71.5 H VBG Base Excess 1.3 VBG Potassium 4.0 Sodium 141.0 143 Chloride 103.0 105 Glucose 169 H Lactate 3.4 H FiO2 21.0 Potassium 4.2 Carbon Dioxide 27 Anion Gap 16 BUN 21 Creatinine 1.4 Est GFR ( Amer) > 60 Est GFR (Non-Af Amer) 50 Random Glucose 159 H Calcium 9.3 Total Bilirubin 7.2 H AST 173 H D ALT 285 H Alkaline Phosphatase 271 H D Total Protein 7.4 Albumin 3.9 Globulin 3.5 Albumin/Globulin Ratio 1.1 Lipase 985 H Venous Blood Potassium 4.0 Blood Type Antibody Screen BBK History Checked Assessment & Plan - Assessment and Plan (Free Text) Assessment: Pt is a 68 yo male with a PMH of lung cancer s/p lobectomy, s/p cholecystectomy 2 months ago, COPD, HLD, CAD, hypothroidism, presents to the ED complaining of fever for the past 2 days. Plan: Fever - blood cultures - urine cultures - Influenza screen - procal - NS@100 - mg - phos - Vanc - Zosyn - NPO - GI consult, Blaise COPD - duonebs - c/w home meds CAD (multiple stent placement) - c/w ASA History of Laryngeal Carcinoma - Patient has stoma HLD - continue home statin Hypothyroidism - Levothyroxine 100 mcg PO Ppx - Heparin - zofran - protonix Pt seen, examined, assessment and plan discussed with Dr Richie Conrad PGY1, Internal Medicine Resident - Date & Time Date: 07/14/18 Time: 00:17 <Kareen Quiroz - Last Filed: 07/14/18 19:12> Results - Vital Signs Recent Vital Signs: Last Vital Signs Temp 99.3 F 07/14/18 16:07 Pulse 89 07/14/18 16:07 Resp 20 07/14/18 16:07 BP 124/84 07/14/18 16:07 Pulse Ox 99 07/14/18 16:07 - Labs Result Diagrams: 07/14/18 07:00 07/14/18 07:00 Labs: Laboratory Results - last 24 hr 07/13/18 07/14/18 07/14/18 17:10 07:00 07:00 WBC 7.0 D RBC 4.83 Hgb 14.2 Hct 43.4 MCV 89.9 MCH 29.4 MCHC 32.7 RDW 14.9 H Plt Count 146 MPV 11.5 H Gran % 87.4 H Lymph % (Auto) 6.6 L Glasscock % (Auto) 5.3 Eos % (Auto) 0.6 L Baso % (Auto) 0.1 Gran # 6.07 Lymph # (Auto) 0.5 L [place] # (Auto) 0.4 Eos # (Auto) 0.0 Baso # (Auto) 0.01 pO2 VBG pH VBG pCO2 VBG HCO3 VBG Total CO2 VBG O2 Sat (Calc) VBG Base Excess VBG Potassium Glucose Lactate FiO2 Sodium Potassium Chloride Carbon Dioxide Anion Gap BUN Creatinine Est GFR ( Amer) Est GFR (Non-Af Amer) Random Glucose Calcium Phosphorus Magnesium Total Bilirubin AST ALT Alkaline Phosphatase Total Protein Albumin Globulin Albumin/Globulin Ratio Triglycerides Cholesterol LDL Cholesterol Direct HDL Cholesterol Procalcitonin 1.35 H Venous Blood Potassium Urine Color Urine Appearance Urine pH Ur Specific [place] Urine Protein Urine Glucose (UA) Urine Ketones Urine Blood Urine Nitrate Urine Bilirubin Urine Urobilinogen Ur Leukocyte Esterase Urine RBC Urine WBC Ur Epithelial Cells Urine Bacteria Urine Opiates Screen Urine Methadone Screen Ur Barbiturates Screen Ur Phencyclidine Scrn Ur Amphetamines Screen U Benzodiazepines Scrn U Oth Cocaine Metabols U Cannabinoids Screen Alcohol, Quantitative Blood Type A POSITIVE Antibody Screen Negative BBK History Checked Patient has bt 07/14/18 07/14/18 07/14/18 07:00 07:00 13:35 WBC RBC Hgb Hct MCV MCH MCHC RDW Plt Count MPV Gran % Lymph % (Auto) [place] % (Auto) Eos % (Auto) Baso % (Auto) Gran # Lymph # (Auto) [place] # (Auto) Eos # (Auto) Baso # (Auto) pO2 VBG pH VBG pCO2 VBG HCO3 VBG Total CO2 VBG O2 Sat (Calc) VBG Base Excess VBG Potassium Glucose Lactate FiO2 Sodium 141 Potassium 4.4 Chloride 106 Carbon Dioxide 25 Anion Gap 14 BUN 18 Creatinine 1.2 Est GFR ( Amer) > 60 Est GFR (Non-Af Amer) > 60 Random Glucose 94 Calcium 8.6 Phosphorus 2.6 Magnesium 1.7 Total Bilirubin 6.5 H AST 129 H D ALT 225 H Alkaline Phosphatase 255 H Total Protein 7.0 Albumin 3.4 Globulin 3.6 Albumin/Globulin Ratio 0.9 L Triglycerides 161 H Cholesterol 142 LDL Cholesterol Direct 94 HDL Cholesterol 25 L Procalcitonin Venous Blood Potassium Urine Color Dark yellow Urine Appearance Sl cloudy Urine pH 6.0 Ur Specific [place] 1.025 Urine Protein Trace H Urine Glucose (UA) Negative Urine Ketones 15 H Urine Blood Negative Urine Nitrate Negative Urine Bilirubin Large H Urine Urobilinogen 2.0 H Ur Leukocyte Esterase Trace H Urine RBC 1 - 3 Urine WBC 5 - 10 Ur Epithelial Cells 4 - 5 Urine Bacteria Trace Urine Opiates Screen Urine Methadone Screen Ur Barbiturates Screen Ur Phencyclidine Scrn Ur Amphetamines Screen U Benzodiazepines Scrn U Oth Cocaine Metabols U Cannabinoids Screen Alcohol, Quantitative < 10 Blood Type Antibody Screen BBK History Checked 07/14/18 07/14/18 13:35 13:58 WBC RBC Hgb Hct MCV MCH MCHC RDW Plt Count MPV Gran % Lymph % (Auto) [place] % (Auto) Eos % (Auto) Baso % (Auto) Gran # Lymph # (Auto) [place] # (Auto) Eos # (Auto) Baso # (Auto) pO2 24 L VBG pH 7.37 VBG pCO2 54.0 VBG HCO3 31.2 H VBG Total CO2 32.9 H VBG O2 Sat (Calc) 43.1 VBG Base Excess 4.5 H VBG Potassium 4.7 Glucose 129 H Lactate 1.3 FiO2 21.0 Sodium 139.0 Potassium Chloride 105.0 Carbon Dioxide Anion Gap BUN Creatinine Est GFR ( Amer) Est GFR (Non-Af Amer) Random Glucose Calcium Phosphorus Magnesium Total Bilirubin AST ALT Alkaline Phosphatase Total Protein Albumin Globulin Albumin/Globulin Ratio Triglycerides Cholesterol LDL Cholesterol Direct HDL Cholesterol Procalcitonin Venous Blood Potassium 4.7 Urine Color Urine Appearance Urine pH Ur Specific [place] Urine Protein Urine Glucose (UA) Urine Ketones Urine Blood Urine Nitrate Urine Bilirubin Urine Urobilinogen Ur Leukocyte Esterase Urine RBC Urine WBC Ur Epithelial Cells Urine Bacteria Urine Opiates Screen Negative Urine Methadone Screen Negative Ur Barbiturates Screen Negative Ur Phencyclidine Scrn Negative Ur Amphetamines Screen Negative U Benzodiazepines Scrn Negative U Oth Cocaine Metabols Negative U Cannabinoids Screen Negative Alcohol, Quantitative Blood Type Antibody Screen BBK History Checked Attending/Attestation - Attestation I have personally seen and examined this patient.: Yes I have fully participated in the care of the patient.: Yes I have reviewed all pertinent clinical information: Yes Notes (Text): 07/14/18 19:10 R/O Stone in biliary ducts given recent cholecystectomy Fever Wall CX as above GI consult May need MRCP Vancomycin 500 mg IV x 1 stat continue zosyn
[2018-07-13] MEDS: Piperacill/Tazo 4.5gm in NS 4.5 GM/100 ML BAG IVPB SCH (23:57)
[2018-07-14] MEDS: Sodium Chloride 0.9% 1,000 ML IV SCH ×2 (01:06→09:54)
[2018-07-14] MEDS: Levothyroxine 100 MCG TAB PO SCH (05:53)
[2018-07-14] MEDS: Piperacill/Tazo 4.5gm in NS 4.5 GM/100 ML BAG IVPB SCH (05:55)
[2018-07-14 07:37] LABS: BASO # 0.01 K/mm3 (0.0-2.0); BASO % 0.1 % (0.0-3.0); EOS % 0.6 % (1.5-5.0); GRAN # 6.07 (1.4-6.5); GRAN % 87.4 % (50.0-68.0); HEMOGLOBIN 14.2 g/dL (14.0-18.0); LYMPH # 0.5 (1.2-3.4); LYMPH % 6.6 % (22.0-35.0); MEAN CELL VOLUME 89.9 fl (80.0-105.0); MEAN CORPUSCULAR HEMOGLOBIN 29.4 pg (25.0-35.0); MEAN CORPUSCULAR HGB CONC 32.7 g/dl (31.0-37.0); MEAN PLATELET VOLUME 11.5 fl (7.0-11.0); MONO # 0.4 (0.1-0.6); MONO % 5.3 % (1.0-6.0); RBC 4.83 10^6/uL (3.5-6.1); RED CELL DISTRIBUTION WIDTH 14.9 % (11.5-14.5)
[2018-07-14 07:44] LABS: ALB/GLOB RATIO 0.9 (1.1-1.8); ALBUMIN 3.4 g/dL (3.0-4.8); ALT/SGPT 225 U/L (7-56); AST/SGOT 129 U/L (17-59); BLOOD UREA NITROGEN 18 mg/dL (7-21); CALCIUM 8.6 mg/dL (8.4-10.5); GFR NON-AFRICAN AMERICAN > 60; HDL CHOLESTEROL 25 mg/dL (29-60)
[2018-07-14 07:47] LABS: LDL CHOLESTEROL 94 mg/dL (0-129)
--- NOTE | 2018-07-14 07:52 | CP.PCM.PN ---
<Niels Crawford - Last Filed: 07/14/18 15:41> Subjective - Date & Time of Evaluation Date of Evaluation: 07/14/18 Time of Evaluation: 07:52 - Subjective Subjective: PGY-1 Medicine Progress Note for Dr. Davila's service Patient seen and examined at bedside this AM. No acute overnight events reported. Patient endorses 1 episode of NBNB vomiting last night. No nausea or vomiting this AM. R flank pain/RUQ pain improved this morning. Lesion to LUE and b/l LE noted 2/2 pruritis/scratching. Denies pruritis at this time. 12 point ROS otherwise negative. Objective - Vital Signs/Intake and Output Vital Signs (last 24 hours): Temp Pulse Resp BP Pulse Ox 99.3 F 80 18 103/66 95 07/13/18 20:27 07/14/18 02:10 07/14/18 02:10 07/13/18 20:27 07/13/18 20:27 - Medications Medications: Current Medications Aspirin (Ecotrin) 81 mg PO DAILY [facility] Heparin Sodium (Porcine) (Heparin) 5,000 units SC Q12 JOSELINE; Protocol Last Admin: 07/14/18 00:00 Dose: Not Given Sodium Chloride (Sodium Chloride 0.9%) 1,000 mls @ 100 mls/hr IV .Q10H [facility]SE[facility] Last Admin: 07/14/18 01:06 Dose: 100 mls/hr Vancomycin HCl (Vancomycin 500mg In Ns) 500 mg in 100 mls @ 200 mls/hr IVPB Q12 JOSELINE; Protocol Last Admin: 07/13/18 21:33 Dose: 200 mls/hr Piperacillin Sod/Tazobactam Sod (Zosyn 4.5 Gm In Ns 100ml) 4.5 gm in 100 mls @ 25 mls/hr IVPB Q8 JOSELINE; Protocol Stop: 07/14/18 09:59 Last Admin: 07/14/18 05:55 Dose: 25 mls/hr Levothyroxine Sodium (Synthroid) 100 mcg PO 0600 [facility] Last Admin: 07/14/18 05:53 Dose: Not Given Pantoprazole Sodium (Protonix Ec Tab) 40 mg PO ACB JOSELINE - Labs Labs: 07/14/18 07:00 07/14/18 07:00 PT 12.8 SECONDS (9.4-12.5) H 07/13/18 17:22 INR 1.12 07/13/18 17:22 APTT 30.7 Seconds (25.1-36.5) 07/13/18 17:22 - Constitutional Appears: Non-toxic, No Acute Distress - Head Exam Head Exam: ATRAUMATIC, NORMAL INSPECTION, NORMOCEPHALIC - Eye Exam Eye Exam: EOMI, Scleral icterus Pupil Exam: NORMAL ACCOMODATION - ENT Exam ENT Exam: Mucous Membranes Moist, Normal Exam - Neck Exam Neck Exam: Full ROM Additional comments: stoma present - Respiratory Exam Respiratory Exam: Clear to Ausculation Bilateral, NORMAL BREATHING PATTERN. absent: Accessory Muscle Use, Rales, Rhonchi, Wheezes, Respiratory Distress, Stridor - Cardiovascular Exam Cardiovascular Exam: Tachycardia, +S1, +S2 - GI/Abdominal Exam GI & Abdominal Exam: Soft, Normal Bowel Sounds. absent: Distended, Firm, Guarding, Rigid, Tenderness, Organomegaly, Pulsatile Mass, Rebound - Extremities Exam Extremities Exam: Full ROM, Normal Capillary Refill, Normal Inspection. absent: Calf Tenderness, Joint Swelling, Pedal Edema - Back Exam Back Exam: NORMAL INSPECTION - Neurological Exam Neurological Exam: Alert, Awake, Oriented x3 - Psychiatric Exam Psychiatric exam: Normal Affect, Normal Mood - Skin Skin Exam: Dry, Intact, Normal Color, Warm Additional comments: lesion noted to reva DAWSON/gely LE 2/2 scratching Assessment and Plan - Assessment and Plan (Free Text) Assessment: 68 yo M with PMHx of laryngeal cancer s/p stoma, lung cancer s/p lobectomy, recent cholecystectomy (04/2018), COPD, HTN, HLD, CAD, hypothyroidism presenting with RUQ/R flank pain, fever, elevated LFTs with scleral icterus and pruritis of extremities. Plan: R abdominal/flank pain with elevated LFTs w/ scleral icterus, pruritis, recent cholecystectomy -f/u hepatitis panel -alcohol negative -f/u UDS -direct bilirubin level -monitor LFTs -GI recs (Dr. Welsh) appreciated -Advance to clear liquid diet -Concern for CBD stone with recent cholecystectomy, CT and US imaging reviewed -Will order Stat MRCP and MRI -Continue IV abx -Blood cx -Monitor CBC and fever curve -Will continue to follow closely Fever, unclear etiology -f/u UA, UCx, BCx -Medications -vanc/zosyn -NS 100 cc/hr Hypothyroidism - c/w home synthroid Ppx, Diet, Disposition -DVT: heparin -GI: protonix -Diet: clear liquid Case discussed with Dr. Giovanni Crawford DO, PGY-1 <Dasia Davila - Last Filed: 07/14/18 15:47> Objective - Vital Signs/Intake and Output Vital Signs (last 24 hours): Temp Pulse Resp BP Pulse Ox 99.4 F 98 H 30 H 125/82 99 07/14/18 09:32 07/14/18 09:32 07/14/18 09:32 07/14/18 09:32 07/14/18 09:32 - Medications Medications: Current Medications Aspirin (Ecotrin) 81 mg PO DAILY [facility] Last Admin: 07/14/18 10:06 Dose: Not Given Heparin Sodium (Porcine) (Heparin) 5,000 units SC Q12 JOSELINE; Protocol Last Admin: 07/14/18 10:07 Dose: Not Given Sodium Chloride (Sodium Chloride 0.9%) 1,000 mls @ 100 mls/hr IV .Q10H [facility] Last Admin: 07/14/18 09:54 Dose: 100 mls/hr Vancomycin HCl (Vancomycin 500mg In Ns) 500 mg in 100 mls @ 200 mls/hr IVPB Q12 JOSELINE; Protocol Last Admin: 07/14/18 09:55 Dose: 200 mls/hr Piperacillin Sod/Tazobactam Sod (Zosyn 3.375 In Ns 100ml) 100 mls @ 25 mls/hr IVPB Q6 JOSELINE; Protocol Stop: 07/14/18 21:59 Last Admin: 07/14/18 13:20 Dose: 25 mls/hr Levothyroxine Sodium (Synthroid) 100 mcg PO 0600 [facility] Last Admin: 07/14/18 05:53 Dose: Not Given Pantoprazole Sodium (Protonix Ec Tab) 40 mg PO ACB [facility] Last Admin: 07/14/18 09:54 Dose: 40 mg - Labs Labs: 07/14/18 07:00 07/14/18 07:00 PT 12.8 SECONDS (9.4-12.5) H 07/13/18 17:22 INR 1.12 07/13/18 17:22 APTT 30.7 Seconds (25.1-36.5) 07/13/18 17:22 Attending/Attestation - Attestation I have personally seen and examined this patient.: Yes I have fully participated in the care of the patient.: Yes I have reviewed all pertinent clinical information, including history, physical exam and plan: Yes Notes (Text): 07/14/18 68 year old male with past medical history of laryngeal cancer s/p stoma, lung cancer s/p lobectomy, recent cholecystectomy (04/2018), COPD, hypertension and hypothyroidism who presented with right sided abdominal pain, pruritis and fever. He was found to have transaminitis and fever. CT abd/pelvis and ultrasound show fatty liver. Hepatitis panel and MRCP is ordered. Continue with iv antibiotics while awaiting cultures. Dasia Davila MD Hospitalist.
[2018-07-14] MEDS: Pantoprazole 40 mg EC Tab PO SCH (09:54)
[2018-07-14] MEDS: Vancomycin 500mg in NS 500 MG/100 ML BAG IVPB SCH ×2 (09:55→21:58)
--- NOTE | 2018-07-14 11:35 | CP.PCM.CON ---
<Yeimy Cordoba - Last Filed: 07/14/18 11:25> History of Present Illness - History of Present Illness History of Present Illness: GI Fellow PGY5 Consult Note This is a 68yo M with extensive history of cancer (Larynx, lung, bladder), COPD/ILD, CAD s/p stents on Plavix, presenting with complaints of acute onset of RUQ pain with associated fevers for 3 days. Pt reports pain was in the RUQ radiating to his back similar to gallbladder pain two months ago. Pt was discharged from [facility] [place] in April after laproscopic cholecystectomy for acute cholecystitis 05/21/18. Pt reports doing fine since then until three days ago. Pt denies any alcohol use in years and no illicit drug use or change in mediations. In the ER pt was found to be jaundiced with elevated LFTs. CT and Abd US was negative fro CBD dilation or stone, neg for pancreatitis. ROS: A 12pt ROS was negative except as above PMHx:As above PSHx:Bladder, lobectomy, laryngectomy. EGD/colonoscopy SHx:previous smoker, denies alcohol or drug use FHx: Denies EGD 06/13 - Esophagitis Colonoscopy 2017 - Tubular adenomas. Past Patient History - Infectious Disease Hx of Infectious Diseases: None - Past Medical History & Family History Past Medical History?: Yes - Past Social History Smoking Status: Never Smoked - CARDIAC Hx Cardiac Disorders: No Hx Angina: No Hx Cardia Arrhythmia: No Hx Circulatory Problems: No Hx Congestive Heart Failure: No Hx Heart Murmur: No Hx Heart Transplant: No Hx Hypercholesterolemia: Yes Hx Hypertension: Yes Hx Internal Defibrillator: No Hx Mitral Valve Prolapse: No Hx Pacemaker: No Hx Peripheral Edema: No Hx Peripheral Vascular Disease: No - PULMONARY Hx Respiratory Disorders: No Hx Asthma: No Hx Bronchitis: No Hx Chronic Obstructive Pulmonary Disease (COPD): Yes Hx Emphysema: No Hx Pneumonia: Yes (20-30 years agp) Hx Respiratory Aspiration: No Hx Respiratory Tract Infection: No Hx Sleep Apnea: No Hx Tuberculosis: No - NEUROLOGICAL Hx Neurological Disorder: No Hx Alzheimer's Disease: No HX Cerebrovascular Accident: No Hx Dementia: No Hx Dizziness: No Hx Meningitis: No Hx Migraine: No Hx Parkinson's Disease: No Hx Seizures: No Hx Transient Ischemic Attacks (TIA): No - HEENT Hx HEENT Problems: No Hx Blind: No Hx Cataracts: No Hx Deafness: No Hx Difficulty Chewing: No Hx Epistaxis: No Hx Glaucoma: No Hx Macular Degeneration: No - RENAL Hx Chronic Kidney Disease: No Hx Dialysis: No Hx Kidney Stones: No Hx Neurogenic Bladder: No Hx Pyelonephritis: No Hx Renal (Kidney) Cancer: No Hx Renal Failure: No - ENDOCRINE/METABOLIC Hx Endocrine Disorders: No Hx Adrenal Cancer: No Hx Diabetes Insipidus: No Hx Diabetes Mellitus Type 1: No Hx Diabetes Mellitus Type 2: No Hx Hyperthyroidism: No Hx Hypothyroidism: Yes Hx Systemic Lupus Erythematosus: No - HEMATOLOGICAL/ONCOLOGICAL Hx Blood Transfusions: No Hx Blood Transfusion Reaction: No - INTEGUMENTARY Hx Dermatological Problems: No Hx Basil Cell: No Hx Eczema: No Hx Melanoma: No - MUSCULOSKELETAL/RHEUMATOLOGICAL Hx Musculoskeletal Disorders: No Hx Arthritis: No Hx Back Pain: No Hx Degenerative Joint Disease: No Hx Falls: No Hx Fractures: No Hx Gout: No Hx Herniated Disk: No Hx Myasthenia Gravis: No Hx Osteoarthritis: No Hx Osteomyelitis: No Hx Osteoporosis: No Hx Rhabdomyolysis: No Hx Spinal Stenosis: No Hx Unsteady Gait: No - GASTROINTESTINAL Hx Gastrointestinal Disorders: No Hx Colostomy: No Hx Crohn's Disease: No Hx Diverticulitis: No Hx Gall Bladder Disease: No Hx Gastroesophageal Reflux: Yes Hx Ileostomy: No Hx Liver Failure: No Hx Pancreatitis: Yes HX Swallowing Problems: No Hx Ulcer: No - GENITOURINARY/GYNECOLOGICAL Hx Genitourinary Disorders: No Hx Hematuria: No Hx Incontinence: No Hx Prostate Problems: No Hx Sexually Transmitted Disorders: No Hx Urinary Tract Infection: No - PSYCHIATRIC Hx Psychophysiologic Disorder: No Hx Anxiety: Yes Hx Bipolar Disorder: No Hx Depression: Yes Hx Emotional Abuse: No Hx Hallucinations: No Hx Panic Symptoms: No Hx Paranoia: No Hx Post Traumatic Stress Disorder: No Hx Psychosis: No Hx Physical Abuse: No Hx Schizophrenia: No Hx Sexual Abuse: No - SURGICAL HISTORY Hx Surgeries: Yes - ANESTHESIA Hx Anesthesia Reactions: No Hx Malignant Hyperthermia: No Meds Home Medications: Home Medication List Medication Instructions Recorded Confirmed Type Amoxicillin/Clavulanate [Augmentin 1 tab PO Q12 #6 tab 07/19/18 Rx 875 MG-125 MG Tab] Levothyroxine [Synthroid] 112 mcg PO 0600 #30 tab 07/19/18 Rx Ursodiol [Actigall] 300 mg PO BID #60 cap 07/19/18 Rx Allergies/Adverse Reactions: Allergies Allergy/AdvReac Type Severity Reaction Status Date / Time No Known Allergies Allergy Verified 08/10/17 18:44 - Medications Medications: Current Medications Aspirin (Ecotrin) 81 mg PO DAILY [facility] Last Admin: 07/14/18 10:06 Dose: Not Given Heparin Sodium (Porcine) (Heparin) 5,000 units SC Q12 JOSELINE; Protocol Last Admin: 07/14/18 10:07 Dose: Not Given Sodium Chloride (Sodium Chloride 0.9%) 1,000 mls @ 100 mls/hr IV .Q10H [facility] Last Admin: 07/14/18 09:54 Dose: 100 mls/hr Vancomycin HCl (Vancomycin 500mg In Ns) 500 mg in 100 mls @ 200 mls/hr IVPB Q12 [facility]SE[facility]; Protocol Last Admin: 07/14/18 09:55 Dose: 200 mls/hr Piperacillin Sod/Tazobactam Sod (Zosyn 3.375 In Ns 100ml) 100 mls @ 25 mls/hr IVPB Q6 JOSELINE; Protocol Stop: 07/14/18 21:59 Levothyroxine Sodium (Synthroid) 100 mcg PO 0600 [facility] Last Admin: 07/14/18 05:53 Dose: Not Given Pantoprazole Sodium (Protonix Ec Tab) 40 mg PO ACB [facility] Last Admin: 07/14/18 09:54 Dose: 40 mg Physical Exam - Constitutional Appears: Non-toxic, No Acute Distress - Head Exam Head Exam: ATRAUMATIC, NORMAL INSPECTION, NORMOCEPHALIC - Eye Exam Eye Exam: EOMI, PERRL, Scleral icterus - ENT Exam ENT Exam: Mucous Membranes Moist - Respiratory Exam Respiratory Exam: Clear to Auscultation Bilateral, NORMAL BREATHING PATTERN - Cardiovascular Exam Cardiovascular Exam: REGULAR RHYTHM, RRR, +S1, +S2 - GI/Abdominal Exam GI & Abdominal Exam: Normal Bowel Sounds, Soft. absent: Distended, Firm, Guarding - Rectal Exam Rectal Exam: NORMAL INSPECTION - Extremities Exam Extremities exam: Positive for: normal inspection - Neurological Exam Neurological exam: Alert, Oriented x3 - Psychiatric Exam Psychiatric exam: Normal Affect, Normal Mood - Skin Skin Exam: Dry, Intact, Warm Additional comments: jaundice Results - Vital Signs Recent Vital Signs: Last Vital Signs Temp 99.4 F 07/14/18 09:32 Pulse 98 H 07/14/18 09:32 Resp 30 H 07/14/18 09:32 BP 125/82 07/14/18 09:32 Pulse Ox 99 07/14/18 09:32 - Labs Result Diagrams: 07/14/18 07:00 07/14/18 07:00 Labs: Laboratory Results - last 24 hr 07/13/18 07/13/18 07/13/18 17:10 17:22 17:22 WBC 11.7 H RBC 4.95 Hgb 15.0 Hct 44.6 MCV 90.1 MCH 30.3 MCHC 33.6 RDW 14.7 H Plt Count 159 MPV 12.0 H Gran % 91.8 H Lymph % (Auto) 3.5 L Jennings % (Auto) 4.3 Eos % (Auto) 0.3 L Baso % (Auto) 0.1 Gran # 10.78 H Lymph # (Auto) 0.4 L Jennings # (Auto) 0.5 Eos # (Auto) 0.0 Baso # (Auto) 0.01 Neutrophils % (Manual) 92 H Band Neutrophils % 1 Lymphocytes % (Manual) 3 L Monocytes % (Manual) 4 Toxic Granulation 1+ Platelet Evaluation Normal Hypochromasia 1+ Rouleaux 2+ PT 12.8 H INR 1.12 APTT 30.7 pO2 VBG pH VBG pCO2 VBG HCO3 VBG Total CO2 VBG O2 Sat (Calc) VBG Base Excess VBG Potassium Sodium Chloride Glucose Lactate FiO2 Potassium Carbon Dioxide Anion Gap BUN Creatinine Est GFR ( Amer) Est GFR (Non-Af Amer) Random Glucose Calcium Phosphorus Magnesium Total Bilirubin AST ALT Alkaline Phosphatase Total Protein Albumin Globulin Albumin/Globulin Ratio Triglycerides Cholesterol LDL Cholesterol Direct HDL Cholesterol Lipase Venous Blood Potassium Blood Type A POSITIVE Antibody Screen Negative BBK History Checked Patient has bt 07/13/18 07/13/18 07/14/18 17:22 17:22 07:00 WBC 7.0 D RBC 4.83 Hgb 14.2 Hct 43.4 MCV 89.9 MCH 29.4 MCHC 32.7 RDW 14.9 H Plt Count 146 MPV 11.5 H Gran % 87.4 H Lymph % (Auto) 6.6 L Jennings % (Auto) 5.3 Eos % (Auto) 0.6 L Baso % (Auto) 0.1 Gran # 6.07 Lymph # (Auto) 0.5 L Jennings # (Auto) 0.4 Eos # (Auto) 0.0 Baso # (Auto) 0.01 Neutrophils % (Manual) Band Neutrophils % Lymphocytes % (Manual) Monocytes % (Manual) Toxic Granulation Platelet Evaluation Hypochromasia Rouleaux PT INR APTT pO2 35 VBG pH 7.37 VBG pCO2 47.0 VBG HCO3 27.2 VBG Total CO2 28.6 H VBG O2 Sat (Calc) 71.5 H VBG Base Excess 1.3 VBG Potassium 4.0 Sodium 141.0 143 Chloride 103.0 105 Glucose 169 H Lactate 3.4 H FiO2 21.0 Potassium 4.2 Carbon Dioxide 27 Anion Gap 16 BUN 21 Creatinine 1.4 Est GFR ( Amer) > 60 Est GFR (Non-Af Amer) 50 Random Glucose 159 H Calcium 9.3 Phosphorus Magnesium Total Bilirubin 7.2 H AST 173 H D ALT 285 H Alkaline Phosphatase 271 H D Total Protein 7.4 Albumin 3.9 Globulin 3.5 Albumin/Globulin Ratio 1.1 Triglycerides Cholesterol LDL Cholesterol Direct HDL Cholesterol Lipase 985 H Venous Blood Potassium 4.0 Blood Type Antibody Screen BBK History Checked 07/14/18 07:00 WBC RBC Hgb Hct MCV MCH MCHC RDW Plt Count MPV Gran % Lymph % (Auto) Jennings % (Auto) Eos % (Auto) Baso % (Auto) Gran # Lymph # (Auto) Jennings # (Auto) Eos # (Auto) Baso # (Auto) Neutrophils % (Manual) Band Neutrophils % Lymphocytes % (Manual) Monocytes % (Manual) Toxic Granulation Platelet Evaluation Hypochromasia Rouleaux PT INR APTT pO2 VBG pH VBG pCO2 VBG HCO3 VBG Total CO2 VBG O2 Sat (Calc) VBG Base Excess VBG Potassium Sodium 141 Chloride 106 Glucose Lactate FiO2 Potassium 4.4 Carbon Dioxide 25 Anion Gap 14 BUN 18 Creatinine 1.2 Est GFR ( Amer) > 60 Est GFR (Non-Af Amer) > 60 Random Glucose 94 Calcium 8.6 Phosphorus 2.6 Magnesium 1.7 Total Bilirubin 6.5 H AST 129 H D ALT 225 H Alkaline Phosphatase 255 H Total Protein 7.0 Albumin 3.4 Globulin 3.6 Albumin/Globulin Ratio 0.9 L Triglycerides 161 H Cholesterol 142 LDL Cholesterol Direct 94 HDL Cholesterol 25 L Lipase Venous Blood Potassium Blood Type Antibody Screen BBK History Checked Assessment & Plan - Assessment and Plan (Free Text) Assessment: This is a 68yM with recent cholecystectomy presenting with abdominal pain and found to have elevated LFTS. 1. Transaminitis 2. Hyperbilirubinemeia 3. s/p Cholecystectomy 4. Elevated lipase-nonspecific Plan: -Continue supportive care -Monitor LFTs -Check Direct Bilirubin level -Hepatitis panel pending -No abdominal pain at his time -Advance to clear liquid diet -Concern for CBD stone with recent cholecystectomy, CT and US imaging reviewed -Will order Stat MRCP and MRI -Continue IV abx -Blood cx -Monitor CBC and fever curve -Will continue to follow closely <Maira Welsh V - Last Filed: 07/20/18 21:20> Meds - Medications Medications: Current Medications Albuterol/Ipratropium (Duoneb 3 Mg/0.5 Mg (3 Ml) Ud) 1 ml INH BID [facility] Last Admin: 07/14/18 21:45 Dose: 1 ml Aspirin (Ecotrin) 81 mg PO DAILY [facility] Last Admin: 07/14/18 10:06 Dose: Not Given Budesonide (Pulmicort Respules) 0.5 mg IH BID [facility] Last Admin: 07/14/18 21:45 Dose: 0.5 mg Heparin Sodium (Porcine) (Heparin) 5,000 units SC Q12 [facility]SE[facility]; Protocol Last Admin: 07/14/18 21:57 Dose: Not Given Sodium Chloride (Sodium Chloride 0.9%) 1,000 mls @ 100 mls/hr IV .Q10H [facility] Last Admin: 07/14/18 09:54 Dose: 100 mls/hr Vancomycin HCl (Vancomycin 500mg In Ns) 500 mg in 100 mls @ 200 mls/hr IVPB Q12 [facility]SE[facility]; Protocol Last Admin: 07/14/18 21:58 Dose: 200 mls/hr Ibuprofen (Motrin Tab) 400 mg PO Q6H PRN PRN Reason: Fever >100.4 F Last Admin: 07/14/18 19:18 Dose: 400 mg Levothyroxine Sodium (Synthroid) 100 mcg PO 0600 [facility] Last Admin: 07/14/18 05:53 Dose: Not Given (Vortioxetine Hydrobromide [ Trintellix] 10 Mg) 10 mg PO DAILY [facility] Pantoprazole Sodium (Protonix Ec Tab) 40 mg PO ACB [facility] Last Admin: 07/14/18 09:54 Dose: 40 mg Results - Vital Signs Recent Vital Signs: Last Vital Signs Temp 99.7 F H 07/14/18 22:04 Pulse 96 H 07/14/18 22:04 Resp 20 07/14/18 22:04 BP 100/67 07/14/18 22:04 Pulse Ox 96 07/14/18 22:04 - Labs Result Diagrams: 07/19/18 06:45 07/19/18 06:45 Labs: Laboratory Results - last 24 hr 07/14/18 07/14/18 07/14/18 07:00 07:00 07:00 WBC 7.0 D RBC 4.83 Hgb 14.2 Hct 43.4 MCV 89.9 MCH 29.4 MCHC 32.7 RDW 14.9 H Plt Count 146 MPV 11.5 H Gran % 87.4 H Lymph % (Auto) 6.6 L Jennings % (Auto) 5.3 Eos % (Auto) 0.6 L Baso % (Auto) 0.1 Gran # 6.07 Lymph # (Auto) 0.5 L Jennings # (Auto) 0.4 Eos # (Auto) 0.0 Baso # (Auto) 0.01 pO2 VBG pH VBG pCO2 VBG HCO3 VBG Total CO2 VBG O2 Sat (Calc) VBG Base Excess VBG Potassium Glucose Lactate FiO2 Sodium 141 Potassium 4.4 Chloride 106 Carbon Dioxide 25 Anion Gap 14 BUN 18 Creatinine 1.2 Est GFR ( Amer) > 60 Est GFR (Non-Af Amer) > 60 Random Glucose 94 Calcium 8.6 Phosphorus 2.6 Magnesium 1.7 Total Bilirubin 6.5 H AST 129 H D ALT 225 H Alkaline Phosphatase 255 H Total Protein 7.0 Albumin 3.4 Globulin 3.6 Albumin/Globulin Ratio 0.9 L Triglycerides 161 H Cholesterol 142 LDL Cholesterol Direct 94 HDL Cholesterol 25 L Procalcitonin 1.35 H Venous Blood Potassium Urine Color Urine Appearance Urine pH Ur Specific [place] Urine Protein Urine Glucose (UA) Urine Ketones Urine Blood Urine Nitrate Urine Bilirubin Urine Urobilinogen Ur Leukocyte Esterase Urine RBC Urine WBC Ur Epithelial Cells Urine Bacteria Urine Opiates Screen Urine Methadone Screen Ur Barbiturates Screen Ur Phencyclidine Scrn Ur Amphetamines Screen U Benzodiazepines Scrn U Oth Cocaine Metabols U Cannabinoids Screen Alcohol, Quantitative 07/14/18 07/14/18 07/14/18 07:00 13:35 13:35 WBC RBC Hgb Hct MCV MCH MCHC RDW Plt Count MPV Gran % Lymph % (Auto) Jennings % (Auto) Eos % (Auto) Baso % (Auto) Gran # Lymph # (Auto) Jennings # (Auto) Eos # (Auto) Baso # (Auto) pO2 VBG pH VBG pCO2 VBG HCO3 VBG Total CO2 VBG O2 Sat (Calc) VBG Base Excess VBG Potassium Glucose Lactate FiO2 Sodium Potassium Chloride Carbon Dioxide Anion Gap BUN Creatinine Est GFR ( Amer) Est GFR (Non-Af Amer) Random Glucose Calcium Phosphorus Magnesium Total Bilirubin AST ALT Alkaline Phosphatase Total Protein Albumin Globulin Albumin/Globulin Ratio Triglycerides Cholesterol LDL Cholesterol Direct HDL Cholesterol Procalcitonin Venous Blood Potassium Urine Color Dark yellow Urine Appearance Sl cloudy Urine pH 6.0 Ur Specific [place] 1.025 Urine Protein Trace H Urine Glucose (UA) Negative Urine Ketones 15 H Urine Blood Negative Urine Nitrate Negative Urine Bilirubin Large H Urine Urobilinogen 2.0 H Ur Leukocyte Esterase Trace H Urine RBC 1 - 3 Urine WBC 5 - 10 Ur Epithelial Cells 4 - 5 Urine Bacteria Trace Urine Opiates Screen Negative Urine Methadone Screen Negative Ur Barbiturates Screen Negative Ur Phencyclidine Scrn Negative Ur Amphetamines Screen Negative U Benzodiazepines Scrn Negative U Oth Cocaine Metabols Negative U Cannabinoids Screen Negative Alcohol, Quantitative < 10 07/14/18 13:58 WBC RBC Hgb Hct MCV MCH MCHC RDW Plt Count MPV Gran % Lymph % (Auto) Jennings % (Auto) Eos % (Auto) Baso % (Auto) Gran # Lymph # (Auto) Jennings # (Auto) Eos # (Auto) Baso # (Auto) pO2 24 L VBG pH 7.37 VBG pCO2 54.0 VBG HCO3 31.2 H VBG Total CO2 32.9 H VBG O2 Sat (Calc) 43.1 VBG Base Excess 4.5 H VBG Potassium 4.7 Glucose 129 H Lactate 1.3 FiO2 21.0 Sodium 139.0 Potassium Chloride 105.0 Carbon Dioxide Anion Gap BUN Creatinine Est GFR ( Amer) Est GFR (Non-Af Amer) Random Glucose Calcium Phosphorus Magnesium Total Bilirubin AST ALT Alkaline Phosphatase Total Protein Albumin Globulin Albumin/Globulin Ratio Triglycerides Cholesterol LDL Cholesterol Direct HDL Cholesterol Procalcitonin Venous Blood Potassium 4.7 Urine Color Urine Appearance Urine pH Ur Specific [place] Urine Protein Urine Glucose (UA) Urine Ketones Urine Blood Urine Nitrate Urine Bilirubin Urine Urobilinogen Ur Leukocyte Esterase Urine RBC Urine WBC Ur Epithelial Cells Urine Bacteria Urine Opiates Screen Urine Methadone Screen Ur Barbiturates Screen Ur Phencyclidine Scrn Ur Amphetamines Screen U Benzodiazepines Scrn U Oth Cocaine Metabols U Cannabinoids Screen Alcohol, Quantitative Attending/Attestation - Attestation I have personally seen and examined this patient.: Yes I have fully participated in the care of the patient.: Yes I have reviewed all pertinent clinical information: Yes Notes (Text): This is an addendum to GI consult report dictated by the GI Fellow.The patient was seen and examined earlier. Medical records, lab studies, imagings were reviewed. Last 24 hours events reviewed. Agreed with the above treatment plan as outlined in GI Fellow 's notes with the addition of the following 68 year old male with PMH of obesity with BMI 30, lung cancer S/P right upper lobectomy, COPD, dyslipidemia, CAD, hypothyroidism, S/P cholecystectomy 2 months ago came in to [facility] [place] complaining of nausea, vomiting, abdominal discomfort for the past 2 days, associated with fevers. on examination abdomen is soft with mild tenderness on deep palpation right upper quadrant area. Cholangitis Rule out CBD stone Discussed with the patient and also patient's who was at bedside 07/14/18 23:35 07/20/18 21:16
[2018-07-14] MEDS: Piperacillin/Tazobact 3.375 gm 100 ML IVPB SCH ×2 (13:20→18:32)
[2018-07-14 13:49] LABS: URINE BILIRUBIN LARGE (NEGATIVE); URINE BLOOD NEGATIVE (NEGATIVE); URINE GLUCOSE (UA) NEGATIVE (NEGATIVE); URINE LEUKOCYTE ESTERASE TRACE Leu/uL (NEGATIVE); URINE PROTEIN TRACE mg/dL (<30 mg/dL)
[2018-07-14 13:52] LABS: URINE APPEARANCE SL CLOUDY (CLEAR); URINE COLOR DARK YELLOW (YELLOW)
[2018-07-14 14:03] LABS: VENOUS BLOOD GAS BASE EXCESS 4.5 mmol/L (0.0-2.0); VENOUS BLOOD GAS PO2 24 mm/Hg (30-55); VENOUS BLOOD PH 7.37 (7.32-7.43)
[2018-07-14 14:23] LABS: BARBITURATES, UR NEGATIVE (NEGATIVE); BENZODIAZEPINES, UR NEGATIVE (NEGATIVE); OPIATES, UR NEGATIVE (NEGATIVE); PHENCYCLIDINE, UR NEGATIVE (NEGATIVE)
[2018-07-14 14:46] LABS: URINE BACTERIA TRACE (NEG)
[2018-07-14] MEDS ORDERED: Gadodiamide 287 MG/ML VIAL (15ML) IV ONE (15:16)
[2018-07-14] MEDS ORDERED: Albuterol-Ipratrop 3 mg / 0.5 (3 ml) UD IH ONE ×2 (15:28→18:00)
--- NOTE | 2018-07-14 17:28 | MRI ---
MRI abdomen without/with IV contrast MRCP Indication: Rule out CBD stone. Elevated LFTs. Postop. Technique: Multiplanar, multi sequence magnetic resonance images of the abdomen were obtained without and with the administration of intravenous gadolinium using a multi phase abdomen protocol. Rotating maximum intensity projection images of the biliary system were generated. A total of [id number] images submitted for review Comparison: CT abdomen pelvis with IV contrast performed 07/13/18, abdominal ultrasound performed 07/13/18 Findings: Hepatic steatosis. Cholecystectomy. There is no intrahepatic biliary ductal dilatation. The common bile duct appears top-normal measuring approximately 6 mm. 5 mm filling defect within the distal common bile duct (series 6, image 20) consistent with calculus. The pancreatic duct appears within normal limits of caliber. No filling defects are seen in the common bile duct or pancreatic duct. 12 mm probable splenule. The spleen, pancreas, and adrenal glands appear unremarkable. The kidneys enhance symmetrically. No evidence of hydronephrosis or obstructing calculus. No enlarged abdominal lymph nodes are appreciated. Limited evaluation of the bowel reveals region anastomosis in the left abdomen. No evidence of bowel obstruction. Limited views of the inferior thorax appear unremarkable. Impression: Cholecystectomy. 5 mm filling defect within the distal common bile duct consistent with calculus. The common bile duct appears top normal in caliber measuring approximately 6 mm. Hepatic steatosis.
[2018-07-14] MEDS: Albuterol-Ipratrop 3 mg / 0.5 (3 ml) UD INH SCH (21:45)
[2018-07-14] MEDS: Budesonide 0.5 mg/2 ml Inhal Susp UD IH SCH (21:45)
[2018-07-15 04:07] LABS: BASO # 0.01 K/mm3 (0.0-2.0); BASO % 0.2 % (0.0-3.0); EOS # 0.1 (0.0-0.7); EOS % 0.9 % (1.5-5.0); GRAN # 4.5 (1.4-6.5); GRAN % 78.6 % (50.0-68.0); HEMOGLOBIN 14.9 g/dL (14.0-18.0); LYMPH # 0.7 (1.2-3.4); LYMPH % 12.4 % (22.0-35.0); MEAN CORPUSCULAR HEMOGLOBIN 29.9 pg (25.0-35.0); MEAN CORPUSCULAR HGB CONC 32.9 g/dl (31.0-37.0); MEAN PLATELET VOLUME 11.5 fl (7.0-11.0); MONO # 0.5 (0.1-0.6); MONO % 7.9 % (1.0-6.0); RBC 4.98 10^6/uL (3.5-6.1); RED CELL DISTRIBUTION WIDTH 14.9 % (11.5-14.5); WHITE BLOOD COUNT 5.7 10^3/uL (4.5-11.0)
[2018-07-15 04:20] LABS: ALBUMIN 3.9 g/dL (3.0-4.8); ALT/SGPT 226 U/L (7-56); AST/SGOT 147 U/L (17-59); BILIRUBIN,DIRECT 5.8 mg/dL (0.0-0.4); BLOOD UREA NITROGEN 15 mg/dL (7-21); CALCIUM 9.2 mg/dL (8.4-10.5); GFR NON-AFRICAN AMERICAN > 60
[2018-07-15] MEDS: Levothyroxine 100 MCG TAB PO SCH (05:51)
[2018-07-15] MEDS: Budesonide 0.5 mg/2 ml Inhal Susp UD IH SCH ×3 (07:44→21:10)
[2018-07-15] MEDS: Albuterol-Ipratrop 3 mg / 0.5 (3 ml) UD INH SCH ×3 (07:45→21:10)
--- NOTE | 2018-07-15 07:48 | CP.PCM.PN ---
<Niels Crawford - Last Filed: 07/15/18 19:14> Subjective - Date & Time of Evaluation Date of Evaluation: 07/15/18 Time of Evaluation: 07:48 - Subjective Subjective: PGY-1 Medicine Progress Note for Dr. Mayo's service Patient seen and examined at bedside this AM. No acute overnight events reported. Patient spiking a fever this am, however notes pain is improved. Denies chills, n/v/d/c, dysuria, pruritis. 12 pt ROS otherwise negative at this time. Objective - Vital Signs/Intake and Output Vital Signs (last 24 hours): Temp Pulse Resp BP Pulse Ox 102.8 F H 106 H 19 150/90 96 07/15/18 06:00 07/15/18 06:00 07/15/18 06:00 07/15/18 06:00 07/15/18 06:00 Intake and Output: 07/15/18 07/15/18 06:59 18:59 Intake Total 720 Output Total 0 Balance 720 - Medications Medications: Current Medications Albuterol/Ipratropium (Duoneb 3 Mg/0.5 Mg (3 Ml) Ud) 1 ml INH BID [facility] Last Admin: 07/14/18 21:45 Dose: 1 ml Aspirin (Ecotrin) 81 mg PO DAILY [facility] Last Admin: 07/14/18 10:06 Dose: Not Given Budesonide (Pulmicort Respules) 0.5 mg IH BID [facility] Last Admin: 07/14/18 21:45 Dose: 0.5 mg Heparin Sodium (Porcine) (Heparin) 5,000 units SC Q12 [facility]; Protocol Last Admin: 07/14/18 21:57 Dose: Not Given Sodium Chloride (Sodium Chloride 0.9%) 1,000 mls @ 100 mls/hr IV .Q10H [facility] Last Admin: 07/14/18 09:54 Dose: 100 mls/hr Vancomycin HCl (Vancomycin 500mg In Ns) 500 mg in 100 mls @ 200 mls/hr IVPB Q12 [facility]; Protocol Last Admin: 07/14/18 21:58 Dose: 200 mls/hr Ibuprofen (Motrin Tab) 400 mg PO Q6H PRN PRN Reason: Fever >100.4 F Last Admin: 07/15/18 05:50 Dose: 400 mg Levothyroxine Sodium (Synthroid) 100 mcg PO 0600 [facility] Last Admin: 07/15/18 05:51 Dose: 100 mcg (Vortioxetine Hydrobromide [ Trintellix] 10 Mg) 10 mg PO DAILY [facility] Pantoprazole Sodium (Protonix Ec Tab) 40 mg PO ACB [facility] Last Admin: 07/14/18 09:54 Dose: 40 mg - Labs Labs: 07/15/18 03:55 07/15/18 03:55 PT 12.8 SECONDS (9.4-12.5) H 07/13/18 17:22 INR 1.12 07/13/18 17:22 APTT 30.7 Seconds (25.1-36.5) 07/13/18 17:22 - Constitutional Appears: Non-toxic, No Acute Distress - Head Exam Head Exam: ATRAUMATIC, NORMAL INSPECTION, NORMOCEPHALIC - Eye Exam Eye Exam: Normal appearance, Scleral icterus Pupil Exam: NORMAL ACCOMODATION - ENT Exam ENT Exam: Mucous Membranes Moist, Normal Exam - Neck Exam Neck Exam: Full ROM, Normal Inspection Additional comments: stoma present - Respiratory Exam Respiratory Exam: Clear to Ausculation Bilateral, NORMAL BREATHING PATTERN. absent: Accessory Muscle Use, Rales, Rhonchi, Wheezes, Respiratory Distress, Stridor - Cardiovascular Exam Cardiovascular Exam: Tachycardia, +S1, +S2 - GI/Abdominal Exam GI & Abdominal Exam: Soft, Normal Bowel Sounds. absent: Distended, Firm, Guarding, Rigid, Tenderness, Organomegaly, Rebound - Extremities Exam Extremities Exam: Full ROM, Normal Capillary Refill, Normal Inspection. absent: Calf Tenderness, Joint Swelling, Pedal Edema - Back Exam Back Exam: NORMAL INSPECTION - Neurological Exam Neurological Exam: Alert, Awake, Normal Gait, Oriented x3 - Psychiatric Exam Psychiatric exam: Normal Affect, Normal Mood - Skin Skin Exam: Dry, Intact, Normal Color, Warm Additional comments: lesion noted to azam DAWSON LE 2/2 scratching Assessment and Plan - Assessment and Plan (Free Text) Assessment: 68 year old male with past medical history of laryngeal cancer s/p stoma, lung cancer s/p lobectomy, recent cholecystectomy (04/2018), COPD, hypertension and hypothyroidism who presented with right sided abdominal pain, pruritis and fever. He was found to have transaminitis and fever. CT abd/pelvis and u ltrasound show fatty liver. MRCP shows CBD stone, on IV abx. Plan: R abdominal/flank pain with elevated LFTs w/ scleral icterus, pruritis, recent cholecystectomy -alcohol negative -UDS negative -direct bilirubin 5.8 -monitor LFTs -BCx: no growth x 2 after 24 hours -GI recs (Dr. Welsh) appreciated -MRCP (07/14): 5mm filling defect in distal CBD, stone with recent cholecystectomy -c/w clear liquid diet today, keep NPO past midnight -Plan for ERCP tomorrow -ID consult on board -Medications -vanc/zosyn Fever -UA: trace bacteria, 5-10 wbc, 4-5 epithelial cells, trace LE -Ucx: no growth x 24 hrs -Bcx: no growth x 24 hrs -Medications -vanc/zosyn -NS 100 cc/hr Hypothyroidism - c/w home synthroid Ppx, Diet, Disposition -DVT: heparin -GI: protonix -Diet: clear liquid -Dispo: NPO after midnight, Plan for ERCP tomorrow AM Case discussed with Dr. Gael Crawford DO, PGY-1 <Anali Mayo R - Last Filed: 07/16/18 14:51> Objective - Vital Signs/Intake and Output Vital Signs (last 24 hours): Temp Pulse Resp BP Pulse Ox 98.1 F 67 20 126/88 98 07/16/18 06:00 07/16/18 06:00 07/16/18 06:00 07/16/18 06:00 07/16/18 06:00 - Medications Medications: Current Medications Albuterol/Ipratropium (Duoneb 3 Mg/0.5 Mg (3 Ml) Ud) 1 ml INH BID [facility] Last Admin: 07/16/18 07:36 Dose: 1 ml Aspirin (Ecotrin) 81 mg PO DAILY [facility] Last Admin: 07/16/18 09:06 Dose: Not Given Budesonide (Pulmicort Respules) 0.5 mg IH BID [facility] Last Admin: 07/16/18 07:37 Dose: 0.5 mg Heparin Sodium (Porcine) (Heparin) 5,000 units SC Q12 [facility]; Protocol Last Admin: 07/16/18 09:07 Dose: Not Given Sodium Chloride (Sodium Chloride 0.9%) 1,000 mls @ 100 mls/hr IV .Q10H [facility] Last Admin: 07/16/18 03:00 Dose: 100 mls/hr Piperacillin Sod/Tazobactam Sod (Zosyn 3.375 In Ns 100ml) 100 mls @ 25 mls/hr IVPB Q8 [facility]; Protocol Stop: 07/22/18 12:01 Last Admin: 07/16/18 13:27 Dose: 25 mls/hr Vancomycin HCl (Vancomycin 1gm) 1 gm in 250 mls @ 167 mls/hr IVPB Q12H [facility]; Protocol Last Admin: 07/16/18 10:48 Dose: 167 mls/hr Ibuprofen (Motrin Tab) 400 mg PO Q6H PRN PRN Reason: Fever >100.4 F Last Admin: 07/15/18 21:04 Dose: 400 mg Levothyroxine Sodium (Synthroid) 100 mcg PO 0600 [facility] Last Admin: 07/16/18 05:18 Dose: 100 mcg (Vortioxetine Hydrobromide [ Trintellix] 10 Mg) 10 mg PO DAILY [facility] Last Admin: 07/16/18 13:23 Dose: 10 mg Pantoprazole Sodium (Protonix Ec Tab) 40 mg PO ACB [facility] Last Admin: 07/16/18 08:18 Dose: Not Given - Labs Labs: 07/16/18 07:00 07/16/18 07:00 PT 12.8 SECONDS (9.4-12.5) H 07/13/18 17:22 INR 1.12 07/13/18 17:22 APTT 30.7 Seconds (25.1-36.5) 07/13/18 17:22 Attending/Attestation - Attestation I have personally seen and examined this patient.: Yes I have fully participated in the care of the patient.: Yes I have reviewed all pertinent clinical information, including history, physical exam and plan: Yes Notes (Text): Patient seen and examined by me with resident at 9:35AM on 07/15/18. Case including HPI, physical exam, and assessment and plan discussed with resident. Agree with above with following additions/corrections. Patient is a 68-year-old male with past medical history significant for COPD, interstitial lung disease, hyperlipidemia, coronary artery disease status post and placement, laryngeal carcinoma status post stoma and lobectomy, hypothyroidism, anxiety, and recent cholecystectomy that presented to the emergency room with right-sided abdominal pain, fever, and pruritus. Patient states he is feeling much better today. Denies any abdominal pain. No nausea or vomiting. Patient is tolerating diet. No pruritus. Patient was febrile this morning. No chest pain or shortness of breath. No headaches or dizziness. No dysuria. No diarrhea or constipation. Physical exam: General: Awake and alert sitting up in chair in no acute distress HEENT: Normocephalic atraumatic. Extra ocular muscles intact. Pupils equal reactive. Positive scleral icterus. Oropharynx is pink and moist. Stoma with no signs of infection. Cardiovascular: Normal rhythm. Normal S1, S2. No murmurs, rubs, or gallops appreciated Pulmonary: Normal respiratory effort. No rhonchi, rales or wheezing appreciated. Gastrointestinal: Soft, nondistended. Nontender. Positive bowel sounds all 4 quadrants. No guarding. Musculoskeletal: Moves all extremities, no calf tenderness, no edema a ppreciated. Central nervous system: AAO 3 Dermatologic: Skin warm and dry. Assessment and plan: Patient is a 68-year-old male with past medical history significant for COPD, interstitial lung disease, hyperlipidemia, coronary artery disease status post and placement, laryngeal carcinoma status post stoma and lobectomy, hypothyroidism, anxiety, and recent cholecystectomy that presented to the emergency room with right-sided abdominal pain, fever, and pruritus. 1. CBD stone. CT abdomen and pelvis radiologist showed no evidence of acute pathology in the abdomen and pelvis. MRCP per radiologist showed cholecystectomy, 5 mm filling defect within the distal common bile duct consistent with calculus, common bile duct appears top normal in caliber measuring approximately 6 mm, hepatic steatosis. GI following, recommendations appreciated. Continue with clear liquid diet. Patient for ERCP tomorrow. 2. Sepsis secondary to number one. Leukocytosis resolved. Still with fevers. Procalcitonin elevated at 1.35. Continue vanco and zosyn. ID consulted, follow up recommendations. 3. Transaminitis. Hyperbilirubinemia. Likely secondary to choledocholithiasis. Patient for ERCP tomorrow. Continue to monitor LFTs. 4. Abdominal pain. Secondary to #1. Pain resolved for now. Patient for ERCP tomorrow. 5. History of laryngeal carcinoma. Status post tracheostomy and stoma. No current issues. 6. COPD/interstitial lung disease. Not in acute exacerbation. Continue nebulizer treatments Continue budesonide. 7. History of coronary artery disease status post stent placement. No acute issues. Continue aspirin. Statin held secondary to transaminitis. 8. Hyperlipidemia. Statin held secondary to transaminitis. 9. Hypothyroidism. Continue home Synthroid. 10. History of psychiatric disorder. Continue home Trintellix 11. GI/DVT prophylaxis. Protonix/heparin 12. Patient is a full code. Case discussed in detail with patient regarding current diagnosis and treatment plan. All questions answered.
--- NOTE | 2018-07-15 07:54 | CP.PCM.PN ---
Subjective - Date & Time of Evaluation Date of Evaluation: 07/15/18 Time of Evaluation: 07:54 Objective - Vital Signs/Intake and Output Vital Signs (last 24 hours): Temp Pulse Resp BP Pulse Ox 102.8 F H 106 H 19 150/90 96 07/15/18 06:00 07/15/18 06:00 07/15/18 06:00 07/15/18 06:00 07/15/18 06:00 Intake and Output: 07/15/18 07/15/18 06:59 18:59 Intake Total 720 Output Total 0 Balance 720 - Medications Medications: Current Medications Albuterol/Ipratropium (Duoneb 3 Mg/0.5 Mg (3 Ml) Ud) 1 ml INH BID [facility] Last Admin: 07/15/18 07:45 Dose: 1 ml Aspirin (Ecotrin) 81 mg PO DAILY [facility] Last Admin: 07/14/18 10:06 Dose: Not Given Budesonide (Pulmicort Respules) 0.5 mg IH BID [facility] Last Admin: 07/15/18 07:44 Dose: 0.5 mg Heparin Sodium (Porcine) (Heparin) 5,000 units SC Q12 [facility]; Protocol Last Admin: 07/14/18 21:57 Dose: Not Given Sodium Chloride (Sodium Chloride 0.9%) 1,000 mls @ 100 mls/hr IV .Q10H [facility] Last Admin: 07/14/18 09:54 Dose: 100 mls/hr Vancomycin HCl (Vancomycin 500mg In Ns) 500 mg in 100 mls @ 200 mls/hr IVPB Q12 [facility]; Protocol Last Admin: 07/14/18 21:58 Dose: 200 mls/hr Ibuprofen (Motrin Tab) 400 mg PO Q6H PRN PRN Reason: Fever >100.4 F Last Admin: 07/15/18 05:50 Dose: 400 mg Levothyroxine Sodium (Synthroid) 100 mcg PO 0600 [facility] Last Admin: 07/15/18 05:51 Dose: 100 mcg (Vortioxetine Hydrobromide [ Trintellix] 10 Mg) 10 mg PO DAILY [facility] Pantoprazole Sodium (Protonix Ec Tab) 40 mg PO ACB [facility] Last Admin: 07/14/18 09:54 Dose: 40 mg - Labs Labs: 07/15/18 03:55 07/15/18 03:55 PT 12.8 SECONDS (9.4-12.5) H 07/13/18 17:22 INR 1.12 07/13/18 17:22 APTT 30.7 Seconds (25.1-36.5) 07/13/18 17:22
[2018-07-15] MEDS: Pantoprazole 40 mg EC Tab PO SCH (09:31)
[2018-07-15] MEDS: Vancomycin 500mg in NS 500 MG/100 ML BAG IVPB SCH (09:33)
--- NOTE | 2018-07-15 11:23 | CP.PCM.PN ---
<Yeimy Cordoba - Last Filed: 07/15/18 11:20> Subjective - Date & Time of Evaluation Date of Evaluation: 07/15/18 Time of Evaluation: 07:00 - Subjective Subjective: GI Fellow PGY5 Progress Note Pt seen and evaluated at bedside, pt denies any abdominal pain. +Fevers ROS: A 12pt ROS was negative except as above. Objective - Vital Signs/Intake and Output Vital Signs (last 24 hours): Temp Pulse Resp BP Pulse Ox 102.8 F H 106 H 19 150/90 96 07/15/18 06:00 07/15/18 06:00 07/15/18 06:00 07/15/18 06:00 07/15/18 06:00 Intake and Output: 07/15/18 07/15/18 06:59 18:59 Intake Total 720 Output Total 0 Balance 720 - Medications Medications: Current Medications Albuterol/Ipratropium (Duoneb 3 Mg/0.5 Mg (3 Ml) Ud) 1 ml INH BID [facility] Last Admin: 07/15/18 07:45 Dose: 1 ml Aspirin (Ecotrin) 81 mg PO DAILY [facility] Last Admin: 07/15/18 09:31 Dose: 81 mg Budesonide (Pulmicort Respules) 0.5 mg IH BID [facility] Last Admin: 07/15/18 07:44 Dose: 0.5 mg Heparin Sodium (Porcine) (Heparin) 5,000 units SC Q12 [facility]; Protocol Last Admin: 07/15/18 09:32 Dose: Not Given Sodium Chloride (Sodium Chloride 0.9%) 1,000 mls @ 100 mls/hr IV .Q10H [facility] Last Admin: 07/14/18 09:54 Dose: 100 mls/hr Piperacillin Sod/Tazobactam Sod (Zosyn 3.375 In Ns 100ml) 100 mls @ 25 mls/hr IVPB Q8 [facility]; Protocol Stop: 07/22/18 12:01 Vancomycin HCl (Vancomycin 1gm) 1 gm in 250 mls @ 167 mls/hr IVPB Q12H [facility]; Protocol Ibuprofen (Motrin Tab) 400 mg PO Q6H PRN PRN Reason: Fever >100.4 F Last Admin: 07/15/18 05:50 Dose: 400 mg Levothyroxine Sodium (Synthroid) 100 mcg PO 0600 [facility] Last Admin: 07/15/18 05:51 Dose: 100 mcg (Vortioxetine Hydrobromide [ Trintellix] 10 Mg) 10 mg PO DAILY [facility] Pantoprazole Sodium (Protonix Ec Tab) 40 mg PO ACB [facility] Last Admin: 07/15/18 09:31 Dose: 40 mg - Labs Labs: 07/15/18 03:55 07/15/18 03:55 PT 12.8 SECONDS (9.4-12.5) H 07/13/18 17:22 INR 1.12 07/13/18 17:22 APTT 30.7 Seconds (25.1-36.5) 07/13/18 17:22 - Constitutional Appears: Non-toxic, No Acute Distress - Head Exam Head Exam: ATRAUMATIC, NORMAL INSPECTION, NORMOCEPHALIC - Eye Exam Eye Exam: EOMI, Normal appearance Pupil Exam: PERRL - ENT Exam ENT Exam: Mucous Membranes Moist - Respiratory Exam Respiratory Exam: Clear to Ausculation Bilateral, NORMAL BREATHING PATTERN - Cardiovascular Exam Cardiovascular Exam: RRR, +S1, +S2 - GI/Abdominal Exam GI & Abdominal Exam: Soft. absent: Tenderness - Extremities Exam Extremities Exam: Full ROM, Normal Inspection - Neurological Exam Neurological Exam: Alert, Awake, Oriented x3 - Psychiatric Exam Psychiatric exam: Normal Affect, Normal Mood - Skin Skin Exam: Dry, Intact, Normal Color, Warm Assessment and Plan - Assessment and Plan (Free Text) Assessment: This is a 68yM with recent cholecystectomy presenting with abdominal pain and found to have elevated LFTS. 1. Transaminitis 2. Hyperbilirubinemeia 3. s/p Cholecystectomy 4. Elevated lipase-nonspecific 5. Fevers 6. CBD stone Plan: -Continue supportive care -Pt spiking fevers -Monitor LFTs -No abdominal pain at his time -Clear liquid diet -MRCP with a 5mm filling defect in distal CBD, stone with recent cholecystectomy -Continue IV abx -Blood cx neg -Monitor CBC and fever curve -NPO past midnight -Plan for ERCP tomorrow -Will continue to follow closely <Maira Welsh V - Last Filed: 07/20/18 21:23> Objective - Vital Signs/Intake and Output Vital Signs (last 24 hours): Temp Pulse Resp BP Pulse Ox 101.5 F H 90 18 148/106 H 94 L 07/15/18 22:00 07/15/18 22:00 07/15/18 22:00 07/15/18 22:00 07/15/18 22:00 - Medications Medications: Current Medications Albuterol/Ipratropium (Duoneb 3 Mg/0.5 Mg (3 Ml) Ud) 1 ml INH BID [facility] Last Admin: 07/15/18 21:10 Dose: 1 ml Aspirin (Ecotrin) 81 mg PO DAILY [facility] Last Admin: 07/15/18 09:31 Dose: 81 mg Budesonide (Pulmicort Respules) 0.5 mg IH BID [facility] Last Admin: 07/15/18 21:10 Dose: 0.5 mg Heparin Sodium (Porcine) (Heparin) 5,000 units SC Q12 [facility]; Protocol Last Admin: 07/15/18 21:45 Dose: Not Given Sodium Chloride (Sodium Chloride 0.9%) 1,000 mls @ 100 mls/hr IV .Q10H [facility] Last Admin: 07/15/18 14:52 Dose: 100 mls/hr Piperacillin Sod/Tazobactam Sod (Zosyn 3.375 In Ns 100ml) 100 mls @ 25 mls/hr IVPB Q8 [facility]; Protocol Stop: 07/22/18 12:01 Last Admin: 07/15/18 21:42 Dose: 25 mls/hr Vancomycin HCl (Vancomycin 1gm) 1 gm in 250 mls @ 167 mls/hr IVPB Q12H [facility]; Protocol Last Admin: 07/15/18 23:01 Dose: 167 mls/hr Ibuprofen (Motrin Tab) 400 mg PO Q6H PRN PRN Reason: Fever >100.4 F Last Admin: 07/15/18 21:04 Dose: 400 mg Levothyroxine Sodium (Synthroid) 100 mcg PO 0600 [facility] Last Admin: 07/15/18 05:51 Dose: 100 mcg (Vortioxetine Hydrobromide [ Trintellix] 10 Mg) 10 mg PO DAILY [facility] Pantoprazole Sodium (Protonix Ec Tab) 40 mg PO ACB [facility] Last Admin: 07/15/18 09:31 Dose: 40 mg - Labs Labs: 07/15/18 03:55 07/15/18 03:55 PT 12.8 SECONDS (9.4-12.5) H 07/13/18 17:22 INR 1.12 07/13/18 17:22 APTT 30.7 Seconds (25.1-36.5) 07/13/18 17:22 Attending/Attestation - Attestation I have personally seen and examined this patient.: Yes I have fully participated in the care of the patient.: Yes I have reviewed all pertinent clinical information, including history, physical exam and plan: Yes Notes (Text): This is an addendum to GI progress report dictated by the GI Fellow.The patient was seen and examined earlier. Medical records, lab studies, imagings were reviewed. Last 24 hours events reviewed. Agreed with the above treatment plan as outlined in GI Fellow 's notes with the addition of the following Spiking fever Evaluated LFT MRCP was reviewed and it showed distal CBD stone Continue antibiotics as per ID For ERCP on Monday Discussed with the patient and also patient's who was at bedside 07/15/18 23:47 07/20/18 21:21
[2018-07-15] MEDS: Piperacillin/Tazobact 3.375 gm 100 ML IVPB SCH ×2 (14:49→21:42)
[2018-07-15] MEDS: Sodium Chloride 0.9% 1,000 ML IV SCH (14:52)
[2018-07-15] MEDS: Vancomycin 1gm in NS 250ml 1 GM/250 ML BAG IVPB SCH ×2 (14:53→23:01)
[2018-07-16] MEDS: Sodium Chloride 0.9% 1,000 ML IV SCH (03:00)
[2018-07-16] MEDS: Levothyroxine 100 MCG TAB PO SCH (05:18)
[2018-07-16] MEDS: Piperacillin/Tazobact 3.375 gm 100 ML IVPB SCH ×3 (05:19→21:10)
[2018-07-16 07:32] LABS: BASO # 0.02 K/mm3 (0.0-2.0); BASO % 0.5 % (0.0-3.0); EOS # 0.1 (0.0-0.7); EOS % 3.2 % (1.5-5.0); GRAN # 2.78 (1.4-6.5); GRAN % 67.5 % (50.0-68.0); LYMPH # 0.7 (1.2-3.4); LYMPH % 16.1 % (22.0-35.0); MEAN CELL VOLUME 89.1 fl (80.0-105.0); MEAN CORPUSCULAR HEMOGLOBIN 29.2 pg (25.0-35.0); MEAN CORPUSCULAR HGB CONC 32.7 g/dl (31.0-37.0); MEAN PLATELET VOLUME 11.4 fl (7.0-11.0); MONO # 0.5 (0.1-0.6); MONO % 12.7 % (1.0-6.0); RBC 4.39 10^6/uL (3.5-6.1); RED CELL DISTRIBUTION WIDTH 14.8 % (11.5-14.5); WHITE BLOOD COUNT 4.1 10^3/uL (4.5-11.0)
[2018-07-16 07:34] LABS: HEMOGLOBIN 12.8 g/dL (14.0-18.0)
[2018-07-16] MEDS: Albuterol-Ipratrop 3 mg / 0.5 (3 ml) UD INH SCH ×2 (07:36→19:49)
[2018-07-16] MEDS: Budesonide 0.5 mg/2 ml Inhal Susp UD IH SCH ×2 (07:37→19:49)
[2018-07-16 07:54] LABS: ALB/GLOB RATIO 0.9 (1.1-1.8); ALBUMIN 3.2 g/dL (3.0-4.8); ALT/SGPT 174 U/L (7-56); AST/SGOT 111 U/L (17-59); BILIRUBIN,DIRECT 3.1 mg/dL (0.0-0.4); BLOOD UREA NITROGEN 12 mg/dL (7-21); CALCIUM 8.6 mg/dL (8.4-10.5); GFR NON-AFRICAN AMERICAN > 60
[2018-07-16] MEDS: Pantoprazole 40 mg EC Tab PO SCH (08:18)
[2018-07-16 08:53] LABS: HEPATITIS A IGM NEGATIVE (NEGATIVE); HEPATITIS B CORE AB NEGATIVE (NEGATIVE)
[2018-07-16 09:05] LABS: HEPATITIS C ANTIBODY NEGATIVE (NEGATIVE)
[2018-07-16 09:13] LABS: HEPATITIS B SURFACE AG Negative (NEGATIVE)
--- NOTE | 2018-07-16 09:36 | CP.PCM.PN ---
Subjective - Date & Time of Evaluation Date of Evaluation: 07/16/18 Time of Evaluation: 07:45 - Subjective Subjective: Artur Cruz, PGY-1 Progress Note for Hospitalist Service Patient seen and examined at bedside. Patient sitting up comfortably in bed. No acute events overnight. Patient to receive ERCP today. Denies current abdominal pain, nausea, vomiting. Objective - Vital Signs/Intake and Output Vital Signs (last 24 hours): Temp Pulse Resp BP Pulse Ox 98.1 F 67 20 126/88 98 07/16/18 06:00 07/16/18 06:00 07/16/18 06:00 07/16/18 06:00 07/16/18 06:00 - Medications Medications: Current Medications Albuterol/Ipratropium (Duoneb 3 Mg/0.5 Mg (3 Ml) Ud) 1 ml INH BID [facility] Last Admin: 07/16/18 07:36 Dose: 1 ml Aspirin (Ecotrin) 81 mg PO DAILY [facility] Last Admin: 07/16/18 09:06 Dose: Not Given Budesonide (Pulmicort Respules) 0.5 mg IH BID [facility] Last Admin: 07/16/18 07:37 Dose: 0.5 mg Heparin Sodium (Porcine) (Heparin) 5,000 units SC Q12 [facility]; Protocol Last Admin: 07/16/18 09:07 Dose: Not Given Sodium Chloride (Sodium Chloride 0.9%) 1,000 mls @ 100 mls/hr IV .Q10H [facility] Last Admin: 07/16/18 03:00 Dose: 100 mls/hr Piperacillin Sod/Tazobactam Sod (Zosyn 3.375 In Ns 100ml) 100 mls @ 25 mls/hr IVPB Q8 [facility]; Protocol Stop: 07/22/18 12:01 Last Admin: 07/16/18 05:19 Dose: 25 mls/hr Vancomycin HCl (Vancomycin 1gm) 1 gm in 250 mls @ 167 mls/hr IVPB Q12H [facility]; Protocol Last Admin: 07/15/18 23:01 Dose: 167 mls/hr Ibuprofen (Motrin Tab) 400 mg PO Q6H PRN PRN Reason: Fever >100.4 F Last Admin: 07/15/18 21:04 Dose: 400 mg Levothyroxine Sodium (Synthroid) 100 mcg PO 0600 [facility] Last Admin: 07/16/18 05:18 Dose: 100 mcg (Vortioxetine Hydrobromide [ Trintellix] 10 Mg) 10 mg PO DAILY [facility] Pantoprazole Sodium (Protonix Ec Tab) 40 mg PO ACB [facility] Last Admin: 07/16/18 08:18 Dose: Not Given - Labs Labs: 07/16/18 07:00 07/16/18 07:00 PT 12.8 SECONDS (9.4-12.5) H 07/13/18 17:22 INR 1.12 07/13/18 17:22 APTT 30.7 Seconds (25.1-36.5) 07/13/18 17:22 - Additional Findings Additional findings: - Constitutional Appears: Non-toxic, No Acute Distress - Head Exam Head Exam: ATRAUMATIC, NORMAL INSPECTION, NORMOCEPHALIC - Eye Exam Eye Exam: Normal appearance, Scleral icterus Pupil Exam: NORMAL ACCOMODATION - ENT Exam ENT Exam: Mucous Membranes Moist, Normal Exam - Neck Exam Neck Exam: Full ROM, Normal Inspection Additional comments: stoma present - Respiratory Exam Respiratory Exam: Clear to Ausculation Bilateral, NORMAL BREATHING PATTERN. absent: Accessory Muscle Use, Rales, Rhonchi, Wheezes, Respiratory Distress, Stridor - Cardiovascular Exam Cardiovascular Exam: Tachycardia, +S1, +S2 - GI/Abdominal Exam GI & Abdominal Exam: Soft, Normal Bowel Sounds. absent: Distended, Firm, Guarding, Rigid, Tenderness, Organomegaly, Rebound - Extremities Exam Extremities Exam: Full ROM, Normal Capillary Refill, Normal Inspection. absent: Calf Tenderness, Joint Swelling, Pedal Edema - Back Exam Back Exam: NORMAL INSPECTION - Neurological Exam Neurological Exam: Alert, Awake, Normal Gait, Oriented x3 - Psychiatric Exam Psychiatric exam: Normal Affect, Normal Mood - Skin Skin Exam: Dry, Intact, Normal Color, Warm Additional comments: lesion noted to azam DAWSON LE 2/2 scratching Assessment and Plan - Assessment and Plan (Free Text) Assessment: Assessment: 68 year old male with past medical history of laryngeal cancer s/p stoma, lung cancer s/p lobectomy, recent cholecystectomy (04/2018), COPD, hypertension and hypothyroidism who presented with right sided abdominal pain, pruritis and fever. He was found to have transaminitis and fever. CT abd/pelvis and ultrasound show fatty liver. MRCP shows CBD stone, on IV abx. ERCP scheduled for today. Plan: R abdominal/flank pain with elevated LFTs w/ scleral icterus, pruritis, recent cholecystectomy -alcohol negative -UDS negative -direct bilirubin 3.1 on 07/16 -monitor LFTs- 111/174 on 07/16 -BCx: no growth x 2 after 48 hours Lipase 985 -GI recs (Dr. Welsh) appreciated -MRCP (07/14): 5mm filling defect in distal CBD, stone with recent cholecystectomy -ERCP today - f/u results -ID Dr. Kay: started Zosyn 07/16 -Medications -vanc/zosyn day 2 Fever -UA: trace bacteria, 5-10 wbc, 4-5 epithelial cells, trace LE -Ucx: no growth x 48 hrs -Bcx: no growth x 48 hrs -Medications -vanc/zosyn -NS 100 cc/hr Hypothyroidism - c/w home synthroid Ppx, Diet, Disposition -DVT: heparin -GI: protonix -Diet: resume clear liquid after ERCP Patient seen, case reviewed, and plan approved by Dr. Garcia. Artur Cruz, PGY-1
[2018-07-16] MEDS: Vancomycin 1gm in NS 250ml 1 GM/250 ML BAG IVPB SCH ×2 (10:48→22:16)
--- NOTE | 2018-07-16 12:19 | CP.PCM.CON ---
History of Present Illness - History of Present Illness History of Present Illness: 68 year old male with PMH of obesity with BMI 30, lung cancer S/P right upper lobectomy, COPD, dyslipidemia, CAD, hypothyroidism, S/P cholecystectomy 2 months ago came in to [facility] [place] complaining of nausea, vomiting, abdominal discomfort for the past 2 days, associated with fevers. He states the pain is not necessarily associated with food intake. He denies headache or dizziness, no chest pain or palpitations, no sore throat, no cough or rhinorrhea, no dysphagia, no diarrhea, no dysuria. CT A/P was not remarkable, but his liver enzymes and bilirubin were elevated. He underwent MRCP which is showing CBD calculus with obstruction. His lipase levels are also elevated. Infectious diseases consult is requested to further evaluate and manage. Review of Systems - Review of Systems All systems: reviewed and no additional remarkable complaints except (as per HPI) Past Patient History - Infectious Disease Hx of Infectious Diseases: None - Past Medical History & Family History Past Medical History?: Yes - Past Social History Smoking Status: Never Smoked - CARDIAC Hx Cardiac Disorders: No Hx Angina: No Hx Cardia Arrhythmia: No Hx Circulatory Problems: No Hx Congestive Heart Failure: No Hx Heart Murmur: No Hx Heart Transplant: No Hx Hypercholesterolemia: Yes Hx Hypertension: Yes Hx Internal Defibrillator: No Hx Mitral Valve Prolapse: No Hx Pacemaker: No Hx Peripheral Edema: No Hx Peripheral Vascular Disease: No - PULMONARY Hx Respiratory Disorders: No Hx Asthma: No Hx Bronchitis: No Hx Chronic Obstructive Pulmonary Disease (COPD): Yes Hx Emphysema: No Hx Pneumonia: Yes (20-30 years agp) Hx Respiratory Aspiration: No Hx Respiratory Tract Infection: No Hx Sleep Apnea: No Hx Tuberculosis: No - NEUROLOGICAL Hx Neurological Disorder: No Hx Alzheimer's Disease: No HX Cerebrovascular Accident: No Hx Dementia: No Hx Dizziness: No Hx Meningitis: No Hx Migraine: No Hx Parkinson's Disease: No Hx Seizures: No Hx Transient Ischemic Attacks (TIA): No - HEENT Hx HEENT Problems: No Hx Blind: No Hx Cataracts: No Hx Deafness: No Hx Difficulty Chewing: No Hx Epistaxis: No Hx Glaucoma: No Hx Macular Degeneration: No - RENAL Hx Chronic Kidney Disease: No Hx Dialysis: No Hx Kidney Stones: No Hx Neurogenic Bladder: No Hx Pyelonephritis: No Hx Renal (Kidney) Cancer: No Hx Renal Failure: No - ENDOCRINE/METABOLIC Hx Endocrine Disorders: No Hx Adrenal Cancer: No Hx Diabetes Insipidus: No Hx Diabetes Mellitus Type 1: No Hx Diabetes Mellitus Type 2: No Hx Hyperthyroidism: No Hx Hypothyroidism: Yes Hx Systemic Lupus Erythematosus: No - HEMATOLOGICAL/ONCOLOGICAL Hx Blood Transfusions: No Hx Blood Transfusion Reaction: No - INTEGUMENTARY Hx Dermatological Problems: No Hx Basil Cell: No Hx Eczema: No Hx Melanoma: No - MUSCULOSKELETAL/RHEUMATOLOGICAL Hx Musculoskeletal Disorders: No Hx Arthritis: No Hx Back Pain: No Hx Degenerative Joint Disease: No Hx Falls: No Hx Fractures: No Hx Gout: No Hx Herniated Disk: No Hx Myasthenia Gravis: No Hx Osteoarthritis: No Hx Osteomyelitis: No Hx Osteoporosis: No Hx Rhabdomyolysis: No Hx Spinal Stenosis: No Hx Unsteady Gait: No - GASTROINTESTINAL Hx Gastrointestinal Disorders: No Hx Colostomy: No Hx Crohn's Disease: No Hx Diverticulitis: No Hx Gall Bladder Disease: No Hx Gastroesophageal Reflux: Yes Hx Ileostomy: No Hx Liver Failure: No Hx Pancreatitis: Yes HX Swallowing Problems: No Hx Ulcer: No - GENITOURINARY/GYNECOLOGICAL Hx Genitourinary Disorders: No Hx Hematuria: No Hx Incontinence: No Hx Prostate Problems: No Hx Sexually Transmitted Disorders: No Hx Urinary Tract Infection: No - PSYCHIATRIC Hx Psychophysiologic Disorder: No Hx Anxiety: Yes Hx Bipolar Disorder: No Hx Depression: Yes Hx Emotional Abuse: No Hx Hallucinations: No Hx Panic Symptoms: No Hx Paranoia: No Hx Post Traumatic Stress Disorder: No Hx Psychosis: No Hx Physical Abuse: No Hx Schizophrenia: No Hx Sexual Abuse: No - SURGICAL HISTORY Hx Surgeries: Yes - ANESTHESIA Hx Anesthesia Reactions: No Hx Malignant Hyperthermia: No Meds Allergies/Adverse Reactions: Allergies Allergy/AdvReac Type Severity Reaction Status Date / Time No Known Allergies Allergy Verified 08/10/17 18:44 - Medications Medications: Current Medications Albuterol/Ipratropium (Duoneb 3 Mg/0.5 Mg (3 Ml) Ud) 1 ml INH BID [facility] Last Admin: 07/15/18 07:45 Dose: 1 ml Aspirin (Ecotrin) 81 mg PO DAILY [facility] Last Admin: 07/15/18 09:31 Dose: 81 mg Budesonide (Pulmicort Respules) 0.5 mg IH BID [facility] Last Admin: 07/15/18 07:44 Dose: 0.5 mg Heparin Sodium (Porcine) (Heparin) 5,000 units SC Q12 [facility]; Protocol Last Admin: 07/15/18 09:32 Dose: Not Given Sodium Chloride (Sodium Chloride 0.9%) 1,000 mls @ 100 mls/hr IV .Q10H [facility] Last Admin: 07/14/18 09:54 Dose: 100 mls/hr Piperacillin Sod/Tazobactam Sod (Zosyn 3.375 In Ns 100ml) 100 mls @ 25 mls/hr IVPB Q8 [facility]; Protocol Stop: 07/22/18 12:01 Vancomycin HCl (Vancomycin 1gm) 1 gm in 250 mls @ 167 mls/hr IVPB Q12H [facility]; Protocol Ibuprofen (Motrin Tab) 400 mg PO Q6H PRN PRN Reason: Fever >100.4 F Last Admin: 07/15/18 05:50 Dose: 400 mg Levothyroxine Sodium (Synthroid) 100 mcg PO 0600 [facility] Last Admin: 07/15/18 05:51 Dose: 100 mcg (Vortioxetine Hydrobromide [ Trintellix] 10 Mg) 10 mg PO DAILY [facility] Pantoprazole Sodium (Protonix Ec Tab) 40 mg PO ACB [facility] Last Admin: 07/15/18 09:31 Dose: 40 mg Physical Exam - Constitutional Appears: Chronically Ill - Head Exam Head Exam: NORMAL INSPECTION - ENT Exam ENT Exam: Mucous Membranes Moist - Neck Exam Neck exam: Negative for: Meningismus - Respiratory Exam Respiratory Exam: Decreased Breath Sounds - Cardiovascular Exam Cardiovascular Exam: +S1, +S2 - GI/Abdominal Exam GI & Abdominal Exam: Soft, Tenderness (mild RUQ tenderness). absent: Distended, Firm, Guarding, Rebound, Rigid Results - Vital Signs Recent Vital Signs: Last Vital Signs Temp 102.8 F H 07/15/18 06:00 Pulse 106 H 07/15/18 06:00 Resp 19 07/15/18 06:00 BP 150/90 07/15/18 06:00 Pulse Ox 96 07/15/18 06:00 - Labs Result Diagrams: 07/16/18 07:00 07/16/18 07:00 Labs: Laboratory Results - last 24 hr 07/14/18 07/14/18 07/14/18 07:00 07:00 13:35 WBC RBC Hgb Hct MCV MCH MCHC RDW Plt Count MPV Gran % Lymph % (Auto) Stanton % (Auto) Eos % (Auto) Baso % (Auto) Gran # Lymph # (Auto) Stanton # (Auto) Eos # (Auto) Baso # (Auto) pO2 VBG pH VBG pCO2 VBG HCO3 VBG Total CO2 VBG O2 Sat (Calc) VBG Base Excess VBG Potassium Sodium Chloride Glucose Lactate FiO2 Potassium Carbon Dioxide Anion Gap BUN Creatinine Est GFR ( Amer) Est GFR (Non-Af Amer) Random Glucose Calcium Total Bilirubin Direct Bilirubin AST ALT Alkaline Phosphatase Total Protein Albumin Globulin Albumin/Globulin Ratio Procalcitonin 1.35 H Venous Blood Potassium Urine Color Dark yellow Urine Appearance Sl cloudy Urine pH 6.0 Ur Specific [place] 1.025 Urine Protein Trace H Urine Glucose (UA) Negative Urine Ketones 15 H Urine Blood Negative Urine Nitrate Negative Urine Bilirubin Large H Urine Urobilinogen 2.0 H Ur Leukocyte Esterase Trace H Urine RBC 1 - 3 Urine WBC 5 - 10 Ur Epithelial Cells 4 - 5 Urine Bacteria Trace Urine Opiates Screen Urine Methadone Screen Ur Barbiturates Screen Ur Phencyclidine Scrn Ur Amphetamines Screen U Benzodiazepines Scrn U Oth Cocaine Metabols U Cannabinoids Screen Alcohol, Quantitative < 10 07/14/18 07/14/18 07/15/18 13:35 13:58 03:55 WBC 5.7 RBC 4.98 Hgb 14.9 Hct 45.3 MCV 91.0 MCH 29.9 MCHC 32.9 RDW 14.9 H Plt Count 145 MPV 11.5 H Gran % 78.6 H Lymph % (Auto) 12.4 L Stanton % (Auto) 7.9 H Eos % (Auto) 0.9 L Baso % (Auto) 0.2 Gran # 4.50 Lymph # (Auto) 0.7 L Stanton # (Auto) 0.5 Eos # (Auto) 0.1 Baso # (Auto) 0.01 pO2 24 L VBG pH 7.37 VBG pCO2 54.0 VBG HCO3 31.2 H VBG Total CO2 32.9 H VBG O2 Sat (Calc) 43.1 VBG Base Excess 4.5 H VBG Potassium 4.7 Sodium 139.0 Chloride 105.0 Glucose 129 H Lactate 1.3 FiO2 21.0 Potassium Carbon Dioxide Anion Gap BUN Creatinine Est GFR ( Amer) Est GFR (Non-Af Amer) Random Glucose Calcium Total Bilirubin Direct Bilirubin AST ALT Alkaline Phosphatase Total Protein Albumin Globulin Albumin/Globulin Ratio Procalcitonin Venous Blood Potassium 4.7 Urine Color Urine Appearance Urine pH Ur Specific [place] Urine Protein Urine Glucose (UA) Urine Ketones Urine Blood Urine Nitrate Urine Bilirubin Urine Urobilinogen Ur Leukocyte Esterase Urine RBC Urine WBC Ur Epithelial Cells Urine Bacteria Urine Opiates Screen Negative Urine Methadone Screen Negative Ur Barbiturates Screen Negative Ur Phencyclidine Scrn Negative Ur Amphetamines Screen Negative U Benzodiazepines Scrn Negative U Oth Cocaine Metabols Negative U Cannabinoids Screen Negative Alcohol, Quantitative 07/15/18 03:55 WBC RBC Hgb Hct MCV MCH MCHC RDW Plt Count MPV Gran % Lymph % (Auto) Stanton % (Auto) Eos % (Auto) Baso % (Auto) Gran # Lymph # (Auto) Stanton # (Auto) Eos # (Auto) Baso # (Auto) pO2 VBG pH VBG pCO2 VBG HCO3 VBG Total CO2 VBG O2 Sat (Calc) VBG Base Excess VBG Potassium Sodium 144 Chloride 104 Glucose Lactate FiO2 Potassium 4.5 Carbon Dioxide 28 Anion Gap 17 BUN 15 Creatinine 1.2 Est GFR ( Amer) > 60 Est GFR (Non-Af Amer) > 60 Random Glucose 119 H Calcium 9.2 Total Bilirubin 6.6 H Direct Bilirubin 5.8 H AST 147 H ALT 226 H Alkaline Phosphatase 282 H Total Protein 7.9 Albumin 3.9 Globulin 4.0 Albumin/Globulin Ratio 1.0 L Procalcitonin Venous Blood Potassium Urine Color Urine Appearance Urine pH Ur Specific [place] Urine Protein Urine Glucose (UA) Urine Ketones Urine Blood Urine Nitrate Urine Bilirubin Urine Urobilinogen Ur Leukocyte Esterase Urine RBC Urine WBC Ur Epithelial Cells Urine Bacteria Urine Opiates Screen Urine Methadone Screen Ur Barbiturates Screen Ur Phencyclidine Scrn Ur Amphetamines Screen U Benzodiazepines Scrn U Oth Cocaine Metabols U Cannabinoids Screen Alcohol, Quantitative Assessment & Plan - Assessment and Plan (Free Text) Plan: Assessment consider sepsis due to cholangitis with acute pancreatitis, with CBD stone, for ERCP today obesity with BMI 30 lung cancer S/P right upper lobectomy COPD dyslipidemia CAD hypothyroidism S/P cholecystectomy 2 months ago Plan started Zosyn; blood cx are negative; follow up ERCP results (to be done today) will trend liver enzymes, bilirubin levels will monitor clinically
[2018-07-16] MEDS ORDERED: Glucagon Recombinant 1 mg Inj ONE (14:06)
[2018-07-16] MEDS ORDERED: Simethicone 40 mg/0.6 ml Liquid (30 ml) ONE (14:06)
[2018-07-16] MEDS ORDERED: Iohexol 240 (50 ml) ONE (14:06)
[2018-07-16] MEDS ORDERED: Indomethacin 50 MG Suppository PR ONE (14:08)
[2018-07-17] MEDS: Levothyroxine 100 MCG TAB PO SCH (05:53)
[2018-07-17] MEDS: Piperacillin/Tazobact 3.375 gm 100 ML IVPB SCH ×3 (05:54→23:15)
[2018-07-17] MEDS: Budesonide 0.5 mg/2 ml Inhal Susp UD IH SCH ×2 (07:13→20:46)
[2018-07-17] MEDS: Albuterol-Ipratrop 3 mg / 0.5 (3 ml) UD INH SCH ×2 (07:15→20:45)
[2018-07-17 07:20] LABS: BASO # 0.01 K/mm3 (0.0-2.0); BASO % 0.2 % (0.0-3.0); EOS # 0.2 (0.0-0.7); EOS % 3.9 % (1.5-5.0); GRAN # 2.7 (1.4-6.5); GRAN % 65.2 % (50.0-68.0); HEMOGLOBIN 12.7 g/dL (14.0-18.0); LYMPH # 0.8 (1.2-3.4); LYMPH % 19.1 % (22.0-35.0); MEAN CELL VOLUME 89.2 fl (80.0-105.0); MEAN CORPUSCULAR HEMOGLOBIN 29.1 pg (25.0-35.0); MEAN CORPUSCULAR HGB CONC 32.6 g/dl (31.0-37.0); MONO # 0.5 (0.1-0.6); MONO % 11.6 % (1.0-6.0); RBC 4.36 10^6/uL (3.5-6.1); RED CELL DISTRIBUTION WIDTH 14.7 % (11.5-14.5); WHITE BLOOD COUNT 4.1 10^3/uL (4.5-11.0)
[2018-07-17 07:40] LABS: ALB/GLOB RATIO 0.9 (1.1-1.8); ALT/SGPT 140 U/L (7-56); AST/SGOT 81 U/L (17-59); BILIRUBIN,DIRECT 2.3 mg/dL (0.0-0.4); BLOOD UREA NITROGEN 12 mg/dL (7-21); CALCIUM 8.6 mg/dL (8.4-10.5); GFR NON-AFRICAN AMERICAN > 60
--- NOTE | 2018-07-17 08:29 | CP.PCM.PN ---
Subjective - Date & Time of Evaluation Date of Evaluation: 07/17/18 Time of Evaluation: 07:30 - Subjective Subjective: Artur Cruz, PGY-1 Progress Note for Hospitalist Service Patient seen and evaluated at bedside. Patient sitting comfortably up in bed. Patient did not receive ERCP yesterday due to lack of capability to perform tracheostomy. No acute events reported overnight. Patient denies CP, SOB, abdominal pain, dizziness and headaches. Objective - Vital Signs/Intake and Output Vital Signs (last 24 hours): Temp Pulse Resp BP Pulse Ox 100.9 F H 89 18 148/98 H 95 07/16/18 23:09 07/16/18 23:09 07/16/18 23:09 07/16/18 23:09 07/16/18 23:09 Intake and Output: 07/17/18 07/17/18 06:59 18:59 Intake Total 1500 Balance 1500 - Medications Medications: Current Medications Albuterol/Ipratropium (Duoneb 3 Mg/0.5 Mg (3 Ml) Ud) 1 ml INH BID [facility] Last Admin: 07/16/18 19:49 Dose: 1 ml Aspirin (Ecotrin) 81 mg PO DAILY [facility] Last Admin: 07/16/18 09:06 Dose: Not Given Budesonide (Pulmicort Respules) 0.5 mg IH BID [facility] Last Admin: 07/17/18 07:13 Dose: 0.5 mg Heparin Sodium (Porcine) (Heparin) 5,000 units SC Q12 [facility]; Protocol Last Admin: 07/16/18 22:30 Dose: Not Given Sodium Chloride (Sodium Chloride 0.9%) 1,000 mls @ 100 mls/hr IV .Q10H [facility] Last Admin: 07/16/18 03:00 Dose: 100 mls/hr Piperacillin Sod/Tazobactam Sod (Zosyn 3.375 In Ns 100ml) 100 mls @ 25 mls/hr I VPB Q8 [facility]; Protocol Stop: 07/22/18 12:01 Last Admin: 07/17/18 05:54 Dose: 25 mls/hr Vancomycin HCl (Vancomycin 1gm) 1 gm in 250 mls @ 167 mls/hr IVPB Q12H [facility]; Protocol Last Admin: 07/16/18 22:16 Dose: 167 mls/hr Ibuprofen (Motrin Tab) 400 mg PO Q6H PRN PRN Reason: Fever >100.4 F Last Admin: 07/16/18 21:08 Dose: 400 mg Levothyroxine Sodium (Synthroid) 100 mcg PO 0600 [facility] Last Admin: 07/17/18 05:53 Dose: 100 mcg (Vortioxetine Hydrobromide [ Trintellix] 10 Mg) 10 mg PO DAILY [facility] Last Admin: 07/16/18 13:23 Dose: 10 mg Pantoprazole Sodium (Protonix Ec Tab) 40 mg PO ACB [facility] Last Admin: 07/16/18 08:18 Dose: Not Given - Labs Labs: 07/17/18 07:00 07/17/18 07:00 PT 12.8 SECONDS (9.4-12.5) H 07/13/18 17:22 INR 1.12 07/13/18 17:22 APTT 30.7 Seconds (25.1-36.5) 07/13/18 17:22 - Additional Findings Additional findings: - Constitutional Appears: Non-toxic, No Acute Distress - Head Exam Head Exam: ATRAUMATIC, NORMAL INSPECTION, NORMOCEPHALIC - Eye Exam Eye Exam: Scleral icterus Pupil Exam: NORMAL ACCOMODATION, EOMI - ENT Exam ENT Exam: Mucous Membranes Moist, Normal Exam - Neck Exam Neck Exam: Full ROM, Normal Inspection Additional comments: stoma present - Respiratory Exam Respiratory Exam: Clear to Ausculation Bilateral, NORMAL BREATHING PATTERN. absent: Accessory Muscle Use, Rales, Rhonchi, Wheezes, Respiratory Distress, Stridor - Cardiovascular Exam Cardiovascular Exam: Tachycardia, +S1, +S2 - GI/Abdominal Exam GI & Abdominal Exam: Obese, Soft, Normal Bowel Sounds. absent: Distended, Firm, Guarding, Rigid, Tenderness, Organomegaly, Rebound - Extremities Exam Extremities Exam: Full ROM, Normal Capillary Refill, Normal Inspection. absent: Calf Tenderness, Joint Swelling, Pedal Edema - Back Exam Back Exam: NORMAL INSPECTION - Neurological Exam Neurological Exam: Alert, Awake, Normal Gait, Oriented x3 - Psychiatric Exam Psychiatric exam: Normal Affect, Normal Mood - Skin Skin Exam: Dry, Intact, Normal Color, Warm Assessment and Plan - Assessment and Plan (Free Text) Assessment: Assessment: 68 year old male with past medical history of laryngeal cancer s/p stoma, lung cancer s/p lobectomy, recent cholecystectomy (05/15), COPD, hypertension and hypothyroidism who presented with right sided abdominal pain, pruritis and fe sofi. He was found to have transaminitis and fever. CT abd/pelvis and ultrasound show fatty liver. MRCP shows CBD stone, on IV abx. ERCP scheduled for today along with tracheostomy by surgical team this afternoon. ERCP cancelled 2/2 bradycardia and EKG changes. Plan: Bradycardia Patient was found to have HR 40-50s in afternoon, asymptomatic, no headaches, no chest pain or palpitations. May not be candidate for ERCP today 1/2 L NS bolus was ordered EKG was ordered, along with trops x3 transfer to tele s/p T wave changes on EKG Cardio consult - Dr. Vincent - recommendations appreciated R abdominal/flank pain with elevated LFTs w/ scleral icterus, pruritis, recent cholecystectomy -alcohol negative -UDS negative -direct bilirubin 2.3 on 07/17 -monitor LFTs- 81/140 on 07/17 -BCx: no growth x 2 after 72 hours Lipase 985 -GI recs (Dr. Welsh) appreciated -MRCP (07/14): 5mm filling defect in distal CBD, stone with recent cholecystectomy -ERCP planned for this afternoon cancelled -ID Dr. Kay: Vanc 1 g daily and Zosyn 3.375 mg q8 -Medications -vanc/zosyn day 3 Fever -UA: trace bacteria, 5-10 wbc, 4-5 epithelial cells, trace LE -Ucx: no growth x 48 hrs -Bcx: no growth x 48 hrs -Medications -vanc/zosyn -NS 100 cc/hr Hypothyroidism - c/w home synthroid Ppx, Diet, Disposition -DVT: heparin -GI: protonix -Diet: Clear liquid Patient seen, case reviewed and plan approved by Dr. Garcia. Artur Cruz, PGY-1
[2018-07-17] MEDS: Pantoprazole 40 mg EC Tab PO SCH (08:48)
[2018-07-17] MEDS: Vancomycin 1gm in NS 250ml 1 GM/250 ML BAG IVPB SCH ×2 (10:55→23:18)
[2018-07-17 11:00] LABS: INR 1.03; PROTHROMBIN TIME 11.8 SECONDS (9.4-12.5)
[2018-07-17] MEDS ORDERED: Indomethacin 50 MG Suppository PR ONE (14:44)
[2018-07-17] MEDS ORDERED: Sodium Chloride 0.9% 500 ML IV STA (14:54)
[2018-07-17] MEDS ORDERED: Glucagon Recombinant 1 mg Inj ONE (15:02)
--- NOTE | 2018-07-17 16:53 | CP.PCM.PN ---
<Jaimie Shahid - Last Filed: 07/17/18 16:50> Subjective - Date & Time of Evaluation Date of Evaluation: 07/17/18 Time of Evaluation: 16:50 - Subjective Subjective: Gastroenterology Fellow/PGY6 Progress Note Patient denies abdominal pain, fever, chills, or sweats. Remains NPO. On afternoon evaluation- notes he has a slow heart rate showing rate of 44bpm on personal pulse oximeter. A 12-point review of systems negative except for as above. Objective - Vital Signs/Intake and Output Vital Signs (last 24 hours): Temp Pulse Resp BP Pulse Ox 99.7 F H 55 L 44 H 156/87 H 95 07/17/18 07:00 07/17/18 14:10 07/17/18 14:05 07/17/18 07:00 07/17/18 07:00 Intake and Output: 07/17/18 07/17/18 06:59 18:59 Intake Total 1500 Balance 1500 - Medications Medications: Current Medications Albuterol/Ipratropium (Duoneb 3 Mg/0.5 Mg (3 Ml) Ud) 1 ml INH BID [facility] Last Admin: 07/17/18 07:15 Dose: 1 ml Aspirin (Ecotrin) 81 mg PO DAILY [facility] Last Admin: 07/16/18 09:06 Dose: Not Given Budesonide (Pulmicort Respules) 0.5 mg IH BID [facility] Last Admin: 07/17/18 07:13 Dose: 0.5 mg Heparin Sodium (Porcine) (Heparin) 5,000 units SC Q12 [facility]; Protocol Last Admin: 07/16/18 22:30 Dose: Not Given Sodium Chloride (Sodium Chloride 0.9%) 1,000 mls @ 100 mls/hr IV .Q10H [facility] Last Admin: 07/16/18 03:00 Dose: 100 mls/hr Piperacillin Sod/Tazobactam Sod (Zosyn 3.375 In Ns 100ml) 100 mls @ 25 mls/hr IVPB Q8 [facility]; Protocol Stop: 07/22/18 12:01 Last Admin: 07/17/18 15:45 Dose: 25 mls/hr Vancomycin HCl (Vancomycin 1gm) 1 gm in 250 mls @ 167 mls/hr IVPB Q12H [facility]; Protocol Last Admin: 07/17/18 10:55 Dose: 167 mls/hr Ibuprofen (Motrin Tab) 400 mg PO Q6H PRN PRN Reason: Fever >100.4 F Last Admin: 07/16/18 21:08 Dose: 400 mg Levothyroxine Sodium (Synthroid) 100 mcg PO 0600 [facility] Last Admin: 07/17/18 05:53 Dose: 100 mcg (Vortioxetine Hydrobromide [ Trintellix] 10 Mg) 10 mg PO DAILY [facility] Last Admin: 07/17/18 10:52 Dose: 10 mg Pantoprazole Sodium (Protonix Ec Tab) 40 mg PO ACB [facility] Last Admin: 07/17/18 08:48 Dose: 40 mg - Labs Labs: 07/17/18 07:00 07/17/18 07:00 PT 11.8 SECONDS (9.4-12.5) 07/17/18 10:40 INR 1.03 07/17/18 10:40 APTT 30.7 Seconds (25.1-36.5) 07/13/18 17:22 - Constitutional Appears: Non-toxic, No Acute Distress - Head Exam Head Exam: ATRAUMATIC, NORMOCEPHALIC - Eye Exam Eye Exam: EOMI, PERRL. absent: Scleral icterus Pupil Exam: PERRL. absent: Miosis, Mydriatic - ENT Exam ENT Exam: Mucous Membranes Moist, Normal Oropharynx - Neck Exam Neck Exam: Full ROM, Normal Inspection Additional comments: tracheostomy tube in place, C/D/I - Respiratory Exam Respiratory Exam: Clear to Ausculation Bilateral. absent: Rales, Rhonchi, Wheezes - Cardiovascular Exam Cardiovascular Exam: RRR, +S1, +S2. absent: Gallop, Rubs - GI/Abdominal Exam GI & Abdominal Exam: Soft, Normal Bowel Sounds. absent: Distended, Firm, Guarding, Rigid, Tenderness, Organomegaly, Rebound - Extremities Exam Extremities Exam: Normal Inspection. absent: Pedal Edema - Neurological Exam Neurological Exam: Alert, Awake - Psychiatric Exam Psychiatric exam: Normal Affect, Normal Mood - Skin Skin Exam: Dry, Intact, Normal Color, Warm Assessment and Plan - Assessment and Plan (Free Text) Assessment: 68 year old male with PMH of lap cholecystectomy 05/21/18 2/2 calculous cholecystitis, Laryngeal cancer s/p laryngectomy with tracheostomy, Lung cancer s/p Right upper lobectomy, COPD, HTN, and Hypothyroidism presenting with abdominal pain. Active treatment of hyperbilirubinemia with transaminitis 2/2 choledocholithiasis noted on MRCP complicated by cholangitis. Plan: -new-onset asymptomatic bradycardia- ordered stat EKG -Bigeminy with new changes compared to prior EKG -discussed with anesthesia and Dr. Welsh -ERCP cancelled -obtain cardiology consult, transfer to telemetry -continue broad spectrum antibiotics -LFTs trending down, continue to monitor -await cardiology evaluation and recommendation prior to proceeding with ERCP -will follow clinical course <Maira Welsh V - Last Filed: 07/20/18 21:26> Objective - Vital Signs/Intake and Output Vital Signs (last 24 hours): Temp Pulse Resp BP Pulse Ox 99.7 F H 55 L 44 H 156/87 H 95 07/17/18 07:00 07/17/18 14:10 07/17/18 14:05 07/17/18 07:00 07/17/18 07:00 - Medications Medications: Current Medications Albuterol/Ipratropium (Duoneb 3 Mg/0.5 Mg (3 Ml) Ud) 1 ml INH BID [facility] Last Admin: 07/17/18 20:45 Dose: 1 ml Aspirin (Ecotrin) 81 mg PO DAILY [facility] Last Admin: 07/16/18 09:06 Dose: Not Given Budesonide (Pulmicort Respules) 0.5 mg IH BID [facility] Last Admin: 07/17/18 20:46 Dose: 0.5 mg Heparin Sodium (Porcine) (Heparin) 5,000 units SC Q12 [facility]; Protocol Last Admin: 07/17/18 22:25 Dose: Not Given Sodium Chloride (Sodium Chloride 0.9%) 1,000 mls @ 100 mls/hr IV .Q10H [facility] Last Admin: 07/16/18 03:00 Dose: 100 mls/hr Piperacillin Sod/Tazobactam Sod (Zosyn 3.375 In Ns 100ml) 100 mls @ 25 mls/hr IVPB Q8 [facility]; Protocol Stop: 07/22/18 12:01 Last Admin: 07/17/18 23:15 Dose: 25 mls/hr Vancomycin HCl (Vancomycin 1gm) 1 gm in 250 mls @ 167 mls/hr IVPB Q12H [facility]; Protocol Last Admin: 07/17/18 23:18 Dose: 167 mls/hr Ibuprofen (Motrin Tab) 400 mg PO Q6H PRN PRN Reason: Fever >100.4 F Last Admin: 07/16/18 21:08 Dose: 400 mg Levothyroxine Sodium (Synthroid) 100 mcg PO 0600 [facility] Last Admin: 07/17/18 05:53 Dose: 100 mcg (Vortioxetine Hydrobromide [ Trintellix] 10 Mg) 10 mg PO DAILY [facility] Last Admin: 07/17/18 10:52 Dose: 10 mg Pantoprazole Sodium (Protonix Ec Tab) 40 mg PO ACB [facility] Last Admin: 07/17/18 08:48 Dose: 40 mg - Labs Labs: 07/17/18 07:00 07/17/18 07:00 PT 11.8 SECONDS (9.4-12.5) 07/17/18 10:40 INR 1.03 07/17/18 10:40 APTT 30.7 Seconds (25.1-36.5) 07/13/18 17:22 Attending/Attestation - Attestation I have personally seen and examined this patient.: Yes I have fully participated in the care of the patient.: Yes I have reviewed all pertinent clinical information, including history, physical exam and plan: Yes Notes (Text): This is an addendum to GI progress report dictated by the GI Fellow.The patient was seen and examined earlier. Medical records, lab studies, imagings were reviewed. Last 24 hours events reviewed. Agreed with the above treatment plan as outlined in GI Fellow 's notes with the addition of the following Patient had bradycardic episode: With abnormal EKG tracing Patient was seen and evaluated along with anesthesiologist Patient was transferred to telemetry monitoring ERCP was rescheduled to tomorrow pending cardiac clearance Discussed with the patient and also patients who was at bedside 07/17/18 23:47 07/20/18 21:24
--- NOTE | 2018-07-17 20:36 | PN ---
DATE: 07/17/2018 SUBJECTIVE: The patient is seen in bed, in no acute distress, nontoxic. OBJECTIVE: VITAL SIGNS: Temperature is 99.7, T-max yesterday was 100.9, and patient's heart rate is 55, respiratory rate of 20, and blood pressure is 156/80. HEENT: Unremarkable. NECK: Supple. LUNGS: Have decreased breath sounds. HEART: Normal S1 and S2. ABDOMEN: Soft. LABORATORY DATA: Reveals white count of 4.1, hemoglobin of 12, and platelets of 141,000. BUN of 12 and creatinine of 0.9. Urinalysis is noted. Serology is noted. Microbiology reveals the blood cultures are negative. Urine cultures are negative. Review of orders reveals the patient to be on IV vancomycin and IV Zosyn. ASSESSMENT AND PLAN: This is a 68-year-old male with obesity; body mass index of 30; lung cancer, status post right upper lobectomy; chronic obstructive lung disease; dyslipidemia; coronary artery disease; status post cholecystectomy; admitted with abdominal pain, associated fevers. Currently now, the patient has sepsis with cholangitis, acute pancreatitis with common bile duct stone in a patient with lung cancer, on vancomycin and Zosyn. The patient had endoscopic retrograde cholangiopancreatography scheduled for yesterday. The patient had a laparoscopic cholecystectomy on 05/21 secondary to cholecystitis; history of laryngeal cancer, status post laryngectomy with tracheostomy and history of lung cancer with right upper lobectomy and chronic obstructive lung disease; hypertension; and had an magnetic resonance cholangiopancreatography complicated by cholangitis. He was scheduled for endoscopic retrograde cholangiopancreatography, it was canceled. We will continue the antibiotics, probably the fever and final culture results. We will discuss with Gastroenterology. Toan Turner MD
[2018-07-17] MEDS ORDERED: DiphenhydrAMINE 50 mg/ml Inj IVP ONE (21:34)
[2018-07-18 04:55] LABS: ALBUMIN 3.2 g/dL (3.0-4.8); ALT/SGPT 123 U/L (7-56); AST/SGOT 71 U/L (17-59); BILIRUBIN,DIRECT 1.9 mg/dL (0.0-0.4); BLOOD UREA NITROGEN 10 mg/dL (7-21); CALCIUM 8.7 mg/dL (8.4-10.5); GFR NON-AFRICAN AMERICAN > 60
[2018-07-18 05:00] LABS: BASO # 0.02 K/mm3 (0.0-2.0); BASO % 0.4 % (0.0-3.0); EOS # 0.2 (0.0-0.7); EOS % 3.5 % (1.5-5.0); GRAN # 3.65 (1.4-6.5); GRAN % 66.8 % (50.0-68.0); HEMOGLOBIN 13.3 g/dL (14.0-18.0); LYMPH # 1.1 (1.2-3.4); LYMPH % 19.8 % (22.0-35.0); MEAN CELL VOLUME 88.9 fl (80.0-105.0); MEAN CORPUSCULAR HEMOGLOBIN 29.6 pg (25.0-35.0); MEAN CORPUSCULAR HGB CONC 33.3 g/dl (31.0-37.0); MEAN PLATELET VOLUME 11.6 fl (7.0-11.0); MONO # 0.5 (0.1-0.6); MONO % 9.5 % (1.0-6.0); RBC 4.5 10^6/uL (3.5-6.1); RED CELL DISTRIBUTION WIDTH 14.7 % (11.5-14.5)
[2018-07-18 05:02] LABS: TROPONIN I 0.01 ng/mL
[2018-07-18] MEDS: Piperacillin/Tazobact 3.375 gm 100 ML IVPB SCH ×4 (05:10→21:51)
[2018-07-18] MEDS: Levothyroxine 100 MCG TAB PO SCH (05:10)
[2018-07-18 05:17] LABS: WHITE BLOOD COUNT 5.5 10^3/uL (4.5-11.0)
[2018-07-18] MEDS: Budesonide 0.5 mg/2 ml Inhal Susp UD IH SCH ×2 (07:23→20:14)
[2018-07-18] MEDS: Albuterol-Ipratrop 3 mg / 0.5 (3 ml) UD INH SCH ×2 (07:26→20:14)
--- NOTE | 2018-07-18 07:43 | PN ---
DATE: 07/18/2018 SUBJECTIVE: The patient is in bed, in no acute distress, nontoxic. PHYSICAL EXAMINATION: VITAL SIGNS: On exam, the patient is with a temperature of 99, T-max on 07/16/2018 was 100.9. He has been afebrile now. Blood pressure is 155/90, respiratory rate of 20, heart rate of 65. HEENT: Examination of HEENT is unremarkable. NECK: Supple. LUNGS: Have decreased breath sounds. HEART: Normal S1, S2. ABDOMEN: Soft, nontender. LABORATORY DATA: Laboratory examination reveals a white count of 5.5, hemoglobin of 13, platelets of 185. Chemistries reveals a BUN of 10, creatinine of 1.1. LFTs are noted. The patient's procalcitonin of 1.35 is noted. Urinalysis is reviewed. Blood cultures are negative. Urine cultures are negative. ASSESSMENT AND PLAN: A 68-year-old male with obesity, body mass index of 30, lung cancer, status post right upper lobe lobectomy, chronic obstructive lung disease, dyslipidemia, coronary artery disease, status post cholecystectomy, admitted with abdominal pain. Currently, the patient had sepsis with cholangitis and acute pancreatitis with common bile duct stone in a patient with lung cancer. Scheduled for an ERCP. The patient did have a laparoscopic cholecystectomy on 05/21/2018 secondary to ascending cholangitis and history of laryngeal cancer, status post laryngectomy, now with a tracheostomy. Had MRCP complicated by cholangitis. Scheduled for ERCP, but it was canceled. Currently, the patient is on vancomycin IV with negative blood cultures, negative urine cultures. The patient's Zosyn had fallen off the medications, discontinued by pharmacy. We will discuss with GI. Toan Turner MD
--- NOTE | 2018-07-18 08:04 | CARD ---
APPROVED REPORT Date of service: 07/17/2018 EKG Measurement Heart [id number] <Conclusion> Sinus rhythm with frequent premature ventricular complexes in a pattern of bigeminy, new
--- NOTE | 2018-07-18 08:37 | CP.PCM.PN ---
Subjective - Date & Time of Evaluation Date of Evaluation: 07/18/18 Time of Evaluation: 08:29 - Subjective Subjective: Artur Cruz, PGY-1 Progress Note for Hospitalist Service Patient seen and evaluated at bedside. Reports no acute events overnight. After EKG of asymptomatic PVCs with bigeminy late yesterday afternoon, telemetry has shown frequent PVCs with bigeminy overnight. HR in 60s and 70s. Patient is pending Cardiac clearance with Dr. Vincent for ERCP with GI. Patient denies chest pain, palpitations, shortness of breath, nausea vomiting or abdominal pain. Patient denies discomfort with current trach placement. Objective - Vital Signs/Intake and Output Vital Signs (last 24 hours): Temp Pulse Resp BP Pulse Ox 98.2 F 71 20 155/93 H 96 07/18/18 05:54 07/18/18 05:54 07/18/18 05:54 07/18/18 05:54 07/18/18 05:54 Intake and Output: 07/18/18 07/18/18 06:59 18:59 Intake Total 420 758 Output Total 500 Balance -80 758 - Medications Medications: Current Medications Albuterol/Ipratropium (Duoneb 3 Mg/0.5 Mg (3 Ml) Ud) 1 ml INH BID [facility] Last Admin: 07/18/18 07:26 Dose: 1 ml Aspirin (Ecotrin) 81 mg PO DAILY [facility] Last Admin: 07/16/18 09:06 Dose: Not Given Budesonide (Pulmicort Respules) 0.5 mg IH BID [facility] Last Admin: 07/18/18 07:23 Dose: 0.5 mg Heparin Sodium (Porcine) (Heparin) 5,000 units SC Q12 [facility]; Protocol Last Admin: 07/17/18 22:25 Dose: Not Given Sodium Chloride (Sodium Chloride 0.9%) 1,000 mls @ 100 mls/hr IV .Q10H [facility] Last Admin: 07/16/18 03:00 Dose: 100 mls/hr Vancomycin HCl (Vancomycin 1gm) 1 gm in 250 mls @ 167 mls/hr IVPB Q12H [facility]; Protocol Last Admin: 07/17/18 23:18 Dose: 167 mls/hr Piperacillin Sod/Tazobactam Sod (Zosyn 3.375 In Ns 100ml) 100 mls @ 25 mls/hr IVPB Q8 [facility]; Protocol Stop: 07/27/18 08:01 Ibuprofen (Motrin Tab) 400 mg PO Q6H PRN PRN Reason: Fever >100.4 F Last Admin: 07/16/18 21:08 Dose: 400 mg Levothyroxine Sodium (Synthroid) 100 mcg PO 0600 [facility] Last Admin: 07/18/18 05:10 Dose: 100 mcg (Vortioxetine Hydrobromide [ Trintellix] 10 Mg) 10 mg PO DAILY [facility] Last Admin: 07/17/18 10:52 Dose: 10 mg Pantoprazole Sodium (Protonix Ec Tab) 40 mg PO ACB [facility] Last Admin: 07/17/18 08:48 Dose: 40 mg - Labs Labs: 07/18/18 04:15 07/18/18 04:15 PT 11.8 SECONDS (9.4-12.5) 07/17/18 10:40 INR 1.03 07/17/18 10:40 APTT 30.7 Seconds (25.1-36.5) 07/13/18 17:22 - Additional Findings Additional findings: - Constitutional Appears: Non-toxic, No Acute Distress - Head Exam Head Exam: ATRAUMATIC, NORMAL INSPECTION, NORMOCEPHALIC - Eye Exam Eye Exam: Improved scleral icterus Pupil Exam: NORMAL ACCOMODATION, EOMI - ENT Exam ENT Exam: Mucous Membranes Moist, Normal Exam - Neck Exam Neck Exam: Full ROM, Normal Inspection Additional comments: Trach present in prep for ERCP - Respiratory Exam Respiratory Exam: Clear to Ausculation Bilateral, NORMAL BREATHING PATTERN. absent: Accessory Muscle Use, Rales, Rhonchi, Wheezes, Respiratory Distress, Stridor - Cardiovascular Exam Cardiovascular Exam: Tachycardia, +S1, +S2 - GI/Abdominal Exam GI & Abdominal Exam: Obese, Soft, Normal Bowel Sounds. absent: Distended, Firm, Guarding, Rigid, Tenderness, Organomegaly, Rebound - Extremities Exam Extremities Exam: Full ROM, Normal Capillary Refill, Normal Inspection. absent: Calf Tenderness, Joint Swelling, Pedal Edema - Back Exam Back Exam: NORMAL INSPECTION - Neurological Exam Neurological Exam: Alert, Awake, Normal Gait, Oriented x3 - Psychiatric Exam Psychiatric exam: Normal Affect, Normal Mood - Skin Skin Exam: Dry, Intact, Normal Color, Warm Assessment and Plan - Assessment and Plan (Free Text) Assessment: Assessment: 68 year old male with past medical history of laryngeal cancer s/p stoma, lung cancer s/p lobectomy, recent cholecystectomy (05/15), COPD, hypertension and hypo thyroidism who presented with right sided abdominal pain, pruritis and fever. He was found to have transaminitis and fever. CT abd/pelvis and ultrasound show fatty liver. MRCP shows CBD stone, on IV abx. Tracheostomy placed 07/17 by surgical team. ERCP cancelled 2/2 bradycardia and EKG changes yesterday. Cardiac clearance provided, so patient set for ERCP this afternoon. Plan: Bradycardia 07/17 - resolved Patient was found to have HR 40-50s in afternoon, asymptomatic, no headaches, no chest pain or palpitations 1/2 L NS bolus was ordered EKG was ordered, which showed frequent PVCs with bigeminy Trops negative x3 Telemetry transfer Cardio consult - Dr. Vincent - cleared for ERCP f/u TSH R abdominal/flank pain with elevated LFTs w/ scleral icterus, pruritis, recent cholecystectomy -alcohol negative -UDS negative -direct bilirubin 2.3 on 07/17 -monitor LFTs- 81/140 on 07/17 -BCx: no growth x 2 after 4 days Lipase 985 -GI recs (Dr. Welsh) appreciated -MRCP (07/14): 5mm filling defect in distal CBD, stone with recent cholecystectomy -ERCP planned for this afternoon -ID Dr. Kay: Vanc 1 g daily and Zosyn 3.375 mg q8 -Medications -vanc/zosyn day 4 Fever- resolved -UA: trace bacteria, 5-10 wbc, 4-5 epithelial cells, trace LE - last fever overnight 07/16 at 100.9 -vanc/zosyn -NS 100 cc/hr Hypothyroidism - c/w home synthroid Ppx, Diet, Disposition -DVT: heparin -GI: protonix -Diet: NPO, Clear liquid after ERCP Dispo: f/u results of ERCP and monitor today before discharge Patient seen, case reviewed, and plan approved by Dr. Garcia. Artur Cruz, PGY-1
[2018-07-18] MEDS: Pantoprazole 40 mg EC Tab PO SCH (09:00)
--- NOTE | 2018-07-18 09:39 | CON ---
DATE: 07/18/2018 CARDIOLOGY CONSULTATION HISTORY: The patient is a 68-year-old male, who presents with fever. The source of fever is likely a retained stone status post his cholecystectomy. The patient was on schedule for ERCP, in which he developed some bradycardia with PVCs. The procedure was canceled. Cardiology evaluation was asked for. PAST MEDICAL HISTORY: The patient's past medical history includes multivessel PTCA in the past. His last evaluation included office visits, in which his cardiac status is stable, as well as a catheterization performed in 11/2016 where his left ventricular function was measured to be 45-50% with patent stents in the LAD, RCA. The patient denies chest pain, denies shortness of breath. There is no edema in the lower extremities. RISK FACTORS: His cardiac risk factors include hypercholesterolemia. SOCIAL HISTORY: He is a former smoker. REVIEW OF SYSTEMS: Fourteen-point review of systems is reviewed in detail. There are no cardiac issues noted. The patient has a history of throat CA, in which he has a chronic tracheostomy. PHYSICAL EXAMINATION: GENERAL: The patient is in no acute distress. VITAL SIGNS: Blood pressure is 144/88, the heart rate is in the 60s with occasional PVCs. NECK: Negative JVD. LUNGS: Without rales. CARDIOVASCULAR: Heart rate is S1, S2. EXTREMITIES: Without edema. IMAGING AND LABORATORY DATA: EKG shows normal sinus rhythm with nonspecific ST-T changes and PVCs. Laboratories include a hemoglobin of 13.3. Troponins are negative x3. LFTs are elevated. IMPRESSION: 1. Fever, likely secondary to retained stone. 2. Status post cholecystectomy. 3. Stable angina. 4. Mild ischemic dilated cardiomyopathy. 5. History of multivessel PTCA and stent. 6. 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 PLAN: Given these findings, the patient's cardiac status is stable. His anesthesia risks is higher given his tracheostomy as well as his mild ischemic dilated cardiomyopathy, however, his cardiac status is at its optimum at this time. Micky Vincent MD
[2018-07-18] MEDS: Vancomycin 1gm in NS 250ml 1 GM/250 ML BAG IVPB SCH ×2 (10:14→21:52)
[2018-07-18] MEDS ORDERED: Indomethacin 50 MG Suppository PR ONE ×2 (11:31→14:27)
[2018-07-18] MEDS ORDERED: Iohexol 240 (50 ml) ONE (11:33)
[2018-07-18] MEDS ORDERED: Midazolam 2 MG/2 ML VIAL ONE (13:23)
[2018-07-18] MEDS ORDERED: Etomidate 20 mg/10ml Inj IV ONE (13:24)
[2018-07-18 13:59] VITALS: O2SAT 99
[2018-07-18] MEDS ORDERED: Sevoflurane - Inhalation Anesthetic Liq (250 ml) ONE (14:19)
[2018-07-18] MEDS ORDERED: Phenylephrine 10 mg/ml Inj ONE (14:43)
[2018-07-18] MEDS ORDERED: Sodium Chloride 0.9% 1,000 ML IV SCH (15:45)
[2018-07-18] MEDS: Sodium Chloride 0.9% 1,000 ML IV SCH (18:14)
[2018-07-18 18:31] VITALS: RESP 20
[2018-07-19 07:04] LABS: BASO # 0.03 K/mm3 (0.0-2.0); BASO % 0.5 % (0.0-3.0); EOS # 0.3 (0.0-0.7); EOS % 4.9 % (1.5-5.0); GRAN # 4.01 (1.4-6.5); GRAN % 70.2 % (50.0-68.0); HEMOGLOBIN 13.6 g/dL (14.0-18.0); LYMPH # 0.9 (1.2-3.4); LYMPH % 15.8 % (22.0-35.0); MEAN CELL VOLUME 89.9 fl (80.0-105.0); MEAN CORPUSCULAR HEMOGLOBIN 29.1 pg (25.0-35.0); MEAN CORPUSCULAR HGB CONC 32.4 g/dl (31.0-37.0); MEAN PLATELET VOLUME 11.3 fl (7.0-11.0); MONO # 0.5 (0.1-0.6); MONO % 8.6 % (1.0-6.0); RBC 4.67 10^6/uL (3.5-6.1); RED CELL DISTRIBUTION WIDTH 14.7 % (11.5-14.5); WHITE BLOOD COUNT 5.7 10^3/uL (4.5-11.0)
[2018-07-19] MEDS: Piperacillin/Tazobact 3.375 gm 100 ML IVPB SCH (07:13)
[2018-07-19] MEDS: Levothyroxine 100 MCG TAB PO SCH (07:13)
[2018-07-19 07:37] LABS: ALBUMIN 3.3 g/dL (3.0-4.8); ALT/SGPT 109 U/L (7-56); AST/SGOT 66 U/L (17-59); BILIRUBIN,DIRECT 1.6 mg/dL (0.0-0.4); BLOOD UREA NITROGEN 10 mg/dL (7-21); CALCIUM 8.5 mg/dL (8.4-10.5); GFR NON-AFRICAN AMERICAN > 60
[2018-07-19] MEDS: Albuterol-Ipratrop 3 mg / 0.5 (3 ml) UD INH SCH (07:45)
[2018-07-19] MEDS: Budesonide 0.5 mg/2 ml Inhal Susp UD IH SCH (07:45)
[2018-07-19] MEDS ORDERED: Amoxicillin-Clav 875-125 mg Tab PO SCH (10:00)
[2018-07-19] MEDS: Pantoprazole 40 mg EC Tab PO SCH (10:00)
--- NOTE | 2018-07-19 10:01 | RAD ---
Date of service: 07/18/2018 PROCEDURE: ERCP HISTORY: ? CBD OBST COMPARISON: TECHNIQUE: 191 sec of fluoro time. 36.07 mGy. 6 images submitted FINDINGS: There is passage of a balloon catheter in the common bile duct. IMPRESSION: As above
--- NOTE | 2018-07-19 10:05 | PN ---
DATE: 07/19/2018 SUBJECTIVE: The patient is sitting in bed, in no acute distress, nontoxic. No fevers and chills. PHYSICAL EXAMINATION: VITAL SIGNS: On exam, temperature is 98, blood pressure is 120/70, respiratory rate of 16. HEENT: Examination of HEENT is unremarkable. NECK: Supple. LUNGS: Have decreased breath sounds. HEART: Normal S1, S2. ABDOMEN: Soft, nontender. LABORATORY DATA: Laboratory examination reveals a white count of 5.7, hemoglobin of 13, platelets of 191. BUN of 10, creatinine of 1, alk phos is noted. Urinalysis is reviewed. Serology is noted. Microbiology reveals the blood cultures are negative. Urine cultures are negative. ASSESSMENT AND PLAN: A 68-year-old male with obesity, body mass index of 30; lung cancer, status post right upper lobectomy; chronic obstructive lung disease; dyslipidemia; coronary artery disease, status post cholecystectomy; admitted with abdominal pain with sepsis, cholangitis, acute pancreatitis, bile duct stone in a patient with lung cancer. Scheduled for ERCP. Did have laparoscopic cholecystectomy on 05/21/2018 secondary to a ascending cholangitis. History of laryngeal cancer, status post laryngectomy with tracheostomy. Had MRCP and scheduled for ERCP and the patient had an ERCP with sphincterotomy and balloon sweep, aspiration of bile and gastritis and common bile duct stone. We will discontinue the vancomycin and discontinue Zosyn and complete therapy with p.o. Augmentin 875 p.o. b.i.d. x3 days. Toan Turner MD
--- NOTE | 2018-07-19 10:48 | CP.PCM.PN ---
<Kvng Caputo - Last Filed: 07/19/18 12:28> Subjective - Date & Time of Evaluation Date of Evaluation: 07/19/18 Time of Evaluation: 10:43 - Subjective Subjective: Patient is looking very good today. Tolerating diet. No abdominal pain. Passing flatus. Requesting to go home. Trach still placed at time of exam. Objective - Vital Signs/Intake and Output Vital Signs (last 24 hours): Temp Pulse Resp BP Pulse Ox 99 F 69 20 157/100 H 99 07/18/18 18:31 07/19/18 02:00 07/18/18 18:31 07/18/18 18:31 07/18/18 16:15 Intake and Output: 07/19/18 07/19/18 06:59 18:59 Intake Total 180 Output Total 350 Balance -170 - Medications Medications: Current Medications Albuterol/Ipratropium (Duoneb 3 Mg/0.5 Mg (3 Ml) Ud) 3 ml INH [facility] Last Admin: 07/19/18 07:45 Dose: 3 ml Amoxicillin/Clavulanate Potassium (Augmentin 875 Mg-125 Mg Tab) 1 tab PO Q12 [facility]; Protocol Stop: 07/22/18 10:01 Last Admin: 07/19/18 10:00 Dose: 1 tab Aspirin (Ecotrin) 81 mg PO DAILY [facility] Last Admin: 07/19/18 10:01 Dose: 81 mg Budesonide (Pulmicort Respules) 0.5 mg IH [facility] Last Admin: 07/19/18 07:45 Dose: 0.5 mg Heparin Sodium (Porcine) (Heparin) 5,000 units SC Q12 [facility]; Protocol Last Admin: 07/19/18 10:05 Dose: 5,000 units Sodium Chloride (Sodium Chloride 0.9%) 1,000 mls @ 100 mls/hr IV .Q10H [facility] Last Admin: 07/18/18 18:14 Dose: 100 mls/hr Sodium Chloride (Sodium Chloride 0.9%) 1,000 mls @ 100 mls/hr IV .Q10H [facility] Last Admin: 07/18/18 18:56 Dose: Not Given Ibuprofen (Motrin Tab) 400 mg PO Q6H PRN PRN Reason: Fever >100.4 F Last Admin: 07/16/18 21:08 Dose: 400 mg Levothyroxine Sodium (Synthroid) 100 mcg PO 0600 [facility] Last Admin: 07/19/18 07:13 Dose: 100 mcg (Vortioxetine Hydrobromide [ Trintellix] 10 Mg) 10 mg PO DAILY [facility] Last Admin: 07/19/18 10:06 Dose: 10 mg Pantoprazole Sodium (Protonix Ec Tab) 40 mg PO ACB [facility] Last Admin: 07/19/18 10:00 Dose: 40 mg - Labs Labs: 07/19/18 06:45 07/19/18 06:45 PT 11.8 SECONDS (9.4-12.5) 07/17/18 10:40 INR 1.03 07/17/18 10:40 APTT 30.7 Seconds (25.1-36.5) 07/13/18 17:22 - Constitutional Appears: Non-toxic, No Acute Distress - Head Exam Head Exam: NORMAL INSPECTION, NORMOCEPHALIC - Eye Exam Eye Exam: EOMI, Normal appearance - Respiratory Exam Respiratory Exam: Clear to Ausculation Bilateral, NORMAL BREATHING PATTERN - Cardiovascular Exam Cardiovascular Exam: REGULAR RHYTHM, +S1, +S2 - GI/Abdominal Exam GI & Abdominal Exam: Soft, Normal Bowel Sounds. absent: Tenderness - Extremities Exam Extremities Exam: Full ROM, Normal Inspection - Neurological Exam Neurological Exam: Alert, Awake, Oriented x3 - Psychiatric Exam Psychiatric exam: Normal Affect, Normal Mood - Skin Skin Exam: Dry, Normal Color Assessment and Plan - Assessment and Plan (Free Text) Assessment: 68 year old male with PMH of lap cholecystectomy 05/21/18 2/2 calculous cholecystitis, Laryngeal cancer s/p laryngectomy with tracheostomy, Lung cancer s/p Right upper lobectomy, COPD, HTN, and Hypothyroidism presenting with abdominal pain. Active treatment of hyperbilirubinemia with transaminitis 2/2 choledocholithiasis noted on MRCP complicated by cholangitis. Plan: -ERCP 07/18/18 - sphincterotomy and balloon sweep. -continue abx per ID -Start ursodiol 300mg BID -LFTs need to be followed up as outpt. -Advance diet and OK to go home from GI perspective. <Blaise,Kovil V - Last Filed: 07/20/18 21:29> Objective - Vital Signs/Intake and Output Vital Signs (last 24 hours): Temp Pulse Resp BP Pulse Ox 98.5 F 75 20 110/78 99 07/19/18 12:00 07/19/18 14:00 07/19/18 12:00 07/19/18 12:00 07/18/18 16:15 - Labs Labs: 07/19/18 06:45 07/19/18 06:45 PT 11.8 SECONDS (9.4-12.5) 07/17/18 10:40 INR 1.03 07/17/18 10:40 APTT 30.7 Seconds (25.1-36.5) 07/13/18 17:22 Attending/Attestation - Attestation I have personally seen and examined this patient.: Yes I have fully participated in the care of the patient.: Yes I have reviewed all pertinent clinical information, including history, physical exam and plan: Yes Notes (Text): This is an addendum to GI progress report dictated by the GI Fellow.The patient was seen and examined earlier. Medical records, lab studies, imagings were reviewed. Last 24 hours events reviewed. Agreed with the above treatment plan as outlined in GI Fellow 's notes with the addition of the following Status post ERCP sphincteromy, but remains to be removal of CBD stone. Post ERCP showed good drainage of the right. Effects No stent was placed Tolerating diet Follow-up LFT as outpatient Continue ursodiol for a short course advised follow-up in the office and with PCP 07/20/18 21:27
[2018-07-19] MEDS ORDERED: Levothyroxine 112 MCG TAB PO SCH (11:03)
--- NOTE | 2018-07-19 12:41 | CP.PCM.DIS ---
<Artur Cruz - Last Filed: 07/19/18 13:17> Provider - Provider Date of Admission: 07/13/18 19:18 Attending physician: Dasia Davila MD Primary care physician: None Consults: GI - Dr. Welsh Surgery - Dr. Williamson ID - Dr. Marie Cardio - Dr. Vincent Time Spent in preparation of Discharge (in minutes): 40 Hospital Course - Lab Results Lab Results: Micro Results 07/13/18 19:01 Blood-Venous Blood Culture - Final NO GROWTH AFTER 5 DAYS 07/13/18 19:01 Blood-Venous Gram Stain - Final TEST NOT PERFORMED 07/13/18 17:22 Blood-Venous Blood Culture - Final NO GROWTH AFTER 5 DAYS 07/13/18 17:22 Blood-Venous Gram Stain - Final TEST NOT PERFORMED 07/14/18 13:30 Urine Urine Culture - Final No Growth (<1,000 CFU/ML) Most Recent Lab Values WBC 5.7 10^3/uL (4.5-11.0) 07/19/18 06:45 RBC 4.67 10^6/uL (3.5-6.1) 07/19/18 06:45 Hgb 13.6 g/dL (14.0-18.0) L 07/19/18 06:45 Hct 42.0 % (42.0-52.0) 07/19/18 06:45 MCV 89.9 fl (80.0-105.0) 07/19/18 06:45 MCH 29.1 pg (25.0-35.0) 07/19/18 06:45 MCHC 32.4 g/dl (31.0-37.0) 07/19/18 06:45 RDW 14.7 % (11.5-14.5) H 07/19/18 06:45 Plt Count 191 10^3/uL (120.0-450.0) 07/19/18 06:45 MPV 11.3 fl (7.0-11.0) H 07/19/18 06:45 Gran % 70.2 % (50.0-68.0) H 07/19/18 06:45 Lymph % (Auto) 15.8 % (22.0-35.0) L 07/19/18 06:45 [place] % (Auto) 8.6 % (1.0-6.0) H 07/19/18 06:45 Eos % (Auto) 4.9 % (1.5-5.0) 07/19/18 06:45 Baso % (Auto) 0.5 % (0.0-3.0) 07/19/18 06:45 Gran # 4.01 (1.4-6.5) 07/19/18 06:45 Lymph # (Auto) 0.9 (1.2-3.4) L 07/19/18 06:45 [place] # (Auto) 0.5 (0.1-0.6) 07/19/18 06:45 Eos # (Auto) 0.3 (0.0-0.7) 07/19/18 06:45 Baso # (Auto) 0.03 K/mm3 (0.0-2.0) 07/19/18 06:45 Neutrophils % (Manual) 92 % (50.0-70.0) H 07/13/18 17:22 Band Neutrophils % 1 % (0-2) 07/13/18 17:22 Lymphocytes % (Manual) 3 % (22.0-35.0) L 07/13/18 17:22 Monocytes % (Manual) 4 % (1.0-6.0) 07/13/18 17:22 Toxic Granulation 1+ 07/13/18 17:22 Platelet Evaluation Normal (NORMAL) 07/13/18 17:22 Hypochromasia 1+ 07/13/18 17:22 Rouleaux 2+ 07/13/18 17:22 PT 11.8 SECONDS (9.4-12.5) 07/17/18 10:40 INR 1.03 07/17/18 10:40 APTT 30.7 Seconds (25.1-36.5) 07/13/18 17:22 pO2 24 mm/Hg (30-55) L 07/14/18 13:58 VBG pH 7.37 (7.32-7.43) 07/14/18 13:58 VBG pCO2 54.0 (40-60) 07/14/18 13:58 VBG HCO3 31.2 mmol/l (21-28) H 07/14/18 13:58 VBG Total CO2 32.9 mmol.L (22-28) H 07/14/18 13:58 VBG O2 Sat (Calc) 43.1 % (40-65) 07/14/18 13:58 VBG Base Excess 4.5 mmol/L (0.0-2.0) H 07/14/18 13:58 VBG Potassium 4.7 mmol/L (3.6-5.2) 07/14/18 13:58 Sodium 139.0 mmol/L (132-148) 07/14/18 13:58 Chloride 105.0 mmol/L (98-107) 07/14/18 13:58 Glucose 129 mg/dl (75-110) H 07/14/18 13:58 Lactate 1.3 mmol/L (0.7-2.1) 07/14/18 13:58 FiO2 21.0 % 07/14/18 13:58 Sodium 141 mmol/L (132-148) 07/19/18 06:45 Potassium 3.9 mmol/L (3.6-5.0) 07/19/18 06:45 Chloride 106 mmol/L (98-107) 07/19/18 06:45 Carbon Dioxide 30 mmol/L (21-33) 07/19/18 06:45 Anion Gap 9 (10-20) L 07/19/18 06:45 BUN 10 mg/dL (7-21) 07/19/18 06:45 Creatinine 1.1 mg/dl (0.8-1.5) 07/19/18 06:45 Est GFR ( Amer) > 60 07/19/18 06:45 Est GFR (Non-Af Amer) > 60 07/19/18 06:45 Random Glucose 83 mg/dL (70-110) 07/19/18 06:45 Lactic Acid 1.2 mmol/L (0.7-2.1) 07/17/18 11:10 Calcium 8.5 mg/dL (8.4-10.5) 07/19/18 06:45 Phosphorus 2.6 mg/dL (2.5-4.5) 07/14/18 07:00 Magnesium 1.7 mg/dL (1.7-2.2) 07/14/18 07:00 Total Bilirubin 2.2 mg/dL (0.2-1.3) H 07/19/18 06:45 Direct Bilirubin 1.6 mg/dL (0.0-0.4) H 07/19/18 06:45 AST 66 U/L (17-59) H 07/19/18 06:45 ALT 109 U/L (7-56) H 07/19/18 06:45 Alkaline Phosphatase 225 U/L (38-126) H 07/19/18 06:45 Troponin I 0.01 ng/mL 07/18/18 04:15 Total Protein 6.6 g/dL (5.8-8.3) 07/19/18 06:45 Albumin 3.3 g/dL (3.0-4.8) 07/19/18 06:45 Globulin 3.2 gm/dL 07/19/18 06:45 Albumin/Globulin Ratio 1.0 (1.1-1.8) L 07/19/18 06:45 Triglycerides 161 mg/dL (35-160) H 07/14/18 07:00 Cholesterol 142 mg/dL (130-200) 07/14/18 07:00 LDL Cholesterol Direct 94 mg/dL (0-129) 07/14/18 07:00 HDL Cholesterol 25 mg/dL (29-60) L 07/14/18 07:00 Lipase 985 U/L (23-300) H 07/13/18 17:22 Procalcitonin 1.35 NG/ML (0.19-0.49) H 07/14/18 07:00 Free T4 1.42 ng/dL (0.78-2.19) 07/19/18 06:30 TSH 3rd Generation 12.70 mIU/mL (0.46-4.68) H 07/18/18 20:15 Venous Blood Potassium 4.7 mmol/L (3.6-5.2) 07/14/18 13:58 Urine Color Dark yellow (YELLOW) 07/14/18 13:35 Urine Appearance Sl cloudy (CLEAR) 07/14/18 13:35 Urine pH 6.0 (4.7-8.0) 07/14/18 13:35 Ur Specific [place] 1.025 (1.005-1.035) 07/14/18 13:35 Urine Protein Trace mg/dL (<30 mg/dL) H 07/14/18 13:35 Urine Glucose (UA) Negative mg/dL (NEGATIVE) 07/14/18 13:35 Urine Ketones 15 mg/dL (NEGATIVE) H 07/14/18 13:35 Urine Blood Negative (NEGATIVE) 07/14/18 13:35 Urine Nitrate Negative (NEGATIVE) 07/14/18 13:35 Urine Bilirubin Large (NEGATIVE) H 07/14/18 13:35 Urine Urobilinogen 2.0 E.U./dL (<1 E.U./dL) H 07/14/18 13:35 Ur Leukocyte Esterase Trace Ammon/uL (NEGATIVE) H 07/14/18 13:35 Urine RBC 1 - 3 /hpf (0-2) 07/14/18 13:35 Urine WBC 5 - 10 /hpf (0-6) 07/14/18 13:35 Ur Epithelial Cells 4 - 5 /hpf (0-5) 07/14/18 13:35 Urine Bacteria Trace (NEG) 07/14/18 13:35 Urine Opiates Screen Negative (NEGATIVE) 07/14/18 13:35 Urine Methadone Screen Negative (NEGATIVE) 07/14/18 13:35 Ur Barbiturates Screen Negative (NEGATIVE) 07/14/18 13:35 Ur Phencyclidine Scrn Negative (NEGATIVE) 07/14/18 13:35 Ur Amphetamines Screen Negative (NEGATIVE) 07/14/18 13:35 U Benzodiazepines Scrn Negative (NEGATIVE) 07/14/18 13:35 U Oth Cocaine Metabols Negative (NEGATIVE) 07/14/18 13:35 U Cannabinoids Screen Negative (NEGATIVE) 07/14/18 13:35 Alcohol, Quantitative < 10 mg/dL (0-10) 07/14/18 07:00 Hepatitis A IgM Ab Negative (NEGATIVE) 07/14/18 07:40 Hep Bs Antigen Negative (NEGATIVE) 07/14/18 07:40 Hep B Core IgM Ab Negative (NEGATIVE) 07/14/18 07:40 Hepatitis C Antibody Negative (NEGATIVE) 07/14/18 07:40 Blood Type A POSITIVE 07/13/18 17:10 Antibody Screen Negative 07/13/18 17:10 BBK History Checked Patient has bt 07/13/18 17:10 - Hospital Course Hospital Course: Artur Cruz, PGY-1 Discharge Summary for Hospitalist Service Pt is a 68 yo male with a PMH of lung cancer s/p lobectomy, s/p cholecystectomy 2 months ago, COPD, HLD, CAD, hypothroidism, presents to the ED complaining of fever for the past 2 days. Patient also had associated rash on his upper extremities with itchiness, which resolved. ID was consulted (Dr. Marie) and GI (Dr. Welsh). Patient was found to have transaminitis and fever. Last fever was on 07/16. Abdominal ultrasound found Heterogeneous echogenic liver suggestive of fibrofatty infiltration. No ultrasound evidence of acute pathology in the abdomen. Transaminitis continued to improve. CT abd/pelvis and ultrasound show fatty liver. MRCP was ordered and showed CBD stone. Patient was then put on IV abx for 5 days of Vanc and Zosyn. Hospital course complicated by periods of asymptomatic bradycardia. EKG was performed which showed nonspecific T wave changes. Troponins were trended and were negative x3. Tracheostomy was placed 07/17 by surgical team. ERCP was initally cancelled 2/2 bradycardia and EKG changes. Dr. Vincent (cardio ) was consulted in order to clear for ERCP, which he did. Patient received ERCP on 07/18, which showed 5 mm stone in CBD, which was extracted by balloon. Patient tolerated ERCP without incident. Trach was removed morning of discharge. TSH was found to be elevated so patient's synthroid was elevated to 112 mcg every day. Upon discharge, ID recommended Augmentin 875 BID for 3 days and GI recommended Ursodiol 300 mg BID. Patient was made aware of recommendations and need to follow up in GI and health clinic within one week. Multiple attempts were made to make appointment in [facility]. Will continue to do so and call patient back with appointment time and date. Patient hemodynamically stable and all questions were answered in detail prior to discharge. Patient seen, case reviewed and plan approved by Dr. Davila. Discharge Exam - Additional Findings Additional findings: - Constitutional Appears: Non-toxic, No Acute Distress - Head Exam Head Exam: ATRAUMATIC, NORMAL INSPECTION, NORMOCEPHALIC - Eye Exam Eye Exam: Scleral icterus Pupil Exam: NORMAL ACCOMODATION, EOMI - ENT Exam ENT Exam: Mucous Membranes Moist, Normal Exam - Neck Exam Neck Exam: Full ROM, Normal Inspection Additional comments: stoma present, trach removed - Respiratory Exam Respiratory Exam: Clear to Ausculation Bilateral, NORMAL BREATHING PATTERN. absent: Accessory Muscle Use, Rales, Rhonchi, Wheezes, Respiratory Distress, Stridor - Cardiovascular Exam Cardiovascular Exam: Tachycardia, +S1, +S2 - GI/Abdominal Exam GI & Abdominal Exam: Obese, Soft, Normal Bowel Sounds. absent: Distended, Firm, Guarding, Rigid, Tenderness, Organomegaly, Rebound - Extremities Exam Extremities Exam: Full ROM, Normal Capillary Refill, Normal Inspection. absent: Calf Tenderness, Joint Swelling, Pedal Edema - Back Exam Back Exam: NORMAL INSPECTION - Neurological Exam Neurological Exam: Alert, Awake, Normal Gait, Oriented x3 - Psychiatric Exam Psychiatric exam: Normal Affect, Normal Mood - Skin Skin Exam: Dry, Intact, Normal Color, Warm Discharge Plan - Discharge Medications Prescriptions: Amoxicillin/Clavulanate [Augmentin 875 MG-125 MG Tab] 1 tab PO Q12 #6 tab Levothyroxine [Synthroid] 112 mcg PO 0600 #30 tab Ursodiol [Actigall] 300 mg PO BID #60 cap - Follow Up Plan Condition: STABLE Disposition: HOME/ ROUTINE Instructions: Jaundice, Adult (DC), Cholecystitis (DC), Acute Abdominal Pain (DC), Acute Abdominal Pain (GEN) Additional Instructions: Please follow up in [facility] within [address] Hollis. Call was made today on your behalf. I will continue to call and make an appointment for you, and will call you with appointment date and time. Please follow up with GI Dr. Welsh for evaluation of your recent procedures. Please take your Augmentin antibiotic twice a day for 3 days. Please take Ursodiol twice a day. Please take your new dose of Synthroid (112 mcg) daily. Should symptoms worsen, please visit nearest emergency department. Referrals: Maira Welsh MD [Medical Doctor] - <Dasia Davila - Last Filed: 07/19/18 14:16> Provider - Provider Date of Admission: 07/13/18 19:18 Attending physician: Dasia Davlia MD Hospital Course - Lab Results Lab Results: Micro Results 07/13/18 19:01 Blood-Venous Blood Culture - Final NO GROWTH AFTER 5 DAYS 07/13/18 19:01 Blood-Venous Gram Stain - Final TEST NOT PERFORMED 07/13/18 17:22 Blood-Venous Blood Culture - Final NO GROWTH AFTER 5 DAYS 07/13/18 17:22 Blood-Venous Gram Stain - Final TEST NOT PERFORMED 07/14/18 13:30 Urine Urine Culture - Final No Growth (<1,000 CFU/ML) Most Recent Lab Values WBC 5.7 10^3/uL (4.5-11.0) 07/19/18 06:45 RBC 4.67 10^6/uL (3.5-6.1) 07/19/18 06:45 Hgb 13.6 g/dL (14.0-18.0) L 07/19/18 06:45 Hct 42.0 % (42.0-52.0) 07/19/18 06:45 MCV 89.9 fl (80.0-105.0) 07/19/18 06:45 MCH 29.1 pg (25.0-35.0) 07/19/18 06:45 MCHC 32.4 g/dl (31.0-37.0) 07/19/18 06:45 RDW 14.7 % (11.5-14.5) H 07/19/18 06:45 Plt Count 191 10^3/uL (120.0-450.0) 07/19/18 06:45 MPV 11.3 fl (7.0-11.0) H 07/19/18 06:45 Gran % 70.2 % (50.0-68.0) H 07/19/18 06:45 Lymph % (Auto) 15.8 % (22.0-35.0) L 07/19/18 06:45 [place] % (Auto) 8.6 % (1.0-6.0) H 07/19/18 06:45 Eos % (Auto) 4.9 % (1.5-5.0) 07/19/18 06:45 Baso % (Auto) 0.5 % (0.0-3.0) 07/19/18 06:45 Gran # 4.01 (1.4-6.5) 07/19/18 06:45 Lymph # (Auto) 0.9 (1.2-3.4) L 07/19/18 06:45 [place] # (Auto) 0.5 (0.1-0.6) 07/19/18 06:45 Eos # (Auto) 0.3 (0.0-0.7) 07/19/18 06:45 Baso # (Auto) 0.03 K/mm3 (0.0-2.0) 07/19/18 06:45 Neutrophils % (Manual) 92 % (50.0-70.0) H 07/13/18 17:22 Band Neutrophils % 1 % (0-2) 07/13/18 17:22 Lymphocytes % (Manual) 3 % (22.0-35.0) L 07/13/18 17:22 Monocytes % (Manual) 4 % (1.0-6.0) 07/13/18 17:22 Toxic Granulation 1+ 07/13/18 17:22 Platelet Evaluation Normal (NORMAL) 07/13/18 17:22 Hypochromasia 1+ 07/13/18 17:22 Rouleaux 2+ 07/13/18 17:22 PT 11.8 SECONDS (9.4-12.5) 07/17/18 10:40 INR 1.03 07/17/18 10:40 APTT 30.7 Seconds (25.1-36.5) 07/13/18 17:22 pO2 24 mm/Hg (30-55) L 07/14/18 13:58 VBG pH 7.37 (7.32-7.43) 07/14/18 13:58 VBG pCO2 54.0 (40-60) 07/14/18 13:58 VBG HCO3 31.2 mmol/l (21-28) H 07/14/18 13:58 VBG Total CO2 32.9 mmol.L (22-28) H 07/14/18 13:58 VBG O2 Sat (Calc) 43.1 % (40-65) 07/14/18 13:58 VBG Base Excess 4.5 mmol/L (0.0-2.0) H 07/14/18 13:58 VBG Potassium 4.7 mmol/L (3.6-5.2) 07/14/18 13:58 Sodium 139.0 mmol/L (132-148) 07/14/18 13:58 Chloride 105.0 mmol/L (98-107) 07/14/18 13:58 Glucose 129 mg/dl (75-110) H 07/14/18 13:58 Lactate 1.3 mmol/L (0.7-2.1) 07/14/18 13:58 FiO2 21.0 % 07/14/18 13:58 Sodium 141 mmol/L (132-148) 07/19/18 06:45 Potassium 3.9 mmol/L (3.6-5.0) 07/19/18 06:45 Chloride 106 mmol/L (98-107) 07/19/18 06:45 Carbon Dioxide 30 mmol/L (21-33) 07/19/18 06:45 Anion Gap 9 (10-20) L 07/19/18 06:45 BUN 10 mg/dL (7-21) 07/19/18 06:45 Creatinine 1.1 mg/dl (0.8-1.5) 07/19/18 06:45 Est GFR ( Amer) > 60 07/19/18 06:45 Est GFR (Non-Af Amer) > 60 07/19/18 06:45 Random Glucose 83 mg/dL (70-110) 07/19/18 06:45 Lactic Acid 1.2 mmol/L (0.7-2.1) 07/17/18 11:10 Calcium 8.5 mg/dL (8.4-10.5) 07/19/18 06:45 Phosphorus 2.6 mg/dL (2.5-4.5) 07/14/18 07:00 Magnesium 1.7 mg/dL (1.7-2.2) 07/14/18 07:00 Total Bilirubin 2.2 mg/dL (0.2-1.3) H 07/19/18 06:45 Direct Bilirubin 1.6 mg/dL (0.0-0.4) H 07/19/18 06:45 AST 66 U/L (17-59) H 07/19/18 06:45 ALT 109 U/L (7-56) H 07/19/18 06:45 Alkaline Phosphatase 225 U/L (38-126) H 07/19/18 06:45 Troponin I 0.01 ng/mL 07/18/18 04:15 Total Protein 6.6 g/dL (5.8-8.3) 07/19/18 06:45 Albumin 3.3 g/dL (3.0-4.8) 07/19/18 06:45 Globulin 3.2 gm/dL 07/19/18 06:45 Albumin/Globulin Ratio 1.0 (1.1-1.8) L 07/19/18 06:45 Triglycerides 161 mg/dL (35-160) H 07/14/18 07:00 Cholesterol 142 mg/dL (130-200) 07/14/18 07:00 LDL Cholesterol Direct 94 mg/dL (0-129) 07/14/18 07:00 HDL Cholesterol 25 mg/dL (29-60) L 07/14/18 07:00 Lipase 985 U/L (23-300) H 07/13/18 17:22 Procalcitonin 1.35 NG/ML (0.19-0.49) H 07/14/18 07:00 Free T4 1.42 ng/dL (0.78-2.19) 07/19/18 06:30 TSH 3rd Generation 12.70 mIU/mL (0.46-4.68) H 07/18/18 20:15 Venous Blood Potassium 4.7 mmol/L (3.6-5.2) 07/14/18 13:58 Urine Color Dark yellow (YELLOW) 07/14/18 13:35 Urine Appearance Sl cloudy (CLEAR) 07/14/18 13:35 Urine pH 6.0 (4.7-8.0) 07/14/18 13:35 Ur Specific [place] 1.025 (1.005-1.035) 07/14/18 13:35 Urine Protein Trace mg/dL (<30 mg/dL) H 07/14/18 13:35 Urine Glucose (UA) Negative mg/dL (NEGATIVE) 07/14/18 13:35 Urine Ketones 15 mg/dL (NEGATIVE) H 07/14/18 13:35 Urine Blood Negative (NEGATIVE) 07/14/18 13:35 Urine Nitrate Negative (NEGATIVE) 07/14/18 13:35 Urine Bilirubin Large (NEGATIVE) H 07/14/18 13:35 Urine Urobilinogen 2.0 E.U./dL (<1 E.U./dL) H 07/14/18 13:35 Ur Leukocyte Esterase Trace Ammon/uL (NEGATIVE) H 07/14/18 13:35 Urine RBC 1 - 3 /hpf (0-2) 07/14/18 13:35 Urine WBC 5 - 10 /hpf (0-6) 07/14/18 13:35 Ur Epithelial Cells 4 - 5 /hpf (0-5) 07/14/18 13:35 Urine Bacteria Trace (NEG) 07/14/18 13:35 Urine Opiates Screen Negative (NEGATIVE) 07/14/18 13:35 Urine Methadone Screen Negative (NEGATIVE) 07/14/18 13:35 Ur Barbiturates Screen Negative (NEGATIVE) 07/14/18 13:35 Ur Phencyclidine Scrn Negative (NEGATIVE) 07/14/18 13:35 Ur Amphetamines Screen Negative (NEGATIVE) 07/14/18 13:35 U Benzodiazepines Scrn Negative (NEGATIVE) 07/14/18 13:35 U Oth Cocaine Metabols Negative (NEGATIVE) 07/14/18 13:35 U Cannabinoids Screen Negative (NEGATIVE) 07/14/18 13:35 Alcohol, Quantitative < 10 mg/dL (0-10) 07/14/18 07:00 Hepatitis A IgM Ab Negative (NEGATIVE) 07/14/18 07:40 Hep Bs Antigen Negative (NEGATIVE) 07/14/18 07:40 Hep B Core IgM Ab Negative (NEGATIVE) 07/14/18 07:40 Hepatitis C Antibody Negative (NEGATIVE) 07/14/18 07:40 Blood Type A POSITIVE 07/13/18 17:10 Antibody Screen Negative 07/13/18 17:10 BBK History Checked Patient has bt 07/13/18 17:10 Attending/Attestation - Attestation I have personally seen and examined this patient.: Yes I have fully participated in the care of the patient.: Yes I have reviewed all pertinent clinical information, including history, physical exam and plan: Yes Notes (Text): 07/19/18 14:10 68 year old male with past medical history of lung cancer s/p lobectomy, hypothyroidism, COPD, CAD and recent cholecystectomy who presented with right sided abdominal pain, fever, jaundice and elevated LFTs. He was started on iv antibiotics. Abdominal ultrasound showed fibrofatty infiltration of liver. CT abd/pelvis also showed fatty liver. MRCP showed CBD stone. He was seen by GI and underwent ERCP yesterday with CBD stone extraction by balloon. His symptoms improved. LFTs improved. TSH was elevated and synthroid dose was increased. Patient is discharged home to follow up with [facility]. Continue po antibiotics x 3 days. Continue with ursodiol. Repeat TFTs in 4-6 weeks. Follow up with GI as outpatient. Monitor LFTs closely as outpatient. Dasia Davila MD Hospitalist.
[2018-07-19 13:14] VITALS: BP 110/78; TEMP 98.5
[2018-07-19 14:46] VITALS: PULSE 75
== END 2018-07-19 14:51 | disposition home or self-care (01) | DRG 871 ==
LOC: ED 16:06 → ERH 19:18 → 5RSO 22:55 → 2RNO 07-17 20:21
PROVIDERS: ADMIT Internal Medicine; ATTEND Internal Medicine
PROC: 0FC98ZZ Extirpation of Matter from Common Bile Duct, Via Natural or Artificial Opening Endoscopic (ICD-10-PCS; principal; 2018-07-18 13:30)
PROC: BF101ZZ Fluoroscopy of Bile Ducts using Low Osmolar Contrast (ICD-10-PCS; 2018-07-18 13:30)
DX: A41.9 Sepsis, unspecified organism (principal); K85.90 Acute pancreatitis without necrosis or infection, unspecified; K80.31 Calculus of bile duct with cholangitis, unspecified, with obstruction; J84.9 Interstitial pulmonary disease, unspecified; I42.0 Dilated cardiomyopathy; J44.9 Chronic obstructive pulmonary disease, unspecified; I25.10 Atherosclerotic heart disease of native coronary artery without angina pectoris; E03.9 Hypothyroidism, unspecified; L29.9 Pruritus, unspecified; I10 Essential (primary) hypertension; F41.9 Anxiety disorder, unspecified; K76.0 Fatty (change of) liver, not elsewhere classified; I25.5 Ischemic cardiomyopathy; K29.70 Gastritis, unspecified, without bleeding; E78.5 Hyperlipidemia, unspecified; I49.3 Ventricular premature depolarization; E66.9 Obesity, unspecified; Z68.30 Body mass index [BMI] 30.0-30.9, adult; Z85.118 Personal history of other malignant neoplasm of bronchus and lung; Z85.21 Personal history of malignant neoplasm of larynx; Z90.02 Acquired absence of larynx; Z87.891 Personal history of nicotine dependence; Z79.82 Long term (current) use of aspirin; Z93.0 Tracheostomy status; Z90.2 Acquired absence of lung [part of]; Z95.5 Presence of coronary angioplasty implant and graft

== ENCOUNTER 2018-10-12 06:20 | Outpatient (CLI) | payer MEDICARE | END 2018-10-12 06:21 | disposition home or self-care (01) | LOC: CARDIO 06:20 ==

== ENCOUNTER 2018-11-26 10:34 | Inpatient (IN) | payer MEDICARE ==
[2018-11-26] MEDS ORDERED: Albuterol-Ipratrop 3 mg / 0.5 (3 ml) UD ONE (11:27)
[2018-11-26 11:35] VITALS: BMI 27.2
[2018-11-26] MEDS ORDERED: Albuterol-Ipratrop 3 mg / 0.5 (3 ml) UD IH STA ×2 (11:45→12:35)
--- NOTE | 2018-11-26 11:51 | ED PDOC ---
Arrival/HPI - General Historian: Patient - History of Present Illness Narrative History of Present Illness (Text): 11/26/18 11:47 69 y/o M with a pmh of CAD (3 stents), HLD, laryngectomy and COPD presents complaining of SOB and intermittent chest tightness w/ exertion x1week, last episode today. Patient reports that he lost sensation to his left arm for 10 mins x2 days ago. Patient recalled taking 81mg of aspirin this morning and 1 breathing treatment which did not cause any relief. On patient visit with Dr. Ingram 5 days ago, patient was advised to present to the emergency department if chest tightness persisted. Patient denies any trauma, fevers, chills, headache, dizziness, cough, diaphoresis, nausea, leg swelling, or any other complaint. PMD: Dr. Parra Cards: Dr. ingram Time/Duration: < week Symptom Onset: Gradual Symptom Course: Unchanged Activities at Onset: Light Context: Home Past Medical History - Provider Review Nursing Documentation Reviewed: Yes - Infectious Disease Hx of Infectious Diseases: None - Cardiac Hx GA: Yes - Pulmonary Hx Chronic Obstructive Pulmonary Disease (COPD): Yes - Neurological Hx Paralysis: No - HEENT Hx Blind: No Hx Deafness: No Hx Difficulty Chewing: No Hx Epistaxis: No Hx Glaucoma: No Hx Macular Degeneration: No - Renal Hx Dialysis: No Hx Kidney Stones: No Hx Neurogenic Bladder: No Hx Pyelonephritis: No Hx Renal Cancer: No Hx Renal Failure: No - Endocrine/Metabolic Hx Adrenal Cancer: No Hx Diabetes Insipidus: No Hx Diabetes Mellitus Type 1: No Hx Diabetes Mellitus Type 2: No Hx Hyperthyroidism: No Hx Systemic Lupus Erythematosus: No - Hematological/Oncological Hx Blood Transfusions: (unknown) - Integumentary Hx Basal Cell Carcinoma: No Hx Eczema: No Hx Melanoma: No - Musculoskeletal/Rheumatological Hx Musculoskeletal Disorders: No - Gastrointestinal Hx Colostomy: No Hx Crohn's Disease: No Hx Diverticulitis: No Hx Gall Bladder Disease: No Hx Gastroesophageal Reflux: Yes Hx Gastrointestinal Ulcer: No Hx Ileostomy: No Hx Liver Failure: No Hx Pancreatitis: Yes HX Swallowing Problems: No - Genitourinary/Gynecological Hx Hematuria: No Hx Incontinence: No Hx Prostate Problems: No Hx Sexually Transmitted Diseases: No Hx Urinary Tract Infection: No - Psychiatric Hx Emotional Abuse: No Hx Physical Abuse: No Hx Substance Use: No - Surgical History Hx Amputation: No Hx Appendectomy: No Hx Cholecystectomy: No Hx Gastric Bypass Surgery: No Hx Hysterectomy: No Hx Inguinal Hernia Repair: No Hx Joint Replacement: No Hx Kidney Transplant: No Hx Liver Transplant: No Hx Mastectomy: No Hx Musculoskeletal Surgery: No Hx Open Heart Surgery: No Hx Orthopedic Surgery: No Hx Splenectomy: No Hx Valve Replacement: No - Anesthesia Hx Anesthesia Reactions: No Hx Malignant Hyperthermia: No - Suicidal Assessment Feels Threatened In Home Enviroment: No Family/Social History - Physician Review Nursing Documentation Reviewed: Yes Family/Social History: Unknown Family HX Smoking Status: Former Smoker Hx Alcohol Use: No Hx Substance Use: No Hx Substance Use Treatment: No Allergies/Home Meds Allergies/Adverse Reactions: Allergies No Known Allergies Allergy (Verified 08/10/17 18:44) Home Medications: Home Meds Medication Instructions Recorded Confirmed Aspirin [Aspirin EC] 81 mg PO DAILY 01/06/16 10/12/18 Cholecalciferol (Vitamin D3) 2,000 unit PO DAILY 01/06/16 10/12/18 [Vitamin D3] Magnesium Oxide [Magnesium] 500 mg PO QPM 01/06/16 10/12/18 Vitamin B Complex 1 tab PO QAM 01/06/16 10/12/18 Vortioxetine Hydrobromide 10 mg PO DAILY 09/04/16 10/12/18 [Trintellix] Pravastatin Sodium [Pravachol] 10 mg PO HS 04/23/17 10/12/18 Review of Systems - Physician Review All systems were reviewed & negative as marked: Yes - Review of Systems Constitutional: Normal. absent: Fatigue Eyes: Normal. absent: Vision Changes ENT: Normal. absent: Hearing Changes Respiratory: SOB. absent: Cough, Sputum, Wheezing Cardiovascular: Chest Pain Gastrointestinal: Normal. absent: Abdominal Pain, Stool Changes Genitourinary Male: Normal. absent: Dysuria, Frequency Musculoskeletal: Normal. absent: Arthralgias, Back Pain, Neck Pain Skin: Normal. absent: Rash, Pruritis, Skin Lesions Neurological: Normal. absent: Headache, Dizziness Endocrine: Normal Hemo/Lymphatic: Normal. absent: Adenopathy Psychiatric: Normal. absent: Anxiety, Depression Physical Exam Vital Signs Reviewed: Yes Temperature: Afebrile Blood Pressure: Normal Pulse: Regular Respiratory Rate: Normal Appearance: Positive for: Well-Appearing, Non-Toxic, Comfortable Pain Distress: Mild Mental Status: Positive for: Alert and Oriented X 3 - Systems Exam Head: Present: Atraumatic, Normocephalic Pupils: Present: PERRL Extroacular Muscles: Present: EOMI Conjunctiva: Present: Normal Mouth: Present: Moist Mucous Membranes Pharnyx: Present: Normal. No: ERYTHEMA, EXUDATE, TONSILS ENLARGED Neck: Present: Normal Range of Motion, Other (trach site, clean / dry / intact. no erythema or crepitus) Respiratory/Chest: Present: Wheezes (mild at bases), Decreased Breath Sounds (right upper lung). No: Respiratory Distress, Accessory Muscle Use Cardiovascular: Present: Regular Rate and Rhythm. No: Murmurs Abdomen: No: Tenderness, Distention, Peritoneal Signs Back: Present: Normal Inspection. No: CVA Tenderness, Midline Tenderness Upper Extremity: Present: Normal Inspection. No: Cyanosis, Edema Lower Extremity: Present: Normal Inspection. No: Edema Neurological: Present: GCS=15, Speech Normal Skin: Present: Warm, Dry, Normal Color. No: Rashes Psychiatric: Present: Alert, Oriented x 3, Normal Insight, Normal Concentration Medical Decision Making ED Course and Treatment: 11/26/18 11:56 Impression: 69 y/o M with a pmh of CAD (3 stents), HLD, laryngectomy and COPD presents complaning of SOB and chest pain w/ exertion x1week, last episode 2 days ago. Mild wheezes at b/l bases. Overall pt notes that he has not had relief with home albuterol rx. Given recurrent CP and SOB, will likely requires admission given RF. No fever noted. Heart score Age: 2 RF: 2 Story: 1 EK trop: pending Differential Diagnosis included but are not limited to: -- COPD vs. ACS Plan: -- Labs -- EKG -- CXR -- Duoneb 3mg -- Solu-Medrol -- Reassess and disposition Prior Visits: Notes and results from previous visits were reviewed. Progress Notes: 1233 pending trop, cxr. labs otherwise unremrakble pt in [facility] 11/26/18 12:36 Patient reports feeling mildly better with breathing treatment. 11/26/18 13:07 trop negative no widened mediastinum ASA ordered Pt in [facility], agreeable to plan appreciate consult w/ Dr. ingram: to see pt appreciate consult w Dr. Parra: to admit to her service - RAD Interpretation Radiology Orders: 11/26/18 11:45 CHEST TWO VIEWS (PA/LAT) [RAD] Stat - EKG Interpretation EKG Interpretation (Text): 11/26/18 11:58 EKG -- 73 Sinus with PVC's, no STEMI Interpreted by ED Physician: Yes Type: 12 lead EKG - Medication Orders Current Medication Orders: Discontinued Medications Albuterol/Ipratropium (Duoneb 3 Mg/0.5 Mg (3 Ml) Ud) 3 ml IH STAT STA Stop: 11/26/18 11:46 Methylprednisolone (Solu-Medrol) 125 mg IVP STAT STA Stop: 11/26/18 11:46 - Scribe Statement The provider has reviewed the documentation as recorded by the Rick Shell All medical record entries made by the Tresibquan were at my direction and personally dictated by me. I have reviewed the chart and agree that the record accurately reflects my personal performance of the history, physical exam, medical decision making, and the department course for this patient. I have also personally directed, reviewed, and agree with the discharge instructions and disposition. Disposition/Present on Arrival - Present on Arrival Any Indicators Present on Arrival: No History of DVT/PE: No History of Uncontrolled Diabetes: No Urinary Catheter: No History Surgical Site Infection Following: None - Disposition Have Diagnosis and Disposition been Completed?: Yes Diagnosis: Chest pain, Shortness of breath Disposition: HOSPITALIZED Disposition Time: 12:55 Condition: STABLE
[2018-11-26 12:15] LABS: BASO # 0.02 K/mm3 (0.0-2.0); BASO % 0.3 % (0.0-3.0); EOS # 0.1 (0.0-0.7); EOS % 1.1 % (1.5-5.0); HEMOGLOBIN 15.3 g/dL (14.0-18.0); LYMPH # 1.2 (1.2-3.4); LYMPH % 17.3 % (22.0-35.0); MEAN CELL VOLUME 89.7 fl (80.0-105.0); MEAN CORPUSCULAR HEMOGLOBIN 28.8 pg (25.0-35.0); MEAN CORPUSCULAR HGB CONC 32.1 g/dl (31.0-37.0); MEAN PLATELET VOLUME 11.1 fl (7.0-11.0); MONO # 0.5 (0.1-0.6); MONO % 6.6 % (1.0-6.0); RBC 5.32 10^6/uL (3.5-6.1); RED CELL DISTRIBUTION WIDTH 13.6 % (11.5-14.5); WHITE BLOOD COUNT 7.2 10^3/uL (4.5-11.0)
[2018-11-26 12:26] LABS: ALB/GLOB RATIO 1.3 (1.1-1.8); ALBUMIN 4.4 g/dL (3.0-4.8); ALT/SGPT 53 U/L (7-56); AST/SGOT 46 U/L (17-59); BLOOD UREA NITROGEN 22 mg/dL (7-21); CALCIUM 9.6 mg/dL (8.4-10.5); GFR NON-AFRICAN AMERICAN > 60
[2018-11-26 12:36] LABS: TROPONIN I < 0.01 ng/mL
--- NOTE | 2018-11-26 13:28 | CP.PCM.HP ---
<ChalinoLazara - Last Filed: 11/26/18 17:23> History of Present Illness - History of Present Illness History of Present Illness: PGY-[address] Burgos Mr Peña, 68M, former smoker with PMH of lung cancer s/p lobectomy 2017, Hx larygneal carcinoma 1999, CAD s/p stents with sCHF from ischemic cardiomyopathy (EF 39 %), hypothroidism, C/O complaining of SOB and intermittent chest tightness w/ exertion x1 week, last episode today. Patient reports that he lost sensation to his left arm for 10 mins x2 days ago. Patient recalled taking 81mg of aspirin this morning and 1 breathing treatment which did not cause any relief. On patient visit with Dr. Vincent 5 days ago, Dr Vincent started him on lasix and advised pt to the emergency department if chest tightness persisted. Per , pt has no sick contact, no skip med, (+) salty food-potatoe chips, (+) med changes. At baseline, pt is able to ambulate [address] SOB, (+) SOB when climb 1 flight of stairs. During the past week, he became easily SOB on exertion R0S - Patient denies any trauma, fevers, chills, headache, dizzines. (+) restless at night PMD: Dr Parra Card: Dr Vincent Pulm: Dr Nguyen Oncologist: Dr. Mcarthur, [facility]. Next CAT scan in January. ENT surgeon: Dr Cotter, last visit Sep PMH: Former smoker. Hx positive BONILLA Larygneal Carcinoma (Dx 1999 s/p trach removal 2017, s/p chemo/radiation/surgery) Lung CA s/p R-upper lobectomy (08/2017) HLD, CAD, 3 cardiac stents placed 2010. ischemic dilated cardiomyopathy - Last cath 11/2016: LAD, RCA stents patent - Diaz scan 10/12/18: EF 39%, Fixed apical inferior defects. Mild to mod LV dysfunction with diffuse hypokinesis. Similar finding as compared to 12/05/2016 COPD, Interstitial Lung Disease Hypothyroidism, Anxiety PSH: trach removal (Jun 2019) ERCP 07/18/18 R-upper lobectomy (08/2017), Multiple GI polyps removed FH: Mother colon cancer 70. Father Lung CA 68. SH: former smoker (quit in 1999): smoked 5 PPD since age 19, social drinker, de nies recreational drug use. NKDA Home meds: ASA 81 mg PO daily Trintellix 10 mg PO daily Vitamin B complex, Mag Ox 500 mg qpm, Vitamin D3 2000u PO daily Pravastatin 10 mg PO HS, Protonix 40 mg po daily, Synthroid 100 mcg PO qam, Pulmicort 0.5 mg IH BID Ventolin 2 puffs IH BID prn In ED, VS stable. CBC nl. CMP nl. trop <0.01. 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 Present on Admission - Present on Admission Any Indicators Present on Admission: No Past Patient History - Infectious Disease Hx of Infectious Diseases: None - Past Medical History & Family History Past Medical History?: Yes - Past Social History Smoking Status: Former Smoker - CARDIAC Hx Heart Attack: Yes - PULMONARY Hx Chronic Obstructive Pulmonary Disease (COPD): Yes - NEUROLOGICAL Hx Paralysis: No - HEENT Hx Blind: No Hx Deafness: No Hx Difficulty Chewing: No Hx Epistaxis: No Hx Glaucoma: No Hx Macular Degeneration: No - RENAL Hx Dialysis: No Hx Kidney Stones: No Hx Neurogenic Bladder: No Hx Pyelonephritis: No Hx Renal (Kidney) Cancer: No Hx Renal Failure: No - ENDOCRINE/METABOLIC Hx Adrenal Cancer: No Hx Diabetes Insipidus: No Hx Diabetes Mellitus Type 1: No Hx Diabetes Mellitus Type 2: No Hx Hyperthyroidism: No Hx Systemic Lupus Erythematosus: No - HEMATOLOGICAL/ONCOLOGICAL Hx Blood Transfusions: (unknown) - INTEGUMENTARY Hx Basil Cell: No Hx Eczema: No Hx Melanoma: No - MUSCULOSKELETAL/RHEUMATOLOGICAL Hx Musculoskeletal Disorders: No - GASTROINTESTINAL Hx Colostomy: No Hx Crohn's Disease: No Hx Diverticulitis: No Hx Gall Bladder Disease: No Hx Gastroesophageal Reflux: Yes Hx Ileostomy: No Hx Liver Failure: No Hx Pancreatitis: Yes HX Swallowing Problems: No - GENITOURINARY/GYNECOLOGICAL Hx Hematuria: No Hx Incontinence: No Hx Prostate Problems: No Hx Sexually Transmitted Disorders: No Hx Urinary Tract Infection: No - PSYCHIATRIC Hx Emotional Abuse: No Hx Physical Abuse: No Hx Substance Use: No - SURGICAL HISTORY Hx Amputation: No Hx Appendectomy: No Hx Cholecystectomy: No Hx Gastric Bypass Surgery: No Hx Hysterectomy: No Hx Joint Replacement: No Hx Kidney Transplant: No Hx Liver Transplant: No Hx Mastectomy: No Hx Musculoskeletal Surgery: No Hx Open Heart Surgery: No Hx Orthopedic Surgery: No Hx Splenectomy: No Hx Valve Replacement: No - ANESTHESIA Hx Anesthesia Reactions: No Hx Malignant Hyperthermia: No Meds Allergies/Adverse Reactions: Allergies Allergy/AdvReac Type Severity Reaction Status Date / Time No Known Allergies Allergy Verified 11/26/18 15:19 Physical Exam - Constitutional Appears: No Acute Distress - Head Exam Head Exam: ATRAUMATIC, NORMAL INSPECTION, NORMOCEPHALIC - Eye Exam Eye Exam: EOMI, Normal appearance, PERRL. absent: Scleral icterus Pupil Exam: NORMAL ACCOMODATION - ENT Exam ENT Exam: Mucous Membranes Moist - Neck Exam Additional comments: supple, no jvd - Respiratory Exam Respiratory Exam: Clear to Auscultation Bilateral. absent: Rales, Rhonchi, Wheezes - Cardiovascular Exam Cardiovascular Exam: REGULAR RHYTHM, +S1, +S2. absent: Systolic Murmur - GI/Abdominal Exam GI & Abdominal Exam: Normal Bowel Sounds, Soft. absent: Distended, Guarding, Hernia, Rigid, Tenderness - Extremities Exam Extremities exam: Positive for: pedal edema (slight b/l), pedal pulses present. Negative for: calf tenderness - Back Exam Back exam: absent: CVA tenderness (L), CVA tenderness (R) - Neurological Exam Neurological exam: Alert, CN II-XII Intact, Oriented x3 - Psychiatric Exam Psychiatric exam: Normal Affect, Normal Mood - Skin Skin Exam: Dry, Warm Results - Vital Signs Recent Vital Signs: Last Vital Signs Temp 98.1 F 11/26/18 11:47 Pulse 73 11/26/18 11:47 Resp 18 11/26/18 11:47 BP 116/84 11/26/18 11:47 Pulse Ox 97 11/26/18 11:47 - Labs Result Diagrams: 11/26/18 11:40 11/26/18 11:40 Labs: Laboratory Results - last 24 hr 11/26/18 11/26/18 11/26/18 11:40 11:40 11:40 WBC 7.2 D RBC 5.32 Hgb 15.3 Hct 47.7 MCV 89.7 MCH 28.8 MCHC 32.1 RDW 13.6 Plt Count 163 MPV 11.1 H Neut % (Auto) 74.7 H Lymph % (Auto) 17.3 L [place] % (Auto) 6.6 H Eos % (Auto) 1.1 L Baso % (Auto) 0.3 Lymph # (Auto) 1.2 [place] # (Auto) 0.5 Eos # (Auto) 0.1 Baso # (Auto) 0.02 Absolute Neuts (auto) 5.36 Sodium 142 Potassium 4.1 Chloride 101 Carbon Dioxide 30 Anion Gap 15 BUN 22 H Creatinine 1.2 Est GFR ( Amer) > 60 Est GFR (Non-Af Amer) > 60 Random Glucose 85 Calcium 9.6 Total Bilirubin 0.5 AST 46 ALT 53 Alkaline Phosphatase 79 Troponin I < 0.01 Total Protein 7.7 Albumin 4.4 Globulin 3.3 Albumin/Globulin Ratio 1.3 Blood Type A POSITIVE Antibody Screen Negative BBK History Checked Patient has bt Assessment & Plan - Assessment and Plan (Free Text) Plan: Mr Peña, 68M, former smoker with PMH of lung cancer s/p lobectomy 2017, Hx larygneal carcinoma 1999, CAD s/p stents with sCHF from ischemic cardiomyopathy (EF 39 %), hypothroidism, C/O complaining of SOB and intermittent chest tightness w/ exertion x1 week. 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 He likes (+) salty food-potatoe chips Chest pressure with worsening dyspnea on exertion CAD s/p PCI and stent in RCA - ASA, plavix, Lipitor 40 - Ask cardio whether to add metoprolol and/or lisinopril allowable by HR/SBP Systolic CHF from ischemic cardiomyopathy SOB - EF 35-40 (ventriculogram during cath). No need for life vest - Dobutamin 5 mcg x 24-48 hrs, managed per cardio. - Hold lasix per cardio - Laxis has minimum role due to LVDP 10-12 COPD, Hx lung Ca, Hx ILD s/p chemo/radiation for laryngeal ca - continue home budesonide - duoneb BID liana, q6 prn - CXR no active disease. BNP not elevated Hx trach. - Pulm consult Hypothyroidism - follow TSH, Free T4, Free T3, continue home synthroid 112 GERD-home protonix Gallstone prevention - Home yrsodiol Gout prevention - home colchicine BPH - home flomax Anxiety - home trintellix SCD on unaffected leg. s/r/d/w Dr Burgos <Marshall Burgos - Last Filed: 11/29/18 15:41> Results - Vital Signs Recent Vital Signs: Last Vital Signs Temp 98.4 F 11/28/18 12:00 Pulse 71 11/28/18 12:00 Resp 18 11/28/18 12:00 BP 106/66 11/28/18 12:00 Pulse Ox 97 11/28/18 09:00 - Labs Result Diagrams: 11/28/18 07:00 11/28/18 07:00 Attending/Attestation - Attestation I have personally seen and examined this patient.: Yes I have fully participated in the care of the patient.: Yes I have reviewed all pertinent clinical information: Yes Notes (Text): 11/29/18 15:41 Medical record note made by the resident after discussion with my direction and input after the patient was personally seen and examined by me. I have reviewed the chart and agree that the record accurately reflects by personal performance of the history, physical exam, data review, and medical decision-making, in the course for the patient. I have also personally directed the plan of care.
[2018-11-26] MEDS ORDERED: Lidocaine PF 2% (5 ml) Inj (For Cardiac Arrhy) ONE ×2 (13:40→16:11)
[2018-11-26] MEDS ORDERED: Iodixanol 320 MG/ML 100 ML BOTTLE IV ONE (13:42)
[2018-11-26] MEDS ORDERED: Iohexol 350mgl/ml 50 ML ONE (13:42)
[2018-11-26] MEDS ORDERED: Iodixanol 320 MG/ML 200 ML BOTTLE IV ONE (13:42)
[2018-11-26] MEDS ORDERED: Nitroglycerin 50mg in D5W 0 MG/0 ML BOTTLE IV ONE (13:44)
[2018-11-26] MEDS ORDERED: Midazolam 2 MG/2 ML VIAL ONE ×3 (14:03→14:11)
[2018-11-26] MEDS ORDERED: Eptifibatide 20 mg/10mL Inj IVP ONE (14:22)
[2018-11-26 14:46] LABS: PARTIAL THROMBOPLASTIN TIME 33.7 Seconds (26.9-38.3); PROTHROMBIN TIME 11.1 SECONDS (9.4-12.5)
[2018-11-26] MEDS ORDERED: Sodium Chloride 0.9% 1,000 ML IV SCH (15:30)
[2018-11-26] MEDS ORDERED: DOBUTamine 500mg/250ml D5W 500 MG/250 ML BAG IV PRN (15:30)
[2018-11-26] MEDS ORDERED: Labetalol 5mg/ml (4ml) ONE (15:38)
[2018-11-26] MEDS: DOBUTamine 500mg/250ml D5W 500 MG/250 ML BAG IV PRN (16:08)
--- NOTE | 2018-11-26 16:39 | RAD ---
Date of service: 11/26/2018 HISTORY: Shortness of breath. Chest pain COMPARISON: 07/13/2018 TECHNIQUE: Chest PA and lateral views FINDINGS: LUNGS: No active pulmonary disease. PLEURA: No significant pleural effusion identified. No pneumothorax apparent. CARDIOVASCULAR: No aortic atherosclerotic calcification present. Normal cardiac size. No pulmonary vascular congestion. OSSEOUS STRUCTURES: No significant abnormalities. VISUALIZED UPPER ABDOMEN: Normal. OTHER FINDINGS: None. IMPRESSION: No active disease.
[2018-11-26] MEDS ORDERED: Influenza Vaccine 60 mcg/0.5 mL SYR (4YR UP) IM ONE (17:01)
[2018-11-26] MEDS ORDERED: Pneumococcal 23-Valent Vaccine IM ONE (17:01)
--- NOTE | 2018-11-26 17:09 | CARDCATH ---
PROCEDURE DATE: 11/26/2018 HISTORY: The patient is a 68-year-old male, who presented to the emergency room with progressive shortness of breath and progressive angina during exertion. The patient's past medical history is history of multivessel PTCA and stent in the past. He does have a documented ischemic dilated cardiomyopathy. In addition, the patient has a tracheostomy secondary to throat CA as well as severe COPD from smoking. Because of his ongoing symptoms, the patient was brought up for cardiac catheterization. PROCEDURES: Left heart catheterization with coronary arteriography and left ventriculogram. This was followed by PTCA and stent of an RCA. The right femoral artery was cannulated with a 6-Y[place]ut sheath. There were no complications. I performed moderate sedation, which included the presence of an independent trained observer that assisted in monitoring the patient's level of consciousness and physiologic status. After administration of Versed and fentanyl, my intra-service time was 30 minutes. The findings on catheterization revealed a left ventricle that was globally hypokinetic. Estimated ejection fraction is 35%-40%. His coronary anatomy revealed a right dominant circulation. The RCA revealed a patent stent in the mid portion. At the border of the proximal and mid RCA, there was an eccentric 70% stenosis noted. The left main artery was unremarkable. The LAD revealed a patent stent in its proximal portion. The diagonal vessel revealed a 50%-60% stenosis in its mid portion. The circumflex artery and obtuse marginal branches revealed intimal irregularities without critical lesions. The patient was started on intravenous Angiomax on the fluoroscopic guide, the guider was placed into the RCA and 0.014 ATW wire was used to cross the lesion. A guide liner was used for better support. A 4.0 x 12 mm drug-eluting stent was placed and deployed at 15 ounces of pressure. Repeat coronary arteriography revealed an excellent result with no residual stenosis and MEREDITH III flow. Angio-Seal was used to close the femoral artery site. The patient tolerated the procedure well. In summary, the procedure was successful PTCA and stent of 70% proximal/mid RCA lesion. Cardiac catheterization revealed patent stents in the RCA as well as the LAD. LV function reveals an EF of 35%-40%. Given these findings, the patient will remain on aspirin indefinitely and Plavix for at least a year. He is going to undergo cardiac risk reduction program. In addition, we will start the patient on intravenous dobutamine to see whether we can help his CHF symptoms. Micky Vincent MD
[2018-11-26] MEDS ORDERED: Albuterol-Ipratrop 3 mg / 0.5 (3 ml) UD IH PRN (17:18)
--- NOTE | 2018-11-26 17:44 | CARD ---
APPROVED REPORT Date of service: 11/26/2018 EKG Measurement Heart [id number] <Conclusion> Sinus rhythm with frequent premature ventricular complexes Prolonged QT Abnormal ECG
[2018-11-26] MEDS ORDERED: MAGNESIUM OXIDE 500 MG PO SCH (18:00)
[2018-11-26 18:52] LABS: FREE T4 1.21 ng/dL (0.78-2.19)
[2018-11-26] MEDS: Albuterol-Ipratrop 3 mg / 0.5 (3 ml) UD IH SCH (19:39)
[2018-11-27] MEDS: Levothyroxine 112 MCG TAB PO SCH (06:04)
[2018-11-27] MEDS: Pantoprazole 40 mg EC Tab PO SCH (06:04)
[2018-11-27 07:13] LABS: HEMOGLOBIN 14.8 g/dL (14.0-18.0); LYMPH % 8.6 % (22.0-35.0); MEAN CELL VOLUME 89.4 fl (80.0-105.0); MEAN CORPUSCULAR HEMOGLOBIN 28.5 pg (25.0-35.0); MEAN CORPUSCULAR HGB CONC 31.8 g/dl (31.0-37.0); MEAN PLATELET VOLUME 10.8 fl (7.0-11.0); MONO # 0.7 (0.1-0.6); MONO % 6.1 % (1.0-6.0); RBC 5.2 10^6/uL (3.5-6.1); RED CELL DISTRIBUTION WIDTH 13.8 % (11.5-14.5); WHITE BLOOD COUNT 11.4 10^3/uL (4.5-11.0)
[2018-11-27 07:28] LABS: ALB/GLOB RATIO 1.3 (1.1-1.8); ALBUMIN 4.1 g/dL (3.0-4.8); ALT/SGPT 44 U/L (7-56); AST/SGOT 37 U/L (17-59); BLOOD UREA NITROGEN 22 mg/dL (7-21); CALCIUM 9.7 mg/dL (8.4-10.5); GFR NON-AFRICAN AMERICAN > 60; HDL CHOLESTEROL 55 mg/dL (29-60)
[2018-11-27 07:37] LABS: LDL CHOLESTEROL 103 mg/dL (0-129)
[2018-11-27] MEDS: Budesonide 0.5 mg/2 ml Inhal Susp UD IH SCH ×2 (07:41→19:27)
[2018-11-27] MEDS: Albuterol-Ipratrop 3 mg / 0.5 (3 ml) UD IH SCH ×2 (07:41→19:27)
[2018-11-27] MEDS ORDERED: Budesonide 0.25 mg/2 ml Inhal Susp UD INH SCH (08:00)
--- NOTE | 2018-11-27 09:17 | CON ---
DATE OF CONSULTATION: 11/27/2018 PULMONARY CONSULTATION REASON FOR PULMONARY CONSULTATION: Chronic obstructive pulmonary disease. REFERRING PHYSICIAN FOR THIS PULMONARY CONSULTATION: Dr. Vincent. HISTORY OF PRESENT ILLNESS: The patient is a 68-year-old male, with past medical history significant for chronic obstructive pulmonary disease, lung cancer, status post surgery, obstructive sleep apnea, laryngeal carcinoma, status post tracheostomy/now with stoma, coronary artery disease, status post multiple cardiac stents, ischemic cardiomyopathy, who presents to [facility] with main complaints of dyspnea on exertion and intermittent chest tightness (with exertion) for the past week. The patient is not short of breath at rest. He does have a chronic occasional cough with occasional sputum production. There is no history of coughing up of blood. There is no history of chest discomfort - brought on or made worse with deep respirations. There is no history of temperatures, chills or infectious exposure. There is no history of night sweats, weight loss or appetite change prior to the above events. No history of calf pains. No history of syncope or diaphoresis. No history of recent travel or trauma. REVIEW OF SYSTEMS: No history of nausea, vomiting or diarrhea. No acute urinary symptoms. Rest of the review of systems is negative. ALLERGIES: NO KNOWN ALLERGIES. SOCIAL HISTORY: Positive for former tobacco usage (many years), no alcohol. FAMILY HISTORY: No inheritable diseases. MEDICATIONS: Home medications include Pravachol, magnesium, Pulmicort, DuoNebs, Protonix, Ursodiol, Flomax, Lasix, Synthroid, aspirin. PHYSICAL EXAMINATION: GENERAL: The patient appears comfortable this morning. He is not short of breath at rest. VITAL SIGNS: Temperature is 98.2, pulse 93, respirations 19, blood pressure 101/63. Oxygen saturation on room air is 95%. HEENT: Normocephalic, atraumatic. No JVD. There is an open stoma in place. CARDIOVASCULAR: Positive S1, S2. No S3 gallop. LUNGS: Very minimal rhonchi bilaterally. No wheezing. EXTREMITIES: No clubbing, cyanosis or edema. Calves are nontender to palpation. GASTROINTESTINAL: Abdomen is soft, nontender and nondistended. Bowel sounds are positive. SKIN: No acute rash. NEUROLOGIC: Exam is limited at the present time. PERTINENT LABORATORY DATA: Chest x-ray was done yesterday and reviewed. There is no active disease noted. CBC: White count 7.2K, hemoglobin 15.3, hematocrit 47.7, platelets of 163,000. Complete metabolic profile: BUN 22. Rest of the metabolic profile is within normal limits. IMPRESSION: 1. Unstable angina, status post stent. 2. Ischemic cardiomyopathy. 3. Chronic obstructive pulmonary disease. 4. Obstructive sleep apnea. 5. History of lung cancer. 6. History of laryngeal cancer. PLAN: The patient presents to [facility] with main complaints of dyspnea on exertion, and chest tightness (with exertion) for the past week. I did review the cardiac catheterization note by Dr. Vincent. The patient did receive a stent to the right coronary artery. He is resting comfortably without any chest discomfort this morning. I did review the chest x-ray as above. There is no active disease noted. On physical exam, there is no significant bronchospasm noted. In addition, the oxygen saturation on room air is 95%. I will continue the current nebulizer treatments and increase the dosage of inhaled steroids this morning. Repeat labs are ordered. The clinical status of the patient does appear much improved - compared to the initial presentation. However, given the above, the future status/prognosis for this patient does remain guarded. I will discuss the above with the attending physician later this morning. Thank you very much for this pulmonary consultation. Billy Nguyen MD ISAÍAS
[2018-11-27] MEDS: Multivitamin Vitamin B Complex (Nephro-Vite) Tab PO SCH (09:31)
[2018-11-27] MEDS: Cholecalciferol 1,000 INTLU TAB PO SCH (09:32)
[2018-11-27] MEDS: VORTIOXETINE HYDROBROMIDE 10 MG PO SCH (09:32)
[2018-11-27] MEDS ORDERED: Pantoprazole 40 mg EC Tab PO SCH (10:00)
[2018-11-27] MEDS: DOBUTamine 500mg/250ml D5W 500 MG/250 ML BAG IV PRN (10:38)
--- NOTE | 2018-11-27 13:41 | CP.PCM.APN ---
Subjective - Date & Time of Evaluation Date of Evaluation: 11/27/18 Time of Evaluation: 11:00 - Subjective Subjective: pt seen and examineda t bedside, pt reports he is feeling better, denies sob, denies cp, Review of Systems - Review of Systems All systems: reviewed and no additional remarkable complaints except Objective - Vital Signs/Intake and Output Vital Signs (last 24 hours): Temp Pulse Resp BP Pulse Ox 98.4 F 87 20 154/72 H 95 11/27/18 12:00 11/27/18 12:00 11/27/18 12:00 11/27/18 12:00 11/27/18 06:00 Intake and Output: 11/27/18 11/27/18 06:59 18:59 Intake Total 2097 Output Total 1260 Balance 837 - Medications Medications: Current Medications Albuterol/Ipratropium (Duoneb 3 Mg/0.5 Mg (3 Ml) Ud) 3 ml IH BIDRESP COUNT INCLUDES THE [facility] Last Admin: 11/27/18 07:41 Dose: 3 ml Albuterol/Ipratropium (Duoneb 3 Mg/0.5 Mg (3 Ml) Ud) 3 ml IH Q2H PRN PRN Reason: Shortness of Breath Aspirin (Ecotrin) 81 mg PO DAILY COUNT INCLUDES THE [facility] Last Admin: 11/27/18 09:32 Dose: 81 mg Atorvastatin Calcium (Lipitor) 40 mg PO HS COUNT INCLUDES THE [facility] Last Admin: 11/26/18 21:51 Dose: 40 mg Budesonide (Pulmicort Respules) 0.5 mg IH [id number] COUNT INCLUDES THE [facility] Last Admin: 11/27/18 07:41 Dose: 0.5 mg Cholecalciferol (Vitamin D) 2,000 intlu PO DAILY COUNT INCLUDES THE [facility] Last Admin: 11/27/18 09:32 Dose: 2,000 intlu Clopidogrel Bisulfate (Plavix) 75 mg PO DAILY COUNT INCLUDES THE [facility] Last Admin: 11/27/18 09:31 Dose: 75 mg Colchicine (Colocrys) 0.6 mg PO 0600 COUNT INCLUDES THE [facility] Last Admin: 11/27/18 06:04 Dose: 0.6 mg Dobutamine HCl/Dextrose (Dobutamine/Dextrose 5% 500mg/250ml) 500 mg in 250 mls @ 12.927 mls/hr IV .[id number] PRN PRN Reason: post PTCA; EF 35-40% Last Admin: 11/27/18 10:38 Dose: 12.927 mls/hr Levothyroxine Sodium (Synthroid) 112 mcg PO 0600 COUNT INCLUDES THE [facility] Last Admin: 11/27/18 06:04 Dose: 112 mcg Non-Formulary Medication (Magnesium Oxide [Magnesium]) 500 mg PO QPM COUNT INCLUDES THE [facility] Non-Formulary Medication (Vortioxetine Hydrobromide [Trintellix]) 10 mg PO DAILY COUNT INCLUDES THE [facility] Last Admin: 11/27/18 09:32 Dose: Not Given Pantoprazole Sodium (Protonix Ec Tab) 40 mg PO 0600 COUNT INCLUDES THE [facility] Last Admin: 11/27/18 06:04 Dose: 40 mg Tamsulosin HCl (Flomax) 0.4 mg PO DAILY COUNT INCLUDES THE [facility] Last Admin: 11/27/18 09:32 Dose: 0.4 mg Ursodiol (Actigall) 300 mg PO DAILY COUNT INCLUDES THE [facility] Last Admin: 11/27/18 09:32 Dose: 300 mg Vitamin B Complex/Vit C/Folic Acid (Nephro-Lorenzo) 1 tab PO DAILY COUNT INCLUDES THE [facility] Last Admin: 11/27/18 09:31 Dose: 1 tab - Labs Labs: 11/27/18 06:30 11/27/18 06:30 PT 11.1 SECONDS (9.4-12.5) 11/26/18 11:30 INR 1.00 11/26/18 11:30 APTT 33.7 Seconds (26.9-38.3) 11/26/18 11:30 - Constitutional Appears: No Acute Distress - Head Exam Head Exam: ATRAUMATIC - Eye Exam Pupil Exam: PERRL Additional comments: trach site covered with bandage, site clean - Respiratory Exam Respiratory Exam: Decreased Breath Sounds, Wheezes, NORMAL BREATHING PATTERN - Cardiovascular Exam Cardiovascular Exam: +S1, +S2 - GI/Abdominal Exam GI & Abdominal Exam: Soft, Normal Bowel Sounds - Exam Exam: NORMAL INSPECTION - Extremities Exam Extremities Exam: Full ROM, Normal Capillary Refill - Neurological Exam Additional comments: DEMPSEY - Psychiatric Exam Psychiatric exam: Normal Mood - Skin Skin Exam: Dry, Intact Assessment and Plan - Assessment and Plan (Free Text) Plan: ITS Impressions Chest X-Ray 11/26/18 11:45 IMPRESSION: No active disease. 69 yr old white male with pmh ig for hld, cad with stents x 3, laryngectomy and copd as well as ischemic dilated cardiomyopathy who presented with c/o sob and exertional cp x 1 week. P tws admitted ffor further evaluation with cardiology and pulmonary consultation. P t is now s/p cardiac catherization with Dr Vincent. CATh revealed 70% lesion in LAD in pt is s/p RCA SHERRY and was placed on in otrophic therapy with dobutamine. Per discussion with Dr Vincent, continue IV dobutamine therapy today. will continue to follow clinical status. BPCI/TIC - BPCIA/TIC Educated pt/family on BPCIA/CIR/Med to Bed Programs: Yes (pt in obs - will follow up when pt ocnverted to inpt)
--- NOTE | 2018-11-27 13:44 | CP.PCM.PN ---
<Yosef Bueno - Last Filed: 11/27/18 13:40> Subjective - Date & Time of Evaluation Date of Evaluation: 11/27/18 Time of Evaluation: 08:00 - Subjective Subjective: Yosef Bueno PGY1 Medicine Progress Note for Dr. Burgos Patient seen and examined at bedside this morning. No adverse overnight events. Patient denies chest pain/pressure, sob, n/v/d, fatigue, fever, chills. He is doing well after RCA stent placement yesterday. He is not having any bleeding from cath site. A full 12 point ROS was conducted and unremarkable except as stated above. Objective - Vital Signs/Intake and Output Vital Signs (last 24 hours): Temp Pulse Resp BP Pulse Ox 98.4 F 87 20 154/72 H 95 11/27/18 12:00 11/27/18 12:00 11/27/18 12:00 11/27/18 12:00 11/27/18 06:00 Intake and Output: 11/27/18 11/27/18 06:59 18:59 Intake Total 2097 Output Total 1260 Balance 837 - Medications Medications: Current Medications Albuterol/Ipratropium (Duoneb 3 Mg/0.5 Mg (3 Ml) Ud) 3 ml IH BIDRESP [facility] Last Admin: 11/27/18 07:41 Dose: 3 ml Albuterol/Ipratropium (Duoneb 3 Mg/0.5 Mg (3 Ml) Ud) 3 ml IH Q2H PRN PRN Reason: Shortness of Breath Aspirin (Ecotrin) 81 mg PO DAILY [facility] Last Admin: 11/27/18 09:32 Dose: 81 mg Atorvastatin Calcium (Lipitor) 40 mg PO HS [facility] Last Admin: 11/26/18 21:51 Dose: 40 mg Budesonide (Pulmicort Respules) 0.5 mg IH [id number] [facility] Last Admin: 11/27/18 07:41 Dose: 0.5 mg Cholecalciferol (Vitamin D) 2,000 intlu PO DAILY [facility] Last Admin: 11/27/18 09:32 Dose: 2,000 intlu Clopidogrel Bisulfate (Plavix) 75 mg PO DAILY [facility] Last Admin: 11/27/18 09:31 Dose: 75 mg Colchicine (Colocrys) 0.6 mg PO 0600 [facility] Last Admin: 11/27/18 06:04 Dose: 0.6 mg Dobutamine HCl/Dextrose (Dobutamine/Dextrose 5% 500mg/250ml) 500 mg in 250 mls @ 12.927 mls/hr IV .[id number] PRN PRN Reason: post PTCA; EF 35-40% Last Admin: 11/27/18 10:38 Dose: 12.927 mls/hr Levothyroxine Sodium (Synthroid) 112 mcg PO 0600 [facility] Last Admin: 11/27/18 06:04 Dose: 112 mcg Non-Formulary Medication (Magnesium Oxide [Magnesium]) 500 mg PO QPM [facility] Non-Formulary Medication (Vortioxetine Hydrobromide [Trintellix]) 10 mg PO DAILY [facility] Last Admin: 11/27/18 09:32 Dose: Not Given Pantoprazole Sodium (Protonix Ec Tab) 40 mg PO 0600 [facility] Last Admin: 11/27/18 06:04 Dose: 40 mg Tamsulosin HCl (Flomax) 0.4 mg PO DAILY [facility] Last Admin: 11/27/18 09:32 Dose: 0.4 mg Ursodiol (Actigall) 300 mg PO DAILY [facility] Last Admin: 11/27/18 09:32 Dose: 300 mg Vitamin B Complex/Vit C/Folic Acid (Nephro-Lorenzo) 1 tab PO DAILY [facility] Last Admin: 11/27/18 09:31 Dose: 1 tab - Labs Labs: 11/27/18 06:30 11/27/18 06:30 PT 11.1 SECONDS (9.4-12.5) 11/26/18 11:30 INR 1.00 11/26/18 11:30 APTT 33.7 Seconds (26.9-38.3) 11/26/18 11:30 - Constitutional Appears: No Acute Distress - Head Exam Head Exam: ATRAUMATIC, NORMAL INSPECTION, NORMOCEPHALIC - Eye Exam Eye Exam: EOMI, Normal appearance, PERRL. absent: Scleral icterus Pupil Exam: NORMAL ACCOMODATION - ENT Exam ENT Exam: Mucous Membranes Moist. Evidence of tracheostomy tube. - Neck Exam Additional comments: supple, no jvd - Respiratory Exam Respiratory Exam: Clear to Auscultation Bilateral. absent: Rales, Rhonchi, Wheezes - Cardiovascular Exam Cardiovascular Exam: REGULAR RHYTHM, +S1, +S2. absent: Systolic Murmur - GI/Abdominal Exam GI & Abdominal Exam: Normal Bowel Sounds, Soft. absent: Distended, Guarding, Hernia, Rigid, Tenderness - Extremities Exam Extremities exam: Positive for: pedal pulses present. Negative for: calf tenderness, Hematoma at the groin/cardiac cath site. - Back Exam Back exam: absent: CVA tenderness (L), CVA tenderness (R) - Neurological Exam Neurological exam: Alert, CN II-XII Intact, Oriented x3 - Psychiatric Exam Psychiatric exam: Normal Affect, Normal Mood - Skin Skin Exam: Dry, Warm Assessment and Plan - Assessment and Plan (Free Text) Assessment: Mr Peña, 68M, former smoker with PMH of lung cancer s/p lobectomy 2018, Hx larygneal carcinoma 1999, CAD s/p stents with sCHF from ischemic cardiomyopathy (EF 39 %), hypothroidism, C/O complaining of SOB and intermittent chest tightness w/ exertion x1 week. Cardiology and Pulmonology is on consult. Patient is s/p RCA stent placement on 11/26. He is being monitored on tele. Plan: Chest pain with CHO - s/p RCA stent placement on 11/26 - c/w ASA, plavix (1 year - Drug eluting stent), and Lipitor - As of now, cardio wants to continue with one more day of dobutamine; afterwards will decide whether to restart patient on beta-cookie and ACEi for mortality benefit for CAD - c/p cardiac cath (11/26) - RCA stent placement showing 70% proximal-mid RCA lesion - Hx CAD - Patient has x3 cardiac stents in the past - Cardio is on consult (Dr. Vincent). Recs appreciated. CHF-rEF (EF 35-40%) from ischemic cardiomyopathy - EF 35-40 (ventriculogram during cath) - c/w Dobutamin 5 mcg as per cardio recs, at least one more day - Hold lasix as per cardio COPD, Hx lung Ca and tracheostomy, Hx ILD s/p chemo/radiation for laryngeal cancer - continue home budesonide - duoneb BID liana, q6 prn - CXR no active disease. BNP not elevated - Pulmonology on consult (Dr. Nguyen) Hypothyroidism - TSH, Free T4, Free T3 wnl - continue home synthroid 112 GERD - c/w home protonix Gallstone ppx - c/w Home ursodiol Gout ppx - c/w home colchicine BPH - c/w home flomax Anxiety - c/w home trintellix ppx: - SCD - ptx Diet: HHD Dispo: Patient tolerated cardiac cath well. Will monitor patient for one more day on dobutamine drip as per cardio recs. Anticipate discharge planning with outpt followup. Case was discussed and reviewed with Attending Physician, Dr. Burgos <Marshall Burgos - Last Filed: 11/29/18 15:40> Objective - Vital Signs/Intake and Output Vital Signs (last 24 hours): Temp Pulse Resp BP Pulse Ox 98.4 F 71 18 106/66 97 11/28/18 12:00 11/28/18 12:00 11/28/18 12:00 11/28/18 12:00 11/28/18 09:00 - Labs Labs: 11/28/18 07:00 11/28/18 07:00 PT 11.1 SECONDS (9.4-12.5) 11/26/18 11:30 INR 1.00 11/26/18 11:30 APTT 33.7 Seconds (26.9-38.3) 11/26/18 11:30 Attending/Attestation - Attestation I have personally seen and examined this patient.: Yes I have fully participated in the care of the patient.: Yes I have reviewed all pertinent clinical information, including history, physical exam and plan: Yes
--- NOTE | 2018-11-27 15:05 | PN ---
DATE: 11/27/2018 CARDIOLOGY FOLLOWUP SUBJECTIVE: The patient's breathing is much improved on ionotropic therapy. PHYSICAL EXAMINATION VITAL SIGNS: Stable. NECK: Negative JVD. LUNGS: Without rales. HEART: S1 and S2. EXTREMITIES: Without edema. LABORATORY DATA: Unremarkable. IMPRESSION: 1. Dilated cardiomyopathy. 2. Stable post percutaneous transluminal coronary angioplasty and stent. 3. Congestive heart failure, which is better on ionotropic therapy. 4. Chronic obstructive pulmonary disease. 5. Status post tracheostomy. 6. History of pneumonia. PLAN: Given these findings, we will continue ionotropic therapy for the next 24 hours. Micky Vincent MD
[2018-11-28] MEDS: Pantoprazole 40 mg EC Tab PO SCH (05:36)
[2018-11-28] MEDS: Levothyroxine 112 MCG TAB PO SCH (05:36)
[2018-11-28] MEDS: Albuterol-Ipratrop 3 mg / 0.5 (3 ml) UD IH SCH (07:32)
[2018-11-28] MEDS: Budesonide 0.5 mg/2 ml Inhal Susp UD IH SCH (07:32)
--- NOTE | 2018-11-28 07:33 | PN ---
DATE: 11/28/2018 PULMONARY NOTE SUBJECTIVE: The patient appears comfortable this morning. He is not short of breath at rest. PHYSICAL EXAMINATION: VITAL SIGNS: Temperature 98.1, pulse 82, respirations 18/20, blood pressure 107/67. Oxygen saturation on room air - 96%. HEENT: Normocephalic, atraumatic. No JVD. There is an open stoma in place. CARDIOVASCULAR: Positive S1, S2. No S3 gallop. LUNGS: Clear bilaterally this morning. EXTREMITIES: No clubbing, cyanosis or edema. Calves are nontender to palpation. GASTROINTESTINAL: Abdomen is soft, nontender and nondistended. Bowel sounds are positive. SKIN: No acute rash. NEUROLOGIC: Limited at the present time. IMPRESSION: 1. Unstable angina, status post stent. 2. Ischemic cardiomyopathy. 3. Chronic obstructive pulmonary disease. 4. Obstructive sleep apnea. 5. History of lung cancer. 6. History of laryngeal cancer. PLAN: The patient appears very comfortable this morning. He is not short of breath at rest. He does state to feeling much, much better overall. He denies chest pain. On physical exam, his lungs are clear this morning. In addition, the oxygen saturation on room air is 96%. I will continue the current nebulizer treatments and inhaled steroids for now. Input by Cardiology (Dr. Vincent) is also noted. The patient remains on intravenous dobutamine. Clinical status of the patient is significantly improved - compared to the initial presentation. However, given the above, the future status/prognosis for this patient does remain somewhat guarded. I will discuss the above with the attending physician. Billy Nguyen MD MTDD
[2018-11-28 07:41] LABS: BASO # 0.02 K/mm3 (0.0-2.0); BASO % 0.3 % (0.0-3.0); EOS % 0.4 % (1.5-5.0); HEMOGLOBIN 14.6 g/dL (14.0-18.0); LYMPH # 1.5 (1.2-3.4); LYMPH % 18.3 % (22.0-35.0); MEAN CELL VOLUME 89.8 fl (80.0-105.0); MEAN CORPUSCULAR HEMOGLOBIN 28.6 pg (25.0-35.0); MEAN CORPUSCULAR HGB CONC 31.9 g/dl (31.0-37.0); MEAN PLATELET VOLUME 10.8 fl (7.0-11.0); MONO # 0.6 (0.1-0.6); MONO % 7.4 % (1.0-6.0); RBC 5.1 10^6/uL (3.5-6.1); RED CELL DISTRIBUTION WIDTH 13.9 % (11.5-14.5); WHITE BLOOD COUNT 7.9 10^3/uL (4.5-11.0)
[2018-11-28 07:52] LABS: ALB/GLOB RATIO 1.4 (1.1-1.8); ALT/SGPT 47 U/L (7-56); AST/SGOT 42 U/L (17-59); BLOOD UREA NITROGEN 25 mg/dL (7-21); CALCIUM 9.4 mg/dL (8.4-10.5); GFR NON-AFRICAN AMERICAN 55
--- NOTE | 2018-11-28 08:09 | PQF ---
PROVIDER RESPONSE TEXT: Patient has systolic CHF, left heart failure EF is 35-40% REVIEWER QUERY TEXT: Heart Failure Acuity and Type Congestive Heart Failure is documented in the Medical Record. Please document the type and acuity (in cludes probable or suspected) Such as: Type: -- Combined systolic and diastolic (heart failure with reduced ejection fraction and diastolic) dysfu nction -- Diastolic (HFpEF) -- Systolic (HFrEF) -- Left heart failure -- Right heart failure -- Right heart failure due to left heart failure -- High output failure -- End stage heart failure -- Other, please specify Acuity: -- Acute -- Chronic -- Acute on chronic -- Other, please specify Also please document the underlying cause of the CHF (includes probable or suspected) The patient's Clinical Indicators include: Documentation of systolic CHF, treated with dobutamine, noted in the record. Please provide specificity about acuity (acute, chronic acute on chronic). Query created by: Beatris Jolly on 11/28/2018 7:26 AM Electronically signed by: Marshall Burgos MD 11/28/2018 8:06 AM
[2018-11-28 09:10] VITALS: RESP 18; O2SAT 97
--- NOTE | 2018-11-28 09:37 | PN ---
DATE: 11/28/2018 CARDIOLOGY FOLLOWUP SUBJECTIVE: The patient's breathing is stable, no more shortness of breath noted. PHYSICAL EXAMINATION: VITAL SIGNS: Blood pressure 107/67, heart rates in the 80s. NECK: Negative JVD. LUNGS: Without rales. HEART: S1 and S2. EXTREMITIES: Without edema. LABORATORY DATA: BUN and creatinine are stable. Potassium is 4.3, hemoglobin is 14.8. IMPRESSION: 1. Resolution of congestive heart failure. 2. Resolution of dyspnea. 3. Stable angina. 4. Status post percutaneous transluminal coronary angioplasty and stent. 5. Dilated cardiomyopathy. 6. History of throat cancer. Given these findings, we will ambulate the patient today. If the patient is stable, the patient can go home from a cardiac perspective. Followup instructions given to the patient in detail. Micky Vincent MD
[2018-11-28] MEDS: Cholecalciferol 1,000 INTLU TAB PO SCH (09:46)
[2018-11-28] MEDS: Multivitamin Vitamin B Complex (Nephro-Vite) Tab PO SCH (09:46)
[2018-11-28] MEDS: VORTIOXETINE HYDROBROMIDE 10 MG PO SCH (10:10)
[2018-11-28 12:08] VITALS: BP 106/66; PULSE 71; TEMP 98.4
--- NOTE | 2018-11-28 14:32 | CP.PCM.DIS ---
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 Comment: Physician Instructions: Reason For Exam: EVALUATION Transition In Care/Readmission Reduction Routine Comment: Physician Instructions: Reason For Exam: EVALUATION 11/26/18 17:06 Nursing Referral for Palliative Care Routine Comment: Physician Instructions: Reason For Exam: EVALUATION Time Spent in preparation of Discharge (in minutes): 35 Hospital Course - Lab Results Lab Results: Most Recent Lab Values WBC 7.9 10^3/uL (4.5-11.0) D 11/28/18 07:00 RBC 5.10 10^6/uL (3.5-6.1) 11/28/18 07:00 Hgb 14.6 g/dL (14.0-18.0) 11/28/18 07:00 Hct 45.8 % (42.0-52.0) 11/28/18 07:00 MCV 89.8 fl (80.0-105.0) 11/28/18 07:00 MCH 28.6 pg (25.0-35.0) 11/28/18 07:00 MCHC 31.9 g/dl (31.0-37.0) 11/28/18 07:00 RDW 13.9 % (11.5-14.5) 11/28/18 07:00 Plt Count 150 10^3/uL (120.0-450.0) 11/28/18 07:00 MPV 10.8 fl (7.0-11.0) 11/28/18 07:00 Neut % (Auto) 73.6 % (50.0-68.0) H 11/28/18 07:00 Lymph % (Auto) 18.3 % (22.0-35.0) L 11/28/18 07:00 Sully % (Auto) 7.4 % (1.0-6.0) H 11/28/18 07:00 Eos % (Auto) 0.4 % (1.5-5.0) L 11/28/18 07:00 Baso % (Auto) 0.3 % (0.0-3.0) 11/28/18 07:00 Lymph # (Auto) 1.5 (1.2-3.4) 11/28/18 07:00 Sully # (Auto) 0.6 (0.1-0.6) 11/28/18 07:00 Eos # (Auto) 0.0 (0.0-0.7) 11/28/18 07:00 Baso # (Auto) 0.02 K/mm3 (0.0-2.0) 11/28/18 07:00 Absolute Neuts (auto) 5.84 (1.4-6.5) 11/28/18 07:00 PT 11.1 SECONDS (9.4-12.5) 11/26/18 11:30 INR 1.00 11/26/18 11:30 APTT 33.7 Seconds (26.9-38.3) 11/26/18 11:30 Sodium 141 mmol/L (132-148) 11/28/18 07:00 Potassium 4.5 mmol/L (3.6-5.0) 11/28/18 07:00 Chloride 103 mmol/L (98-107) 11/28/18 07:00 Carbon Dioxide 32 mmol/L (21-33) 11/28/18 07:00 Anion Gap 12 (10-20) 11/28/18 07:00 BUN 25 mg/dL (7-21) H 11/28/18 07:00 Creatinine 1.3 mg/dl (0.8-1.5) 11/28/18 07:00 Est GFR ( Amer) > 60 11/28/18 07:00 Est GFR (Non-Af Amer) 55 11/28/18 07:00 Random Glucose 95 mg/dL (70-110) 11/28/18 07:00 Calcium 9.4 mg/dL (8.4-10.5) 11/28/18 07:00 Magnesium 1.9 mg/dL (1.7-2.2) 11/28/18 07:00 Total Bilirubin 0.5 mg/dL (0.2-1.3) 11/28/18 07:00 AST 42 U/L (17-59) 11/28/18 07:00 ALT 47 U/L (7-56) 11/28/18 07:00 Alkaline Phosphatase 65 U/L (38-126) 11/28/18 07:00 Troponin I < 0.01 ng/mL 11/26/18 11:40 NT-Pro-B Natriuret Pep 104 pg/mL (0-450) 11/26/18 11:40 Total Protein 6.8 g/dL (5.8-8.3) 11/28/18 07:00 Albumin 4.0 g/dL (3.0-4.8) 11/28/18 07:00 Globulin 2.8 gm/dL 11/28/18 07:00 Albumin/Globulin Ratio 1.4 (1.1-1.8) 11/28/18 07:00 Triglycerides 77 mg/dL (35-160) 11/27/18 06:30 Cholesterol 165 mg/dL (130-200) 11/27/18 06:30 LDL Cholesterol Direct 103 mg/dL (0-129) 11/27/18 06:30 HDL Cholesterol 55 mg/dL (29-60) 11/27/18 06:30 Free T4 1.21 ng/dL (0.78-2.19) 11/26/18 18:20 Free T3 pg/mL 3.46 pg/mL (2.77-5.27) 11/26/18 05:30 TSH 3rd Generation 2.85 mIU/mL (0.46-4.68) 11/26/18 18:20 Blood Type A POSITIVE 11/26/18 11:40 Antibody Screen Negative 11/26/18 11:40 BBK History Checked Patient has bt 11/26/18 11:40 - Hospital Course Hospital Course: Yosef Bueno, PGY1 Discharge Summary for Dr. 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 Patient reported that he lost sensation to his left arm for 10 mins x2 days ago. Patient recalled taking 81mg of aspirin in the morning which did not cause any relief. On patient's visit with his accounting machine mechanic (Dr. Vincent) 5 days ago, he was started on lasix and advised the pt to go to the emergency department if chest tightness persisted. Patient admitted for chest pain and dyspnea on exertion. Cardiology placed on consult for chest pain. Travel Sales Consultant placed on consult because of history of trach. Patient's troponin was negative and EKG did not show acute changes. However, given significant risk factors and patient's cp was not resolving, cardiology recommended cardiac cath. The procedure revealed 70% stenosis in the proximal-mid RCA. As a result, RCA drug-eluting stent was placed. Patient was sent to [facility] for monitoring post-cath. As per cardio recs, patient was placed on dobutamine drip given his CHF-rEF and ischemic cardiomyopathy. Patient's symptoms resolved s/p cath and his physical exam improved significantly. Cardiology also cleared patient for discharge. No further recs from pulmonology. Patient had no complications from post-cath. Upon reviewing all labs, imaging, and vitals, patient is hemodynamically stable for discharge to home. He is able to ambulate without issues. He will follow up with PMD and Deblocker upon discharge. As per cardio recs, patient will remain on ASA indefinitely and plavix for 1 year given the new stent. He will also be placed on ACEi post-cath for mortality reduction; as per cardio recs beta- cookie will be held for now due to hypotension and be started on outpatient follow up for further mortality reduction. Patient is cleared for discharge to home. Discharge Exam - Head Exam Head Exam: ATRAUMATIC, NORMAL INSPECTION, NORMOCEPHALIC - Eye Exam Eye Exam: EOMI, Normal appearance - ENT Exam ENT Exam: Mucous Membranes Moist Additional comments: Evidence of tracheostomy. - Respiratory Exam Respiratory Exam: Clear to PA & Lateral. absent: Rales, Rhonchi, Wheezes, Respiratory Distress, Stridor - Cardiovascular Exam Cardiovascular Exam: RRR, +S1, +S2 - GI/Abdominal Exam GI & Abdominal Exam: Normal Bowel Sounds. absent: Firm, Guarding, Rebound, Rigid - Extremities Exam Extremities exam: normal capillary refill, normal inspection, pedal pulses present - Back Exam Back exam: NORMAL INSPECTION. absent: tenderness, vertebral tenderness - Neurological Exam Neurological exam: Alert, CN II-XII Intact, Normal Gait, Oriented x3, Reflexes Normal - Psychiatric Exam Psychiatric exam: Normal Affect, Normal Mood - Skin Skin Exam: Dry, Intact, Normal Color, Warm Discharge Plan - Discharge Medications Prescriptions: Atorvastatin [Lipitor] 40 mg PO DIN #30 tab Clopidogrel [Plavix] 75 mg PO DAILY #14 tab Lisinopril [Zestril] 2.5 mg PO DAILY #14 tab - Follow Up Plan Condition: STABLE Disposition: HOME/ ROUTINE Instructions: Coronary Heart Disease, Coronary Angioplasty, Clopidogrel, Lisinopril, Chest Pain (ED) Additional Instructions: Please follow up with your Primary Care Doctor (Dr. Parra) within 3-4 days of discharge. Please follow up with Deblocker (Dr. Vincent) within 1 week of discharge. You will need to continue your Aspirin 81 mg once daily indefinitely. You are given new medications, they were sent to your pharmacy: - Plavix 75mg once daily for 1 year duration because of your new cardiac stent placement. - Lisinopril 2.5 mg once daily. - Stop pravastatin. You are being given new Lipitor for better artheroscleotic plaque and cholesterol control - Take Lasix only directed by Dr Vincent. You are off Lasix for now as per Dr Vincent You may resume your home medications as prescribed. Please return to the nearest emergency department if your symptoms worsen or reoccur. When lasix is restarted: please monitor weight: if an increase noted of 2lbs or more, swelling in ankles and/or eyes, call the doctor with regards to lasix dosage. Please follow the attached post cardiac catherization and interventional procedure discharge instructions. Continue Diet: Heart Healthy Pleas remain up to date with regards to the flu and the pneumococcal vaccines. Referrals: Basil Parra MD [Primary Care Provider] - Micky Vincent MD [Staff Provider] - <Marshall Burgos - Last Filed: 11/29/18 15:40> Provider - Provider Date of Admission: 11/27/18 16:56 Attending physician: Marshall Burgos MD Primary care physician: Basil Parra MD Consults: 11/26/18 11:46 Consult [Physician Consult] Routine Comment: Consulting Provider: Micky Vincent Consulting Physician: Micky Vincent Reason for Consult: cp 11/26/18 15:32 Pulmonology Consult Routine Comment: Consulting Provider: Billy Nguyen Consulting Physician: Billy Nguyen Reason for Consult: with trache; EF 35-40% 11/26/18 17:01 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 Comment: Physician Instructions: Reason For Exam: EVALUATION Transition In Care/Readmission Reduction Routine Comment: Physician Instructions: Reason For Exam: EVALUATION 11/26/18 17:06 Nursing Referral for Palliative Care Routine Comment: Physician Instructions: Reason For Exam: EVALUATION Hospital Course - Lab Results Lab Results: Most Recent Lab Values WBC 7.9 10^3/uL (4.5-11.0) D 11/28/18 07:00 RBC 5.10 10^6/uL (3.5-6.1) 11/28/18 07:00 Hgb 14.6 g/dL (14.0-18.0) 11/28/18 07:00 Hct 45.8 % (42.0-52.0) 11/28/18 07:00 MCV 89.8 fl (80.0-105.0) 11/28/18 07:00 MCH 28.6 pg (25.0-35.0) 11/28/18 07:00 MCHC 31.9 g/dl (31.0-37.0) 11/28/18 07:00 RDW 13.9 % (11.5-14.5) 11/28/18 07:00 Plt Count 150 10^3/uL (120.0-450.0) 11/28/18 07:00 MPV 10.8 fl (7.0-11.0) 11/28/18 07:00 Neut % (Auto) 73.6 % (50.0-68.0) H 11/28/18 07:00 Lymph % (Auto) 18.3 % (22.0-35.0) L 11/28/18 07:00 Sully % (Auto) 7.4 % (1.0-6.0) H 11/28/18 07:00 Eos % (Auto) 0.4 % (1.5-5.0) L 11/28/18 07:00 Baso % (Auto) 0.3 % (0.0-3.0) 11/28/18 07:00 Lymph # (Auto) 1.5 (1.2-3.4) 11/28/18 07:00 Sully # (Auto) 0.6 (0.1-0.6) 11/28/18 07:00 Eos # (Auto) 0.0 (0.0-0.7) 11/28/18 07:00 Baso # (Auto) 0.02 K/mm3 (0.0-2.0) 11/28/18 07:00 Absolute Neuts (auto) 5.84 (1.4-6.5) 11/28/18 07:00 PT 11.1 SECONDS (9.4-12.5) 11/26/18 11:30 INR 1.00 11/26/18 11:30 APTT 33.7 Seconds (26.9-38.3) 11/26/18 11:30 Sodium 141 mmol/L (132-148) 11/28/18 07:00 Potassium 4.5 mmol/L (3.6-5.0) 11/28/18 07:00 Chloride 103 mmol/L (98-107) 11/28/18 07:00 Carbon Dioxide 32 mmol/L (21-33) 11/28/18 07:00 Anion Gap 12 (10-20) 11/28/18 07:00 BUN 25 mg/dL (7-21) H 11/28/18 07:00 Creatinine 1.3 mg/dl (0.8-1.5) 11/28/18 07:00 Est GFR ( Amer) > 60 11/28/18 07:00 Est GFR (Non-Af Amer) 55 11/28/18 07:00 Random Glucose 95 mg/dL (70-110) 11/28/18 07:00 Calcium 9.4 mg/dL (8.4-10.5) 11/28/18 07:00 Magnesium 1.9 mg/dL (1.7-2.2) 11/28/18 07:00 Total Bilirubin 0.5 mg/dL (0.2-1.3) 11/28/18 07:00 AST 42 U/L (17-59) 11/28/18 07:00 ALT 47 U/L (7-56) 11/28/18 07:00 Alkaline Phosphatase 65 U/L (38-126) 11/28/18 07:00 Troponin I < 0.01 ng/mL 11/26/18 11:40 NT-Pro-B Natriuret Pep 104 pg/mL (0-450) 11/26/18 11:40 Total Protein 6.8 g/dL (5.8-8.3) 11/28/18 07:00 Albumin 4.0 g/dL (3.0-4.8) 11/28/18 07:00 Globulin 2.8 gm/dL 11/28/18 07:00 Albumin/Globulin Ratio 1.4 (1.1-1.8) 11/28/18 07:00 Triglycerides 77 mg/dL (35-160) 11/27/18 06:30 Cholesterol 165 mg/dL (130-200) 11/27/18 06:30 LDL Cholesterol Direct 103 mg/dL (0-129) 11/27/18 06:30 HDL Cholesterol 55 mg/dL (29-60) 11/27/18 06:30 Free T4 1.21 ng/dL (0.78-2.19) 11/26/18 18:20 Free T3 pg/mL 3.46 pg/mL (2.77-5.27) 11/26/18 05:30 TSH 3rd Generation 2.85 mIU/mL (0.46-4.68) 11/26/18 18:20 Blood Type A POSITIVE 11/26/18 11:40 Antibody Screen Negative 11/26/18 11:40 BBK History Checked Patient has bt 11/26/18 11:40 Attending/Attestation - Attestation I have personally seen and examined this patient.: Yes I have fully participated in the care of the patient.: Yes I have reviewed all pertinent clinical information, including history, physical exam and plan: Yes Notes (Text): 11/29/18 15:35 Medical record note made by the resident after discussion with my direction and input after the patient was personally seen and examined by me. I have reviewed the chart and agree that the record accurately reflects by personal performance of the history, physical exam, data review, and medical decision-making, in the course for the patient. I have also personally directed the plan of care. 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 Patient was evaluated by cardiology and underwent cardiac catherization that revealed 70% stenosis in the proximal-mid RCA. RCA drug-eluting stent was placed. Patient was also treated with Doburamine infusion as recommended by cardiology for systolic heart failure. Patient dyspne has improved.He is on room air and is at his base line. Issue of compliance with medication was also discussed in detail with him.
== END 2018-11-28 13:29 | disposition home or self-care (01) | DRG 247 ==
LOC: ED 10:34 → ERH 12:51 → UNDOADMOB 12:51 → CATH 13:38 → 2RSO 15:20 → OBSVTOIN 11-27 16:56
PROVIDERS: ADMIT Internal Medicine; ATTEND Internal Medicine
PROC: 027034Z Dilation of Coronary Artery, One Artery with Drug-eluting Intraluminal Device, Percutaneous Approach (ICD-10-PCS; principal; 2018-11-26)
PROC: 4A023N7 Measurement of Cardiac Sampling and Pressure, Left Heart, Percutaneous Approach (ICD-10-PCS; 2018-11-26)
PROC: B211YZZ Fluoroscopy of Multiple Coronary Arteries using Other Contrast (ICD-10-PCS; 2018-11-26)
PROC: B215YZZ Fluoroscopy of Left Heart using Other Contrast (ICD-10-PCS; 2018-11-26)
PROC: 3E0F7GC Introduction of Other Therapeutic Substance into Respiratory Tract, Via Natural or Artificial Opening (ICD-10-PCS; 2018-11-27)
DX: I25.110 Atherosclerotic heart disease of native coronary artery with unstable angina pectoris (principal); J84.9 Interstitial pulmonary disease, unspecified; I50.20 Unspecified systolic (congestive) heart failure; I25.5 Ischemic cardiomyopathy; I42.0 Dilated cardiomyopathy; J44.9 Chronic obstructive pulmonary disease, unspecified; E03.9 Hypothyroidism, unspecified; F41.9 Anxiety disorder, unspecified; G47.33 Obstructive sleep apnea (adult) (pediatric); K21.9 Gastro-esophageal reflux disease without esophagitis; N40.0 Benign prostatic hyperplasia without lower urinary tract symptoms; E78.5 Hyperlipidemia, unspecified; M10.9 Gout, unspecified; Z93.0 Tracheostomy status; Z85.21 Personal history of malignant neoplasm of larynx; Z92.21 Personal history of antineoplastic chemotherapy; Z92.3 Personal history of irradiation; Z87.891 Personal history of nicotine dependence; Z85.118 Personal history of other malignant neoplasm of bronchus and lung; Z90.2 Acquired absence of lung [part of]; Z87.01 Personal history of pneumonia (recurrent)